=== PATIENT | male | born 1940 | race Caucasian/White ===

== ENCOUNTER 2021-12-24 20:34 | Inpatient (IN) | payer OTHER ==
[~2021-12-24] VITALS: Ht 177 cm; Wt 82.0 kg
[2021-12-24 23:25] VITALS: BP 112/63
--- OUTSIDE RECORDS SUMMARY | 2021-12-24 23:35 | XMS REPORT | Encounter Summary ---
Author Author Department [facility] RENEE emerson Organization [facility] Address Unknown Phone Unavailable Care Team Providers Care Senior Electrical Engineer Name Role Phone DARIN ELY PCP Unavailable Insurance Providers: All historical and current Section Date Range: From patient's date of to the date document was create d. This section includes the names of all active insurance providers for the hanane calvin Insurance Provider Type of Coverage Plan Name Start of Policy Co verage End of Policy Coverage Group Number Member ID Insurance Provider's Telephone N umber Policy Fisher's Name Patient's Relationship to Policy Fisher MEDICAID (WNR) MEDICAID MEDICAID Nov 03, 2014 MEDICAID [id number] [phone] ARRIAGARAERENEE PATIENT MEDICARE (WNR) MEDICARE (M) PART B Feb 02, 2020 PART B [id number] ARRIAGARENEE PATIENT MEDICARE (WNR) MEDICARE (M) PART A Jan 01, 2006 PART A [id number] BARTRAERENEE PATIENT MEDICARE (WNR) MEDICARE (M) PART A Jan 01, 2006 PART A [id number] [phone] RENEE ARRIAGA PATIENT Selected Encounter This section includes the information on record at [place] for the Encounter. Date/Time Encounter Type Encounter Description Reason Provider Source Jan 01, 2021 01:08 PM Outpatient Encounter ADMIN PAT ACTIVTIES (MASNO NCT) IHE Encounter Template Text not used by [place] Assessments - Encounter Diagnoses No Data Provided for This Section Plan of Treatment: Future Appointments (+ 6 months) and Future Tests (+/- 45 day s) The Plan of Treatment section includes future care activities for the patient fr om all [place] treatment facilities. This section includes future appointments and fu ture orders which are active, pending or scheduled. Future Appointments This section includes appointments that were scheduled t o occur 6 months from the date of the Encounter, up to a maximum of 20 appointme nts. The data comes from all [facility]. Appointment Date/Time Appointment Type Appointment Facili ty Name Jan 05, 2021 11:45 AM [facility] Feb 02, 2021 11:00 AM [facility] Feb 02, 2021 11:45 AM [facility] Jun 20, 2021 11:15 AM [facility] Jun 28, 2021 01:30 PM [facility] Jun 28, 2021 02:00 PM [facility] Jun 28, 2021 02:30 PM AMBULATORY - NONE [facility] Active, Pending, and Scheduled Orders This section includes a listing of several types of activ e, pending, and scheduled orders, including clinic medications orders, diagnosti c test orders, procedure orders and consult orders; where the start date of th e order is 45 days before the date of the Encounter or 45 days after the date o f the Encounter. The data comes from all [facility]. Test Date/Time Test Type Test Details Facility Name Feb 01, 2021 12:00 AM Laboratory - Chemistry Order COVID-19 DIAGNOSTIC (RESP PANEL) NASOPHARYNGEAL SWAB NASOPHARYNX SP [facility] Surgical Procedures: All associated to the encounter No Data Provided for This Section Lab Results: +/- 30 days of the encounter This section includes the Chemistry and Hematology Lab R esults on record with [place] for the patient. Radiology Reports and Pathology Report s are provided separately, in subsequent sections. Lab Results This section contains the Chemistry/Hematology Results christina t were resulted 30 days before or 30 days after the date of the Encounter. Date/Time Source Result Type Result - Unit Interpretation Reference Range Comment Dec 26, 2020 01:48 PM [facility] MICROALBUMIN (PETR,WI) RANDO M URINE Specimen Type: URINE Comment: Unable to perform calculation - Missing required test results Ordering Provider: DARIN ELY Report Released Date/Time: Dec 21, 2020 08:23 AM Reporting Lab: [facility] [address] [facility] [address] Performing Lab: [facility], [facility] [address] [facility] [address] *MICROALBUMIN,RAND <5 ug/mL *MICROALB/CREAT comment *UR CREATININE 43.6 mg/dL Dec 26, 2020 01:37 PM [facility] HEMOGLOBIN A1C Specimen T ype: BLOOD No comment entered. Ordering Provider: DARIN ELY Report Released Date/Time: Dec 21, 2020 08:23 AM Reporting Lab: [facility], [facility] [address] [facility] [address] Performing Lab[facility] [address] [facility] [address] HEMOGLOBIN A1C 7.1 % H 4.0-6.0 Dec 26, 2020 01:37 PM [facility] LDL DIRECT PETR,EK,WI Speci men Type: PLASMA No comment entered. Ordering Provider: DARIN ELY Report Released Date/Time: Dec 21, 2020 08:23 AM Reporting Lab: [facility], [facility] [address] [facility] [address] Performing Lab: [facility] [address] [facility] [address] LDL DIRECT PETR,EK,WI 97 mg/dL 0-99 Dec 26, 2020 01:37 PM [facility] CBC & DIFF Specimen T ype: BLOOD No comment entered. Ordering Provider: DARIN ELY Report Released Date/Time: Dec 21, 2020 08:23 AM Reporting Lab: [facility], [facility] [address] [facility] [address] Performing Lab: [facility] [address] [facility] [address] WBC 10.32 K/cmm 3.60-11.20 RBC 4.56 M/ul 4.10-5.70 HGB 13.2 g/dL 13.1-16.8 HCT 41.4 % 38.2-48.4 MCV 90.8 fl 80.1-98.5 MCH 28.9 pg 27.0-34.0 MCHC 31.9 g/dL L 33.0-36.0 PLATELET COUNT 323 K/cmm 150-400 MPV 10.3 fl 7.5-11.2 RDW 14.1 % 11.8-15.1 LYMPHOCYTES, AUTO% 23.6 % NEUTROPHILS, AUTO % 62.8 % MONOCYTES, AUTO% 10.6 % MONOCYTES, ABSOLUTE 1.09 K/cmm H 0.19-0.80 NEUTROPHILS, ABSOLUTE 6.48 K/cmm 2.10-8. 00 EOSINOPHILS, ABSOLUTE 0.20 K/cmm 0.00-0. 60 BASOPHILS, ABSOLUTE 0.04 K/cmm 0.00-0.20 EOSINOPHILS, AUTO% 1.9 % BASOPHILS, AUTO% 0.4 % LYMPHOCYTES, ABSOLUTE 2.44 K/cmm 0.77-4. 50 IMMATURE GRANS, ABSOLUTE 0.07 K/cmm H 0.00 -0.05 IMMATURE GRANS, AUTO % 0.7 % Dec 26, 2020 01:37 PM [facility] COMPREHENSIVE METABOLIC PA OFE Specimen Type: PLASMA No comment entered. Ordering Provider: DARIN ELY Report Released Date/Time: Dec 21, 2020 08:23 AM Reporting Lab: [facility] [address] [facility] [address] Performing Lab: [facility] [address] [facility] [id number] UREA NITROGEN mg/dL 22 mg/dL 9-25 GLUCOSE 112 mg/dL H 72-99 SODIUM 134 mEq/L L 136-145 POTASSIUM 5.0 mEq/L 3.5-5.0 CALCIUM (mg/dL) 10.0 mg/dL 8.4-10.4 PROTEIN,TOTAL 7.2 g/dL 6.0-8.6 ALBUMIN 3.7 g/dL 3.4-5.0 TOTAL BILIRUBIN 0.5 mg/dL 0.2-1.2 ASPARTATE TRANSAMINASE 11 U/L 5-34 ALANINE AMINOTRANSFERASE 8 U/L 8-40 ANION GAP 9.0 8-16 CHLORIDE 96 mEq/L L 98-107 CO2 29 mEq/L 22-31 ALKALINE PHOSPHATASE 64 U/L 40-150 EGFR 43.1 *CREATININE 1.56 mg/dL H 0.7-1.3 Dec 26, 2020 01:37 PM [facility] TSH Specimen T ype: SERUM No comment entered. Ordering Provider: DARIN ELY Report Released Date/Time: Dec 21, 2020 08:23 AM Reporting Lab: [facility] [address] [facility] [address] Performing Lab: [facility] [address] [facility] [address] TSH 4.605 uIU/mL 0.47-5.00 Dec 26, 2020 01:37 PM [facility] T4 FREE Specimen T ype: SERUM No comment entered. Ordering Provider: DARIN ELY Report Released Date/Time: Dec 21, 2020 08:23 AM Reporting Lab: [facility] [address] [facility] [address] Performing Lab: [facility] [address] [facility] [address] T4 FREE 1.25 ng/dL 0.70-1.48 Vital Signs: All taken on the encounter date No Data Provided for This Section Immunizations: All administered on the encounter date No Data Provided for This Section Social History: Smoking Status (Most current) and Tobacco Use (All prior to enco unter date) No Data Provided for This Section Advance Directives: All historical and current Section Date Range: From patient's date of to the date document was create d. This section includes ALL of a patient's completed or amen ded [place] Advance and Rescinded Directives. The entries below indicate that a direc tive exists for the patient, but an actual copy is not included with this docume nt. The data comes from all [place] facilities. Date Advance Directives Provider Source May 29, 2011 ADVANCE DIRECTIVE DISCUSSION VILLA CINTRON [facility] Dec 02, 2008 CLINICAL WARNING YASMIN PRADAHN [facility] [place] [facility] Radiology Reports: +/- 30 days of the encounter No Data Provided for This Section Pathology Reports: +/- 30 days of the encounter No Data Provided for This Section Encounter Notes: All associated encounter notes This section contains the clinical notes associated to the Encounter. Date/Time Encounter Note(s) Provider Source Jan 01, 2021 01:08 PM ADMINISTRATIVE NOTE: LOCAL TITLE: PETR-ADMINISTRATIVE NOTE STANDARD TITLE: ADMINISTRATIVE NOTE DATE OF NOTE: JAN 01, 2021@13:08 ENTRY DATE: JAN 01, 2021@13:08:05 AUTHOR: SELWYN LYNN EXP COSIGNER: URGENCY: STATUS: COMPLETED Attempted to contact patient with lab results, no answer and does not have voice mail set up. Will try again later. /sasha/ Selwyn LYNN LPN Signed: 01/01/2021 13:08 SELWYN LYNN [facility], [facility] [address]
--- OUTSIDE RECORDS SUMMARY | 2021-12-24 23:35 | XMS REPORT | Encounter Summary ---
Author Author [facility] RENEE emerson Organization [facility] Address Unknown Phone Unavailable Care Team Providers Care Rehabilitation Tech Name Role Phone DARIN ELY PCP Unavailable [...] (WNR) MEDICAID MEDICAID Nov 03, 2014 MEDICAID [id number] [phone] RENEE ARRIAGA PATIENT MEDICARE (WNR) MEDICARE (M) PART B Feb 02, 2020 PART B [id number] RENEE ARRIAGA PATIENT MEDICARE (WNR) MEDICARE (M) PART A Jan 01, 2006 PART A [id number] RENEE ARRIAGA PATIENT MEDICARE (WNR) MEDICARE (M) PART A Jan 01, 2006 PART A [id number] ARRIAGARENEE PATIENT Selected Encounter This section includes the information on record at [place] for the Encounter. Date/Time Encounter Type Encounter Description Reason Provider Source Dec 26, 2020 11:00 AM Outpatient Encounter PRIMARY CARE/MEDICINE IHE Encounter Template Text not used by [facility] Assessments - Encounter Diagnoses No Data Provided for This Section Plan of Treatment: Future Appointments (+ 6 months) and Future Tests (+/- 45 day s) The Plan of Treatment section includes future care activities for the patient fr om all [place] treatment facilities. This section includes future appointments and fu ture orders which are active, pending or scheduled. Future Appointments This section includes appointments that were scheduled t o occur 6 months from the date of the Encounter, up to a maximum of 20 appointme nts. The data comes from all [facility]. Appointment Date/Time Appointment Type Appointment Facili ty Name Dec 28, 2020 10:30 AM AMBULATORY - MEDICINE [facility] Jan 05, 2021 11:45 AM AMBULATORY - MEDICINE [facility] Feb 02, 2021 11:00 AM AMBULATORY - MEDICINE [facility] Feb 02, 2021 11:45 AM AMBULATORY - MEDICINE [facility] Jun 20, 2021 11:15 AM AMBULATORY - MEDICINE [facility] Active, Pending, and Scheduled Orders This section [...] the Encounter. The data comes from all [facility]. Test Date/Time Test Type Test Details Facility Name Feb 01, 2021 12:00 AM Laboratory - Chemistry Order COVID-19 DIAGNOSTIC (RESP PANEL) NASOPHARYNGEAL SWAB NASOPHARYNX SP [facility] Surgical Procedures: All associated to the encounter No Data Provided for This Section Lab Results: +/- 30 days of the encounter This section includes the Chemistry and Hematology Lab R esults on record with [place] for the patient. Radiology Reports and Pathology Report s are provided separately, in subsequent sections. Lab Results This section contains the Chemistry/Hematology Results christina t were resulted 30 days before or 30 days after the date of the Encounter. Date/Time Source Result Type Result - Unit Interpretation Reference Range Comment Dec 26, 2020 01:48 PM [facility] MICROALBUMIN (PETR,WI) RATNA M URINE Specimen Type: URINE Comment: Unable to perform calculation - Missing required test results Ordering Provider: DARIN ELY Report Released Date/Time: Dec 21, 2020 08:23 AM Reporting Lab: [facility] [address] [facility] [address] Performing Lab: [facility] [address] [facility] [address] *MICROALBUMIN,RAND <5 ug/mL *MICROALB/CREAT comment *UR CREATININE 43.6 mg/dL Dec 26, 2020 01:37 PM [facility] HEMOGLOBIN A1C Specimen T ype: BLOOD No comment entered. Ordering Provider: DARIN ELY Report Released Date/Time: Dec 21, 2020 08:23 AM Reporting Lab: [facility] [address] [facility] [address] Performing Lab: [facility] [address] [facility] [address] HEMOGLOBIN A1C 7.1 % H 4.0-6.0 Dec 26, 2020 01:37 PM [facility] LDL DIRECT PETR,EK,WI Speci men Type: PLASMA No comment entered. Ordering Provider: DARIN ELY Report Released Date/Time: Dec 21, 2020 08:23 AM Reporting Lab: [facility] [address] [facility] [address] Performing Lab: [facility] [address] [facility] [address] LDL DIRECT PETR,EK,WI 97 mg/dL 0-99 Dec 26, 2020 01:37 PM [facility] CBC & DIFF Specimen T ype: BLOOD No comment entered. Ordering Provider: DARIN ELY Report Released Date/Time: Dec 21, 2020 08:23 AM Reporting Lab: [facility] [address] [facility] [address] Performing Lab: [facility] [address] [facility] [address] WBC 10.32 K/cmm 3.60-11.20 RBC 4.56 M/ul [...] 0.7 % Dec 26, 2020 01:37 PM [facility] COMPREHENSIVE METABOLIC PA OFE Specimen Type: PLASMA No comment entered. Ordering Provider: DARIN ELY Report Released Date/Time: Dec 21, 2020 08:23 AM Reporting Lab: [facility] [address] [facility] [address] Performing Lab: [facility] [address] [place] [address] UREA NITROGEN mg/dL 22 mg/dL 9-25 GLUCOSE [...] H 0.7-1.3 Dec 26, 2020 01:37 PM [facility] TSH Specimen T ype: SERUM No comment entered. Ordering Provider: DARIN ELY Report Released Date/Time: Dec 21, 2020 08:23 AM Reporting Lab: [facility] [address] [facility] [address] Performing Lab: [facility] [address] [facility] [address] TSH 4.605 uIU/mL 0.47-5.00 Dec 26, 2020 01:37 PM [facility] T4 FREE Specimen T ype: SERUM No comment entered. Ordering Provider: DARIN ELY Report Released Date/Time: Dec 21, 2020 08:23 AM Reporting Lab: [facility] [address] [facility] [address] Performing Lab: [facility] [address] [facility] [address] T4 FREE 1.25 ng/dL 0.70-1.48 Vital Signs: All taken on the encounter date No Data Provided for This Section Immunizations: All administered on the encounter date No Data Provided for This Section Social History: Smoking Status (Most current) and Tobacco Use (All prior to enco unter date) This section includes the most current, and the historical, smoking and tobacco- related health factors from the [place] facility where the Encounter took place. Current Smoking Status This section includes the most current smoking, or tobacco -related health factor, from the [place] facility where the Encounter took place. Date/Time Current Smoking Status Comment Facility Jun 29, 2020 09:00 AM VA-TOBACCO USER EVERY DAY [facility] Tobacco Use History This section includes a history of the smoking, or tobacco -related health factors, that were collected on or before the date of the Encoun ter. The data comes from the [place] facility where the Encounter took place. Date/Time Smoking Status/Tobacco Use Comment Facil ity Jun 29, 2020 09:00 AM VA-TOBACCO USE ADVICE [facility] Jun 29, 2020 09:00 AM VA-TOBACCO USE EXPERIMENTAL WELDER NO [facility] Jun 29, 2020 09:00 AM VA-TOBACCO USE MED NO [facility] Jun 29, 2020 09:00 AM VA-TOBACCO USE WI 30 MIN OF WAKEUP N [facility] Jun 29, 2020 09:00 AM VA-TOBACCO USER EVERY DAY [facility] Jul 21, 2019 11:05 AM VA-TOBACCO USE 30 YEARS OR MORE [facility] Jul 21, 2019 11:05 AM VA-TOBACCO USE ADVICE [facility] Jul 21, 2019 11:05 AM VA-TOBACCO USE EXPERIMENTAL WELDER NO [facility] Jul 21, 2019 11:05 AM VA-TOBACCO USE MED NO [facility] Jul 21, 2019 11:05 AM VA-TOBACCO USE WI 30 MIN OF WAKEUP N [facility] Jul 21, 2019 11:05 AM VA-TOBACCO USER EVERY DAY [facility] Jun 29, 2018 01:31 PM CURRENT TOBACCO USER [facility] Jun 29, 2018 01:31 PM CURRENT TOBACCO USER (NOT READY TO RAJI T) [facility] Jun 29, 2018 01:31 PM TOBACCO CESSATION REFERRAL DECLINED [facility] Jun 29, 2018 01:31 PM TOBACCO MEDS OFFERED BUT DECLINED NE [facility] Jun 29, 2018 01:31 PM [facility] Dec 26, 2017 09:02 AM CURRENT TOBACCO USER [facility] Dec 26, 2017 09:02 AM CURRENT TOBACCO USER (NOT READY TO RAJI T) [facility] Dec 26, 2017 09:02 AM TOBACCO CESSATION REFERRAL DECLINED [facility] Dec 26, 2017 09:02 AM TOBACCO MEDS OFFERED BUT DECLINED [facility] Dec 26, 2017 09:02 AM TOBACCO USER OFFERED MEDS [facility] May 23, 2017 03:35 PM CURRENT TOBACCO USER [facility] May 23, 2017 03:35 PM CURRENT TOBACCO USER (NOT READY TO RAJI T) [facility] May 23, 2017 03:35 PM TOBACCO CESSATION REFERRAL DECLINED [facility] May 23, 2017 03:35 PM TOBACCO MEDS OFFERED BUT DECLINED [facility] May 23, 2017 03:35 PM TOBACCO USER OFFERED MEDS [facility] Apr 24, 2017 02:27 PM CURRENT TOBACCO USER [facility] Apr 24, 2017 02:27 PM TOBACCO MEDS OFFERED BUT DECLINED [facility] Apr 24, 2017 02:27 PM TOBACCO OFFERED STOP SMOKING CLINIC [facility] March 14, 2017 02:05 PM CURRENT TOBACCO USER [facility] March 14, 2017 02:05 PM TOBACCO MEDS OFFERED BUT DECLINED [facility] March 14, 2017 02:05 PM TOBACCO OFFERED STOP SMOKING CLINIC [facility] Apr 23, 2016 06:08 AM CURRENT TOBACCO USER [facility] Oct 18, 2015 06:02 AM CURRENT TOBACCO USER [facility] Apr 05, 2015 06:12 AM CURRENT TOBACCO USER [facility] Sep 14, 2014 06:21 AM CURRENT TOBACCO USER [facility] Dec 11, 2012 09:31 AM TOBACCO OFFERED STOP SMOKING CLINIC [facility] Dec 11, 2012 09:31 AM TOBACCO OFFERED STOP SMOKING MEDS NE [facility] Apr 16, 2012 12:53 PM CURRENT TOBACCO USER [facility] Jul 01, 2011 01:01 PM TOBACCO OFFERED STOP SMOKING CLINIC [facility] Jul 01, 2011 01:01 PM TOBACCO OFFERED STOP SMOKING MEDS NE [facility] Advance Directives: All historical and current Section Date Range: From patient's date of to the date document was create d. This section includes ALL of a patient's completed or amen ded [place] Advance and Rescinded Directives. The entries below indicate that a direc tive exists for the patient, but an actual copy is not included with this docume nt. The data comes from all [place] facilities. Date Advance Directives Provider Source May 29, 2011 ADVANCE DIRECTIVE DISCUSSION VILLA CINTRON [facility] Dec 02, 2008 CLINICAL WARNING YASMIN PRADHAN [facility] [place] [facility] Radiology Reports: +/- 30 days of the encounter No Data Provided for This Section Pathology Reports: +/- 30 days of the encounter No Data Provided for This Section Encounter Notes: All associated encounter notes This section contains the clinical notes associated to the Encounter. Date/Time Encounter Note(s) Provider Source Dec 25, 2020 03:35 PM ADMINISTRATIVE NOTE: LOCAL TITLE: PETR-APPT REMINDER STANDARD TITLE: ADMINISTRATIVE NOTE DATE OF NOTE: DEC 25, 2020@15:35 ENTRY DATE: DEC 25, 2020@15:35:30 AUTHOR: JARRED KATE EXP COSIGNER: URGENCY: STATUS: COMPLETED Reminder call placed to [place] at number of record this date. ___ with direct contact with and his/her agreement to present as scheduled; ___ Message left for regarding scheduled appointment _x__ Unable to establish contact. no answer and no vm /sasha/ JARRED KATE [employer] PLANT RELIABILITY ENGINEER Signed: 12/25/2020 15:36 JARRED KATE [facility]
--- OUTSIDE RECORDS SUMMARY | 2021-12-24 23:36 | XMS REPORT | Encounter Summary ---
Author Author Department [facility] RENEE emerson Organization Department [facility] Address Unknown Phone Unavailable Care Team Providers Care Turkey Farmer Name Role Phone DARIN ELY PCP Unavailable [...] (WNR) MEDICAID MEDICAID Nov 03, 2014 MEDICAID [id number] [phone] RENEE ARRIAGA PATIENT MEDICARE (WNR) MEDICARE (M) PART B Feb 02, 2020 PART B [id number] ARRIAGARAERENEE PATIENT MEDICARE (WNR) MEDICARE (M) PART A Jan 01, 2006 PART A [id number] ARRIAGARAERENEE PATIENT MEDICARE (WNR) MEDICARE (M) PART A Jan 01, 2006 PART A [id number] RENEE ARRIAGA PATIENT Selected Encounter This section includes the information on record at [place] for the Encounter. Date/Time Encounter Type Encounter Description Reason Provider Source Feb 15, 2021 02:05 PM Outpatient Encounter ADMIN PAT ACTIVTIES (MASNO NCT) IHE Encounter Template Text not used by [place] Assessments - Encounter Diagnoses No Data Provided for This Section Plan of Treatment: Future Appointments (+ 6 months) and Future Tests (+/- 45 day s) The Plan of Treatment section includes future care activities for the patient fr om all [place] treatment facilities. This section includes future appointments and fu ture orders which are active, pending or scheduled. Future Appointments This section includes appointments that were scheduled t o occur 6 months from the date of the Encounter, up to a maximum of 20 appointme nts. The data comes from all [facility]. Appointment Date/Time Appointment Type Appointment Facili ty Name Jun 20, 2021 11:15 AM AMBULATORY - MEDICINE [facility] Jun 28, 2021 01:30 PM AMBULATORY - MEDICINE [facility] Jun 28, 2021 02:00 PM AMBULATORY - MEDICINE [facility] Jun 28, 2021 02:30 PM AMBULATORY - NONE [facility] Jul 12, 2021 11:15 AM AMBULATORY - MEDICINE [facility] Jul 13, 2021 10:00 AM AMBULATORY - NONE [facility] T, V[facility] 15 Jul 23, 2021 03:20 PM AMBULATORY - NONE [facility], [facility] 15 Active, Pending, and Scheduled Orders This section [...] the Encounter. The data comes from all [facility]. Test Date/Time Test Type Test Details Facility Name Feb 01, 2021 12:00 AM Laboratory - Chemistry Order COVID-19 DIAGNOSTIC (RESP PANEL) NASOPHARYNGEAL SWAB NASOPHARYNX SP [facility] Surgical Procedures: All associated to the encounter No Data Provided for This Section Lab Results: +/- 30 days of the encounter This section includes the Chemistry and Hematology Lab R esults on record with [place] for the patient. Radiology Reports and Pathology Report s are provided separately, in subsequent sections. Lab Results This section contains the Chemistry/Hematology Results christina t were resulted 30 days before or 30 days after the date of the Encounter. Date/Time Source Result Type Result - Unit Interpretation Reference Range Comment Feb 02, 2021 10:31 AM [facility] BASIC METABOLIC PANEL Spe cimen Type: PLASMA No comment entered. Ordering Provider: DARIN ELY Report Released Date/Time: Dec 31, 2020 04:49 AM Reporting Lab: [facility] [address] [facility] [address] Performing Lab: [facility] [address] [facility] [address] *CREATININE 1.70 mg/dL H 0.7-1.3 UREA NITROGEN mg/dL 29 mg/dL H 9-25 GLUCOSE 110 mg/dL H 72-99 SODIUM 135 mEq/L L 136-145 POTASSIUM 5.0 mEq/L 3.5-5.0 CALCIUM (mg/dL) 9.6 mg/dL 8.4-10.4 ANION GAP 10.0 8-16 CHLORIDE 98 mEq/L 98-107 CO2 27 mEq/L 22-31 EGFR 39.0 Vital Signs: All taken on the encounter [...] of a patient's completed or amen ded [place] Advance and Rescinded Directives. The entries below indicate that a direc tive exists for the patient, but an actual copy is not included with this docume nt. The data comes from all [place] facilities. Date Advance Directives Provider Source May 29, 2011 ADVANCE DIRECTIVE DISCUSSION VILLA CINTRON [facility] Dec 02, 2008 CLINICAL WARNING YASMIN PRADHAN [facility] Radiology Reports: +/- 30 days of the encounter No Data Provided for This Section Pathology Reports: +/- 30 days of the encounter No Data Provided for This Section Encounter Notes: All associated encounter notes This section contains the clinical notes associated to the Encounter. Date/Time Encounter Note(s) Provider Source Feb 15, 2021 02:05 PM ADMINISTRATIVE NOTE: LOCAL TITLE: PETR-TEST RESULTS STANDARD TITLE: ADMINISTRATIVE NOTE DATE OF NOTE: FEB 15, 2021@14:05 ENTRY DATE: FEB 15, 2021@14:05:25 AUTHOR: SELWYN LYNN EXP COSIGNER: URGENCY: STATUS: COMPLETED Called and spoke to patient's Daughter Adrian relayed "Recheck creat elevated, 1.7, stable K+ okay, 5.0, high normal. Avoid high K+ foods, do not take any K+ supplements Remainder of lab okay Please notify patient." She verbalized understanding and will let patient know of results and recommendations. /sasha/ Selwyn LYNN LPN Signed: 02/15/2021 14:06 SELWYN LYNN [facility], [facility] 15
--- OUTSIDE RECORDS SUMMARY | 2021-12-24 23:36 | XMS REPORT | Encounter Summary ---
Author Author Department [facility] RENEE emerson Organization [facility] Address Unknown Phone Unavailable Care Team Providers Care Conversion Developer Name Role Phone DARIN ELY PCP Unavailable [...] (WNR) MEDICAID MEDICAID Nov 03, 2014 MEDICAID [id number] [phone] RAE ARRIAGAIL PATIENT MEDICARE (WNR) MEDICARE (M) PART B Feb 02, 2020 PART B [id number] ARRIAGARENEE PATIENT MEDICARE (WNR) MEDICARE (M) PART A Jan 01, 2006 PART A [id number] BARTRAERENEE PATIENT MEDICARE (WNR) MEDICARE (M) PART A Jan 01, 2006 PART A [id number] RENEE ARRIAGA PATIENT Selected Encounter This section includes the information on record at [place] for the Encounter. Date/Time Encounter Type Encounter Description Reason Provider Source Feb 01, 2021 08:18 AM Outpatient Encounter ADMIN PAT ACTIVTIES (MASNO NCT) [...] appointme nts. The data comes from all [facility]. Appointment Date/Time Appointment Type Appointment Facili ty Name Feb 02, 2021 11:00 AM AMBULATORY - MEDICINE [facility] Feb 02, 2021 11:45 AM AMBULATORY - MEDICINE [facility] Jun 20, 2021 11:15 AM AMBULATORY - MEDICINE [facility] Jun 28, 2021 01:30 PM AMBULATORY - MEDICINE [facility] Jun 28, 2021 02:00 PM AMBULATORY - MEDICINE [facility] Jun 28, 2021 02:30 PM AMBULATORY - NONE [facility] Jul 12, 2021 11:15 AM AMBULATORY MEDICINE [facility] Jul 13, 2021 10:00 AM AMBULATORY - NONE [facility] T, V[facility]N 15 Jul 23, 2021 03:20 PM AMBULATORY - NONE [facility] T, [facility] 15 Active, Pending, and Scheduled Orders [...] the Encounter. The data comes from all [facility]. Test Date/Time Test Type Test Details Facility Name Feb 01, 2021 12:00 AM Laboratory - Chemistry Order COVID-19 DIAGNOSTIC (RESP PANEL) NASOPHARYNGEAL SWAB NASOPHARYNX SP [facility] Surgical Procedures: All associated to the [...] Range Comment Feb 02, 2021 10:31 AM [facility] BASIC METABOLIC PANEL Spe cimen Type: PLASMA No comment entered. Ordering Provider: DARIN ELY Report Released Date/Time: Dec 31, 2020 04:49 AM Reporting Lab: [facility] [address] [facility] [address] Performing Lab: [facility] [address] [facility] [address] *CREATININE 1.70 mg/dL H 0.7-1.3 UREA NITROGEN [...] 29, 2011 ADVANCE DIRECTIVE DISCUSSION VILLA CINTRON [facility] Dec 02, 2008 CLINICAL WARNING YASMIN PRADHAN [facility] [place] [facility] Radiology Reports: +/- 30 days of the encounter No Data Provided for This Section Pathology Reports: +/- 30 days of the encounter No Data Provided for This Section Encounter Notes: All associated encounter notes This section contains the clinical notes associated to the Encounter. Date/Time Encounter Note(s) Provider Source Feb 01, 2021 08:18 AM ADMINISTRATIVE NOTE: LOCAL TITLE: PETR-ADMINISTRATIVE NOTE STANDARD TITLE: ADMINISTRATIVE NOTE DATE OF NOTE: FEB 01, 2021@08:18 ENTRY DATE: FEB 01, 2021@08:18:29 AUTHOR: UNIQUE PHILLIP EXP COSIGNER: URGENCY: STATUS: COMPLETED Attempt to contact patient was unsuccessful. Message left for to phone [facility] clinic and contact information left with message. /sasha/ UNIQUE PHILLIP RN, BSN Signed: 02/01/2021 08:18 UNIQUE PHILLIP [facility], [facility] 15
--- OUTSIDE RECORDS SUMMARY | 2021-12-24 23:36 | XMS REPORT | Encounter Summary ---
Author Author Department [facility] RENEE emerson Organization [facility] Address Unknown Phone Unavailable Care Team Providers Care Calculus Professor Name Role Phone DARIN ELY PCP Unavailable [...] (WNR) MEDICAID MEDICAID Nov 03, 2014 MEDICAID [id number] [phone] RAE ARRIAGAIL PATIENT MEDICARE (WNR) MEDICARE (M) PART B Feb 02, 2020 PART B [id number] ARRIAGARENEE PATIENT MEDICARE (WNR) MEDICARE (M) PART A Jan 01, 2006 PART A [id number] BARTRAERENEE PATIENT MEDICARE (WNR) MEDICARE (M) PART A Jan 01, 2006 PART A [id number] RENEE ARRIAGA PATIENT Selected Encounter This section includes the information on record at [place] for the Encounter. Date/Time Encounter Type Encounter Description Reason Provider Source Jul 24, 2021 03:38 PM Outpatient Encounter ADMIN PAT ACTIVTIES (MASNO NCT) IHE Encounter Template Text not used by [place] Assessments - Encounter Diagnoses No Data Provided for This Section Plan of Treatment: Future Appointments (+ 6 months) and Future Tests (+/- 45 day s) The Plan of Treatment section includes future care activities for the patient fr om all [place] treatment facilities. This section includes future appointments and fu ture orders which are active, pending or scheduled. Future Appointments This section includes appointments that were scheduled t o occur 6 months from the date of the Encounter, up to a maximum of 20 appointme nts. The data comes from all [facility]. Appointment Date/Time Appointment Type Appointment Facili ty Name Aug 29, 2021 11:15 AM AMBULATORY - MEDICINE [facility] Sep 25, 2021 12:30 PM AMBULATORY - MEDICINE [facility] Oct 09, 2021 12:30 PM AMBULATORY - MEDICINE [facility] Oct 30, 2021 11:00 AM AMBULATORY - MEDICINE [facility] Dec 10, 2021 10:00 AM [facility] Dec 25, 2021 10:45 AM AMBULATORY - MEDICINE [facility] Dec 27, 2021 01:30 PM [facility] MEDICINE [facility] Active, Pending, and Scheduled Orders This [...] The data comes from all [facility]. Test Date/Time Test Type Test Details Facility Name Jun 28, 2021 02:58 PM Consult Order COMMUNITY CARE- PULMONARY Cons [employer] [facility] Surgical Procedures: All associated to the encounter No Data Provided for This Section Lab Results: +/- 30 days of the encounter This section includes the Chemistry and Hematology Lab R esults on record with [place] for the patient. Radiology Reports and Pathology Report s are provided separately, in subsequent sections. Lab Results This section contains the Chemistry/Hematology Results christina t were resulted 30 days before or 30 days after the date of the Encounter. Date/Time Source Result Type Result - Unit Interpretation Reference Range Comment Jul 12, 2021 11:01 AM [facility] URINALYSIS (PETR) Specimen Type: URINE No comment entered. Ordering Provider: DARIN ELY Report Released Date/Time: Jun 20, 2021 07:48 AM Reporting Lab: [facility] [address] [facility] [address] Performing Lab: [facility] [address] [facility] [address] *URINE COLOR Yellow *URINE APPEARANCE Clear Clear *URINE PROTEIN Trace mg/dL Negative-Trac e *URINE LEUKOCYTE 1+ H Negative *URINE NITRITE Negative Negative *URINE BLOOD Negative Negative *URINE GLUCOSE Negative mg/dL Negative *URINE KETONES Negative mg/dL Negative *URINE PH 6.5 5.0-8.0 *URINE SPECIFIC GRAVITY 1.021 1.005- 1.030 *URINE BILIRUBIN Negative Negative *URINE UROBILINOGEN Normal mg/dL Normal *URINE WBC/HPF 11-15 /HPF H 0-5 *URINE RBC/HPF 3-5 /HPF H 0-2 *URINE BACTERIA TRACE /HPF H None *URINE SQUAMOUS EPITHELIAL 0-1 /HPF H Non e Jul 12, 2021 11:01 AM [facility] MICROALBUMIN (,[place]) RATNA M URINE Specimen Type: URINE No comment entered. Ordering Provider: DARIN ELY Report Released Date/Time: Jun 20, 2021 07:48 AM Reporting Lab: [facility] [address] [facility] [address] Performing Lab: [facility] [address] [facility] [address] *MICROALBUMIN,RAND 18 ug/mL *MICROALB/CREAT 12 *UR CREATININE 147.7 mg/dL Jul 12, 2021 11:01 AM [facility] BASIC METABOLIC PANEL Spe cimen Type: PLASMA No comment entered. Ordering Provider: DARIN ELY Report Released Date/Time: Jul 08, 2021 11:43 AM Reporting Lab: [facility] [address] [facility] [address] Performing Lab: [facility] [address] [facility] [address] *CREATININE 1.59 mg/dL H 0.7-1.3 UREA NITROGEN mg/dL 21 mg/dL 9-25 GLUCOSE 144 mg/dL H 72-99 SODIUM 135 mEq/L L 136-145 POTASSIUM 5.3 mEq/L H 3.5-5.0 CALCIUM (mg/dL) 9.7 mg/dL 8.4-10.4 ANION GAP 8.0 8-16 CHLORIDE 100 mEq/L 98-107 CO2 27 mEq/L 22-31 EGFR 42.1 Jun 28, 2021 02:11 PM [facility] BASIC METABOLIC PANEL Spe cimen Type: PLASMA No comment entered. Ordering Provider: DARIN ELY Report Released Date/Time: Jun 28, 2021 02:03 PM Reporting Lab: [facility] [address] [facility] [address] Performing Lab: [facility] [address] [facility] [address] *CREATININE 2.12 mg/dL H 0.7-1.3 UREA NITROGEN mg/dL 32 mg/dL H 9-25 GLUCOSE 156 mg/dL H 72-99 SODIUM 132 mEq/L L 136-145 POTASSIUM 5.6 mEq/L H 3.5-5.0 CALCIUM (mg/dL) 10.1 mg/dL 8.4-10.4 ANION GAP 7.0 L 8-16 CHLORIDE 98 mEq/L 98-107 CO2 27 mEq/L 22-31 EGFR 30.2 Jun 28, 2021 02:11 PM [facility] B-TYPE NATRIURETIC Specim en Type: PLASMA No comment entered. Ordering Provider: DARIN ELY Report Released Date/Time: Jun 28, 2021 02:03 PM Reporting Lab: [facility] [address] [facility] [address] Performing Lab: [facility] [address] [facility] [address] B-TYPE NATRIURETIC 40.8 pg/mL 0-100 Vital Signs: All taken on the encounter [...] of a patient's completed or amen ded [place] Advance and Rescinded Directives. The entries below indicate that a direc tive exists for the patient, but an actual copy is not included with this docume nt. The data comes from all [place] facilities. Date Advance Directives Provider Source May 29, 2011 ADVANCE DIRECTIVE DISCUSSION VILLA CINTRON [facility] Dec 02, 2008 CLINICAL WARNING YASMIN PRADHAN [facility] Radiology Reports: +/- 30 days of the encounter No Data Provided for This Section Pathology Reports: +/- 30 days of the encounter No Data Provided for This Section Encounter Notes: All associated encounter notes This section contains the clinical notes associated to the Encounter. Date/Time Encounter Note(s) Provider Source Jul 24, 2021 03:38 PM ADMINISTRATIVE NOTE: LOCAL TITLE: PETR-ADMINISTRATIVE NOTE STANDARD TITLE: ADMINISTRATIVE NOTE DATE OF NOTE: JUL 24, 2021@15:38 ENTRY DATE: JUL 24, 2021@15:38:39 AUTHOR: SELWYN LYNN EXP COSIGNER: URGENCY: STATUS: COMPLETED Called and left a message asking that patient return my call. Contact information left. /sasha/ Selwyn LYNN LPN Signed: 07/24/2021 15:38 SELWYN LYNN [facility] 15
--- OUTSIDE RECORDS SUMMARY | 2021-12-24 23:36 | XMS REPORT | Encounter Summary ---
Author Author Department [facility] RENEE emerson Organization [facility] Address Unknown Phone Unavailable Care Team Providers Care Container Filler Name Role Phone DARIN ELY PCP Unavailable [...] (WNR) MEDICAID MEDICAID Nov 03, 2014 MEDICAID [id number] [phone] RENEE ARRIAGA PATIENT MEDICARE (WNR) MEDICARE (M) PART B Feb 02, 2020 PART B [id number] ARRIAGARENEE PATIENT MEDICARE (WNR) MEDICARE (M) PART A Jan 01, 2006 PART A [id number] ARRIAGARAERENEE PATIENT MEDICARE (WNR) MEDICARE (M) PART A Jan 01, 2006 PART A [id number] RENEE ARRIAGA PATIENT Selected Encounter This section includes the information on record at [place] for the Encounter. Date/Time Encounter Type Encounter Description Reason Provider Source Jul 25, 2021 12:02 PM Outpatient Encounter ADMIN PAT ACTIVTIES (MASNO NCT) IHE Encounter Template Text not used by [place] Assessments - Encounter Diagnoses No Data Provided for This Section Plan of Treatment: Future Appointments (+ 6 months) and Future Tests (+/- 45 day s) The Plan of Treatment section includes future care activities for the patient fr om all [place] treatment facilities. This section includes future appointments and fu ture orders which are active, pending or scheduled. Future Appointments This section includes appointments that were scheduled t o occur 6 months from the date of the Encounter, up to a maximum of 20 appointme nts. The data comes from all [facility]. Appointment Date/Time Appointment Type Appointment Facili ty Name Aug 29, 2021 11:15 AM AMBULATORY - MEDICINE [facility] Sep 25, 2021 12:30 PM AMBULATORY - MEDICINE [facility] Oct 09, 2021 12:30 PM AMBULATORY - MEDICINE [facility] Oct 30, 2021 11:00 AM AMBULATORY - MEDICINE [facility] Dec 10, 2021 10:00 AM [facility] Dec 25, 2021 10:45 AM [facility]UL[facility] - MEDICINE [facility] Dec 27, 2021 01:30 PM [facility] MEDICINE [facility] Active, Pending, and Scheduled Orders This section [...] the Encounter. The data comes from all [facility]. Test Date/Time Test Type Test Details Facility Name Jun 28, 2021 02:58 PM Consult Order COMMUNITY CARE- PULMONARY Cons [employer] Inspector[employer] Choice [facility] Surgical Procedures: All associated to the encounter No Data Provided for This Section Lab Results: +/- 30 days of the encounter This section includes the Chemistry and Hematology Lab R esults on record with [place] for the patient. Radiology Reports and Pathology Report s are provided separately, in subsequent sections. Lab Results This section contains the Chemistry/Hematology Results christina t were resulted 30 days before or 30 days after the date of the Encounter. Date/Time Source Result Type Result - Unit Interpretation Reference Range Comment Jul 12, 2021 11:01 AM [facility] URINALYSIS (PETR) Specimen Type: URINE No comment entered. Ordering Provider: DARIN ELY Report Released Date/Time: Jun 20, 2021 07:48 AM Reporting Lab: [facility] [address] [facility] [address] Performing Lab: [facility] [address] [facility] [address] *URINE COLOR Yellow *URINE APPEARANCE Clear Clear [...] Non e Jul 12, 2021 11:01 AM [facility] MICROALBUMIN (,[place]) RATNA M URINE Specimen Type: URINE No comment entered. Ordering Provider: DARIN ELY Report Released Date/Time: Jun 20, 2021 07:48 AM Reporting Lab: [facility] [address] [facility] [address] Performing Lab: [facility] [address] [facility] [address] *MICROALBUMIN,RAND 18 ug/mL *MICROALB/CREAT 12 *UR CREATININE 147.7 mg/dL Jul 12, 2021 11:01 AM [facility] BASIC METABOLIC PANEL Spe cimen Type: PLASMA No comment entered. Ordering Provider: DARIN ELY Report Released Date/Time: Jul 08, 2021 11:43 AM Reporting Lab: [facility] [address] [facility] [address] Performing Lab: [facility] [address] [facility] [address] *CREATININE 1.59 mg/dL H 0.7-1.3 UREA NITROGEN [...] Jun 28, 2021 02:03 PM Reporting Lab: [facility] [address] [facility] [address] Performing Lab: [facility] [address] [facility] [address] *CREATININE 2.12 mg/dL H 0.7-1.3 UREA NITROGEN [...] Jun 28, 2021 02:03 PM Reporting Lab: [facility] [address] [facility] [address] Performing Lab: [facility] [address] [facility] [address] B-TYPE NATRIURETIC 40.8 pg/mL 0-100 Vital Signs: [...] of a patient's completed or amen ded [place] Advance and Rescinded Directives. The entries below indicate that a direc tive exists for the patient, but an actual copy is not included with this docume nt. The data comes from all [place] facilities. Date Advance Directives Provider Source May 29, 2011 ADVANCE DIRECTIVE DISCUSSION ABDULAZIZ,VILL[facility]GELA [facility] Dec 02, 2008 CLINICAL WARNING YASMIN PRADHAN [facility] Radiology Reports: +/- 30 days of the encounter No Data Provided for This Section Pathology Reports: +/- 30 days of the encounter No Data Provided for This Section Encounter Notes: All associated encounter notes This section contains the clinical notes associated to the Encounter. Date/Time Encounter Note(s) Provider Source Jul 25, 2021 12:02 PM ADMINISTRATIVE NOTE: LOCAL TITLE: PETR-TEST RESULTS STANDARD TITLE: ADMINISTRATIVE NOTE DATE OF NOTE: JUL 25, 2021@12:02 ENTRY DATE: JUL 25, 2021@12:02:21 AUTHOR: SELWYN LYNN EXP COSIGNER: URGENCY: STATUS: COMPLETED called and spoke to patient's Daughter Gloria relayed "Renal us as above already completed, shows renal cysts. Recommend to recheck bmp as above as recommended on renal consult. Lisinopril has been dc'd per renal consult. If no improvement in K+/renal function, can consider renal consult or resubmit an e consult. Please notify patient." She will let him know and reports they are agreeable to this plan. Will return for lab 08/14/2021@11:00 for repeat BMP. /sasha/ Selwyn LYNN LPN Signed: 07/25/2021 12:03 SELWYN LYNN [facility] 15
--- OUTSIDE RECORDS SUMMARY | 2021-12-24 23:37 | XMS REPORT | Encounter Summary ---
Author Author Department [facility] RENEE emerson Organization [facility] Address Unknown Phone Unavailable Care Team Providers Care Chief Order Dispatcher Name Role Phone DARIN ELY PCP Unavailable [...] (WNR) MEDICAID MEDICAID Nov 03, 2014 MEDICAID [id number] [phone] RAE ARRIAGAIL PATIENT MEDICARE (WNR) MEDICARE (M) PART B Feb 02, 2020 PART B [id number] [phone] ARRIAGARENEE PATIENT MEDICARE (WNR) MEDICARE (M) PART A Jan 01, 2006 PART A [id number] BARTRAERENEE PATIENT MEDICARE (WNR) MEDICARE (M) PART A Jan 01, 2006 PART A [id number] [phone] RENEE ARRIAGA PATIENT Selected Encounter This section includes the information on record at [place] for the Encounter. Date/Time Encounter Type Encounter Description Reason Provider Source Aug 24, 2021 01:38 PM Outpatient Encounter ADMIN PAT ACTIVTIES (MASNO NCT) IHE Encounter Template Text not used by [place] Assessments - Encounter Diagnoses No Data Provided for This Section Plan of Treatment: Future Appointments (+ 6 months) and Future Tests (+/- 45 day s) The Plan of Treatment section includes future care activities for the patient fr om all [place] treatment facilities. This section includes future appointments and fu ture orders which are active, pending or scheduled. Future Appointments This section includes appointments that were scheduled t o occur 6 months from the date of the Encounter, up to a maximum of 20 appointme nts. The data comes from all [place] treatment facilities. Appointment Date/Time Appointment Type Appointment Facili ty Name Aug 29, 2021 11:15 AM AMBULATORY - MEDICINE [facility] Sep 25, 2021 12:30 PM AMBULATORY - MEDICINE [facility] Oct 09, 2021 12:30 PM AMBULATORY - MEDICINE [facility] Oct 30, 2021 11:00 AM AMBULATORY - MEDICINE [facility] Dec 10, 2021 10:00 AM AMBULATORY - NONE [facility] T, [facility] 15 Dec 25, 2021 10:45 AM [facility] - MEDICINE [facility] Dec 27, 2021 01:30 PM [facility] MEDICINE [facility] Surgical Procedures: All associated to the encounter No Data Provided for This Section Lab Results: +/- 30 days of the encounter This section includes the Chemistry and Hematology Lab R esults on record with [place] for the patient. Radiology Reports and Pathology Report s are provided separately, in subsequent sections. Lab Results This section contains the Chemistry/Hematology Results christina t were resulted 30 days before or 30 days after the date of the Encounter. Date/Time Source Result Type Result - Unit Interpretation Reference Range Comment Aug 29, 2021 11:24 AM [facility] BASIC METABOLIC PANEL Spe cimen Type: PLASMA No comment entered. Ordering Provider: DARIN ELY Report Released Date/Time: Jul 14, 2021 11:57 AM Reporting Lab: [facility] [address] [facility] [address] Performing Lab: [facility] [address] [facility] [address] *CREATININE 1.37 mg/dL H 0.7-1.3 UREA NITROGEN mg/dL 17 mg/dL 9-25 GLUCOSE 116 mg/dL H 72-99 SODIUM 135 mEq/L L 136-145 POTASSIUM 4.7 mEq/L 3.5-5.0 CALCIUM (mg/dL) 9.8 mg/dL 8.4-10.4 ANION GAP 10.0 8-16 CHLORIDE 96 mEq/L L 98-107 CO2 29 mEq/L 22-31 EGFR 50.0 Vital Signs: All taken on the encounter [...] of a patient's completed or amen ded [place] Advance and Rescinded Directives. The entries below indicate that a direc tive exists for the patient, but an actual copy is not included with this docume nt. The data comes from all [place] facilities. Date Advance Directives Provider Source May 29, 2011 ADVANCE DIRECTIVE DISCUSSION [facility] Dec 02, 2008 CLINICAL WARNING YASMIN PRADHAN [facility] [place] [facility] Radiology Reports: +/- 30 days of the encounter No Data Provided for This Section Pathology Reports: +/- 30 days of the encounter No Data Provided for This Section Encounter Notes: All associated encounter notes This section contains the clinical notes associated to the Encounter. Date/Time Encounter Note(s) Provider Source Aug 24, 2021 01:39 PM LETTERS: LOCAL TITLE: PETR-UNABLE TO CONTACT PATIENT LETTER STANDARD TITLE: LETTERS DATE OF NOTE: AUG 24, 2021@13:39 ENTRY DATE: AUG 24, 2021@13:40:03 AUTHOR: RUTH GOLD COSIGNER: URGENCY: STATUS: COMPLETED Department of 's Affairs [facility] [address], [place] [address] AUG 24, 2021 RENEE ARRIAGA [address] [place], [place] [address] Dear RENEE ARRIAGA Please call us for an appointment. We have been trying to contact you to schedule an appointment at [place], but we were unsuccessful in reaching you by telephone. It is important to your health that you do not have delays in your care. Please contact us to schedule your appointment within 14 days from the date of this letter. Please call toll free or ext: [phone] Sincerely, PETR-RT [facility] [place] [facility] Aug 24, 2021 01:38 PM ADMINISTRATIVE NOTE: LOCAL TITLE: PETR-RETURN TO CLINIC STANDARD TITLE: ADMINISTRATIVE NOTE DATE OF NOTE: AUG 24, 2021@13:38 ENTRY DATE: AUG 24, 2021@13:38:07 AUTHOR: RUTH GOLD EXP COSIGNER: URGENCY: STATUS: COMPLETED CALLED TO SCHEDULE PETR-RT OUTPT JOSE ALBERTO FOR 3MONTH EVAL.UNABLE TO CONTACT THE . A HIPAA COMPLIANT MESSAGE WAS LEFT REQUESTING A CALL BACK AT EXT [phone] SENDING [facility] LETTER D/ C 09/07/2021 /sasha/ RUHT RUDOLPH Signed: 08/24/2021 13:39 RUTH GOLD [facility]
--- OUTSIDE RECORDS SUMMARY | 2021-12-24 23:37 | XMS REPORT | Encounter Summary ---
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 Date/Time Encounter Type Encounter Description Reason Provider Source Aug 24, 2021 08:32 AM Outpatient Encounter RESPIRATORY THERAPY IHE Encounter Template Text not used by [facility] Assessments - Encounter Diagnoses No Data Provided for This Section Plan of Treatment: Future Appointments (+ 6 months) and Future Tests (+/- 45 day s) The Plan of Treatment section includes future care activities for the patient fr om all [place] treatment facilities. This section includes future appointments and fu ture orders which are active, pending or scheduled. Future Appointments This section includes appointments that were scheduled t o occur 6 months from the date of the Encounter, up to a maximum of 20 appointme nts. The data comes from all [place] treatment [facility]. Appointment Date/Time Appointment Type Appointment Facili ty Name Aug 29, 2021 11:15 AM AMBULATORY - MEDICINE [facility] Sep 25, 2021 12:30 PM AMBULATORY - MEDICINE [facility] Oct 09, 2021 12:30 PM AMBULATORY - MEDICINE [facility] Oct 30, 2021 11:00 AM AMBULATORY - MEDICINE [facility] Dec 10, 2021 10:00 AM AMBULATORY - [facility] [place] [place] Dec 25, 2021 10:45 AM AMBULATORY - MEDICINE [facility] Dec 27, 2021 01:30 PM [facility] MEDICINE [facility] Surgical Procedures: All associated to the encounter No Data Provided for This Section Lab Results: +/- 30 days of the encounter This section includes the Chemistry and Hematology Lab R esults on record with [place] for the patient. Radiology Reports and Pathology Report s are provided separately, in subsequent sections. Lab Results This section contains the Chemistry/Hematology Results christina t were resulted 30 days before or 30 days after the date of the Encounter. Date/Time Source Result Type Result - Unit Interpretation Reference Range Comment Aug 29, 2021 11:24 AM [facility] BASIC METABOLIC PANEL Spe cimen Type: PLASMA No comment entered. Ordering Provider: DARIN ELY Report Released Date/Time: Jul 14, 2021 11:57 AM Reporting Lab: [facility] [address] [facility] [address] Performing Lab: [facility] [address] [facility] [address] *CREATININE 1.37 mg/dL H 0.7-1.3 UREA NITROGEN [...] and tobacco- related health factors from the [place] facility where the Encounter took place. Current Smoking Status This section includes the most current smoking, or tobacco -related health factor, from the [place] facility where the Encounter took place. Date/Time Current Smoking Status Comment Facility Jun 28, 2021 01:30 PM VA-TOBACCO FORMER USER [facility] Tobacco Use History This section includes a history of the smoking, or tobacco -related health factors, that were collected on or before the date of the Encoun ter. The data comes from the [place] facility where the Encounter took place. Date/Time Smoking Status/Tobacco Use Comment 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 JOSE ALBERTO [facility] Jun 29, 2020 09:00 AM VA-TOBACCO USE MED NO JOSE ALBERTO [facility] Jun 29, 2020 09:00 AM VA-TOBACCO USE WI 30 MIN OF WAKEUP N EVADA [facility] Jun 29, 2020 09:00 AM VA-TOBACCO USER EVERY DAY JOSE ALBERTO CBO C Jul 21, 2019 11:05 AM VA-TOBACCO USE 30 YEARS OR MORE TOBI DA CB Jul 21, 2019 11:05 AM VA-TOBACCO USE ADVICE JOSE ALBERTO CB Jul 21, 2019 11:05 AM 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 NO JOSE ALBERTO CBO C Jul 21, 2019 11:05 AM VA-TOBACCO USE MED NO JOSE ALBERTO CB Jul 21, 2019 11:05 AM VA-TOBACCO USE WI 30 MIN OF WAKEUP N EVADA CB Jul 21, 2019 11:05 AM VA-TOBACCO USER EVERY DAY JOSE ALBERTO CBO C Jun 29, 2018 01:31 PM CURRENT TOBACCO USER [facility] ALBERTO [facility] Jun 29, 2018 01:31 PM CURRENT TOBACCO USER (NOT READY TO RAJI T) JOSE ALBERTO CB Jun 29, 2018 01:31 PM TOBACCO CESSATION REFERRAL DECLINED [facility] Jun 29, 2018 01:31 PM TOBACCO MEDS OFFERED BUT DECLINED [facility] Jun 29, 2018 01:31 PM TOBACCO USER OFFERED MEDS [facility] Dec 26, 2017 09:02 AM CURRENT TOBACCO USER [facility] Dec 26, 2017 09:02 AM CURRENT TOBACCO USER (NOT READY TO RAJI T) [facility] Dec 26, 2017 09:02 AM TOBACCO CESSATION REFERRAL DECLINED [facility] Dec 26, 2017 09:02 AM TOBACCO MEDS OFFERED BUT DECLINED [facility] Dec 26, 2017 09:02 AM TOBACCO USER OFFERED MEDS [facility] May 23, 2017 03:35 PM CURRENT TOBACCO USER [facility] May 23, 2017 03:35 PM CURRENT TOBACCO USER (NOT READY TO RAJI T) [facility] May 23, 2017 03:35 PM TOBACCO CESSATION REFERRAL DECLINED [facility] May 23, 2017 03:35 PM TOBACCO MEDS OFFERED BUT DECLINED [facility] May 23, 2017 03:35 PM TOBACCO USER OFFERED MEDS [facility] Apr 24, 2017 02:27 PM CURRENT TOBACCO USER [facility] Apr 24, 2017 02:27 PM TOBACCO MEDS OFFERED BUT DECLINED [facility] Apr 24, 2017 02:27 PM TOBACCO OFFERED STOP SMOKING CLINIC [facility] March 14, 2017 02:05 PM CURRENT TOBACCO USER [facility] March 14, 2017 02:05 PM TOBACCO MEDS OFFERED BUT DECLINED [facility] March 14, 2017 02:05 PM TOBACCO OFFERED STOP SMOKING CLINIC [facility] Apr 23, 2016 06:08 AM CURRENT TOBACCO USER [facility] Oct 18, 2015 06:02 AM CURRENT TOBACCO USER [facility] Apr 05, 2015 06:12 AM CURRENT TOBACCO USER [facility] Sep 14, 2014 06:21 AM CURRENT TOBACCO USER [facility] Dec 11, 2012 09:31 AM TOBACCO OFFERED STOP SMOKING CLINIC [facility] Dec 11, 2012 09:31 AM TOBACCO OFFERED STOP SMOKING MEDS [facility] Apr 16, 2012 12:53 PM CURRENT TOBACCO USER [facility] Jul 01, 2011 01:01 PM TOBACCO OFFERED STOP SMOKING CLINIC [facility] Jul 01, 2011 01:01 PM TOBACCO OFFERED STOP SMOKING MEDS [facility] Advance Directives: All historical and current Section [...] docume nt. The data comes from all [place] facilities. Date Advance Directives Provider Source May 29, 2011 ADVANCE DIRECTIVE DISCUSSION VILLA CINTRON [facility] Dec 02, 2008 CLINICAL WARNING YASMIN PRADHAN [facility] [place] [facility] Radiology Reports: +/- 30 days of the encounter No Data Provided for This Section Pathology Reports: +/- 30 days of the encounter No Data Provided for This Section Encounter Notes: All associated encounter notes This section contains the clinical notes associated to the Encounter. Date/Time Encounter Note(s) Provider Source Aug 24, 2021 08:32 AM ADMINISTRATIVE NOTE: LOCAL TITLE: PETR-PULMONARY ADMINISTRATIVE STANDARD TITLE: ADMINISTRATIVE NOTE DATE OF NOTE: AUG 24, 2021@08:32 ENTRY DATE: AUG 24, 2021@08:32:36 AUTHOR: ANDREINA ACHARYA EXP COSIGNER: URGENCY: STATUS: COMPLETED Mr. Alfaro is a new [place] home oxygen patient. Will ask that he be seen by Respiratory Therapy at the [facility] for a 3 month evaluation. RTC placed 09/24/21 /sasha/ ANDREINA ACHARYA respiratory therapist Signed: 08/24/2021 08:33 ANDREINA ACHARYA [facility]
--- OUTSIDE RECORDS SUMMARY | 2021-12-24 23:38 | XMS REPORT | Encounter Summary ---
Author Author Department [facility] RENEE emerson Organization [facility] Address Unknown Phone Unavailable Care Team Providers Care Mosaic Technician Name Role Phone DARIN ELY PCP Unavailable Insurance Providers: All historical and current Section Date Range: From patient's date of to the date document was create d. This section includes the names of all active insurance providers for the hanane calvni Insurance Provider Type of Coverage Plan Name Start of Policy Co verage End of Policy Coverage Group Number Member ID Insurance Provider's Telephone N umber Policy Fisher's Name Patient's Relationship to Policy Fisher MEDICAID (WNR) MEDICAID MEDICAID Nov 03, 2014 MEDICAID [id number] [phone] RENEE ARRIAGA PATIENT MEDICARE (WNR) MEDICARE (M) PART B Feb 02, 2020 PART B [id number] [phone] ARRIAGARAERENEE PATIENT MEDICARE (WNR) MEDICARE (M) PART A Jan 01, 2006 PART A [id number] [phone] ARRIAGARAERENEE PATIENT MEDICARE (WNR) MEDICARE (M) PART A Jan 01, 2006 PART A [id number] [phone] RENEE ARRIAGA PATIENT Selected Encounter This section includes the information on record at [place] for the Encounter. Date/Time Encounter Type Encounter Description Reason Provider Source Sep 12, 2021 09:17 AM Outpatient Encounter ADMIN PAT ACTIVTIES (MASNO NCT) IHE Encounter Template Text not used by [place] Assessments - Encounter Diagnoses No Data Provided for This Section Plan of Treatment: Future Appointments (+ 6 months) and Future Tests (+/- 45 day s) The Plan of Treatment section includes future care activities for the patient fr om all [place] treatment facilities. This section includes future appointments and fu ture orders which are active, pending or scheduled. Future Appointments This section includes appointments that were scheduled t o occur 6 months from the date of the Encounter, up to a maximum of 20 appointme nts. The data comes from all [place] treatment [facility]. Appointment Date/Time Appointment Type Appointment Facili ty Name Sep 25, 2021 12:30 PM AMBULATORY - MEDICINE [facility] Oct 09, 2021 12:30 PM AMBULATORY - MEDICINE [facility] Oct 30, 2021 11:00 AM AMBULATORY - MEDICINE [facility] Dec 10, 2021 10:00 AM AM[facility]ULATORY - [facility] T, [facility] 15 Dec 25, 2021 10:45 AM AMBULATORY - MEDICINE [facility] Dec 27, 2021 01:30 PM AMBULATORY - MEDICINE [facility] Surgical Procedures: All associated to the encounter No Data Provided for This Section Lab Results: +/- 30 days of the encounter This section includes the Chemistry and Hematology Lab R esults on record with [place] for the patient. Radiology Reports and Pathology Report s are provided separately, in subsequent sections. Lab Results This section contains the Chemistry/Hematology Results christina t were resulted 30 days before or 30 days after the date of the Encounter. Date/Time Source Result Type Result - Unit Interpretation Reference Range Comment Aug 29, 2021 11:24 AM [facility] BASIC METABOLIC PANEL Spe cimen Type: PLASMA No comment entered. Ordering Provider: DARIN ELY Report Released Date/Time: Jul 14, 2021 11:57 AM Reporting Lab: [facility] [address] [place] [facility] [address] Performing Lab: [facility] [address] [place] [facility] [address] *CREATININE 1.37 mg/dL H 0.7-1.3 UREA NITROGEN [...] of a patient's completed or amen ded [place] Advance and Rescinded Directives. The entries below indicate that a direc tive exists for the patient, but an actual copy is not included with this docume nt. The data comes from all [place] facilities. Date Advance Directives Provider Source May 29, 2011 ADVANCE DIRECTIVE DISCUSSION VILLA CINTRON [facility] Dec 02, 2008 CLINICAL WARNING YASMIN PRADHAN [facility] [place] [facility] Radiology Reports: +/- 30 days of the encounter No Data Provided for This Section Pathology Reports: +/- 30 days of the encounter No Data Provided for This Section Encounter Notes: All associated encounter notes This section contains the clinical notes associated to the Encounter. Date/Time Encounter Note(s) Provider Source Sep 12, 2021 09:17 AM ADMINISTRATIVE NOTE: LOCAL TITLE: PETR-RETURN TO CLINIC STANDARD TITLE: ADMINISTRATIVE NOTE DATE OF NOTE: SEP 12, 2021@09:17 ENTRY DATE: SEP 12, 2021@09:17:19 AUTHOR: RUTH GOLD EXP COSIGNER: URGENCY: STATUS: COMPLETED RTC FOR PETR-RT OUTPT [place] HAS BEEN DISPOSITIONED REMOVED/NO LONGER NECESSARY PER [facility] SCHEDULING PROTOCOL. /sasha/ RUTH GOLD AMSAlirio Signed: 09/12/2021 09:18 Receipt Acknowledged By: * AWAITING SIGNATURE * ANDREINA ACHARYA SARAH [facility] 15
--- OUTSIDE RECORDS SUMMARY | 2021-12-24 23:38 | XMS REPORT | Encounter Summary ---
Author Author Department [facility] RENEE emerson Organization 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 Date/Time Encounter Type Encounter Description Reason Provider Source Oct 15, 2021 12:40 PM Outpatient Encounter ADMIN PAT ACTIVTIES (MASNO NCT) IHE Encounter Template Text not used by [place] Assessments - Encounter Diagnoses No Data Provided for This Section Plan of Treatment: Future Appointments (+ 6 months) and Future Tests (+/- 45 day s) The Plan of Treatment section includes future care activities for the patient fr om all [place] treatment facilities. This section includes future appointments and fu ture orders which are active, pending or scheduled. Future Appointments This section includes appointments that were scheduled t o occur 6 months from the date of the Encounter, up to a maximum of 20 appointme nts. The data comes from all [place] treatment [facility]. Appointment Date/Time Appointment Type Appointment Facili ty Name Oct 30, 2021 11:00 AM AMBULATORY - MEDICINE [facility] Dec 10, 2021 10:00 AM AMBULATORY - NONE [facility] T, VISN 15 Dec 25, 2021 10:45 AM AMBULATORY - MEDICINE [facility] Dec 27, 2021 01:30 PM AMBULATORY - MEDICINE [facility] Active, Pending, and Scheduled Orders This section [...] the Encounter. The data comes from all [place] treatment [facility]. Test Date/Time Test Type Test Details Facility Name Oct 29, 2021 12:00 AM Laboratory - Chemistry Order COVID-19 DIAGNOSTIC (RESP PANEL) NASOPHARYNGEAL SWAB NASOPHARYNX SP [facility] Surgical Procedures: All associated to the encounter No Data Provided for This Section Lab Results: +/- 30 days of the encounter No Data Provided for This Section Vital Signs: All taken on the encounter [...] docume nt. The data comes from all [place] facilities. Date Advance Directives Provider Source May 29, 2011 ADVANCE DIRECTIVE DISCUSSION VILLA CINTRON [facility] Dec 02, 2008 CLINICAL WARNING YASMIN PRADHAN [facility] [place] [facility] Radiology Reports: +/- 30 days of the encounter No Data Provided for This Section Pathology Reports: +/- 30 days of the encounter No Data Provided for This Section Encounter Notes: All associated encounter notes This section contains the clinical notes associated to the Encounter. Date/Time Encounter Note(s) Provider Source Oct 15, 2021 12:44 PM PULMONARY NOTE: LOCAL TITLE: -HOME 0-2 RECERTIFICATION STANDARD TITLE: PULMONARY NOTE DATE OF NOTE: OCT 15, 2021@12:44 ENTRY DATE: OCT 15, 2021@12:44:34 AUTHOR: ANDREINA ACHARYA EXP COSIGNER: URGENCY: STATUS: COMPLETED Patient re-evaluated in the oxygen clinic and recertified with Respiratory Therapy at the [facility]-isn't using the oxygen Additional Supplies Requested: None RTC entered for 09/15/22 /sandeep ACHARYA respiratory therapist Signed: 10/15/2021 12:45 Receipt Acknowledged By: 10/15/2021 13:46 /sasha/ MARLEE FERNANDEZ, PHLEBOTOMIST SUPERVISOR/INSTRUCTOR RESPIRATORY THERAPIST * AWAITING SIGNATURE * EMILIE OLIVEROS BECKY [facility], [facility] 15
--- OUTSIDE RECORDS SUMMARY | 2021-12-24 23:38 | XMS REPORT | Encounter Summary ---
Author Author Department [facility] RENEE emerson Organization [facility] [address] Address Unknown Phone Unavailable Care Team Providers Care Finnish Rubber Name Role Phone DARIN ELY PCP Unavailable [...] (WNR) MEDICAID MEDICAID Nov 03, 2014 MEDICAID [id number] [phone] RENEE ARRIAGA PATIENT MEDICARE (WNR) MEDICARE (M) PART B Feb 02, 2020 PART B [id number] ARRIAGARAERENEE PATIENT MEDICARE (WNR) MEDICARE (M) PART A Jan 01, 2006 PART A [id number] ARRIAGARAERENEE PATIENT MEDICARE (WNR) MEDICARE (M) PART A Jan 01, 2006 PART A [id number] RENEE ARRIAGA PATIENT Selected Encounter This section includes the information on record at [place] for the Encounter. Date/Time Encounter Type Encounter Description Reason Provider Source Sep 25, 2021 12:30 PM Outpatient Encounter ADMIN PAT ACTIVTIES (MASNO NCT) IHE Encounter Template Text not used by [place] Assessments - Encounter Diagnoses No Data Provided for This Section Plan of Treatment: Future Appointments (+ 6 months) and Future Tests (+/- 45 day s) The Plan of Treatment section includes future care activities for the patient fr om all [place] treatment facilities. This section includes future appointments and fu ture orders which are active, pending or scheduled. Future Appointments This section includes appointments that were scheduled t o occur 6 months from the date of the Encounter, up to a maximum of 20 appointme nts. The data comes from all [facility]. Appointment Date/Time Appointment Type Appointment Facili ty Name Oct 09, 2021 12:30 PM AMBULATORY - MEDICINE [facility] Oct 30, 2021 11:00 AM AMBULATORY - MEDICINE [facility] Dec 10, 2021 10:00 AM AMBULATORY - NONE MEDICINE [facility] 15 Dec 25, 2021 10:45 AM AMBULATORY - MEDICINE [facility] Dec 27, 2021 01:30 PM AMBULATORY - MEDICINE [facility] Active, Pending, and Scheduled Orders This [...] the Encounter. The data comes from all [facility]. Test Date/Time Test Type Test Details Facility Name Oct 29, 2021 12:00 AM Laboratory - Chemistry Order COVID-19 DIAGNOSTIC (RESP PANEL) NASOPHARYNGEAL SWAB NASOPHARYNX SP [facility] Surgical Procedures: All associated to the encounter No Data Provided for This Section Lab Results: +/- 30 days of the encounter This section includes the Chemistry and Hematology Lab R esults on record with [place] for the patient. Radiology Reports and Pathology [...] Jul 14, 2021 11:57 AM [facility] [address] [facility] [address] Performing Lab: [facility] [address] [facility] [address] *CREATININE 1.37 mg/dL H 0.7-1.3 UREA NITROGEN [...] of a patient's completed or amen ded [place] Advance and Rescinded Directives. The entries below indicate that a direc tive exists for the patient, but an actual copy is not included with this docume nt. The data comes from all [place] facilities. Date Advance Directives Provider Source May 29, 2011 ADVANCE DIRECTIVE DISCUSSION VILLA CINTRON [facility] Dec 02, 2008 CLINICAL WARNING YASMIN PRADHAN [facility] [place] [facility] Radiology Reports: +/- 30 days of the encounter No Data Provided for This Section Pathology Reports: +/- 30 days of the encounter No Data Provided for This Section Encounter Notes: All associated encounter notes This section contains the clinical notes associated to the Encounter. Date/Time Encounter Note(s) Provider Source Sep 25, 2021 12:47 PM ADMINISTRATIVE NOTE: LOCAL TITLE: PETR-PULMONARY ADMINISTRATIVE STANDARD TITLE: ADMINISTRATIVE NOTE DATE OF NOTE: SEP 25, 2021@12:47 ENTRY DATE: SEP 25, 2021@12:47:50 AUTHOR: EMILIE OLIVEROS COSIGNER: URGENCY: STATUS: COMPLETED SUBJECT: Home oxygen no-show [place] was a No-Show for his appointment scheduled for 1230 for a home oxygen follow up today. [place] will need to be rescheduled. He does have a community care pulmonary follow up on November [address] Antoine. /sasha/ EMILIE OLIVEROS Respiratory Therapist Signed: 09/25/2021 12:50 Receipt Acknowledged By: * AWAITING SIGNATURE * ANDREINA ACHARYA,EMILIE Amezquita [facility], [facility]
--- OUTSIDE RECORDS SUMMARY | 2021-12-24 23:38 | XMS REPORT | Encounter Summary ---
Author Author Department [employer] RENEE emerson Organization [facility] Address Unknown Phone Unavailable Care Team Providers Care Ticker Installer Name Role Phone DARIN ELY PCP Unavailable [...] (WNR) MEDICAID MEDICAID Nov 03, 2014 MEDICAID [id number] [phone] RAE ARRIAGAIL PATIENT MEDICARE (WNR) MEDICARE (M) PART B Feb 02, 2020 PART B [id number] ARRIAGARENEE PATIENT MEDICARE (WNR) MEDICARE (M) PART A Jan 01, 2006 PART A [id number] BARTRAERENEE PATIENT MEDICARE (WNR) MEDICARE (M) PART A Jan 01, 2006 PART A [id number] [phone] RENEE ARRIAGA PATIENT Selected Encounter This section includes the information on record at [place] for the Encounter. Date/Time Encounter Type Encounter Description Reason Provider Source Oct 16, 2021 01:47 PM Outpatient Encounter ADMIN PAT ACTIVTIES (MASNO NCT) IHE Encounter Template Text not used by [place] Assessments - Encounter Diagnoses No Data Provided for This Section Plan of Treatment: Future Appointments (+ 6 months) and Future Tests (+/- 45 day s) The Plan of Treatment section includes future care activities for the patient fr om all [place] treatment facilities. This section includes future appointments and fu ture orders which are active, pending or scheduled. Future Appointments This section includes appointments that were scheduled t o occur 6 months from the date of the Encounter, up to a maximum of 20 appointme nts. The data comes from all [place] treatment [facility]. Appointment Date/Time Appointment Type Appointment Facili ty Name Oct 30, 2021 11:00 AM AMBULATORY - MEDICINE [facility] Dec 10, 2021 10:00 AM AMBULATORY - NONE [facility], [facility] 15 Dec 25, 2021 10:45 AM AMBULATORY - MEDICINE [facility] Dec 27, 2021 01:30 PM AMBULATORY - MEDICINE [facility] Active, Pending, and Scheduled Orders This section [...] the Encounter. The data comes from all [place] treatment [facility]. Test Date/Time Test Type Test Details Facility Name Oct 29, 2021 12:00 AM Laboratory - Chemistry Order COVID-19 DIAGNOSTIC (RESP PANEL) NASOPHARYNGEAL SWAB NASOPHARYNX SP [facility] Surgical Procedures: All associated to the encounter [...] docume nt. The data comes from all [place] facilities. Date Advance Directives Provider Source May 29, 2011 ADVANCE DIRECTIVE DISCUSSION VILLA CINTRON [facility] Dec 02, 2008 CLINICAL WARNING YASMIN PRADHAN [facility] [place] [facility] Radiology Reports: +/- 30 days of the encounter No Data Provided for This Section Pathology Reports: +/- 30 days of the encounter No Data Provided for This Section Encounter Notes: All associated encounter notes This section contains the clinical notes associated to the Encounter. Date/Time Encounter Note(s) Provider Source Oct 16, 2021 01:50 PM LETTERS: LOCAL TITLE: PETR-UNABLE TO CONTACT PATIENT LETTER STANDARD TITLE: LETTERS DATE OF NOTE: OCT 16, 2021@13:50 ENTRY DATE: OCT 16, 2021@13:50:40 AUTHOR: RUTH GOLD EXP COSIGNER: URGENCY: STATUS: COMPLETED Department of 's Affairs [facility] [address] [place] [address] OCT 16, 2021 RENEE ARRIAGA [address] [place], [place] [address] Dear RENEE ARRIAGA Please call us for an appointment. We have been trying to contact you to schedule an appointment at [place], but we were unsuccessful in reaching you by telephone. It is important to your health that you do not have delays in your care. Please contact us to schedule your appointment within 14 days from the date of this letter. Please call toll free or ext: [phone] Sincerely, PETR-RT OUTPT [facility] ALBERTO [facility] Oct 16, 2021 01:47 PM ADMINISTRATIVE NOTE: LOCAL TITLE: PETR-RETURN TO CLINIC STANDARD TITLE: ADMINISTRATIVE NOTE DATE OF NOTE: OCT 16, 2021@13:47 ENTRY DATE: OCT 16, 2021@13:48:04 AUTHOR: RUTH GOLDIGNER: URGENCY: STATUS: COMPLETED CALLED TO SCHEDULE KR-RT OUTPT JOSE ALBERTO FOR 12 MONTH EVAL. UNABLE TO LEAVE A MESSAGE LINE STATED HE IS NOT EXCEPTING ANY INCOMING CALLS.[facility] D/C 10/30/2021 /sasha/ RUTH RUDOLPH Signed: 10/16/2021 13:50 [facility]
--- OUTSIDE RECORDS SUMMARY | 2021-12-24 23:38 | XMS REPORT | Encounter Summary ---
Author Author Department [facility] RENEE emerson Organization [facility] Address Unknown Phone Unavailable Care Team Providers Care Utility Lineman Name Role Phone DARIN ELY PCP Unavailable [...] (WNR) MEDICAID MEDICAID Nov 03, 2014 MEDICAID [id number] [phone] RENEE ARRIAGA PATIENT MEDICARE (WNR) MEDICARE (M) PART B Feb 02, 2020 PART B [id number] ARRIAGARAERENEE PATIENT MEDICARE (WNR) MEDICARE (M) PART A Jan 01, 2006 PART A [id number] ARRIAGARAERENEE PATIENT MEDICARE (WNR) MEDICARE (M) PART A Jan 01, 2006 PART A [id number] [phone] RENEE ARRIAGA PATIENT Selected Encounter This section includes the information on record at [place] for the Encounter. Date/Time Encounter Type Encounter Description Reason Provider Source Sep 26, 2021 12:25 PM Outpatient Encounter ADMIN PAT ACTIVTIES (MASNO NCT) IHE Encounter Template Text not used by [place] Assessments - Encounter Diagnoses No Data Provided [...] appointme nts. The data comes from all [facility]. Appointment Date/Time Appointment Type Appointment Facili ty Name Oct 09, 2021 12:30 PM AMBULATORY - MEDICINE [facility] Oct 30, 2021 11:00 AM AMBULATORY - MEDICINE [facility] Dec 10, 2021 10:00 AM AMBULATORY - NONE [facility] 15 Dec 25, 2021 10:45 AM AMBULATORY - MEDICINE [facility] Dec 27, 2021 01:30 PM AMBULATORY - MEDICINE [facility] Active, Pending, and Scheduled Orders [...] the Encounter. The data comes from all [facility]. Test Date/Time Test Type Test Details Facility Name Oct 29, 2021 12:00 AM Laboratory - Chemistry Order COVID-19 DIAGNOSTIC (RESP PANEL) NASOPHARYNGEAL SWAB NASOPHARYNX SP [facility] Surgical Procedures: All associated to [...] Range Comment Aug 29, 2021 11:24 AM [facility] BASIC METABOLIC PANEL Spe cimen Type: PLASMA No comment entered. Ordering Provider: DARIN ELY Report Released Date/Time: Jul 14, 2021 11:57 AM Reporting Lab: [facility] [address] [facility] [address] Performing Lab: [facility] [address] [place] [address]. [facility] [address] *CREATININE 1.37 mg/dL H 0.7-1.3 UREA NITROGEN [...] of a patient's completed or amen ded [place] Advance and Rescinded Directives. The entries below indicate that a direc tive exists for the patient, but an actual copy is not included with this docume nt. The data comes from all [place] facilities. Date Advance Directives Provider Source May 29, 2011 ADVANCE DIRECTIVE DISCUSSION VILLA CINTRON [facility] Dec 02, 2008 CLINICAL WARNING YASMIN PRADHAN [facility] [place] [facility] Radiology Reports: +/- 30 days of the encounter No Data Provided for This Section Pathology Reports: +/- 30 days of the encounter No Data Provided for This Section Encounter Notes: All associated encounter notes This section contains the clinical notes associated to the Encounter. Date/Time Encounter Note(s) Provider Source Sep 26, 2021 12:28 PM LETTERS: LOCAL TITLE: PETR-UNABLE TO CONTACT PATIENT LETTER STANDARD TITLE: LETTERS DATE OF NOTE: SEP 26, 2021@12:28 ENTRY DATE: SEP 26, 2021@12:28:07 AUTHOR: RUTH GOLD COSIGNER: URGENCY: STATUS: COMPLETED Department of 's Affairs [facility] [address] [place], [place] [address] SEP 26, 2021 RENEE ARRIAGA [address] [place], [place] [address] Dear RENEE ARRIAGA Please call us for an appointment. We have been trying to contact you to schedule an appointment at [facility], but we were unsuccessful in reaching you by telephone. It is important to your health that you do not have delays in your care. Please contact us to schedule your appointment within 14 days from the date of this letter. Please call toll free or ext: [phone] Sincerely, PETR-RT OUTPT [facility]UTH TRAMMELL [facility] Sep 26, 2021 12:26 PM ADMINISTRATIVE NOTE: LOCAL TITLE: PETR-RETURN TO CLINIC STANDARD TITLE: ADMINISTRATIVE NOTE DATE OF NOTE: SEP 26, 2021@12:26 ENTRY DATE: SEP 26, 2021@12:26:03 AUTHOR: RUTH GOLD COSIGNER: URGENCY: STATUS: COMPLETED ATTEMPED TO CALL TO SCHEDULE THEIR APPOINTMENT FOR PETR-RT OUTPT JOSE ALBERTO. UNABLE TO CONTACT THE . A HIPPA COMPLIANT MESSAGE WAS LEFT REQUESTING A CALL BACK AT [phone] EXT [phone]. SENDING [facility] LETTER 10/10/2021 /sasha/ RUTH GOLD AMSAlirio Signed: 09/26/2021 12:27 [facility] GOLD [facility]
--- OUTSIDE RECORDS SUMMARY | 2021-12-24 23:39 | XMS REPORT | Encounter Summary ---
Author Author Department [facility] RENEE emerson Organization Department [facility] Address Unknown Phone Unavailable Care Team Providers Care Industrial Safety And Health Manager Name Role Phone DARIN ELY PCP Unavailable [...] (WNR) MEDICAID MEDICAID Nov 03, 2014 MEDICAID [id number] [phone] RAE ARRIAGAIL PATIENT MEDICARE (WNR) MEDICARE (M) PART B Feb 02, 2020 PART B [id number] ARRIAGARENEE PATIENT MEDICARE (WNR) MEDICARE (M) PART A Jan 01, 2006 PART A [id number] BARTRAERENEE PATIENT MEDICARE (WNR) MEDICARE (M) PART A Jan 01, 2006 PART A [id number] [phone] RENEE ARRIAGA PATIENT Selected Encounter This section includes the information on record at [place] for the Encounter. Date/Time Encounter Type Encounter Description Reason Provider Source Nov 06, 2021 04:16 PM Outpatient Encounter ADMIN PAT ACTIVTIES (MASNO NCT) IHE Encounter Template Text not used by [place] Assessments - Encounter Diagnoses No Data Provided for This Section Plan of Treatment: Future Appointments (+ 6 months) and Future Tests (+/- 45 day s) The Plan of Treatment section includes future care activities for the patient fr om all [facility]. This section includes future appointments and fu ture orders which are active, pending or scheduled. Future Appointments This section includes appointments that were scheduled t o occur 6 months from the date of the Encounter, up to a maximum of 20 appointme nts. The data comes from all [facility]. Appointment Date/Time Appointment Type Appointment Facili ty Name Dec 10, 2021 10:00 AM AMBULATORY - NONE [facility] T, [facility] 15 Dec 25, 2021 10:45 AM AMBULATORY - MEDICINE [facility] Dec 27, 2021 01:30 PM AMBULATORY - MEDICINE [facility] Active, Pending, and Scheduled Orders [...] the Encounter. The data comes from all [facility]. Test Date/Time Test Type Test Details Facility Name Oct 29, 2021 12:00 AM Laboratory - Chemistry Order COVID-19 DIAGNOSTIC (RESP PANEL) NASOPHARYNGEAL SWAB NASOPHARYNX [facility] Dec 20, 2021 12:00 AM Laboratory - Chemistry Order CBC & DIF F 5 ML LAVENDER TOP BLOOD [facility] Dec 20, 2021 12:00 AM Laboratory - Chemistry Order COMPREHEN SIVE METABOLIC PANEL GREEN TOP TUBE PLASMA [facility] Dec 20, 2021 12:00 AM Laboratory - Chemistry Order LIPID PROFILE(HDL,TRIG,CHOL,LDL) GREEN TOP TUBE PLASMA [facility] Dec 20, 2021 12:00 AM Laboratory - Chemistry Order URINALYSI S (PETR) URIN,RAND URINE [facility] Dec 20, 2021 12:00 AM Laboratory - Chemistry Order MICROALBU MIN (PETR,[place]) RANDOM URINE URIN,RAND URINE [facility] Dec 20, 2021 12:00 AM Laboratory - Chemistry Order HEMOGLOBI N A1C [facility]END[facility]LOOD [facility] Dec 20, 2021 12:00 AM Laboratory - Chemistry Order TSH SST GEL S AFTAB [facility] Dec 20, 2021 12:00 AM Laboratory - Chemistry Order T4 FREE SST G EL SERUM [facility] 15 Surgical Procedures: All associated to the encounter [...] 29, 2011 ADVANCE DIRECTIVE DISCUSSION VILLA CINTRON [facility] Dec 02, 2008 CLINICAL WARNING YASMIN PRADHAN [facility] [place] [facility] Radiology Reports: +/- 30 days of the encounter No Data Provided for This Section Pathology Reports: +/- 30 days of the encounter No Data Provided for This Section Encounter Notes: All associated encounter notes This section contains the clinical notes associated to the Encounter. Date/Time Encounter Note(s) Provider Source Nov 06, 2021 04:16 PM ADMINISTRATIVE NOTE: LOCAL TITLE: PETR-RETURN TO CLINIC STANDARD TITLE: ADMINISTRATIVE NOTE DATE OF NOTE: NOV 06, 2021@16:16 ENTRY DATE: NOV 06, 2021@16:16:55 AUTHOR: RUTH GOLD EXP COSIGNER: URGENCY: STATUS: COMPLETED DISPOSITIONED RTC FOR PETR-RT OUTPT [place] DUE TO MANDATED SCHEDULING EFFORTS NO REPONSE FROM /sasha/ RUTH RUDOLPH Signed: 11/06/2021 16:18 RUTH GOLD [facility], [facility] 15
--- OUTSIDE RECORDS SUMMARY | 2021-12-24 23:39 | XMS REPORT | Encounter Summary ---
Author Author Department [facility] RENEE emerson Organization [facility] Address Unknown Phone Unavailable Care Team Providers Care Piece Meat Trimmer Name Role Phone DARIN ELY PCP Unavailable [...] (WNR) MEDICAID MEDICAID Nov 03, 2014 MEDICAID [id number] [phone] RAE ALFAROIL PATIENT MEDICARE (WNR) MEDICARE (M) PART B Feb 02, 2020 PART B [id number] ALFARORENEE PATIENT MEDICARE (WNR) MEDICARE (M) PART A Jan 01, 2006 PART A [id number] BARTRAERENEE PATIENT MEDICARE (WNR) MEDICARE (M) PART A Jan 01, 2006 PART A [id number] RENEE ALFARO PATIENT Selected Encounter This section includes the information on record at [place] for the Encounter. Date/Time Encounter Type Encounter Description Reason Provider Source Nov 08, 2021 09:03 AM Outpatient Encounter ADMIN PAT ACTIVTIES (MASNO NCT) IHE Encounter Template Text not used by [place] Assessments - Encounter Diagnoses No Data Provided for This Section Plan of Treatment: Future Appointments (+ 6 months) and Future Tests (+/- 45 day s) The Plan of Treatment section includes future care activities for the patient fr om all [facility]. This section includes future appointments and fu ture orders which are active, pending or scheduled. Future Appointments This section includes appointments that were scheduled t o occur 6 months from the date of the Encounter, up to a maximum of 20 appointme nts. The data comes from all [facility]. Appointment Date/Time Appointment Type Appointment Facili ty Name Dec 10, 2021 10:00 AM AMBULATORY - NONE [facility] T, [facility] 15 Dec 25, 2021 10:45 AM AMBULATORY - MEDICINE [facility] Dec 27, 2021 01:30 PM AMBULATORY - MEDICINE [facility] Active, Pending, and Scheduled Orders This [...] the Encounter. The data comes from all [facility]. Test Date/Time Test Type Test Details Facility Name Oct 29, 2021 12:00 AM Laboratory - Chemistry Order COVID-19 DIAGNOSTIC (RESP PANEL) NASOPHARYNGEAL SWAB NASOPHARYNX [facility] Dec 20, 2021 12:00 AM Laboratory - Chemistry Order CBC & DIF F 5 ML LAVENDER TOP BLOOD [facility] Dec 20, 2021 12:00 AM Laboratory - Chemistry Order COMPREHEN SIVE METABOLIC PANEL GREEN TOP TUBE PLASMA [facility] Dec 20, 2021 12:00 AM Laboratory - Chemistry Order LIPID PROFILE(HDL,TRIG,CHOL,LDL) GREEN TOP TUBE PLASMA [facility] Dec 20, 2021 12:00 AM Laboratory - Chemistry Order URINALYSI S (PETR) URIN,RAND URINE [facility] Dec 20, 2021 12:00 AM Laboratory - Chemistry Order MICROALBU MIN (PETR,[place]I) RANDOM URINE URIN,RAND URINE [facility] Dec 20, 2021 12:00 AM Laboratory - Chemistry Order HEMOGLOBI N A1C LAVENDER TOP BLOOD [facility] Dec 20, 2021 12:00 AM Laboratory - Chemistry Order TSH SST GEL S AFTAB [facility] Dec 20, 2021 12:00 AM Laboratory - Chemistry Order T4 FREE SST G EL SERUM [facility], [facility] 15 Surgical Procedures: All associated to [...] of a patient's completed or amen ded [place] Advance and Rescinded Directives. The entries below indicate that a direc tive exists for the patient, but an actual copy is not included with this docume nt. The data comes from all [place] facilities. Date Advance Directives Provider Source May 29, 2011 ADVANCE DIRECTIVE DISCUSSION VILLA CINTRON [facility] Dec 02, 2008 CLINICAL WARNING YASMIN PRADHAN [facility] [place] [facility] Radiology Reports: +/- 30 days of the encounter No Data Provided for This Section Pathology Reports: +/- 30 days of the encounter No Data Provided for This Section Encounter Notes: All associated encounter notes This section contains the clinical notes associated to the Encounter. Date/Time Encounter Note(s) Provider Source Nov 08, 2021 09:03 AM ADMINISTRATIVE NOTE: LOCAL TITLE: PETR-PULMONARY ADMINISTRATIVE STANDARD TITLE: ADMINISTRATIVE NOTE DATE OF NOTE: NOV 08, 2021@09:03 ENTRY DATE: NOV 08, 2021@09:03:51 AUTHOR: ANDREINA ACHARYA EXP COSIGNER: URGENCY: STATUS: COMPLETED Mr. Alfaro is a [place] home oxygen patient. His last evaluation was last October. When he was called to schedule his next 12 month evaluation he didn't answer so a was left a message and a letter was sent out by the slasher runner with no response. An unable to contact letter will be going out today from the oxygen clinic stating that he needs to call for an appointment or risk losing the oxygen /sasha/ ANDREINA ACHARYA respiratory therapist Signed: 11/08/2021 09:07 ANDREINA ACHARYA [facility], [facility] 15
--- OUTSIDE RECORDS SUMMARY | 2021-12-24 23:39 | XMS REPORT | Encounter Summary ---
[facility] Organization Department [facility] Address Unknown Phone Unavailable Care Team Providers Care Aircraft Steel Fabricator Name Role Phone DARIN ELY PCP Unavailable [...] (WNR) MEDICAID MEDICAID Nov 03, 2014 MEDICAID [id number] [phone] RENEE ARRIAGA PATIENT MEDICARE (WNR) MEDICARE (M) PART B Feb 02, 2020 PART B [id number] RENEE ARRIAGA PATIENT MEDICARE (WNR) MEDICARE (M) PART A Jan 01, 2006 PART A [id number] RENEE ARRIAGA PATIENT MEDICARE (WNR) MEDICARE (M) PART A Jan 01, 2006 PART A [id number] RENEE ARRIAGA PATIENT Selected Encounter This section includes the information on record at [place] for the Encounter. Date/Time Encounter Type Encounter Description Reason Provider Source Oct 29, 2021 01:16 PM HC PRO PHONE CALL 5-10 MIN TELEPHONE PRIMA RY CARE ICD-10-CM R68.89 Other general symptoms and signs with Provider Comments: General Symptoms & Signs SELWYN LYNN Encounter Template Text not used by [facility] Assessments - Encounter Diagnoses This section includes the primary and secondary diag noses documented for the Encounter. Date/Time Primary/Secondary Diagnosis Diagnosis Name Provider Source Oct 29, 2021 01:16 PM PRIMARY Other general symptoms and signs SELWYN LYNN Plan of Treatment: Future Appointments (+ 6 months) and Future Tests (+/- 45 day s) The Plan of Treatment section includes future care activities for the patient fr om all [place] treatment facilities. This section includes future appointments and fu ture orders which are active, pending or scheduled. Future Appointments This section includes appointments that were scheduled t o occur 6 months from the date of the Encounter, up to a maximum of 20 appointme nts. The data comes from all [facility]. Appointment Date/Time Appointment Type Appointment Facili ty Name Oct 30, 2021 11:00 AM AMBULATORY - MEDICINE [facility] Dec 10, 2021 10:00 AM AMBULATORY - [facility] T, VISN 15 Dec 25, 2021 10:45 AM AMBULATORY - MEDICINE [facility] Dec 27, 2021 01:30 PM AMBULATORY - MEDICINE [facility] Active, Pending, and Scheduled Orders This section [...] the Encounter. The data comes from all [facility]. Test Date/Time Test Type Test Details Facility Name Oct 29, 2021 12:00 AM Laboratory - Chemistry Order COVID-19 DIAGNOSTIC (RESP PANEL) NASOPHARYNGEAL SWAB [facility] Surgical Procedures: All associated to the encounter This section includes all Surgical Procedures and Surgical Procedure Notes assoc iated to the Encounter. Surgical Procedures This section includes all Surgical Procedures associated to the Encounter. Surgical Procedure Date/Time Procedure Procedure Type Procedure Qualifiers Provider Source Oct 29, 2021 01:16 PM HC PRO PHONE CALL 5-10 MIN HC PRO PHONE CALL 5-10 MIN SELWYN LYNN NASIR Surgical Notes There are no notes associated with this procedure. Lab Results: +/- 30 days of the [...] and tobacco- related health factors from the [place] facility where the Encounter took place. Current Smoking Status This section includes the most current smoking, or tobacco -related health factor, from the [place] facility where the Encounter took place. Date/Time Current Smoking Status Comment Facility Jun 28, 2021 01:30 PM VA-TOBACCO FORMER USER [facility] Tobacco Use History This section includes a history of the smoking, or tobacco -related health factors, that were collected on or before the date of the Encoun ter. The data comes from the [place] facility where the Encounter took place. Date/Time Smoking Status/Tobacco Use Comment Facil it Jun 28, 2021 01:30 PM VA-TOBACCO QUIT < 1 YEAR [facility] Jun 29, 2020 09:00 AM VA-TOBACCO USE 30 YEARS OR MORE [facility] Jun 29, 2020 09:00 AM VA-TOBACCO USE ADVICE [facility] Jun 29, 2020 09:00 AM VA-TOBACCO USE AIRPORT PLANNER NO [facility] Jun 29, 2020 09:00 AM VA-TOBACCO USE MED NO [facility] Jun 29, 2020 09:00 AM VA-TOBACCO USE WI 30 MIN OF WAKEUP N [facility] Jun 29, 2020 09:00 AM VA-TOBACCO USER EVERY DAY [facility] Jul 21, 2019 11:05 AM VA-TOBACCO USE 30 YEARS OR MORE [facility] Jul 21, 2019 11:05 AM VA-TOBACCO USE ADVICE [facility] Jul 21, 2019 11:05 AM VA-TOBACCO USE AIRPORT PLANNER NO [facility] Jul 21, 2019 11:05 AM VA-TOBACCO USE MED NO [facility] Jul 21, 2019 11:05 AM VA-TOBACCO USE WI 30 MIN OF WAKEUP N [facility] Jul 21, 2019 11:05 AM [facility] Jun 29, 2018 01:31 PM CURRENT TOBACCO USER [facility] Jun 29, 2018 01:31 PM CURRENT TOBACCO USER (NOT READY TO RAJI T) [facility] Jun 29, 2018 01:31 PM TOBACCO CESSATION REFERRAL DECLINED [facility] Jun 29, 2018 01:31 PM TOBACCO MEDS OFFERED BUT DECLINED [facility] Jun 29, 2018 01:31 PM TOBACCO USER OFFERED [facility] Dec 26, 2017 09:02 AM CURRENT TOBACCO USER [facility] Dec 26, 2017 09:02 AM CURRENT TOBACCO USER (NOT READY TO RAJI T) [facility] Dec 26, 2017 09:02 AM TOBACCO CESSATION REFERRAL DECLINED [facility] Dec 26, 2017 09:02 AM TOBACCO MEDS OFFERED BUT DECLINED [facility] Dec 26, 2017 09:02 AM TOBACCO USER OFFERED MEDS [place] [facility] May 23, 2017 03:35 PM CURRENT TOBACCO USER [place] [facility] May 23, 2017 03:35 PM CURRENT TOBACCO USER (NOT READY TO RAJI T) [facility] May 23, 2017 03:35 PM TOBACCO CESSATION REFERRAL DECLINED [facility] May 23, 2017 03:35 PM TOBACCO MEDS OFFERED BUT DECLINED [facility] May 23, 2017 03:35 PM TOBACCO USER OFFERED [facility]S [place] [facility] Apr 24, 2017 02:27 PM CURRENT TOBACCO USER [facility] Apr 24, 2017 02:27 PM TOBACCO MEDS OFFERED BUT DECLINED [facility] Apr 24, 2017 02:27 PM TOBACCO OFFERED STOP SMOKING CLINIC [facility] March 14, 2017 02:05 PM CURRENT TOBACCO USER [facility] March 14, 2017 02:05 PM TOBACCO MEDS OFFERED BUT DECLINED [facility] March 14, 2017 02:05 PM TOBACCO OFFERED STOP SMOKING CLINIC [facility] Apr 23, 2016 06:08 AM CURRENT TOBACCO USER [facility] Oct 18, 2015 06:02 AM CURRENT TOBACCO USER [facility] Apr 05, 2015 06:12 AM CURRENT TOBACCO USER [facility] Sep 14, 2014 06:21 AM CURRENT TOBACCO USER [facility] Dec 11, 2012 09:31 AM TOBACCO OFFERED STOP SMOKING CLINIC [facility] Dec 11, 2012 09:31 AM TOBACCO OFFERED STOP SMOKING MEDS [facility] Apr 16, 2012 12:53 PM CURRENT TOBACCO USER [facility] Jul 01, 2011 01:01 PM TOBACCO OFFERED STOP SMOKING CLINIC [facility] Jul 01, 2011 01:01 PM TOBACCO OFFERED STOP SMOKING MEDS [place] [facility] Advance Directives: All historical and current Section [...] docume nt. The data comes from all [place] facilities. Date Advance Directives Provider Source May 29, 2011 ADVANCE DIRECTIVE DISCUSSION VILLA CINTRON [facility] Dec 02, 2008 CLINICAL WARNING YASMIN PRADHAN [facility] [place] [facility] Radiology Reports: +/- 30 days of the encounter No Data Provided for This Section Pathology Reports: +/- 30 days of the encounter No Data Provided for This Section Encounter Notes: All associated encounter notes This section contains the clinical notes associated to the Encounter. Date/Time Encounter Note(s) Provider Source Oct 29, 2021 01:16 PM PRIMARY CARE TELEPHONE ENCOU NTER NOTE: LOCAL TITLE: PETR-PC TELEPHONE/PACT STANDARD TITLE: PRIMARY CARE TELEPHONE ENCOUNTER NOTE DATE OF NOTE: OCT 29, 2021@13:16 ENTRY DATE: OCT 29, 2021@13:16:59 AUTHOR: SELWYN LYNN COSIGNER: URGENCY: STATUS: COMPLETED Contact Number: . Reason for Call: Return Daughters call. Complaint/Problem: Daughter Nataliya reports that patient has been sick for 1 week. He has has fevers, productive cough, sore throat, and no taste. Asked what patient has been taking? She reports mucenex, OTC cold tab for people with high blood pressure, and ibuprofen. She also reports that there have been several ill in the house and that her niece was diagnosed with 2 different viruses, but not covid. She reports that his O2 sat is running from 70's to the 90's. He is wearing his oxygen at 2-3 liters and continues to be sob at times. Told her to have patient continue to wear the oxygen 24 hours a day until feeling better or O2 will stay in the 90's. She verbalized understanding. Told her that I would ask Dr. Castillo to order resp. panel, and schedule him. She states that will have to be when her is at lunch around 11:00. Also encouraged her to have him go to the Er for evaluation if he becomes more short of breath or if O2 in 80's. She verbalized understanding. Plan of Care:Encouraged to have patient evaluated in the ER. Will ask Dr. Castillo to order respritory panel for 10/30/2021@11:00. Education: As above. Follow-up: Per recall and PRN. Number of minutes spent with patient on the phone: 8 min. /sasha/ Selwyn LYNN LPN Signed: 10/29/2021 13:39 Receipt Acknowledged By: 10/29/2021 14:07 /sasha/ STEWART BARRETT HER STAFF PHYSICIAN, SELWYN HINOJOSA OC
--- OUTSIDE RECORDS SUMMARY | 2021-12-24 23:39 | XMS REPORT | Encounter Summary ---
[facility] Address Unknown Phone Unavailable Care Team Providers Care Associate Professor Of Surgery Name Role Phone DARIN ELY PCP Unavailable [...] (WNR) MEDICAID MEDICAID Nov 03, 2014 MEDICAID [id number] [phone] RENEE ARRIAGA PATIENT MEDICARE (WNR) MEDICARE (M) PART B Feb 02, 2020 PART B [id number] RENEE ARRIAGA PATIENT MEDICARE (WNR) MEDICARE (M) PART A Jan 01, 2006 PART A [id number] RENEE ARRIAGA PATIENT MEDICARE (WNR) MEDICARE (M) PART A Jan 01, 2006 PART A [id number] ARRIAGARENEE PATIENT Selected Encounter This section includes the information on record at [place] for the Encounter. Date/Time Encounter Type Encounter Description Reason Provider Source Oct 09, 2021 12:30 PM MEASURE BLOOD OXYGEN LEVEL RESPIRATORY THE [facility] ICD-10-CM J44.9 Chronic obstructive pulmonary disease, unspecified with Provider Comments: Chronic obstructive lung disease ([facility] [id number]) MARLEE WARE [facility] Encounter Template Text not used by [place] Assessments - Encounter Diagnoses This section includes the primary and secondary diag noses documented for the Encounter. Date/Time Primary/Secondary Diagnosis Diagnosis Name Provider Source Oct 09, 2021 01:08 PM PRIMARY Chronic obstructiv e pulmonary disease, unspecified BRIAN WAREHER CHOLO PAYAN Plan of Treatment: Future Appointments (+ 6 months) and Future Tests (+/- 45 day s) The Plan of Treatment section includes future care activities for the patient fr om all [place] treatment facilities. This section includes future appointments and fu ture orders which are active, pending or scheduled. Future Appointments This section includes appointments that were scheduled t o occur 6 months from the date of the Encounter, up to a maximum of 20 appointme nts. The data comes from all [facility]. Appointment Date/Time Appointment Type Appointment Facili ty Name Oct 30, 2021 11:00 AM AMBULATORY - MEDICINE [facility] Dec 10, 2021 10:00 AM AMBULATORY - [facility] 15 Dec 25, 2021 10:45 AM AMBULATORY - MEDICINE [facility] Dec 27, 2021 01:30 PM AMBULATORY - MEDICINE [facility] Active, [...] the Encounter. The data comes from all [facility]. Test Date/Time Test Type Test Details Facility Name Oct 29, 2021 12:00 AM Laboratory - Chemistry Order COVID-19 DIAGNOSTIC (RESP PANEL) NASOPHARYNGEAL SWAB NASOPHARYNX SP [facility] Surgical Procedures: All associated to the encounter This section includes all Surgical Procedures and Surgical Procedure Notes assoc iated to the Encounter. Surgical Procedures This section includes all Surgical Procedures associated to the Encounter. Surgical Procedure Date/Time Procedure Procedure Type Procedure Qualifiers Provider Source Oct 09, 2021 12:30 PM PULSE OX,MULTIPLE MEASURE BLOOD OXYGEN LEVEL JEANIEMARLEE ABRAMS [facility] Surgical Notes There are no notes associated [...] and tobacco- related health factors from the [place] facility where the Encounter took place. Current Smoking Status This section includes the most current smoking, or tobacco -related health factor, from the [place] facility where the Encounter took place. Date/Time Current Smoking Status Comment Facility Jun 28, 2021 01:30 PM VA-TOBACCO FORMER USER [facility] Tobacco Use History This section includes a history of the smoking, or tobacco -related health factors, that were collected on or before the date of the Encoun ter. The data comes from the [place] facility where the Encounter took place. 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 [facility] Jun 29, 2020 09:00 AM VA-TOBACCO USE MED NO [facility] Jun 29, 2020 09:00 AM VA-TOBACCO USE [place] 30 MIN OF WAKEUP N [facility] Jun 29, 2020 09:00 AM [facility] Jul 21, 2019 11:05 AM VA-TOBACCO USE 30 YEARS OR MORE TOBI DA [facility] Jul 21, 2019 11:05 AM VA-TOBACCO USE ADVICE [facility] Jul 21, 2019 11:05 AM VA-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 USE 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 [facility] Jul 21, 2019 11:05 AM VA-TOBACCO USE MED NO [facility] Jul 21, 2019 11:05 AM VA-TOBACCO USE WI 30 MIN OF WAKEUP N [facility] Jul 21, 2019 11:05 AM [facility]ACCO [facility] Jun 29, 2018 01:31 PM CURRENT TOBACCO USER [facility] Jun 29, 2018 01:31 PM CURRENT TOBACCO USER (NOT READY TO RAJI T) [facility] Jun 29, 2018 01:31 PM TOBACCO CESSATION REFERRAL DECLINED [facility] Jun 29, 2018 01:31 PM TOBACCO MEDS OFFERED BUT DECLINED [facility] Jun 29, 2018 01:31 PM TOBACCO USER OFFERED MEDS [place] [facility] Dec 26, 2017 09:02 AM CURRENT TOBACCO USER [facility] Dec 26, 2017 09:02 AM CURRENT TOBACCO USER (NOT READY TO RAJI T) [facility] Dec 26, 2017 09:02 AM TOBACCO CESSATION REFERRAL DECLINED [facility] Dec 26, 2017 09:02 AM TOBACCO MEDS OFFERED BUT DECLINED [facility] Dec 26, 2017 09:02 AM TOBACCO USER OFFERED MEDS [place] [facility] May 23, 2017 03:35 PM CURRENT TOBACCO USER [facility] May 23, 2017 03:35 PM CURRENT TOBACCO USER (NOT READY TO RAJI T) [facility] May 23, 2017 03:35 PM TOBACCO CESSATION REFERRAL DECLINED [facility] May 23, 2017 03:35 PM TOBACCO MEDS OFFERED BUT DECLINED [facility] May 23, 2017 03:35 PM TOBACCO USER OFFERED MEDS [place] [facility] Apr 24, 2017 02:27 PM CURRENT TOBACCO USER [facility] Apr 24, 2017 02:27 PM TOBACCO MEDS OFFERED BUT DECLINED [facility] Apr 24, 2017 02:27 PM TOBACCO OFFERED STOP SMOKING CLINIC [facility] March 14, 2017 02:05 PM CURRENT TOBACCO USER [facility] March 14, 2017 02:05 PM TOBACCO MEDS OFFERED BUT DECLINED [facility] March 14, 2017 02:05 PM TOBACCO OFFERED STOP SMOKING CLINIC [facility] Apr 23, 2016 06:08 AM CURRENT TOBACCO USER [facility] Oct 18, 2015 06:02 AM CURRENT TOBACCO USER [facility] Apr 05, 2015 06:12 AM CURRENT TOBACCO USER [facility] Sep 14, 2014 06:21 AM CURRENT TOBACCO USER [facility] Dec 11, 2012 09:31 AM TOBACCO OFFERED STOP SMOKING CLINIC [facility] Dec 11, 2012 09:31 AM TOBACCO OFFERED STOP SMOKING MEDS NE [facility] Apr 16, 2012 12:53 PM CURRENT TOBACCO USER [facility] Jul 01, 2011 01:01 PM TOBACCO OFFERED STOP SMOKING CLINIC [facility] Jul 01, 2011 01:01 PM TOBACCO OFFERED STOP SMOKING MEDS [facility] Advance Directives: All historical and current Section [...] docume nt. The data comes from all [place] facilities. Date Advance Directives Provider Source May 29, 2011 ADVANCE DIRECTIVE DISCUSSION VILLA CINTRON [facility]UL[facility] CÉ[facility] Dec 02, 2008 CLINICAL WARNING YASMIN PRADHAN [facility] [place] [facility] Radiology Reports: +/- 30 days of the encounter No Data Provided for This Section Pathology Reports: +/- 30 days of the encounter No Data Provided for This Section Encounter Notes: All associated encounter notes This section contains the clinical notes associated to the Encounter. Date/Time Encounter Note(s) Provider Source Oct 09, 2021 12:53 PM PULMONARY NOTE: LOCAL TITLE: PETR-HOME 0-2 RECERTIFICATION STANDARD TITLE: PULMONARY NOTE DATE OF NOTE: OCT 09, 2021@12:53 ENTRY DATE: OCT 09, 2021@12:53:38 AUTHOR: MARLEE WARE EXP COSIGNER: URGENCY: STATUS: COMPLETED SUBJECT: Home oxygen re-evaluation PETR-HOME 0-2 RECERTIFICATION Has ADDENDA Arrived at appointment on 10/09/2021 on room air as states his oxygen was at home. walked from waiting room to exam room, with assistance of walker, on room air, 30 feet, SpO2 88%, HR 51, RR 24 with reports of increased shortness of breath. Distance ambulated: 50 ft Rest stops required: 0 Lowest RA SpO2: 81% Min Oxygen required: Room air sat down and 2LPM was placed on via oxygen concentrator. After resting on 2LPM for 5 minutes, SpO2 94%, HR 69bpm. [place] was able to walk again for 15 feet before SpO2 dropped to 86%, HR 46 on 2LPM with reported increased shortness o f breath. [place]burn sat down and was placed on 3LPM, rested for 5 minutes. After 5 minutes, SpO2 93%, HR 62bpm. [place]burn was able to walk once more for 10 feet on 3LPM before having to sit down, SpO2 94%, HR 62BPM. Ashburn rested post walk, SpO2 96%, HR 68bpm. Discussed proper use of oxygen, smoking around oxygen, making sure to wear the 3 LPM of oxygen with exertion and 2LPM w ith sleep. Encouraged miguel to monitor his SpO2 at home. Discussed the dangers of wearing supplemental oxygen and having high SpO2 readings. Discussed good range for SpO2 to be at. Discussed the possibility of home-based pulmonary rehab with and daughter. Miguel declined this offer. Miguel was not very happy about being at this appointment or having to walk and test his oxygen. Ambulation assistance: Walker Portable oxygen available? Miguel was prescribed tanks at home but did not bring these. When asked where oxygen was, miguel stated "I don't need the oxygen." I advised that needs to wear his oxygen with him anytime he is out and about or exerting himself. Miguel was not happy when this was discussed with him. Ashburn then stated "I don't have any more oxygen, I told them (DME) I didn't need it." Miguel may need more tanks delivered to his home. Discussed this with and daughter and they are unaware of how much oxygen he has left in his tanks. Advised I would let Andreina, home oxygen coordinator, to look into having DME company come out and make sure he has enough oxygen in tanks. /sasha/ MARLEE WARE RRT RESPIRATORY THERAPIST Signed: 10/09/2021 13:08 Receipt Acknowledged By: * AWAITING SIGNATURE * ANDREINA ACHARYA 10/09/2021 ADDENDUM STATUS: COMPLETED did also state that when he is feeling short of breath, he turns his oxygen up to 4LPM and that helps with his breathing with his SpO2 reading being around 98% per . Discussed the risks of increased oxygen flow and a high SpO2. /sasha/ MARLEE WARE, [place]UNO RESPIRATORY THERAPIST Signed: 10/09/2021 15:08 MARLEE WARE [facility]
--- OUTSIDE RECORDS SUMMARY | 2021-12-24 23:40 | XMS REPORT | Encounter Summary ---
Author Author Department [facility] RENEE emerson Organization Department [facility] Address Unknown Phone Unavailable Care Team Providers Care Head Of Visual Merchandising Name Role Phone DARIN ELY PCP Unavailable [...] (WNR) MEDICAID MEDICAID Nov 03, 2014 MEDICAID [id number] [phone] RENEE ALFAOR PATIENT MEDICARE (WNR) MEDICARE (M) PART B Feb 02, 2020 PART B [id number] BARTRAERENEE PATIENT MEDICARE (WNR) MEDICARE (M) PART A Jan 01, 2006 PART A [id number] BARTRAEREN[place] PATIENT MEDICARE (WNR) MEDICARE (M) PART A Jan 01, 2006 PART A [id number] RENEE ALFARO PATIENT Selected Encounter This section includes the information on record at [place] for the Encounter. Date/Time Encounter Type Encounter Description Reason Provider Source Oct 01, 2021 02:27 PM HC PRO PHONE CALL 5-10 MIN TELEPHONE/MEDIC INE ICD-10-CM J44.9 Chronic obstructive pulmonary disease, unspecified with Provider Comments: Chronic obstructive lung disease (SCT [id number]) ANDREINA ACHARYA IHAron Encounter Template Text not used by [place] Assessments - Encounter Diagnoses This section includes the primary and secondary diag noses documented for the Encounter. Date/Time Primary/Secondary Diagnosis Diagnosis Name Provider Source Oct 01, 2021 02:27 PM PRIMARY Chronic obstructiv e pulmonary disease, unspecified ANDREINA ACHARYA [facility], VISN 15 Plan of Treatment: Future Appointments (+ 6 months) and Future Tests (+/- 45 day s) The Plan of Treatment section includes future care activities for the patient fr om all [facility]. This section includes future appointments and fu ture orders which are active, pending or scheduled. Future Appointments This section includes appointments that were scheduled t o occur 6 months from the date of the Encounter, up to a maximum of 20 appointme nts. The data comes from all [facility]. Appointment Date/Time Appointment Type Appointment Facili ty Name Oct 09, 2021 12:30 PM AMBULATORY - MEDICINE [facility] Oct 30, 2021 11:00 AM AMBULATORY - MEDICINE [facility] Dec 10, 2021 10:00 AM AM[facility]ULATORY - [facility] T V[facility]N 15 Dec 25, 2021 10:45 AM AMBULATORY - MEDICINE [facility] Dec 27, 2021 01:30 PM AMBULATORY - MEDICINE [facility] Active, Pending, and Scheduled Orders This [...] the Encounter. The data comes from all [facility]. Test Date/Time Test Type Test Details Facility Name Oct 29, 2021 12:00 AM Laboratory - Chemistry Order COVID-19 DIAGNOSTIC (RESP PANEL) NASOPHARYNGEAL SWAB NASOPHARYNX SP [facility] Surgical Procedures: All associated to the encounter This section includes all Surgical Procedures and Surgical Procedure Notes assoc iated to the Encounter. Surgical Procedures This section includes all Surgical Procedures associated to the Encounter. Surgical Procedure Date/Time Procedure Procedure Type Procedure Qualifiers Provider Source Oct 01, 2021 02:27 PM HC PRO PHONE CALL 5-10 MIN HC PRO PHONE CALL 5-10 MIN [facility] 15 Surgical Notes There are no notes associated [...] of a patient's completed or amen ded [place] Advance and Rescinded Directives. The entries below indicate that a direc tive exists for the patient, but an actual copy is not included with this docume nt. The data comes from all [place] facilities. Date Advance Directives Provider Source May 29, 2011 ADVANCE DIRECTIVE DISCUSSION VILLA [facility]ON [facility] Dec 02, 2008 CLINICAL WARNING YASMIN PRADHAN [facility] Radiology Reports: +/- 30 days of the encounter No Data Provided for This Section Pathology Reports: +/- 30 days of the encounter No Data Provided for This Section Encounter Notes: All associated encounter notes This section contains the clinical notes associated to the Encounter. Date/Time Encounter Note(s) Provider Source Oct 01, 2021 02:27 PM ADMINISTRATIVE NOTE: LOCAL TITLE: PETR-PULMONARY ADMINISTRATIVE STANDARD TITLE: ADMINISTRATIVE NOTE DATE OF NOTE: OCT 01, 2021@14:27 ENTRY DATE: OCT 01, 2021@14:27:49 AUTHOR: ANDREINA ACHARYA EXP COSIGNER: URGENCY: STATUS: COMPLETED Mr. Alfaro [place] a new [place] home oxygen patient. He has been a no-show for 2 appointments and hasn't responded to the latest message left by the [facility] on 09/26. I called his daughter today and s he has agreed to another appointment. The [facility] called and did get him scheduled. Call time 5 minutes /sasha/ ANDREINA ACHARYA respiratory therapist Signed: 10/01/2021 14:30 ANDREINA ACHARYA [facility], [facility]N 15
--- OUTSIDE RECORDS SUMMARY | 2021-12-24 23:40 | XMS REPORT | Encounter Summary ---
Author Author [facility] RENEE emerson Organization [facility] Address Unknown Phone Unavailable Care Team Providers Care Weave Room Supervisor Name Role Phone DARIN ELY PCP Unavailable [...] (WNR) MEDICAID MEDICAID Nov 03, 2014 MEDICAID [id number] [phone] RENEE ARRIAGA PATIENT MEDICARE (WNR) MEDICARE (M) PART B Feb 02, 2020 PART B [id number] RENEE ARRIAGA PATIENT MEDICARE (WNR) MEDICARE (M) PART A Jan 01, 2006 PART A [id number] RENEE ARRIAGA PATIENT MEDICARE (WNR) MEDICARE (M) PART A Jan 01, 2006 PART A [id number] [phone] ARRIAGARENEE PATIENT Selected Encounter This section includes the information on record at [place] for the Encounter. Date/Time Encounter Type Encounter Description Reason Provider Source Aug 29, 2021 11:15 AM Outpatient Encounter PRIMARY CARE/MEDICINE IHE Encounter Template Text not used by [facility] Assessments - Encounter Diagnoses No Data Provided for This Section Plan of Treatment: Future Appointments (+ 6 months) and Future Tests (+/- 45 day s) The Plan of Treatment section includes future care activities for the patient fr om all [place] treatment facilities. This section includes future appointments [...] 25, 2021 12:30 PM AMBULATORY - MEDICINE [facility] Oct 09, 2021 12:30 PM AMBULATORY - MEDICINE [facility] Oct 30, 2021 11:00 AM AMBULATORY - MEDICINE [facility] Dec 10, 2021 10:00 AM AMBULATORY - [facility] T, VISN 15 Dec 25, 2021 10:45 AM AMBULATORY - MEDICINE [facility] Dec 27, 2021 01:30 PM [facility] MEDICINE [facility] Surgical Procedures: All associated to the encounter No Data Provided for This Section Lab Results: +/- 30 days of the encounter This section includes the Chemistry and Hematology Lab R esults on record with [place] for the patient. Radiology Reports and Pathology Report s are provided separately, in subsequent sections. Lab Results This section contains the Chemistry/Hematology Results christina t were resulted 30 days before or 30 days after the date of the Encounter. Date/Time Source Result Type Result - Unit Interpretation Reference Range Comment Aug 29, 2021 11:24 AM [facility] BASIC METABOLIC PANEL Spe cimen Type: PLASMA No comment entered. Ordering Provider: DARIN ELY Report Released Date/Time: Jul 14, 2021 11:57 AM Reporting Lab: [facility] [address] [facility] [id number] Performing Lab: [facility] [address] [facility] [address] *CREATININE 1.37 mg/dL H 0.7-1.3 UREA NITROGEN [...] and tobacco- related health factors from the [place] facility where the Encounter took place. Current Smoking Status This section includes the most current smoking, or tobacco -related health factor, from the [place] facility where the Encounter took place. Date/Time Current Smoking Status Comment Facility Jun 28, 2021 01:30 PM VA-TOBACCO FORMER USER [facility] Tobacco Use History This section includes a history of the smoking, or tobacco -related health factors, that were collected on or before the date of the Encoun ter. The data comes from the [place] facility where the Encounter took place. 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 [facility] Jun 29, 2020 09:00 AM VA-TOBACCO USE MED NO [facility] Jun 29, 2020 09:00 AM VA-TOBACCO USE WI 30 MIN OF WAKEUP N [facility] Jun 29, 2020 09:00 AM [facility]CO [facility] Jul 21, 2019 11:05 AM VA-TOBACCO USE 30 YEARS OR MORE [facility] Jul 21, 2019 11:05 AM VA-TOBACCO USE ADVICE [facility] Jul 21, 2019 11:05 AM VA-TOBACCO USE 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 [facility] Jul 21, 2019 11:05 AM VA-TOBACCO USE MED NO [facility] Jul 21, 2019 11:05 AM VA-TOBACCO USE WI 30 MIN OF WAKEUP N [facility] Jul 21, 2019 11:05 AM [facility]-TOBACCO USER EVERY [facility] Jun 29, 2018 01:31 PM CURRENT TOBACCO USER [facility] Jun 29, 2018 01:31 PM CURRENT TOBACCO USER (NOT READY TO RAJI T) [facility] Jun 29, 2018 01:31 PM TOBACCO CESSATION REFERRAL DECLINED [facility] Jun 29, 2018 01:31 PM TOBACCO MEDS OFFERED BUT DECLINED [facility] Jun 29, 2018 01:31 PM TOBACCO USER OFFERED MEDS [facility] Dec 26, 2017 09:02 AM CURRENT TOBACCO USER [facility] Dec 26, 2017 09:02 AM CURRENT TOBACCO USER (NOT READY TO RAJI T) [facility] Dec 26, 2017 09:02 AM TOBACCO CESSATION REFERRAL DECLINED [facility] Dec 26, 2017 09:02 AM TOBACCO MEDS OFFERED BUT DECLINED [facility] Dec 26, 2017 09:02 AM TOBACCO USER OFFERED MEDS [place] [facility] May 23, 2017 03:35 PM CURRENT TOBACCO USER [place] [facility] May 23, 2017 03:35 PM CURRENT [...] 02:27 PM TOBACCO OFFERED STOP SMOKING CLINIC [facility] March 14, 2017 02:05 PM CURRENT TOBACCO USER [place] [facility] March 14, 2017 02:05 PM TOBACCO MEDS OFFERED BUT DECLINED [facility] March 14, 2017 02:05 PM TOBACCO OFFERED STOP SMOKING CLINIC [facility] Apr 23, 2016 06:08 AM CURRENT TOBACCO USER [facility] Oct 18, 2015 06:02 AM CURRENT TOBACCO USER [place] [facility] Apr 05, 2015 06:12 AM CURRENT TOBACCO USER [facility] Sep 14, 2014 06:21 AM CURRENT TOBACCO USER [facility] Dec 11, 2012 09:31 AM TOBACCO OFFERED STOP SMOKING CLINIC [facility] Dec 11, 2012 09:31 AM TOBACCO OFFERED STOP SMOKING [facility]S [facility] Apr 16, 2012 12:53 PM CURRENT TOBACCO USER [facility] Jul 01, 2011 01:01 PM TOBACCO OFFERED STOP SMOKING CLINIC [facility] Jul 01, 2011 01:01 PM TOBACCO OFFERED STOP SMOKING MEDS [facility] Advance Directives: All historical and current Section [...] 2011 ADVANCE DIRECTIVE DISCUSSION VILLA CINTRON [facility] Dec 02, 2008 CLINICAL WARNING YASMIN PRADHAN [facility] Radiology Reports: +/- 30 days of the encounter No Data Provided for This Section Pathology Reports: +/- 30 days of the encounter No Data Provided for This Section Encounter Notes: All associated encounter notes No Data Provided for This Section
--- OUTSIDE RECORDS SUMMARY | 2021-12-24 23:40 | XMS REPORT | Encounter Summary ---
[facility] Address Unknown Phone Unavailable Care Team Providers Care Nursing Specialist Name Role Phone DARIN ELY PCP Unavailable [...] (WNR) MEDICAID MEDICAID Nov 03, 2014 MEDICAID [id number] [phone] RENEE ALFARO PATIENT MEDICARE (WNR) MEDICARE (M) PART B Feb 02, 2020 PART B [id number] RENEE ALFARO PATIENT MEDICARE (WNR) MEDICARE (M) PART A Jan 01, 2006 PART A [id number] RENEE ALFARO PATIENT MEDICARE (WNR) MEDICARE (M) PART A Jan 01, 2006 PART A [id number] RENEE ALFARO PATIENT Selected Encounter This section includes the information on record at [place] for the Encounter. Date/Time Encounter Type Encounter Description Reason Provider Source Sep 21, 2021 09:57 AM SELF-MGMT EDUC & TRAIN 1 PT RESPIRATORY TH ERAPY ICD-10-CM J44.9 Chronic obstructive pulmonary disease, unspecified with Provider Comments: Chronic obstructive lung disease (SCT [id number]) ANDREINA ACHARYA IHAron Encounter Template Text not used by [place] Assessments - Encounter Diagnoses This section includes the primary and secondary diag noses documented for the Encounter. Date/Time Primary/Secondary Diagnosis Diagnosis Name Provider Source Sep 21, 2021 10:06 AM PRIMARY Chronic obstructiv e pulmonary disease, unspecified ANDREINA ACHARYA Plan of Treatment: Future Appointments (+ 6 months) and Future Tests (+/- 45 day s) The Plan of Treatment section includes future care activities for the patient fr om all [facility] facilities. This section includes future appointments and fu ture orders which are active, pending or scheduled. Future Appointments This section includes appointments that were scheduled t o occur 6 months from the date of the Encounter, up to a maximum of 20 appointme nts. The data comes from all [facility]. Appointment Date/Time Appointment Type Appointment Facili ty Name Sep 25, 2021 12:30 PM AMBULATORY - MEDICINE [facility] Oct 09, 2021 12:30 PM AMBULATORY - MEDICINE [facility] Oct 30, 2021 11:00 AM AMBULATORY MEDICINE [facility] Dec 10, 2021 10:00 AM [facility]ATORY - [facility] T, V[facility]N 15 Dec 25, 2021 10:45 AM AMBULATORY MEDICINE [facility] Dec 27, 2021 01:30 PM [facility] Active, Pending, and Scheduled Orders [...] the Encounter. The data comes from all [facility]. Test Date/Time Test Type Test Details Facility Name Oct 29, 2021 12:00 AM Laboratory - Chemistry Order COVID-19 DIAGNOSTIC (RESP PANEL) NASOPHARYNGEAL SWAB NASOPHARYNX SP [facility] Surgical Procedures: All associated to the encounter This section includes all Surgical Procedures and Surgical Procedure Notes assoc iated to the Encounter. Surgical Procedures This section includes all Surgical Procedures associated to the Encounter. Surgical Procedure Date/Time Procedure Procedure Type Procedure Qualifiers Provider Source Sep 21, 2021 09:57 AM SELF-MGMT EDUC & TRAIN 1 PT SELF-MGMT EDUC & TRAIN 1 PT ANDREINA ACHARYA [facility] Surgical Notes There are no notes associated with this procedure. Lab Results: +/- 30 days of the encounter This section includes the Chemistry and Hematology Lab R esults on record with [place] for the patient. Radiology Reports and Pathology Report s are provided separately, in subsequent sections. Lab Results This section contains the Chemistry/Hematology Results christina t were resulted 30 days before or 30 days after the date of the Encounter. Date/Time Source Result Type Result - Unit Interpretation Reference Range Comment Aug 29, 2021 11:24 AM [facility] METABOLIC PANEL Spe cimen Type: PLASMA No comment entered. Ordering Provider: DARIN ELY Report Released Date/Time: Jul 14, 2021 11:57 AM Reporting Lab: [facility] [address] [facility] [address] Performing Lab: [facility] [address] [facility] [address] *CREATININE 1.37 mg/dL H 0.7-1.3 UREA NITROGEN [...] and tobacco- related health factors from the [place] facility where the Encounter took place. Current Smoking Status This section includes the most current smoking, or tobacco -related health factor, from the [place] facility where the Encounter took place. Date/Time Current Smoking Status Comment Facility Jun 28, 2021 01:30 PM [place]-TOBAC[place] FORMER USER [facility] Tobacco Use History This section includes a history of the smoking, or tobacco -related health factors, that were collected on or before the date of the Encoun ter. The data comes from the [place] facility where the Encounter took place. Date/Time Smoking Status/Tobacco Use Comment [facility] Jun 28, 2021 01:30 PM VA-TOBACCO QUIT < 1 YEAR [place] [facility] Jun 29, 2020 09:00 AM VA-TOBACCO USE 30 YEARS OR MORE [facility] Jun 29, 2020 09:00 AM VA-TOBACCO USE ADVICE [facility] Jun 29, 2020 09:00 AM VA-TOBACCO USE ROOF SLATER NO [facility] C Jun 29, 2020 09:00 AM VA-TOBACCO USE MED NO [facility] Jun 29, 2020 09:00 AM VA-TOBACCO USE WI 30 MIN OF WAKEUP N [facility] Jun 29, 2020 09:00 AM VA-TOBACCO USER EVERY DAY [place] [facility] Jul 21, 2019 11:05 AM VA-TOBACCO USE 30 YEARS OR MORE [facility] Jul 21, 2019 11:05 AM VA-TOBACCO USE ADVICE [facility] Jul 21, 2019 11:05 AM VA-TOBACCO USE ROOF SLATER NO [facility] Jul 21, 2019 11:05 AM VA-TOBACCO USE MED NO [place] [facility] Jul 21, 2019 11:05 AM VA-TOBACCO USE WI 30 MIN OF WAKEUP N [facility] Jul 21, 2019 11:05 AM VA-TOBACCO USER EVERY DAY [place] [facility] Jun 29, 2018 01:31 PM CURRENT TOBACCO USER [place] [facility] Jun 29, 2018 01:31 PM CURRENT TOBACCO USER (NOT READY TO RAJI T) [place] [facility] Jun 29, 2018 01:31 PM TOBACCO CESSATION REFERRAL DECLINED [facility] [facility] Jun 29, 2018 01:31 PM TOBACCO MEDS OFFERED BUT DECLINED [facility] Jun 29, 2018 01:31 PM TOBACCO USER OFFERED MEDS [place] [facility] Dec 26, 2017 09:02 AM CURRENT TOBACCO USER [place] [facility] Dec 26, 2017 09:02 AM CURRENT TOBACCO USER (NOT READY TO RAJI T) [place] [facility] Dec 26, 2017 09:02 AM TOBACCO CESSATION REFERRAL DECLINED [place] [facility] Dec 26, 2017 09:02 AM TOBACCO MEDS OFFERED BUT DECLINED [facility] Dec 26, 2017 09:02 AM TOBACCO USER OFFERED MEDS [place] [facility] May 23, 2017 03:35 PM CURRENT TOBACCO USER [facility] May 23, 2017 03:35 PM CURRENT TOBACCO USER (NOT READY TO RAJI T) [place] [facility] May 23, 2017 03:35 PM TOBACCO CESSATION REFERRAL DECLINED [place] [facility] May 23, 2017 03:35 PM TOBACCO MEDS OFFERED BUT DECLINED [facility] May 23, 2017 03:35 PM TOBACCO USER OFFERED MEDS [place] [facility] Apr 24, 2017 02:27 PM CURRENT TOBACCO USER [facility] Apr 24, 2017 02:27 PM TOBACCO MEDS OFFERED BUT DECLINED [facility] Apr 24, 2017 02:27 PM [facility]ACCO [facility] March 14, 2017 02:05 PM CURRENT TOBACCO USER [facility] March 14, 2017 02:05 PM TOBACCO MEDS OFFERED BUT DECLINED [facility] March 14, 2017 02:05 PM [facility]BACCO [facility] Apr 23, 2016 06:08 AM CURRENT TOBACCO USER [facility] Oct 18, 2015 06:02 AM CURRENT TOBACCO USER [facility] Apr 05, 2015 06:12 AM CURRENT TOBACCO USER [facility] Sep 14, 2014 06:21 AM CURRENT TOBACCO USER [facility] Dec 11, 2012 09:31 AM TOBACCO OFFERED STOP SMOKING CLINIC [facility] Dec 11, 2012 09:31 AM TOBACCO OFFERED STOP SMOKING [facility]S [facility] Apr 16, 2012 12:53 PM CURRENT TOBACCO USER [facility] Jul 01, 2011 01:01 PM TOBACCO OFFERED STOP SMOKING CLINIC [facility] Jul 01, 2011 01:01 PM TOBACCO OFFERED STOP SMOKING MEDS [facility] Advance Directives: All historical and current [...] docume nt. The data comes from all [place] facilities. Date Advance Directives Provider Source May 29, 2011 ADVANCE DIRECTIVE DISCUSSION VILLA CINTRON [facility] Dec 02, 2008 CLINICAL WARNING YASMIN PRADHAN [facility] [facility] Radiology Reports: +/- 30 days of the encounter No Data Provided for This Section Pathology Reports: +/- 30 days of the encounter No Data Provided for This Section Encounter Notes: All associated encounter notes This section contains the clinical notes associated to the Encounter. Date/Time Encounter Note(s) Provider Source Sep 21, 2021 09:58 AM ADMINISTRATIVE NOTE: LOCAL TITLE: PETR-PULMONARY ADMINISTRATIVE STANDARD TITLE: ADMINISTRATIVE NOTE DATE OF NOTE: SEP 21, 2021@09:58 ENTRY DATE: SEP 21, 2021@09:58:34 AUTHOR: ANDREINA ACHARYA COSIGNER: URGENCY: STATUS: COMPLETED Mr. Alfaro is a new [place] home oxygen patient. He hasn't responded to calls or letters to set up an appointment at the [facility] with Respiratory Therapy for a 3 month eval so I called him and his daughter Nataliya answered. She schedules all his appointments and agreed to call the [facility] back for an appointment. Call time 5 minutes /sasha/ ANDREINA ACHARYA respiratory therapist Signed: 09/21/2021 10:05 Receipt Acknowledged By: * AWAITING SIGNATURE * MARLEE WARE * AWAITING SIGNATURE * EMILIE OLIVEROS BECKY [facility]
--- OUTSIDE RECORDS SUMMARY | 2021-12-24 23:40 | XMS REPORT | Encounter Summary ---
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 Date/Time Encounter Type Encounter Description Reason Provider Source Sep 25, 2021 03:44 PM HC PRO PHONE CALL 5-10 MIN TELEPHONE/MEDIC INE ICD-10-CM J44.9 Chronic obstructive pulmonary disease, unspecified with Provider Comments: Chronic obstructive lung disease (SCT [id number]) ANDREINA ACHARYA IHAron Encounter Template Text not used by CT Assessments - Encounter Diagnoses This section includes the primary and secondary diag noses documented for the Encounter. Date/Time Primary/Secondary Diagnosis Diagnosis Name Provider Source Sep 25, 2021 03:44 PM PRIMARY Chronic obstructiv e pulmonary disease, unspecified ANDREINA ACHARYA [facility], [facility] 15 Plan of Treatment: Future Appointments (+ 6 months) and Future Tests (+/- 45 day s) The Plan of Treatment section includes future care activities for the patient fr om all [facility]. This section includes future appointments and fu ture orders which are active, pending or scheduled. Future Appointments This section includes appointments that were scheduled t o occur 6 months from the date of the Encounter, up to a maximum of 20 appointme nts. The data comes from all [facility]. Appointment Date/Time Appointment Type Appointment Facili ty Name Oct 09, 2021 12:30 PM AMBULATORY - MEDICINE [facility] Oct 30, 2021 11:00 AM AMBULATORY - MEDICINE [facility] Dec 10, 2021 10:00 AM AMBULATORY - [facility] T [facility] 15 Dec 25, 2021 10:45 AM AMBULATORY - MEDICINE [facility] Dec 27, 2021 01:30 PM AMBULATORY - MEDICINE [facility] Active, Pending, and Scheduled Orders This [...] the Encounter. The data comes from all [facility]. Test Date/Time Test Type Test Details Facility Name Oct 29, 2021 12:00 AM Laboratory - Chemistry Order COVID-19 DIAGNOSTIC (RESP PANEL) NASOPHARYNGEAL SWAB NASOPHARYNX SP [facility] Surgical Procedures: All associated to the encounter This section includes all Surgical Procedures and Surgical Procedure Notes assoc iated to the Encounter. Surgical Procedures This section includes all Surgical Procedures associated to the Encounter. Surgical Procedure Date/Time Procedure Procedure Type Procedure Qualifiers Provider Source Sep 25, 2021 03:44 PM HC PRO PHONE CALL 5-10 MIN HC PRO PHONE CALL 5-10 MIN [facility] Surgical Notes There are no notes associated with this procedure. Lab Results: +/- 30 days of the encounter This section includes the Chemistry and Hematology Lab R esults on record with CT for the patient. Radiology Reports and Pathology Report s are provided separately, in subsequent sections. Lab Results This section contains the Chemistry/Hematology Results christina t were resulted 30 days before or 30 days after the date of the Encounter. Date/Time Source Result Type Result - Unit Interpretation Reference Range Comment Aug 29, 2021 11:24 AM [facility] BASIC METABOLIC PANEL Spe cimen Type: PLASMA No comment entered. Ordering Provider: DARIN ELY Report Released Date/Time: Jul 14, 2021 11:57 AM Reporting Lab: [facility] [address] [facility]. [facility] [phone] Performing Lab: [facility] [address] [facility] [phone] *CREATININE 1.37 mg/dL H 0.7-1.3 UREA NITROGEN [...] docume nt. The data comes from all CT facilities. Date Advance Directives Provider Source May 29, 2011 ADVANCE DIRECTIVE DISCUSSION VILLA CINTRON [facility] Dec 02, 2008 CLINICAL WARNING YASMIN PRADHAN [facility] [place] [facility] Radiology Reports: +/- 30 days of the encounter No Data Provided for This Section Pathology Reports: +/- 30 days of the encounter No Data Provided for This Section Encounter Notes: All associated encounter notes This section contains the clinical notes associated to the Encounter. Date/Time Encounter Note(s) Provider Source Sep 25, 2021 03:44 PM ADMINISTRATIVE NOTE: LOCAL TITLE: PETR-PULMONARY ADMINISTRATIVE STANDARD TITLE: ADMINISTRATIVE NOTE DATE OF NOTE: SEP 25, 2021@15:44 ENTRY DATE: SEP 25, 2021@15:44:51 AUTHOR: ANDREINA ACHARYA EXP COSIGNER: URGENCY: STATUS: COMPLETED Mr. Alfaro had an appointment at the [facility] today with Respiratory Therapy for his 3 month oxygen evaluation. He was a no-show, this is his second no-show. I called and left a message with his daughter to call me. Call time 5 minutes /sasha/ ANDREINA ACHARYA respiratory therapist Signed: 09/25/2021 15:47 ANDREINA ACHARYA [facility] 15
--- OUTSIDE RECORDS SUMMARY | 2021-12-24 23:41 | XMS REPORT | Encounter Summary ---
[facility] Organization Department [facility] Address Unknown Phone Unavailable Care Team Providers Care Meter Record Clerk Name Role Phone DARIN ELY PCP [...] (WNR) MEDICAID MEDICAID Nov 03, 2014 MEDICAID [id number] [phone] RENEE ARRIAGA PATIENT MEDICARE (WNR) MEDICARE (M) PART B Feb 02, 2020 PART B [id number] [phone] RENEE ARRIAGA PATIENT MEDICARE (WNR) MEDICARE (M) PART A Jan 01, 2006 PART A [id number] RENEE ARRIAGA PATIENT MEDICARE (WNR) MEDICARE (M) PART A Jan 01, 2006 PART A [id number] RENEE ARRIAGA PATIENT Selected Encounter This section includes the information on record at [place] for the Encounter. Date/Time Encounter Type Encounter Description Reason Provider Source Jul 31, 2021 01:20 PM HC PRO PHONE CALL 5-10 MIN TELEPHONE PRIMA RY CARE ICD-10-CM R68.89 Other general symptoms and signs with Provider Comments: General Symptoms & Signs SELWYN LYNN Encounter Template Text not used by [facility] Assessments - Encounter Diagnoses This section includes the primary and secondary diag noses documented for the Encounter. Date/Time Primary/Secondary Diagnosis Diagnosis Name Provider Source Jul 31, 2021 01:20 PM PRIMARY Other general symptoms and signs SELWYN LYNN Plan of Treatment: Future Appointments (+ 6 months) and Future Tests (+/- 45 day s) The Plan of Treatment section includes future care activities for the patient fr om all [place] treatment facilities. This section includes future appointments and fu ture orders which are active, pending or scheduled. Future Appointments This section includes appointments that were scheduled t o occur 6 months from the date of the Encounter, up to a maximum of 20 appointme nts. The data comes from all [facility]. Appointment Date/Time Appointment Type Appointment Facili ty Name Aug 29, 2021 11:15 AM AMBULATORY - MEDICINE [facility] Sep 25, 2021 12:30 PM AMBULATORY - MEDICINE [facility] Oct 09, 2021 12:30 PM AMBULATORY MEDICINE [facility] Oct 30, 2021 11:00 AM AMBULATORY - MEDICINE [facility] Dec 10, 2021 10:00 AM AMBULATORY - NONE [facility], [facility] Dec 25, 2021 10:45 AM AMBULATORY MEDICINE [facility] Dec 27, 2021 01:30 PM [facility] Active, Pending, and Scheduled Orders [...] data comes from all [facility]. Test Date/Time Test Type Test Details Facility Name Jun 28, 2021 02:58 PM Consult Order [facility]- PULMONARY Cons Regional Rec[facility]iter[employer] [facility] Surgical Procedures: All associated to the encounter This section includes all Surgical Procedures and Surgical Procedure Notes assoc iated to the Encounter. Surgical Procedures This section includes all Surgical Procedures associated to the Encounter. Surgical Procedure Date/Time Procedure Procedure Type Procedure Qualifiers Provider Source Jul 31, 2021 01:20 PM HC PRO PHONE CALL 5-10 MIN HC PRO PHONE CALL 5-10 MIN SELWYN LYNN Surgical Notes There are no notes associated with this procedure. Lab Results: +/- 30 days of the encounter This section includes the Chemistry and Hematology Lab R esults on record with [place] for the patient. Radiology Reports and Pathology Report s are provided separately, in subsequent sections. Lab Results This section contains the Chemistry/Hematology Results christina t were resulted 30 days before or 30 days after the date of the Encounter. Date/Time Source Result Type Result - Unit Interpretation Reference Range Comment Aug 29, 2021 11:24 AM [facility] BASIC METABOLIC PANEL Spe cimen Type: PLASMA No comment entered. Ordering Provider: DARIN ELY Report Released Date/Time: Jul 14, 2021 11:57 AM Reporting Lab: [facility] [address] [facility] [phone] Performing Lab: [facility] [address] [facility] [phone] *CREATININE 1.37 mg/dL H 0.7-1.3 UREA NITROGEN mg/dL 17 mg/dL 9-25 GLUCOSE 116 mg/dL H 72-99 SODIUM 135 mEq/L L 136-145 POTASSIUM 4.7 mEq/L 3.5-5.0 CALCIUM (mg/dL) 9.8 mg/dL 8.4-10.4 ANION GAP 10.0 8-16 CHLORIDE 96 mEq/L L 98-107 CO2 29 mEq/L 22-31 EGFR 50.0 Jul 12, 2021 11:01 AM [facility] URINALYSIS (PETR) Specimen Type: URINE No comment entered. Ordering Provider: DARIN ELY Report Released Date/Time: Jun 20, 2021 07:48 AM Reporting Lab: [facility] [address] [facility] [phone] Performing Lab: [facility] [address] [facility] [phone] *URINE COLOR Yellow *URINE APPEARANCE Clear Clear [...] Non e Jul 12, 2021 11:01 AM [facility] MICROALBUMIN (PETR,WI) RANDO M URINE Specimen Type: URINE No comment entered. Ordering Provider: DARIN ELY Report Released Date/Time: Jun 20, 2021 07:48 AM Reporting Lab: [facility] [address] [facility]. [facility] [phone] Performing Lab: [facility] [address] [facility] [phone] *MICROALBUMIN,RAND 18 ug/mL *MICROALB/CREAT 12 *UR CREATININE 147.7 mg/dL Jul 12, 2021 11:01 AM [facility] BASIC METABOLIC PANEL Spe cimen Type: PLASMA No comment entered. Ordering Provider: DARIN ELY Report Released Date/Time: Jul 08, 2021 11:43 AM Reporting Lab: [facility] [address] [facility] [phone] Performing Lab: [facility] [address] [facility] [phone] *CREATININE 1.59 mg/dL H 0.7-1.3 UREA NITROGEN mg/dL 21 mg/dL 9-25 GLUCOSE 144 mg/dL H 72-99 SODIUM 135 mEq/L L 136-145 POTASSIUM 5.3 mEq/L H 3.5-5.0 CALCIUM (mg/dL) 9.7 mg/dL 8.4-10.4 ANION GAP 8.0 8-16 CHLORIDE 100 mEq/L 98-107 CO2 27 mEq/L 22-31 EGFR 42.1 Vital Signs: All taken on the encounter date No Data Provided for This Section Immunizations: All administered on the encounter date No Data Provided for This Section Social History: Smoking Status (Most current) and Tobacco Use (All prior to enco unter date) This section includes the most current, and the historical, smoking and tobacco- related health factors from the [place] facility where the Encounter took place. Current Smoking Status This section includes the most current smoking, or tobacco -related health factor, from the [place] facility where the Encounter took place. Date/Time Current Smoking Status Comment Facility Jun 28, 2021 01:30 PM VA-TOBACCO FORMER USER [facility] Tobacco Use History This section includes a history of the smoking, or tobacco -related health factors, that were collected on or before the date of the Encoun ter. The data comes from the [place] facility where the Encounter took place. Date/Time Smoking Status/Tobacco Use Comment Facil it Jun 28, 2021 01:30 PM VA-TOBACCO QUIT < 1 YEAR [facility] Jun 29, 2020 09:00 AM VA-TOBACCO USE 30 YEARS OR MORE TOBI DA [facility] Jun 29, 2020 09:00 AM VA-TOBACCO USE ADVICE [facility] Jun 29, 2020 09:00 AM VA-TOBACCO USE DATA COMMUNICATIONS SOFTWARE CONSULTANT NO [facility] Jun 29, 2020 09:00 AM VA-TOBACCO USE MED NO [facility] Jun 29, 2020 09:00 AM VA-TOBACCO USE WI 30 MIN OF WAKEUP N EVADA [facility] Jun 29, 2020 09:00 AM VA-TOBACCO USER EVERY DAY [facility] Jul 21, 2019 11:05 AM VA-TOBACCO USE 30 YEARS OR MORE TOBI DA [facility] Jul 21, 2019 11:05 AM VA-TOBACCO USE ADVICE [facility] Jul 21, 2019 11:05 AM VA-TOBACCO USE DATA COMMUNICATIONS SOFTWARE CONSULTANT NO [facility] Jul 21, 2019 11:05 AM VA-TOBACCO USE MED NO [facility] Jul 21, 2019 11:05 AM VA-TOBACCO USE WI 30 MIN OF WAKEUP N EVADA [facility] Jul 21, 2019 11:05 AM [facility]-TOBACCO USER EVERY [facility] Jun 29, 2018 01:31 PM CURRENT TOBACCO USER [facility] Jun 29, 2018 01:31 PM CURRENT TOBACCO USER (NOT READY TO RAJI T) [facility] Jun 29, 2018 01:31 PM TOBACCO CESSATION REFERRAL DECLINED [facility] Jun 29, 2018 01:31 PM TOBACCO MEDS OFFERED BUT DECLINED COURTNEY CAMERON [facility] Jun 29, 2018 01:31 PM TOBACCO USER OFFERED MEDS [facility] C Dec 26, 2017 09:02 AM CURRENT TOBACCO USER [facility] Dec 26, 2017 09:02 AM CURRENT TOBACCO USER (NOT READY TO ARJI T) [facility] Dec 26, 2017 09:02 AM TOBACCO CESSATION REFERRAL DECLINED [facility] Dec 26, 2017 09:02 AM TOBACCO MEDS OFFERED BUT DECLINED [facility] Dec 26, 2017 09:02 AM TOBACCO USER OFFERED MEDS [facility] May 23, 2017 03:35 PM CURRENT TOBACCO USER [facility] May 23, 2017 03:35 PM CURRENT TOBACCO USER (NOT READY TO RAJI T) [facility] May 23, 2017 03:35 PM TOBACCO CESSATION REFERRAL DECLINED [facility] May 23, 2017 03:35 PM TOBACCO MEDS OFFERED BUT DECLINED [facility] May 23, 2017 03:35 PM TOBACCO USER OFFERED MEDS [facility] Apr 24, 2017 02:27 PM CURRENT TOBACCO USER [facility] Apr 24, 2017 02:27 PM TOBACCO MEDS OFFERED BUT DECLINED [facility] Apr 24, 2017 02:27 PM TOBACCO OFFERED STOP SMOKING CLINIC [facility] March 14, 2017 02:05 PM CURRENT TOBACCO USER [facility] March 14, 2017 02:05 PM TOBACCO MEDS OFFERED BUT DECLINED [facility] March 14, 2017 02:05 PM TOBACCO OFFERED STOP SMOKING CLINIC [facility] Apr 23, 2016 06:08 AM CURRENT TOBACCO USER [facility] Oct 18, 2015 06:02 AM CURRENT TOBACCO USER [facility] Apr 05, 2015 06:12 AM CURRENT TOBACCO USER [facility] Sep 14, 2014 06:21 AM CURRENT TOBACCO USER [facility] Dec 11, 2012 09:31 AM TOBACCO OFFERED STOP SMOKING CLINIC [facility] Dec 11, 2012 09:31 AM TOBACCO OFFERED STOP SMOKING MEDS NE NISHA [facility] Apr 16, 2012 12:53 PM CURRENT TOBACCO USER [facility] Jul 01, 2011 01:01 PM TOBACCO OFFERED STOP SMOKING CLINIC [facility] Jul 01, 2011 01:01 PM TOBACCO OFFERED STOP SMOKING MEDS NE NISHA [facility] Advance Directives: All historical and current [...] docume nt. The data comes from all [place] facilities. Date Advance Directives Provider Source May 29, 2011 ADVANCE DIRECTIVE DISCUSSION VILLA CINTRON [facility] Dec 02, 2008 CLINICAL WARNING YASMIN PRADHAN [facility] [place] [facility] Radiology Reports: +/- 30 days of the encounter No Data Provided for This Section Pathology Reports: +/- 30 days of the encounter No Data Provided for This Section Encounter Notes: All associated encounter notes This section contains the clinical notes associated to the Encounter. Date/Time Encounter Note(s) Provider Source Jul 31, 2021 03:52 PM PHARMACY NOTE: [facility] STAND[facility] TITLE: PHARMACY NOTE DATE OF NOTE: JUL 31, 2021@15:52 ENTRY DATE: JUL 31, 2021@15:53 AUTHOR: DARIN ELY EXP COSIGNER: URGENCY: STATUS: COMPLETED [facility] Affairs [facility] [place], [place] [id number] or Prescription(s) to be Filled at Non-VA Pharmacy ALLERGIES: BACTRIM DS, TRAZODONE Prescriptions for RENEE ARRIAGA Date of : Jan Address: [address] [place] [id number] Date: JUL 31, 2021 Active Non-VA Meds 1) PREDNISONE TAB 10MG MOUTH ONCE A DAY Comments: 1 tab bid x 3 days, 1 tab daily x 3 days, then 1/2 tab daily until gone, #11 0 refills take with food for congestion/inflammation Substitution permitted Dispense as written Berlin Ely APRN Provider printed name "Not to be filled at [facility] expense" [facility] Jul 31, 2021 01:20 PM PRIMARY CARE TELEPHONE ENCOU NTER NOTE: LOCAL TITLE: PETR-PC TELEPHONE/PACT STANDARD TITLE: PRIMARY CARE TELEPHONE ENCOUNTER NOTE DATE OF NOTE: JUL 31, 2021@13:20 ENTRY DATE: JUL 31, 2021@13:20:43 AUTHOR: SELWYN LYNN COSIGNER: URGENCY: STATUS: COMPLETED PETR-PC TELEPHONE/PACT Has ADDENDA Contact Number: . Reason for Call:Returned Daughters call. Complaint/Problem:Daughter Gloria reports that patient has had sinus congestion, chest congestion, non-productive cough, No fever, is using inhalers, breathing treatment with nebulizer, using cough drops but has had no improvement. He has not been out to be exposed to COVID. She is asking if provider will give patient something to help get rid of congestion and cough. Started 4 days ago. Told her that I would speak with PCP and call her back with her recommendations. Plan of Care:Will chck with PCP and call back with her recommendations. Education:as above. Follow-up:Per recall and PRN. Number of minutes spent with patient on the phone:3 min. /sasha/ Selwyn LYNN LPN Signed: 07/31/2021 13:26 Receipt Acknowledged By: 07/31/2021 15:37 /sandeep Ely APRN 07/31/2021 ADDENDUM STATUS: COMPLETED Patient can come for respiratory panel Please notify patient /sandeep Ely APRN Signed: 07/31/2021 15:39 Receipt Acknowledged By: 07/31/2021 15:44 /sasha/ Mercedes Grace RN, JAMESON PAYAN 07/31/2021 ADDENDUM STATUS: COMPLETED I called patient, spoke with daughter, and she states that the pt. "really does not want to get out." /sasha/ Mercedes Grace RN, JAMESON PAYAN Signed: 07/31/2021 15:45 Receipt Acknowledged By: 07/31/2021 15:53 /sandeep Ely APRN 07/31/2021 ADDENDUM STATUS: COMPLETED Please fax to local pharmacy /sandeep Ely APRN Signed: 07/31/2021 15:55 Receipt Acknowledged By: 07/31/2021 16:02 /sasha/ KALEIGH Casas MA RTIN 07/31/2021 ADDENDUM STATUS: COMPLETED SIGNED PRESCRIPTION FAXED TO [facility] AT [phone] THIS DATE BY THIS WORKER. /sasha/ KALEIGH ZARATE Signed: 07/31/2021 16:03 SELWYN LYNN OC
--- OUTSIDE RECORDS SUMMARY | 2021-12-24 23:41 | XMS REPORT | Encounter Summary ---
Author Author Department [facility] RENEE emerson Organization Department [facility] Address Unknown Phone Unavailable Care Team Providers Care Director Of Group Sales Name Role Phone CELESTEDARIN Sharp PCP Unavailable Insurance Providers: All historical and [...] (WNR) MEDICAID MEDICAID Nov 03, 2014 MEDICAID [id number] [phone] RENEE ARRIAGA PATIENT MEDICARE (WNR) MEDICARE (M) PART B Feb 02, 2020 PART B [id number] RENEE ARRIAGA PATIENT MEDICARE (WNR) MEDICARE (M) PART A Jan 01, 2006 PART A [id number] [phone] RENEE ARRIAGA PATIENT MEDICARE (WNR) MEDICARE (M) PART A Jan 01, 2006 PART A [id number] ARRIAGARENEE PATIENT Selected Encounter This section includes the information on record at [place] for the Encounter. Date/Time Encounter Type Encounter Description Reason Provider Source Aug 24, 2021 11:01 AM ORTHOTIC MGMT&TRAING 1ST ENC OCCUPATIONAL THERAPY ICD-10-CM R53.1 Weakness with Provider Comments: TR Robin Encounter Template Text not used by [facility] Assessments - Encounter Diagnoses This section includes the primary and secondary diag noses documented for the Encounter. Date/Time Primary/Secondary Diagnosis Diagnosis Name Provider Source Aug 24, 2021 11:01 AM PRIMARY Weakness TR MAGANA [facility], VISN 15 Plan of Treatment: Future [...] appointme nts. The data comes from all [place] treatment facilities. Appointment Date/Time Appointment Type Appointment Facili ty Name Aug 29, 2021 11:15 AM AMBULATORY - MEDICINE [facility] Sep 25, 2021 12:30 PM AMBULATORY - [facility]ICINE [facility] Oct 09, 2021 12:30 PM AMBULATORY - [facility]ICINE [facility] Oct 30, 2021 11:00 AM AMBULATORY - [facility]ICINE [facility] Dec 10, 2021 10:00 AM [facility] Dec 25, 2021 10:45 AM AMBULATORY - MEDICINE [facility] Dec 27, 2021 01:30 PM AMBULATORY - MEDICINE [facility] Surgical Procedures: All associated to the encounter This section includes all Surgical Procedures and Surgical Procedure Notes assoc iated to the Encounter. Surgical Procedures This section includes all Surgical Procedures associated to the Encounter. Surgical Procedure Date/Time Procedure Procedure Type Procedure Qualifiers Provider Source Aug 24, 2021 11:01 AM Orthotic(s) Management and T raining (including Assessment and Fitting when not otherwise Reported), upper Extremity(ies), lower Extremity(ies) and/or Trunk, Initial Orthotic(s) Encounter, each 15 minutes ORTHOTIC MGMT&TRAING 1ST ENC TR MAGANA Surgical Notes There are no notes associated [...] Jul 14, 2021 11:57 AM Reporting Lab: [facility] [address] [facility] [facility] [id number] Performing Lab: [facility] [address] [facility] [phone] *CREATININE 1.37 mg/dL H 0.7-1.3 UREA [...] 29, 2011 ADVANCE DIRECTIVE DISCUSSION VILLA CINTRON [facility] Dec 02, 2008 CLINICAL WARNING YASMIN PRADHAN [facility] Radiology Reports: +/- 30 days of the encounter No Data Provided for This Section Pathology Reports: +/- 30 days of the encounter No Data Provided for This Section Encounter Notes: All associated encounter notes This section contains the clinical notes associated to the Encounter. Date/Time Encounter Note(s) Provider Source Aug 24, 2021 11:01 AM OCCUPATIONAL THERAPY TREATME NT PLAN NOTE: LOCAL TITLE: PETR-OCCUPATIONAL THERAPY TREATMENT PLAN STANDARD TITLE: OCCUPATIONAL THERAPY TREATMENT PLAN NOTE DATE OF NOTE: AUG 24, 2021@11:01 ENTRY DATE: AUG 24, 2021@11:01:36 AUTHOR: TR MAGANA COSIGNER: DARIN ELY URGENCY: STATUS: COMPLETED OCCUPATIONAL THERAPY EQUIPMENT EVALUATION DATE: 08/24/21 REFERRAL BY: Brynn Morgan dated 08/24/21. REQUEST: OT/PT to evaluate and treat for adaptive equipment/DME. Dx:Weakness(ICD-10-CM R53.1 Bernadette lives in a house, ranch no basement, 0 CARL. 1 bathroom with a tub/shower. Vet's daughter lives with him and is his primary caregiver. Vet lives 1 1/2 hours from [place] so this assessment was done via phone appt. Daughter states he is stepping over the side ok, but is very short of air and needs a seat in the shower. Ambulates with a walker Mod I, no falls. He is Mod I with dressing and toileting. 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 GOALS TO BE MET IN 1 visit: 1) Pt/caregiver will indicate understan ding of A.E. to increase his independence and safety with ADLs and functional ADL transfers. MET Patient/Caregiver was involved in the discussion of the treatment plan and goals and agreed to both. PLAN: Pt will be seen 1x for equipment evaluation. Total time spent with patient [10 mins 11:00am-11:10am]. /sasha/ TR MAGANA Occupational Therapist Signed: 08/24/2021 11:07 /sasha/ [place] Ely APRN Cosigned: 08/26/2021 06:11 TR MAGANA [facility] 1 5
--- OUTSIDE RECORDS SUMMARY | 2021-12-24 23:41 | XMS REPORT | Encounter Summary ---
Author Author Department [facility] RENEE emerson Organization Department [facility] Address Unknown Phone Unavailable Care Team Providers Care Columnist/Commentator Name Role Phone CELESTEDARIN Sharp PCP Unavailable [...] (WNR) MEDICAID MEDICAID Nov 03, 2014 MEDICAID [id number] [phone] RENEE ARRIAGA PATIENT MEDICARE (WNR) MEDICARE (M) PART B Feb 02, 2020 PART B [id number] ARRIAGARAERENEE PATIENT MEDICARE (WNR) MEDICARE (M) PART A Jan 01, 2006 PART A [id number] [place] PATIENT MEDICARE (WNR) MEDICARE (M) PART A Jan 01, 2006 PART A [id number] RENEE ARRIAGA PATIENT Selected Encounter This section includes the information on record at [place] for the Encounter. Date/Time Encounter Type Encounter Description Reason Provider Source Aug 29, 2021 11:32 AM OFFICE O/P EST MINIMAL PROB PRIMARY CARE/M EDICINE ICD-10-CM Z23 Encounter for immunization with Provider Comments: Encounter for Immunization VASHTI,TR C IHE Encounter Template Text not used by [place] Assessments - Encounter Diagnoses This section includes the primary and secondary diag noses documented for the Encounter. Date/Time Primary/Secondary Diagnosis Diagnosis Name Provider Source Aug 29, 2021 11:33 AM PRIMARY Encounter for immunization TR SANCHEZ [facility] Plan of Treatment: Future Appointments (+ 6 months) and Future Tests (+/- 45 day s) The Plan of Treatment section includes future care activities for the patient fr om all [place] treatment facilities. This section includes future appointments and fu ture orders which are active, pending or scheduled. Future Appointments This section includes appointments that were scheduled t o occur 6 months from the date of the Encounter, up to a maximum of 20 appointme nts. The data comes from all [place] treatment facilities. Appointment Date/Time Appointment Type Appointment Facili ty Name Sep 25, 2021 12:30 PM AMBULATORY - MEDICINE [facility] Oct 09, 2021 12:30 PM AMBULATORY - [facility] Oct 30, 2021 11:00 AM AM[facility]ULATORY - [facility] Dec 10, 2021 10:00 AM AMBULATORY - [facility] 15 Dec 25, 2021 10:45 AM AMBULATORY - MEDICINE [facility] Dec 27, 2021 01:30 PM AMBULATORY [facility] Surgical Procedures: All associated to the encounter This section includes all Surgical Procedures and Surgical Procedure Notes assoc iated to the Encounter. Surgical Procedures This section includes all Surgical Procedures associated to the Encounter. Surgical Procedure Date/Time Procedure Procedure Type Procedure Qualifiers Provider Source Aug 29, 2021 11:32 AM Immunization Administration (Includes Percutaneous, Intradermal, Subcutaneous, or Intramuscular Injections); 1 Vaccine (single or Combination Vaccine/Toxoid) IMMUNIZATION ADMIN N [facility] Surgical Notes There are no notes associated [...] Range Comment Aug 29, 2021 11:24 AM [facility] BASIC METABOLIC PANEL Spe cimen Type: PLASMA No comment entered. Ordering Provider: DARIN ELY Report Released Date/Time: Jul 14, 2021 11:57 AM Reporting Lab: [facility] [address] [facility] [phone] Performing Lab: [facility] [address] [facility] [phone] *CREATININE 1.37 mg/dL H 0.7-1.3 UREA [...] Immunizations: All administered on the encounter date This section contains immunizations associated to the Encounter. Immunization Series Date Issued Reaction Comments INFLUENZA VACCINE, QUADRIVALENT, ADJUVANTED Aug 29 Social History: Smoking Status (Most current) and [...] took place. 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 [facility] Jun 29, 2020 09:00 AM VA-TOBACCO USE MED NO [facility] Jun 29, 2020 09:00 AM VA-TOBACCO USE WI 30 MIN OF WAKEUP N [facility] Jun 29, 2020 09:00 AM VA-TOBACCO USER EVERY DAY [place] [facility] Jul 21, 2019 11:05 AM VA-TOBACCO USE 30 YEARS OR MORE [facility] Jul 21, 2019 11:05 AM VA-TOBACCO USE ADVICE [place] [facility] Jul 21, 2019 11:05 AM VA-TOBACCO USE 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 [place] [facility] Jul 21, 2019 11:05 AM VA-TOBACCO USE MED NO [place] [facility] Jul 21, 2019 11:05 AM VA-TOBACCO USE WI 30 MIN OF WAKEUP N [facility] Jul 21, 2019 11:05 AM VA-TOBACCO USER EVERY DAY [place] [facility] Jun 29, 2018 01:31 PM CURRENT TOBACCO USER [place] [facility] Jun 29, 2018 01:31 PM CURRENT TOBACCO USER (NOT READY TO RAJI T) [facility] Jun 29, 2018 01:31 PM TOBACCO CESSATION REFERRAL DECLINED [facility] Jun 29, 2018 01:31 PM TOBACCO MEDS OFFERED BUT DECLINED NE [facility] Jun 29, 2018 01:31 PM TOBACCO USER OFFERED MEDS [facility] Dec 26, 2017 09:02 AM CURRENT TOBACCO USER [facility] Dec 26, 2017 09:02 AM CURRENT TOBACCO USER (NOT READY TO RAJI T) [facility] Dec 26, 2017 09:02 AM TOBACCO CESSATION REFERRAL DECLINED [facility] Dec 26, 2017 09:02 AM TOBACCO MEDS OFFERED BUT DECLINED NE [facility] Dec 26, 2017 09:02 AM TOBACCO USER OFFERED MEDS [place] [facility] May 23, 2017 03:35 PM CURRENT TOBACCO USER [facility] May 23, 2017 03:35 PM CURRENT TOBACCO USER (NOT READY TO RAJI T) [facility] May 23, 2017 03:35 PM TOBACCO CESSATION REFERRAL DECLINED [place] [facility] May 23, 2017 03:35 PM TOBACCO MEDS OFFERED BUT DECLINED NE [facility] May 23, 2017 03:35 PM TOBACCO USER OFFERED MEDS [place] [facility] Apr 24, 2017 02:27 PM [...] TOBACCO MEDS OFFERED BUT DECLINED NE [facility] March 14, 2017 02:05 PM TOBACCO OFFERED STOP SMOKING CLINIC [facility] Apr 23, 2016 06:08 AM CURRENT TOBACCO USER JO[facility] ALBERTO [facility] Oct 18, 2015 06:02 AM CURRENT TOBACCO USER [facility] Apr 05, 2015 06:12 AM CURRENT TOBACCO USER [facility] Sep 14, 2014 06:21 AM CURRENT TOBACCO USER [facility]ERTO [facility] Dec 11, 2012 09:31 AM TOBACCO OFFERED STOP SMOKING CLINIC [facility] Dec 11, 2012 09:31 AM TOBACCO OFFERED STOP SMOKING MEDS NE [place] Apr 16, 2012 12:53 PM CURRENT TOBACCO USER JO[facility] ALBERTO [facility] Jul 01, 2011 01:01 PM TOBACCO OFFERED STOP SMOKING CLINIC [facility] Jul 01, 2011 01:01 PM TOBACCO OFFERED STOP SMOKING MEDS NE [facility] Advance Directives: All historical and current Section [...] 29, 2011 ADVANCE DIRECTIVE DISCUSSION [facility] CINTRON [facility] Dec 02, 2008 CLINICAL WARNING YASMIN PRADHAN [facility] [place] [facility] Radiology Reports: +/- 30 days of the encounter No Data Provided for This Section Pathology Reports: +/- 30 days of the encounter No Data Provided for This Section Encounter Notes: All associated encounter notes This section contains the clinical notes associated to the Encounter. Date/Time Encounter Note(s) Provider Source Aug 29, 2021 11:32 AM IMMUNIZATION NOTE: LOCAL TITLE: PETR-FLU SHOT NOTE (NURSE ENTRY) STANDARD TITLE: IMMUNIZATION NOTE DATE OF NOTE: AUG 29, 2021@11:32 ENTRY DATE: AUG 29, 2021@11:32:47 AUTHOR: TR KINGSTON EXP COSIGNER: URGENCY: STATUS: COMPLETED INFLUENZA VACCINE The patient was given the influenza VIS which lists the benefits and side effects of the vaccine and which reviews the risks of not receiving the flu vaccine. The VIS was reviewed with the patient and they were given an opportunity to ask questions. The patient was provided education on how to decrease the risk of influenza infection including social distancing and use of good hand hygiene. The patient denied any prior severe reaction to the flu vaccine or its components. The patient gave verbal consent to receive the vaccine. The seasonal influenza vaccine VIS given to the patient: VIS version date Jun. The patient received seasonal influenza vaccine today - Influenza, Quadrivalent, Adjuvanted (Fluad) 0.5 ml IM today in Left Deltoid. Treatment Technician: [employer]. Lot # and Expiration Date: [id number]; 05/02/2022 Administered by protocol/policy Complications: None /es/ TR KNIGSTON LICENSED PRACTICAL NURSE Signed: 08/29/2021 11:33 TR KINGSTON [facility]
--- OUTSIDE RECORDS SUMMARY | 2021-12-24 23:41 | XMS REPORT | Encounter Summary ---
[facility] Address Unknown Phone Unavailable Care Team Providers Care Boat Outfitter Name Role Phone DARIN ELY PCP Unavailable [...] (WNR) MEDICAID MEDICAID Nov 03, 2014 MEDICAID [id number] [phone] RENEE ARRIAGA PATIENT MEDICARE (WNR) MEDICARE (M) PART B Feb 02, 2020 PART B [id number] RENEE ARRIAGA PATIENT MEDICARE (WNR) MEDICARE (M) PART A Jan 01, 2006 PART A [id number] RENEE ARRIAGA PATIENT MEDICARE (WNR) MEDICARE (M) PART A Jan 01, 2006 PART A [id number] ARRIAGARENEE PATIENT Selected Encounter This section includes the information on record at [place] for the Encounter. Date/Time Encounter Type Encounter Description Reason Provider Source Aug 24, 2021 10:05 AM PRO PHONE CALL 5-10 MIN TELEPHONE PRIMA RY CARE ICD-10-CM Z76.89 Persons encountering health services in oth circumstances with Provider Comments: Health Services in Other Specified Circumstances SELWYN LYNN Encounter Template Text not used by [place] Assessments - Encounter Diagnoses This section includes the primary and secondary diag noses documented for the Encounter. Date/Time Primary/Secondary Diagnosis Diagnosis Name Provider Source Aug 24, 2021 10:05 AM PRIMARY Persons encounteri health services in oth circumstances SELWYN LYNN Plan of Treatment: Future Appointments (+ 6 months) and Future Tests (+/- 45 day s) The Plan of Treatment section includes future care activities for the patient fr om all [place] treatment facilities. This section includes future appointments and fu ture orders which are active, pending or scheduled. Future Appointments This section includes appointments that were scheduled t o occur 6 months from the date of the Encounter, up to a maximum of 20 appointme nts. The data comes from all [place] treatment facilities. Appointment Date/Time Appointment Type Appointment Facili ty Name Aug 29, 2021 11:15 AM AMBULATORY - MEDICINE [facility] Sep 25, 2021 12:30 PM AMBULATORY MEDICINE [facility] Oct 09, 2021 12:30 PM AMBULATORY MEDICINE [facility] Oct 30, 2021 11:00 AM AMBULATORY MEDICINE [facility] Dec 10, 2021 10:00 AM AMBULATORY - [facility] T, [facility] 15 Dec 25, 2021 10:45 AM AMBULATORY [facility] Dec 27, 2021 01:30 PM [facility] Surgical Procedures: All associated to the encounter This section includes all Surgical Procedures and Surgical Procedure Notes assoc iated to the Encounter. Surgical Procedures This section includes all Surgical Procedures associated to the Encounter. Surgical Procedure Date/Time Procedure Procedure Type Procedure Qualifiers Provider Source Aug 24, 2021 10:05 AM HC PRO PHONE CALL 5-10 MIN HC PRO PHONE CALL 5-10 MIN SELWYN LYNN [facility] Surgical Notes There are no notes associated with this procedure. Lab Results: +/- 30 days of the encounter This section includes the Chemistry and Hematology Lab R esults on record with [place] for the patient. Radiology Reports and Pathology Report s are provided separately, in subsequent sections. Lab Results This section contains the Chemistry/Hematology Results christina t were resulted 30 days before or 30 days after the date of the Encounter. Date/Time Source Result Type Result - Unit Interpretation Reference Range Comment Aug 29, 2021 11:24 AM [facility] BASIC METABOLIC PANEL Spe cimen Type: PLASMA No comment entered. Ordering Provider: DARIN ELY Report Released Date/Time: Jul 14, 2021 11:57 AM Reporting Lab: [facility] [address] [facility] [phone] Performing Lab: [facility] [address] [facility] [address] *CREATININE 1.37 mg/dL H 0.7-1.3 UREA NITROGEN [...] and tobacco- related health factors from the [place] facility where the Encounter took place. Current Smoking Status This section includes the most current smoking, or tobacco -related health factor, from the [place] facility where the Encounter took place. Date/Time Current Smoking Status Comment Facility Jun 28, 2021 01:30 PM VA-TOBACCO FORMER USER [facility] Tobacco Use History This section includes a history of the smoking, or tobacco -related health factors, that were collected on or before the date of the Encoun ter. The data comes from the [place] facility where the Encounter took place. 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 [facility] Jun 29, 2020 09:00 AM VA-TOBACCO USE MED NO [facility] Jun 29, 2020 09:00 AM VA-TOBACCO USE WI 30 MIN OF WAKEUP N [facility] Jun 29, 2020 09:00 AM VA-TOBACCO USER EVERY DAY [place] [facility] Jul 21, 2019 11:05 AM VA-TOBACCO USE 30 YEARS OR MORE [facility] Jul 21, 2019 11:05 AM VA-TOBACCO USE ADVICE [facility] Jul 21, 2019 11:05 AM VA-TOBACCO USE MANUFACTURING CONTROLLER NO [place] [facility] Jul 21, 2019 11:05 AM VA-TOBACCO USE MED NO [place] [facility] Jul 21, 2019 11:05 AM VA-TOBACCO USE WI 30 MIN OF WAKEUP N [facility] Jul 21, 2019 11:05 AM VA-TOBACCO USER EVERY DAY [place] [facility] Jun 29, 2018 01:31 PM CURRENT TOBACCO USER [place] [facility] Jun 29, 2018 01:31 PM CURRENT TOBACCO USER (NOT READY TO RAJI T) [facility] Jun 29, 2018 01:31 PM TOBACCO CESSATION REFERRAL DECLINED [facility] Jun 29, 2018 01:31 PM TOBACCO MEDS OFFERED BUT DECLINED [facility] Jun 29, 2018 01:31 PM TOBACCO USER OFFERED MEDS [facility] Dec 26, 2017 09:02 AM CURRENT TOBACCO USER [facility] Dec 26, 2017 09:02 AM CURRENT TOBACCO USER (NOT READY TO RAJI T) [facility] Dec 26, 2017 09:02 AM TOBACCO CESSATION REFERRAL DECLINED [facility] Dec 26, 2017 09:02 AM TOBACCO MEDS OFFERED BUT DECLINED NE [place] Dec 26, 2017 09:02 AM TOBACCO USER OFFERED MEDS [place] [facility] May 23, 2017 03:35 PM CURRENT TOBACCO USER [facility] May 23, 2017 03:35 PM CURRENT TOBACCO USER (NOT READY TO RAJI T) [facility] May 23, 2017 03:35 PM TOBACCO CESSATION REFERRAL DECLINED [facility] May 23, 2017 03:35 PM TOBACCO MEDS OFFERED BUT DECLINED [facility] [place] [facility] May 23, 2017 03:35 PM TOBACCO USER OFFERED MEDS [place] [facility] Apr 24, 2017 02:27 PM CURRENT TOBACCO USER [facility] Apr 24, 2017 02:27 PM TOBACCO MEDS OFFERED BUT DECLINED [facility] [place] [facility] Apr 24, 2017 02:27 PM TOBACCO OFFERED STOP SMOKING CLINIC [place] [facility] March 14, 2017 02:05 PM CURRENT TOBACCO USER [place] [facility] March 14, 2017 02:05 PM TOBACCO MEDS OFFERED BUT DECLINED NE [place] March 14, 2017 02:05 PM TOBACCO OFFERED STOP SMOKING CLINIC [facility] Apr 23, 2016 06:08 AM CURRENT TOBACCO USER [facility] Oct 18, 2015 06:02 AM CURRENT TOBACCO USER [facility] Apr 05, 2015 06:12 AM CURRENT TOBACCO USER [facility] Sep 14, 2014 06:21 AM CURRENT TOBACCO USER [facility] Dec 11, 2012 09:31 AM TOBACCO OFFERED STOP SMOKING CLINIC [facility] Dec 11, 2012 09:31 AM TOBACCO OFFERED STOP SMOKING MEDS NE [place] [facility] Apr 16, 2012 12:53 PM CURRENT TOBACCO USER [facility] Jul 01, 2011 01:01 PM TOBACCO OFFERED STOP SMOKING CLINIC [facility] Jul 01, 2011 01:01 PM TOBACCO OFFERED STOP SMOKING MEDS NE [facility] Advance Directives: All historical and current Section [...] docume nt. The data comes from all [place] facilities. Date Advance Directives Provider Source May 29, 2011 ADVANCE DIRECTIVE DISCUSSION VILLA CINTRON [facility] Dec 02, 2008 CLINICAL WARNING YASMIN PRADHAN [facility] [place] [facility] Radiology Reports: +/- 30 days of the encounter No Data Provided for This Section Pathology Reports: +/- 30 days of the encounter No Data Provided for This Section Encounter Notes: All associated encounter notes This section contains the clinical notes associated to the Encounter. Date/Time Encounter Note(s) Provider Source Aug 24, 2021 10:05 AM PRIMARY CARE TELEPHONE ENCOU NTER NOTE: LOCAL TITLE: PETR-PC TELEPHONE/PACT STANDARD TITLE: PRIMARY CARE TELEPHONE ENCOUNTER NOTE DATE OF NOTE: AUG 24, 2021@10:05 ENTRY DATE: AUG 24, 2021@10:05:58 AUTHOR: SELWYN LYNN COSIGNER: URGENCY: STATUS: COMPLETED Contact Number: . Reason for Call:Return call. Complaint/Problem:Daughter Adrian is asking if patient can get a shower chair. She reports that speciality clinic at [facility] called about an appointment. Told her to call and find out what clinic it is and i can check to make sure the consult is still good. She is agreeable to this . Sh needs to reschedule lab apt patoent missed, she chose 08/29/2021@11:15 for repeat BMP. Plan of Care:Will order shower chair. She will call [facility] to check on appointment. Patient will come for repeat BMP 08/29/2021@11:15. Education:as above. Follow-up:Per recall and PRN. Number of minutes spent with patient on the phone:3 min. /sasha/ Selwyn LYNN LAND ACQUISITION ANALYST Signed: 08/24/2021 10:10 SELWYN LYNN [facility]
--- OUTSIDE RECORDS SUMMARY | 2021-12-24 23:42 | XMS REPORT ---
Author Author Department [facility] RENEE emerson Organization [facility] Address Unknown Phone Unavailable Care Team Providers Care Workforce Staffing Advisor Name Role Phone DARIN ELY PCP Unavailable [...] (WNR) MEDICAID MEDICAID Nov 03, 2014 MEDICAID [id number] RENEE ARRIAGA PATIENT MEDICARE (WNR) MEDICARE (M) PART B Feb 02, 2020 PART B [id number] ARRIAGARAERENEE PATIENT MEDICARE (WNR) MEDICARE (M) PART A Jan 01, 2006 PART A [id number] ARRIAGARAERENEE PATIENT MEDICARE (WNR) MEDICARE (M) PART A Jan 01, 2006 PART A [id number] RENEE ARRIAGA PATIENT Selected Encounter This section includes the information on record at [place] for the Encounter. Date/Time Encounter Type Encounter Description Reason Provider Source Jul 13, 2021 08:00 AM Outpatient Encounter ADMIN PAT ACTIVTIES (MASNO NCT) IHE Encounter Template Text not used by [place] Assessments - Encounter Diagnoses No Data Provided for This Section Plan of Treatment: Future Appointments (+ 6 months) and Future Tests (+/- 45 day s) The Plan of Treatment section includes future care activities for the patient fr om all [facility]3] facilities. This section includes future appointments and fu ture orders which are active, pending or scheduled. Future Appointments This section includes appointments that were scheduled t o occur 6 months from the date of the Encounter, up to a maximum of 20 appointme nts. The data comes from all [facility]. Appointment Date/Time Appointment Type Appointment Facili ty Name Jul 23, 2021 03:20 PM AMBULATORY - NONE [facility] T, [facility] 15 Aug 29, 2021 11:[address] [facility] Sep 25, 2021 12:[address] [facility] Oct 09, 2021 12:30 PM AMBULATORY [facility] Oct 30, 2021 11:[address] [facility] Dec 10, 2021 10:00 AM AMBULATORY - NONE [facility] T, VISN Dec 25, 2021 10:45 AM [facility]IC[facility] Dec 27, 2021 01:30 PM [facility] Active, Pending, and Scheduled Orders [...] the Encounter. The data comes from all [facility]. Test Date/Time Test Type Test Details Facility Name Jun 28, 2021 02:58 PM Consult Order COMMUNITY CARE- PULMONARY Cons Professor Of Spanish's Choice [facility] Surgical Procedures: All associated to the encounter No Data Provided for This Section Lab Results: +/- 30 days of the encounter This section includes the Chemistry and Hematology Lab R esults on record with [place] for the patient. Radiology Reports and Pathology Report s are provided separately, in subsequent sections. Lab Results This section contains the Chemistry/Hematology Results christina t were resulted 30 days before or 30 days after the date of the Encounter. Date/Time Source Result Type Result - Unit Interpretation Reference Range Comment Jul 12, 2021 11:[address] [facility] URINALYSIS (PETR) Specimen Type: URINE No comment entered. Ordering Provider: DARIN ELY Report Released Date/Time: Jun 20, 2021 07:48 AM Reporting Lab: [facility] [address] [facility] [address] Performing Lab: [facility] [address] [facility] [id number] *URINE COLOR Yellow *URINE APPEARANCE Clear Clear [...] Non e Jul 12, 2021 11:[address] [facility] MICROALBUMIN (,[place]) RATNA M URINE Specimen Type: URINE No comment entered. Ordering Provider: DARIN ELY Report Released Date/Time: Jun 20, 2021 07:48 AM Reporting Lab: [facility] [address] [facility] [address] Performing Lab: [facility] [address] [facility] [address] *MICROALBUMIN,RAND 18 ug/mL *MICROALB/CREAT 12 *UR CREATININE 147.7 mg/dL Jul 12, 2021 11:[address] [facility] BASIC METABOLIC PANEL Spe cimen Type: PLASMA No comment entered. Ordering Provider: DARIN ELY Report Released Date/Time: Jul 08, 2021 11:43 AM Reporting Lab: [facility] [address] [facility] [address] Performing Lab: [facility] [address] [facility] [phone] *CREATININE 1.59 mg/dL H 0.7-1.3 UREA NITROGEN [...] Jun 28, 2021 02:03 PM Reporting Lab: [facility], [facility] [address] [place] [employer] [facility] [address] Performing Lab: [facility] [address] [facility] [address] *CREATININE 2.12 mg/dL H 0.7-1.3 UREA NITROGEN mg/dL 32 mg/dL H 9-25 GLUCOSE 156 mg/dL H 72-99 SODIUM 132 mEq/L L 136-145 POTASSIUM 5.6 mEq/L H 3.5-5.0 CALCIUM (mg/dL) 10.1 mg/dL 8.4-10.4 ANION GAP 7.0 L 8-16 CHLORIDE 98 mEq/L 98-107 CO2 27 mEq/L 22-31 EGFR 30.2 Jun 28, 2021 02:11 PM [facility] B-TYPE NATRIURETIC Specim en Type: PLASMA No comment entered. Ordering Provider: DARIN ELY Report Released Date/Time: Jun 28, 2021 02:03 PM Reporting Lab: [facility] [address] [employer] [facility] [address] Performing Lab: [facility] [address] [place] [employer] [facility] [address] B-TYPE NATRIURETIC 40.8 pg/mL 0-100 Jun 20, 2021 11:15 AM [facility] HEMOGLOBIN A1C Specimen T ype: BLOOD No comment entered. Ordering Provider: DARIN ELY Report Released Date/Time: Jun 20, 2021 07:48 AM Reporting Lab: [facility], [facility] [address] [place] [employer] [facility] [address] Performing Lab: [facility] [address] [facility] [phone] HEMOGLOBIN A1C 7.5 % H 4.0-6.0 Jun 20, 2021 11:15 AM [facility] CBC & DIFF Specimen T ype: BLOOD No comment entered. Ordering Provider: DARIN ELY Report Released Date/Time: Jun 20, 2021 07:48 AM Reporting Lab: [facility] [address] [facility] [phone] Performing Lab: [facility] [address] [facility] [address] WBC 7.38 K/cmm 3.60-11.20 RBC 4.64 M/ul 4.10-5.70 HGB 13.2 g/dL 13.1-16.8 HCT 42.6 % 38.2-48.4 MCV 91.8 fl 80.1-98.5 MCH 28.4 pg 27.0-34.0 MCHC 31.0 g/dL L 33.0-36.0 PLATELET COUNT 265 K/cmm 150-400 MPV 10.1 fl 7.5-11.2 RDW 14.8 % 11.8-15.1 LYMPHOCYTES, AUTO% 31.6 % NEUTROPHILS, AUTO % 55.8 % MONOCYTES, AUTO% 9.1 % MONOCYTES, ABSOLUTE 0.67 K/cmm 0.19-0.80 NEUTROPHILS, ABSOLUTE 4.12 K/cmm 2.10-8. 00 EOSINOPHILS, ABSOLUTE 0.17 K/cmm 0.00-0. 60 BASOPHILS, ABSOLUTE 0.06 K/cmm 0.00-0.20 EOSINOPHILS, AUTO% 2.3 % BASOPHILS, AUTO% 0.8 % LYMPHOCYTES, ABSOLUTE 2.33 K/cmm 0.77-4. 50 IMMATURE GRANS, ABSOLUTE 0.03 K/cmm 0.00 -0.05 IMMATURE GRANS, AUTO % 0.4 % Jun 20, 2021 11:15 AM [facility] COMPREHENSIVE METABOLIC PA OFE Specimen Type: PLASMA No comment entered. Ordering Provider: DARIN ELY Report Released Date/Time: Jun 20, 2021 07:48 AM Reporting Lab: [facility] [address] [facility] [phone] Performing Lab: [facility] [address] [facility] [address] *CREATININE 1.78 mg/dL H 0.7-1.3 UREA NITROGEN mg/dL 27 mg/dL H 9-25 GLUCOSE 133 mg/dL H 72-99 SODIUM 133 mEq/L L 136-145 POTASSIUM 5.8 mEq/L H 3.5-5.0 CALCIUM (mg/dL) 9.9 mg/dL 8.4-10.4 PROTEIN,TOTAL 7.8 g/dL 6.0-8.6 ALBUMIN 4.1 g/dL 3.4-5.0 TOTAL BILIRUBIN 0.5 mg/dL 0.2-1.2 ASPARTATE TRANSAMINASE 12 U/L 5-34 ALANINE AMINOTRANSFERASE 8 U/L 8-40 ANION GAP 6.0 L 8-16 CHLORIDE 99 mEq/L 98-107 CO2 28 mEq/L 22-31 ALKALINE PHOSPHATASE 60 U/L 40-150 EGFR 37.0 Jun 20, 2021 11:15 AM [facility] LIPID PROFILE(HDL,TRIG,CHO L,LDL) Specimen Type: PLASMA No comment entered. Ordering Provider: DARIN ELY Report Released Date/Time: Jun 20, 2021 07:48 AM Reporting Lab: [facility] [address] [facility] [address] Performing Lab: [facility] [address] [facility] [address] CHOLESTEROL 144 mg/dL 0-200 TRIGS 106 mg/dL 0-150 RISK FACTOR 22 HDL-CHOLESTEROL 32 mg/dL L >=40 LDL (CALC) 91 mg/dL Jun 20, 2021 11:15 AM [facility] TSH Specimen T ype: SERUM No comment entered. Ordering Provider: DARIN ELY Report Released Date/Time: Jun 20, 2021 07:48 AM Reporting Lab: [facility] [address] [facility] [address] Performing Lab: [facility] [address] [facility] [address] TSH 3.828 uIU/mL 0.47-5.00 Jun 20, 2021 11:15 AM [facility] MAGNESIUM (mg/dL) Specime n Type: PLASMA No comment entered. Ordering Provider: DARIN ELY Report Released Date/Time: Jun 20, 2021 07:48 AM Reporting Lab: [facility] [address] [facility] [address] Performing Lab: [facility] [address] [facility] [address] MAGNESIUM (mg/dL) 1.6 mg/dL 1.6-2.6 Jun 20, 2021 11:15 AM [facility] T4 FREE Specimen T ype: SERUM No comment entered. Ordering Provider: DARIN ELY Report Released Date/Time: Jun 20, 2021 07:48 AM Reporting Lab: [facility] [address] [facility] [address] Performing Lab: [facility] [address] [facility] [address] T4 FREE 1.10 ng/dL 0.70-1.48 Jun 20, 2021 11:15 AM [facility] VITAMIN B12 Specimen T ype: SERUM No comment entered. Ordering Provider: DARIN ELY Report Released Date/Time: Jun 20, 2021 07:48 AM Reporting Lab: [facility] [address] [facility] [address] Performing Lab: [facility] [address] [facility] [address] VITAMIN B12 477.5 pg/mL 213-816 Vital Signs: All taken on the encounter [...] docume nt. The data comes from all [place] facilities. Date Advance Directives Provider Source May 29, 2011 ADVANCE DIRECTIVE DISCUSSION KAROLINA CINTRONCA Kylah [facility] Dec 02, 2008 CLINICAL WARNING YASMIN PRADHAN [facility] Radiology Reports: +/- 30 days of the encounter No Data Provided for This Section Pathology Reports: +/- 30 days of the encounter No Data Provided for This Section Encounter Notes: All associated encounter notes This section contains the clinical notes associated to the Encounter. Date/Time Encounter Note(s) Provider Source Jul 13, 2021 08:00 AM NONVA CONSULT: LOCAL TITLE: COMMUNITY CARE CONSULT RESULT NOTE PETR STANDARD TITLE: NONVA CONSULT DATE OF NOTE: JUL 13, 2021@08:00 ENTRY DATE: AUG 29, 2021@13:15:05 AUTHOR: SHANICE RAMÍREZ EXP COSIGNER: URGENCY: STATUS: COMPLETED RADIOLOGY ULTRASOUND [facility] 07-13-2021 /sasha/ SHANICE RAMÍREZ PHOTO OFFSET PRINTER Signed: 08/29/2021 13:15 SHANICE RAMÍREZ [facility] 15
--- OUTSIDE RECORDS SUMMARY | 2021-12-24 23:42 | XMS REPORT | Encounter Summary ---
Author Author Department [facility] RENEE emerson Organization [facility] Address Unknown Phone Unavailable Care Team Providers Care Reception Agent Name Role Phone DARIN ELY PCP Unavailable [...] (WNR) MEDICAID MEDICAID Nov 03, 2014 MEDICAID [id number] [phone] RENEE ARRIAGA PATIENT MEDICARE (WNR) MEDICARE (M) PART B Feb 02, 2020 PART B [id number] ARRIAGARAERENEE PATIENT MEDICARE (WNR) MEDICARE (M) PART A Jan 01, 2006 PART A [id number] ARRIAGARAERENEE PATIENT MEDICARE (WNR) MEDICARE (M) PART A Jan 01, 2006 PART A [id number] RENEE ARRIAGA PATIENT Selected Encounter This section includes the information on record at [place] for the Encounter. Date/Time Encounter Type Encounter Description Reason Provider Source Jul 23, 2021 08:00 AM Outpatient Encounter ADMIN PAT ACTIVTIES (MASNO NCT) IHE Encounter Template Text not used by [place] Assessments - Encounter Diagnoses No Data Provided for This Section Plan of Treatment: Future Appointments (+ 6 months) and Future Tests (+/- 45 day s) The Plan of Treatment section includes future care activities for the patient fr om all [place] treatment facilities. This section includes future appointments and fu ture orders which are active, pending or scheduled. Future Appointments This section includes appointments that were scheduled t o occur 6 months from the date of the Encounter, up to a maximum of 20 appointme nts. The data comes from all [facility]. Appointment Date/Time Appointment Type Appointment Facili ty Name Aug 29, 2021 11:15 AM AMBULATORY - MEDICINE [facility] Sep 25, 2021 12:30 PM AMBULATORY - MEDICINE [facility] Oct 09, 2021 12:30 PM AMBULATORY - MEDICINE [facility] Oct 30, 2021 11:00 AM AMBULATORY - MEDICINE [facility] Dec 10, 2021 10:00 AM [facility] Dec 25, 2021 10:45 AM AMBULAT[facility] - MEDICINE [facility] Dec 27, 2021 01:[address] [facility] Active, Pending, and Scheduled Orders This section [...] the Encounter. The data comes from all [facility]. Test Date/Time Test Type Test Details Facility Name Jun 28, 2021 02:58 PM Consult Order COMMUNITY CARE- PULMONARY Cons Quality System Manager's Choice [facility] Surgical Procedures: All associated to the encounter No Data Provided for This Section Lab Results: +/- 30 days of the encounter This section includes the Chemistry and Hematology Lab R esults on record with [place] for the patient. Radiology Reports and Pathology Report s are provided separately, in subsequent sections. Lab Results This section contains the Chemistry/Hematology Results christina t were resulted 30 days before or 30 days after the date of the Encounter. Date/Time Source Result Type Result - Unit Interpretation Reference Range Comment Jul 12, 2021 11:[address] [facility] URINALYSIS (PETR) Specimen Type: URINE No comment entered. Ordering Provider: DARIN ELY Report Released Date/Time: Jun 20, 2021 07:48 AM Reporting Lab: [facility] [address] [facility] [address] Performing Lab: [facility] [address] [facility] [address] *URINE COLOR Yellow *URINE APPEARANCE Clear Clear [...] Non e Jul 12, 2021 11:01 AM [facility] MICROALBUMIN (,[place]) RATNA M URINE Specimen Type: URINE No comment entered. Ordering Provider: DARIN ELY Report Released Date/Time: Jun 20, 2021 07:48 AM Reporting Lab: [facility] [address] [facility] [address] Performing Lab: [facility] [address] [facility] [address] *MICROALBUMIN,RAND 18 ug/mL *MICROALB/CREAT 12 *UR CREATININE 147.7 mg/dL Jul 12, 2021 11:01 AM [facility] BASIC METABOLIC PANEL Spe cimen Type: PLASMA No comment entered. Ordering Provider: DARIN ELY Report Released Date/Time: Jul 08, 2021 11:43 AM Reporting Lab: [facility] [address] [facility] [address] Performing Lab: [facility] [address] [facility] [address] *CREATININE 1.59 mg/dL H 0.7-1.3 UREA NITROGEN [...] Jun 28, 2021 02:03 PM Reporting Lab: [facility] [address] [facility] [address] Performing Lab: [facility] [address] [facility] [address] *CREATININE 2.12 mg/dL H 0.7-1.3 UREA NITROGEN [...] PLASMA No comment entered. Ordering Provider: DARIN EYL Report Released Date/Time: Jun 28, 2021 02:03 PM Reporting Lab: [facility] [address] [facility] [address] Performing Lab: [facility] [address] [facility] [address] B-TYPE NATRIURETIC 40.8 pg/mL 0-100 Vital Signs: [...] of a patient's completed or amen ded [place] Advance and Rescinded Directives. The entries below indicate that a direc tive exists for the patient, but an actual copy is not included with this docume nt. The data comes from all [place] facilities. Date Advance Directives Provider Source May 29, 2011 ADVANCE DIRECTIVE DISCUSSION VILL[facility] CINTRON [facility] Dec 02, 2008 CLINICAL WARNING YASMIN PRADHAN [facility] [facility] Radiology Reports: +/- 30 days of the encounter No Data Provided for This Section Pathology Reports: +/- 30 days of the encounter No Data Provided for This Section Encounter Notes: All associated encounter notes This section contains the clinical notes associated to the Encounter. Date/Time Encounter Note(s) Provider Source Jul 23, 2021 08:00 AM NONVA CONSULT: LOCAL TITLE: COMMUNITY CARE CONSULT RESULT NOTE PETR STANDARD TITLE: NONVA CONSULT DATE OF NOTE: JUL 23, 2021@08:00 ENTRY DATE: JUL 26, 2021@09:19:53 AUTHOR: SAMANTHA KEENAN EXP COSIGNER: URGENCY: STATUS: COMPLETED VISION SOLUTIONS/ OPTOMETRY/ 07/23/ /sasha/ SAMANTHA KEENAN Signed: 07/26/2021 09:20 SAMANTHA KEENAN [facility], [facility]N 15
--- OUTSIDE RECORDS SUMMARY | 2021-12-24 23:43 | XMS REPORT | Encounter Summary ---
[facility] Department [facility] Address Unknown Phone Unavailable Care Team Providers Care Credit Interviewer Name Role Phone DARIN ELY PCP Unavailable [...] (WNR) MEDICAID MEDICAID Nov 03, 2014 MEDICAID [id number] [phone] RENEE ARRIAGA PATIENT MEDICARE (WNR) MEDICARE (M) PART B Feb 02, 2020 PART B [id number] RENEE ARRIAGA PATIENT MEDICARE (WNR) MEDICARE (M) PART A Jan 01, 2006 PART A [id number] [phone] RENEE ARRIAGA PATIENT MEDICARE (WNR) MEDICARE (M) PART A Jan 01, 2006 PART A [id number] [phone] RENEE ARRIAGA PATIENT Selected Encounter This section includes the information on record at [place] for the Encounter. Date/Time Encounter Type Encounter Description Reason Provider Source Jul 04, 2021 08:59 AM HC PRO PHONE CALL 5-10 MIN TELEPHONE PRIMA RY CARE ICD-10-CM Z01.812 Encounter for preprocedural laboratory examination with Provider Comments: Lab Result Counseling SELWYN LYNN Encounter Template Text not used by [place] Assessments - Encounter Diagnoses This section includes the primary and secondary diag noses documented for the Encounter. Date/Time Primary/Secondary Diagnosis Diagnosis Name Provider Source Jul 04, 2021 08:59 AM PRIMARY Encounter for prep rocedural laboratory examination SELWYN LYNN Plan of Treatment: Future Appointments (+ 6 months) and Future Tests (+/- 45 day s) The Plan of Treatment section includes future care activities for the patient fr om all [facility] facilities. This section includes future appointments and fu ture orders which are active, pending or scheduled. Future Appointments This section includes appointments that were scheduled t o occur 6 months from the date of the Encounter, up to a maximum of 20 appointme nts. The data comes from all [facility]. Appointment Date/Time Appointment Type Appointment Facili ty Name Jul 12, 2021 11:15 AM AMBULATORY - MEDICINE [facility] Jul 13, 2021 10:00 AM AMBULATORY - NONE [facility] T, [facility] 15 Jul 23, 2021 03:20 PM AMBULATORY - NONE [facility] T, [facility] 15 Aug 29, 2021 11:15 AM AMBULATORY - MEDICINE [facility] Sep 25, 2021 12:30 PM AMBULATORY MEDICINE [facility] Oct 09, 2021 12:30 PM AMBULATORY MEDICINE [facility] Oct 30, 2021 11:00 AM AMBULATORY MEDICINE [facility] Dec 10, 2021 10:00 AM AMBULATORY - NONE [facility] T, [facility] 15 Dec 25, 2021 10:45 AM AMBULATORY MEDICINE [facility] Dec 27, 2021 01:30 PM [facility] Active, Pending, and Scheduled Orders This [...] the Encounter. The data comes from all [facility]. Test Date/Time Test Type Test Details Facility Name Jun 28, 2021 02:58 PM Consult Order [facility]- PULMONARY Cons [employer] [facility] Surgical Procedures: All associated to the encounter This section includes all Surgical Procedures and Surgical Procedure Notes assoc iated to the Encounter. Surgical Procedures This section includes all Surgical Procedures associated to the Encounter. Surgical Procedure Date/Time Procedure Procedure Type Procedure Qualifiers Provider Source Jul 04, 2021 08:59 AM HC PRO PHONE CALL 5-10 MIN HC PRO PHONE CALL 5-10 MIN SELWYN LYNN CB Surgical Notes There are no notes associated with this procedure. Lab Results: +/- 30 days of the encounter This section includes the Chemistry and Hematology Lab R esults on record with [place] for the patient. Radiology Reports and Pathology Report s are provided separately, in subsequent sections. Lab Results This section contains the Chemistry/Hematology Results christina t were resulted 30 days before or 30 days after the date of the Encounter. Date/Time Source Result Type Result - Unit Interpretation Reference Range Comment Jul 12, 2021 11:01 AM [facility] URINALYSIS () Specimen Type: URINE No comment entered. Ordering Provider: DARIN ELY Report Released Date/Time: Jun 20, 2021 07:48 AM Reporting Lab: [facility] [address] [facility] [phone] Performing Lab: [facility] [address] [facility] [phone] *URINE COLOR Yellow *URINE APPEARANCE Clear Clear [...] Non e Jul 12, 2021 11:01 AM [facility] MICROALBUMIN (PETR,WI) RANDO M URINE Specimen Type: URINE No comment entered. Ordering Provider: DARIN ELY Report Released Date/Time: Jun 20, 2021 07:48 AM Reporting Lab: [facility] [address] [facility] [phone] Performing Lab: [facility] [address] [facility] [phone] *MICROALBUMIN,RAND 18 ug/mL *MICROALB/CREAT 12 *UR CREATININE 147.7 mg/dL Jul 12, 2021 11:01 AM [facility] BASIC METABOLIC PANEL Spe cimen Type: PLASMA No comment entered. Ordering Provider: DARIN ELY Report Released Date/Time: Jul 08, 2021 11:43 AM Reporting Lab: [facility] [address] [facility] [phone] Performing Lab: [facility] [address] [facility] [address] *CREATININE 1.59 mg/dL H 0.7-1.3 UREA NITROGEN [...] Jun 28, 2021 02:03 PM Reporting Lab: [facility] [address] [facility] [phone] Performing Lab: [facility] [address] [facility] [phone] *CREATININE 2.12 mg/dL H 0.7-1.3 UREA NITROGEN mg/dL 32 mg/dL H 9-25 GLUCOSE 156 mg/dL H 72-99 SODIUM 132 mEq/L L 136-145 POTASSIUM 5.6 mEq/L H 3.5-5.0 CALCIUM (mg/dL) 10.1 mg/dL 8.4-10.4 ANION GAP 7.0 L 8-16 CHLORIDE 98 mEq/L 98-107 CO2 27 mEq/L 22-31 EGFR 30.2 Jun 28, 2021 02:11 PM [facility] B-TYPE NATRIURETIC Specim en Type: PLASMA No comment entered. Ordering Provider: DARIN ELY Report Released Date/Time: Jun 28, 2021 02:03 PM Reporting Lab: [facility] [address] [facility] [phone] Performing Lab: [facility] [address] [facility] [address] B-TYPE NATRIURETIC 40.8 pg/mL 0-100 Jun 20, 2021 11:15 AM [facility] HEMOGLOBIN A1C Specimen T ype: BLOOD No comment entered. Ordering Provider: DARIN ELY Report Released Date/Time: Jun 20, 2021 07:48 AM Reporting Lab: [facility] [address] [facility] [address] Performing Lab: [facility] [address] [facility] [address] HEMOGLOBIN A1C 7.5 % H 4.0-6.0 Jun 20, 2021 11:15 AM [facility] CBC & DIFF Specimen T ype: BLOOD No comment entered. Ordering Provider: DARIN ELY Report Released Date/Time: Jun 20, 2021 07:48 AM Reporting Lab: [facility] [address] [facility] [address] Performing Lab: [facility] [address] [facility] [address] WBC 7.38 K/cmm 3.60-11.20 RBC 4.64 M/ul [...] 0.4 % Jun 20, 2021 11:15 AM [facility] COMPREHENSIVE METABOLIC PA OFE Specimen Type: PLASMA No comment entered. Ordering Provider: DARIN ELY Report Released Date/Time: Jun 20, 2021 07:48 AM Reporting Lab: [facility] [address] [facility] [phone] Performing Lab: [facility] [address] [place] [phone] *CREATININE 1.78 mg/dL H 0.7-1.3 UREA NITROGEN [...] EGFR 37.0 Jun 20, 2021 11:15 AM [facility] LIPID PROFILE(HDL,TRIG,CHO L,LDL) Specimen Type: PLASMA No comment entered. Ordering Provider: DARIN ELY Report Released Date/Time: Jun 20, 2021 07:48 AM Reporting Lab: [facility] [address] [facility] [phone] Performing Lab: [facility] [address] [facility] [address] CHOLESTEROL 144 mg/dL 0-200 TRIGS 106 mg/dL 0-150 RISK FACTOR 22 HDL-CHOLESTEROL 32 mg/dL L >=40 LDL (CALC) 91 mg/dL Jun 20, 2021 11:15 AM [facility] TSH Specimen T ype: SERUM No comment entered. Ordering Provider: DARIN ELY Report Released Date/Time: Jun 20, 2021 07:48 AM Reporting Lab: [facility], [facility] [address] [facility] [phone] Performing Lab: [facility] [address] [facility] [address] TSH 3.828 uIU/mL 0.47-5.00 Jun 20, 2021 11:15 AM [facility] MAGNESIUM (mg/dL) Specime n Type: PLASMA No comment entered. Ordering Provider: DARIN ELY Report Released Date/Time: Jun 20, 2021 07:48 AM Reporting Lab: [facility], [facility] [address] [facility] [address] Performing Lab: [facility], [facility] [address] [facility] [address] MAGNESIUM (mg/dL) 1.6 mg/dL 1.6-2.6 Jun 20, 2021 11:15 AM [facility] T4 FREE Specimen T ype: SERUM No comment entered. Ordering Provider: DARIN ELY Report Released Date/Time: Jun 20, 2021 07:48 AM Reporting Lab: [facility], [facility] [address] [facility]. [facility] [phone] Performing Lab[facility] [address] [facility] [address] T4 FREE 1.10 ng/dL 0.70-1.48 Jun 20, 2021 11:15 AM [facility] VITAMIN B12 Specimen T ype: SERUM No comment entered. Ordering Provider: DARIN ELY Report Released Date/Time: Jun 20, 2021 07:48 AM Reporting Lab: [facility], [facility] [address] [facility] [phone] Performing Lab: [facility] [address] [facility]. [facility] [phone] VITAMIN B12 477.5 pg/mL 213-816 Vital Signs: [...] and tobacco- related health factors from the [place] facility where the Encounter took place. Current Smoking Status This section includes the most current smoking, or tobacco -related health factor, from the [place] facility where the Encounter took place. Date/Time Current Smoking Status Comment Facility Jun 28, 2021 01:30 PM VA-TOBACCO FORMER USER [facility] Tobacco Use History This section includes a history of the smoking, or tobacco -related health factors, that were collected on or before the date of the Encoun ter. The data comes from the [place] facility where the Encounter took place. 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 CHIEF ENGINEER NO [facility] Jul 21, 2019 11:05 AM VA-TOBACCO USE MED NO [facility] Jul 21, 2019 11:05 AM VA-TOBACCO USE WI 30 MIN OF WAKEUP [facility] Jul 21, 2019 11:05 AM VA-TOBACCO USER EVERY DAY [facility] Jun 29, 2018 01:31 PM CURRENT TOBACCO USER [facility] Jun 29, 2018 01:31 PM CURRENT TOBACCO USER (NOT READY TO RAJI T) [facility] Jun 29, 2018 01:31 PM TOBACCO CESSATION REFERRAL DECLINED [facility] Jun 29, 2018 01:31 PM TOBACCO MEDS OFFERED BUT DECLINED [facility] Jun 29, 2018 01:31 PM [facility] Dec 26, 2017 09:02 AM CURRENT TOBACCO USER [facility] Dec 26, 2017 09:02 AM CURRENT TOBACCO USER (NOT READY TO RAJI T) [facility] Dec 26, 2017 09:02 AM TOBACCO CESSATION REFERRAL [facility]ED [facility] Dec 26, 2017 09:02 AM TOBACCO MEDS OFFERED BUT DECLINED [facility] Dec 26, 2017 09:02 AM TOBACCO USER OFFERED MEDS [facility] May 23, 2017 03:35 PM CURRENT TOBACCO USER [facility] May 23, 2017 03:35 PM CURRENT TOBACCO USER (NOT READY TO RAJI T) [facility] May 23, 2017 03:35 PM TOBACCO CESSATION REFERRAL DECLINED [facility] May 23, 2017 03:35 PM TOBACCO MEDS OFFERED BUT DECLINED [facility] May 23, 2017 03:35 PM TOBACCO USER OFFERED MEDS [facility] Apr 24, 2017 02:27 PM CURRENT TOBACCO USER [facility] Apr 24, 2017 02:27 PM TOBACCO MEDS OFFERED BUT DECLINED [facility] Apr 24, 2017 02:27 PM TOBACCO OFFERED STOP SMOKING CLINIC [facility] March 14, 2017 02:05 PM CURRENT TOBACCO USER [facility] March 14, 2017 02:05 PM TOBACCO MEDS OFFERED BUT DECLINED [facility] March 14, 2017 02:05 PM TOBACCO OFFERED STOP SMOKING CLINIC [facility] Apr 23, 2016 06:08 AM CURRENT TOBACCO USER [facility] Oct 18, 2015 06:02 AM CURRENT TOBACCO USER [facility] Apr 05, 2015 06:12 AM CURRENT TOBACCO USER [facility] Sep 14, 2014 06:21 AM CURRENT TOBACCO USER [facility] Dec 11, 2012 09:31 AM TOBACCO OFFERED STOP SMOKING CLINIC [facility] Dec 11, 2012 09:31 AM TOBACCO OFFERED STOP SMOKING MEDS [facility] Apr 16, 2012 12:53 PM CURRENT TOBACCO USER [facility] Jul 01, 2011 01:01 PM TOBACCO OFFERED STOP SMOKING CLINIC [facility] Jul 01, 2011 01:01 PM TOBACCO OFFERED STOP SMOKING MEDS [facility] Advance Directives: All historical and current Section Date Range: From patient's date of to the date document was create d. This section includes ALL of a patient's completed or amen ded [place] Advance and Rescinded Directives. The entries below indicate that a direc tive exists for the patient, but an actual copy is not included with this docume nt. The data comes from all [place] facilities. Date Advance Directives Provider Source May 29, 2011 ADVANCE DIRECTIVE DISCUSSION [facility] Dec 02, 2008 CLINICAL WARNING [facility] Radiology Reports: +/- 30 days of the encounter No Data Provided for This Section Pathology Reports: +/- 30 days of the encounter No Data Provided for This Section Encounter Notes: All associated encounter notes This section contains the clinical notes associated to the Encounter. Date/Time Encounter Note(s) Provider Source Jul 04, 2021 08:59 AM PRIMARY CARE TELEPHONE ENCOU NTER NOTE: LOCAL TITLE: PETR- TELEPHONE/PACT STANDARD TITLE: PRIMARY CARE TELEPHONE ENCOUNTER NOTE DATE OF NOTE: JUL 04, 2021@08:59 ENTRY DATE: JUL 04, 2021@08:59:26 AUTHOR: SELWYN LYNN COSIGNER: URGENCY: STATUS: COMPLETED Contact Number: . Reason for Call:Relay lab results and recommendations. Complaint/Problem: Spoke to patient's Daughter Nataliya. "Bnp for fluid overload or chf is normal. Breathing problem is copd Recheck K+ remains elevated, 5.6, creat 2.12 E consult to renal Avoid K+ supplements or high K+ foods Please notify patient and watch for e consult." and "Hyperkalemia hyponatremia CKD stage 3 Patient noted to be on lisinopril. -Recommend discontinuation of lisinopril . -Recommend checking renal ultrasound. -Recommend repeat bmp in 1 week." She verbalized understanding and is agreeable to this, will have him DC Lisinopril and tthey will come for lab on 07/12/2021@11:15 for repeat BMP. Agreeabl to renal ultrasound, butwill need locally due to transportation. Plan of Care:Will DC Lisinopril. Will return to clinic 07/12/21@11:15 for repeat BMP. Will need OCC consult for renal ultrasound due to transportation issues. Education: As above. Follow-up: Per recall and PRN. Number of minutes spent with patient on the phone: 5 min. /sasha/ Selwyn LYNN LPN Signed: 07/04/2021 13:09 Receipt Acknowledged By: * AWAITING SIGNATURE * DARIN ELY [facility]
--- OUTSIDE RECORDS SUMMARY | 2021-12-24 23:43 | XMS REPORT | Encounter Summary ---
Author Author Department [facility] RENEE emerson Organization Department [facility] Address Unknown Phone Unavailable Care Team Providers Care Licensed Clinical Social Worker Name Role Phone CELESTEAron DARIN PCP Unavailable Insurance Providers: All historical and [...] (WNR) MEDICAID MEDICAID Nov 03, 2014 MEDICAID [id number] [phone] [place] PATIENT MEDICARE (WNR) MEDICARE (M) PART B Feb 02, 2020 PART B [id number] [place] PATIENT MEDICARE (WNR) MEDICARE (M) PART A Jan 01, 2006 PART A [id number] [place] PATIENT MEDICARE (WNR) MEDICARE (M) PART A Jan 01, 2006 PART A [id number] RENEE ARRIAGA PATIENT Selected Encounter This section includes the information on record at [place] for the Encounter. Date/Time Encounter Type Encounter Description Reason Provider Source Jun 28, 2021 01:30 PM OFFICE O/P EST HI 40-54 MIN PRIMARY CARE/M EDICINE ICD-10-CM E11.9 Type 2 diabetes mellitus without complications with Provider Comments: Diabetes mellitus (SCT [id number]) DARIN AUGUSTIN Aron Encounter Template Text not used by [place] Assessments - Encounter Diagnoses This section includes the primary and secondary diag noses documented for the Encounter. 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 DARIN AUGUSTIN [facility] Jun 28, 2021 03:01 PM SECONDARY Chronic obstructiv e pulmonary disease, unspecified DARIN AUGUSTIN [facility] Jun 28, 2021 03:01 PM SECONDARY Disorder of prostate, unspecifie d DARIN AUGUSTIN [facility] Jun 28, 2021 03:01 PM SECONDARY Essential (primary) hypertension DARIN AUGUSTIN [facility] Jun 28, 2021 03:01 PM SECONDARY Gastro-esophageal reflux disease without esophagitis DARIN AUGUSTIN [facility] Jun 28, 2021 03:01 PM SECONDARY Hyperkalemia DARIN AUGUSTIN [facility] Jun 28, 2021 03:01 PM SECONDARY Hypothyroidism, unspecified DARIN AUGUSTIN [facility] Jun 28, 2021 03:01 PM SECONDARY Insomnia, unspecified PRANAV AUGUSTIN [facility] Jun 28, 2021 03:01 PM SECONDARY Mixed hyperlipidemia DARIN AUGUSTIN [facility] Jun 28, 2021 03:01 PM SECONDARY Nicotine dependenc e, cigarettes, w oth disorders DARIN AUGUSTIN [facility] Jun 28, 2021 03:01 PM SECONDARY Other microscopic hematuria DARIN AUGUSTIN [facility] Plan of Treatment: Future Appointments (+ 6 [...] appointme nts. The data comes from all [place] treatment facilities. Appointment Date/Time Appointment Type Appointment Facili ty Name Jul 12, 2021 11:15 AM AMBULATORY - MEDICINE [facility] Jul 13, 2021 10:00 AM AMBULATORY - NONE [facility] 15 Jul 23, 2021 03:20 PM AMBULATORY - NONE [facility] 15 Aug 29, 2021 11:15 AM [facility] Sep 25, 2021 12:30 PM [facility] Oct 09, 2021 12:30 PM [facility] Oct 30, 2021 11:00 AM [facility] Dec 10, 2021 10:00 AM AMBULATORY - NONE [facility] 15 Dec 25, 2021 10:45 AM [facility] Dec 27, 2021 01:30 PM AMBULATORY - MEDICINE [facility] Active, Pending, and Scheduled Orders This [...] the Encounter. The data comes from all [place] treatment facilities. Test Date/Time Test Type Test Details Facility Name Jun 28, 2021 02:58 PM Consult Order [facility]- PULMONARY Cons Quality Supervisor's Choice [facility] Surgical Procedures: All associated to the encounter No Data Provided for This Section Lab Results: +/- 30 days of the encounter This section includes the Chemistry and Hematology Lab R esults on record with [place] for the patient. Radiology Reports and Pathology Report s are provided separately, in subsequent sections. Lab Results This section contains the Chemistry/Hematology Results christina t were resulted 30 days before or 30 days after the date of the Encounter. Date/Time Source Result Type Result - Unit Interpretation Reference Range Comment Jul 12, 2021 11:01 AM [facility] URINALYSIS (PETR) Specimen Type: URINE No comment entered. Ordering Provider: DARIN AUGUSTIN Report Released Date/Time: Jun 20, 2021 07:48 AM [facility] [address] [facility] [address] Performing Lab: [facility] [address] [facility] [address] *URINE COLOR Yellow *URINE APPEARANCE Clear Clear [...] 2021 11:01 AM [facility] MICROALBUMIN (,WI) RANDO M URINE Specimen Type: URINE No comment entered. Ordering Provider: DARIN AUGUSTIN Report Released Date/Time: Jun 20, 2021 07:48 AM Reporting [facility] [address] [facility] [address] Performing Lab: [facility] [address] [facility] [address] *MICROALBUMIN,RAND 18 ug/mL *MICROALB/CREAT 12 *UR CREATININE 147.7 mg/dL Jul 12, 2021 11:01 AM [facility] BASIC METABOLIC PANEL Spe cimen Type: PLASMA No comment entered. Ordering Provider: DARIN AUGUSTIN Report Released Date/Time: Jul 08, 2021 11:43 AM Reporting [facility] [address] [facility] [address] Performing Lab[facility] [address] [facility] [address] *CREATININE 1.59 mg/dL H 0.7-1.3 UREA NITROGEN mg/dL 21 mg/dL 9-25 GLUCOSE 144 mg/dL H 72-99 SODIUM 135 mEq/L L 136-145 POTASSIUM 5.3 mEq/L H 3.5-5.0 CALCIUM (mg/dL) 9.7 mg/dL 8.4-10.4 ANION GAP 8.0 8-16 CHLORIDE 100 mEq/L 98-107 CO2 27 mEq/L 22-31 EGFR 42.1 Jun 28, 2021 02:11 PM [facility] BASIC METABOLIC PANEL Spe cimen Type: PLASMA No comment entered. Ordering Provider: DARIN AUGUSTIN Report Released Date/Time: Jun 28, 2021 02:03 PM Reporting [facility] [address] [facility] [address] Performing Lab[facility] [address] [facility] [address] *CREATININE 2.12 mg/dL H 0.7-1.3 UREA NITROGEN mg/dL 32 mg/dL H 9-25 GLUCOSE 156 mg/dL H 72-99 SODIUM 132 mEq/L L 136-145 POTASSIUM 5.6 mEq/L H 3.5-5.0 CALCIUM (mg/dL) 10.1 mg/dL 8.4-10.4 ANION GAP 7.0 L 8-16 CHLORIDE 98 mEq/L 98-107 CO2 27 mEq/L 22-31 EGFR 30.2 Jun 28, 2021 02:11 PM [facility] B-TYPE NATRIURETIC Specim en Type: PLASMA No comment entered. Ordering Provider: DARIN AUGUSTIN Report Released Date/Time: Jun 28, 2021 02:03 PM Reporting [facility] [address] [facility] [address] Performing Lab: [facility] [address] [facility] [address] B-TYPE NATRIURETIC 40.8 pg/mL 0-100 Jun 20, 2021 11:15 AM [facility] HEMOGLOBIN A1C Specimen T ype: BLOOD No comment entered. Ordering Provider: DARIN AUGUSTIN Report Released Date/Time: Jun 20, 2021 07:48 AM Reporting [facility] [address] [facility] [address] Performing Lab[facility] [address] [facility] [address] HEMOGLOBIN A1C 7.5 % H 4.0-6.0 Jun 20, 2021 11:15 AM [facility] CBC & DIFF Specimen T ype: BLOOD No comment entered. Ordering Provider: DARIN AUGUSTIN Report Released Date/Time: Jun 20, 2021 07:48 AM Reporting Lab: [facility] [address] [facility] [address] Performing Lab[facility] [address] [facility] [address] WBC 7.38 K/cmm 3.60-11.20 RBC 4.64 M/ul [...] 0.4 % Jun 20, 2021 11:15 AM [facility] COMPREHENSIVE METABOLIC PA OFE Specimen Type: PLASMA No comment entered. Ordering Provider: DARIN AUGUSTIN Report Released Date/Time: Jun 20, 2021 07:48 AM Reporting Lab[facility] [address] [facility] [address] Performing Lab: [facility] [address] [facility] [address] *CREATININE 1.78 mg/dL H 0.7-1.3 UREA NITROGEN [...] EGFR 37.0 Jun 20, 2021 11:15 AM [facility] LIPID PROFILE(HDL,TRIG,CHO L,LDL) Specimen Type: PLASMA No comment entered. Ordering Provider: DARIN AUGUSTIN Report Released Date/Time: Jun 20, 2021 07:48 AM Reporting [facility] [address] [facility] [address] Performing Lab[facility] [address] [facility] [address] CHOLESTEROL 144 mg/dL 0-200 TRIGS 106 mg/dL 0-150 RISK FACTOR 22 HDL-CHOLESTEROL 32 mg/dL L >=40 LDL (CALC) 91 mg/dL Jun 20, 2021 11:15 AM [facility] TSH Specimen T ype: SERUM No comment entered. Ordering Provider: DARIN AUGUSTIN Report Released Date/Time: Jun 20, 2021 07:48 AM Reporting [facility] [address] [facility] [address] Performing Lab[facility] [address] [facility] [address] TSH 3.828 uIU/mL 0.47-5.00 Jun 20, 2021 11:15 AM [facility] MAGNESIUM (mg/dL) Specime n Type: PLASMA No comment entered. Ordering Provider: DARIN AUGUSTIN Report Released Date/Time: Jun 20, 2021 07:48 AM Reporting [facility] [address] [facility] [address] Performing Lab[facility] [address] [facility] [address] MAGNESIUM (mg/dL) 1.6 mg/dL 1.6-2.6 Jun 20, 2021 11:15 AM [facility] T4 FREE Specimen T ype: SERUM No comment entered. Ordering Provider: DARIN AUGUSTIN Report Released Date/Time: Jun 20, 2021 07:48 AM Reporting Lab[facility] [address] [facility] [address] Performing Lab[facility] [address] [facility] [address] T4 FREE 1.10 ng/dL 0.70-1.48 Jun 20, 2021 11:15 AM [facility] VITAMIN B12 Specimen T ype: SERUM No comment entered. Ordering Provider: DARIN AUGUSTIN Report Released Date/Time: Jun 20, 2021 07:48 AM Reporting Lab: [facility] [address] [facility] [address] Performing Lab: [facility] [address] [facility] [address] VITAMIN B12 477.5 pg/mL 213-816 Vital Signs: All taken on the encounter date This section contains inpatient and outpatient Vital Signs collected on the date of the Encounter. Date/Time Temperature Pulse Blood Pressure Respiratory Rate SP02 Pa in Height Weight Body Mass Index Source Jun 28, 2021 01:29 PM 97.8 F 64 /min 104/60 mm[Hg] 20 /min 0 70 in 189 lb 27 [facility] Immunizations: All administered on the encounter date [...] Comment Facility Jun 28, 2021 01:30 PM [place]-TO[place] FORMER USER [facility] Tobacco Use History This section includes a history of the smoking, or tobacco -related health factors, that were collected on or before the date of the Encoun ter. The data comes from the [place] facility where the Encounter took place. Date/Time Smoking Status/Tobacco Use Comment Facil ity Jun 28, 2021 01:30 PM VA-TOBACCO QUIT < 1 YEAR [facility] Jun 29, 2020 09:00 AM VA-TOBACCO USE 30 YEARS OR MORE TOBI DA [facility] Jun 29, 2020 09:00 AM VA-TOBACCO USE ADVICE [facility] Jun 29, 2020 09:00 AM VA-TOBACCO USE BRIM ROUNDER NO [facility] Jun 29, 2020 09:00 AM VA-TOBACCO USE MED NO [facility] Jun 29, 2020 09:00 AM VA-TOBACCO USE WI 30 MIN OF WAKEUP N [facility] Jun 29, 2020 09:00 AM VA-TOBACCO USER EVERY DAY [facility] Jul 21, 2019 11:05 AM VA-TOBACCO USE 30 YEARS OR MORE TOBI DA [facility] Jul 21, 2019 11:05 AM VA-TOBACCO USE ADVICE [facility] Jul 21, 2019 11:05 AM VA-TOBACCO USE BRIM ROUNDER NO [facility] Jul 21, 2019 11:05 AM VA-TOBACCO USE MED NO [facility] Jul 21, 2019 11:05 AM VA-TOBACCO USE WI 30 MIN OF WAKEUP N KAYA [facility] Jul 21, 2019 11:05 AM VA-TOBACCO USER EVERY DAY [facility] Jun 29, 2018 01:31 PM CURRENT TOBACCO USER [facility] Jun 29, 2018 01:31 PM CURRENT TOBACCO USER (NOT READY TO RAJI T) [facility] Jun 29, 2018 01:31 PM TOBACCO CESSATION REFERRAL DECLINED [facility] Jun 29, 2018 01:31 PM TOBACCO MEDS OFFERED BUT DECLINED [facility] Jun 29, 2018 01:31 PM TOBACCO USER OFFERED MEDS [facility] Dec 26, 2017 09:02 AM CURRENT TOBACCO USER [facility] Dec 26, 2017 09:02 AM CURRENT TOBACCO USER (NOT READY TO RAJI T) [facility] Dec 26, 2017 09:02 AM TOBACCO CESSATION REFERRAL DECLINED [facility] Dec 26, 2017 09:02 AM TOBACCO MEDS OFFERED BUT DECLINED [facility] Dec 26, 2017 09:02 AM TOBACCO USER OFFERED MEDS [facility] May 23, 2017 03:35 PM CURRENT TOBACCO USER [facility] May 23, 2017 03:35 PM CURRENT TOBACCO USER (NOT READY TO RAJI T) [facility] May 23, 2017 03:35 PM TOBACCO CESSATION REFERRAL DECLINED [facility] May 23, 2017 03:35 PM TOBACCO MEDS OFFERED BUT DECLINED [facility] May 23, 2017 03:35 PM [facility]AC[facility] Apr 24, 2017 02:27 PM [facility] Apr 24, 2017 02:27 PM TOBACCO MEDS OFFERED BUT DECLINED [facility] Apr 24, 2017 02:27 PM TOBACCO OFFERED STOP SMOKING CLINIC [facility] March 14, 2017 02:05 PM CURRENT TOBACCO USER [facility] March 14, 2017 02:05 PM TOBACCO MEDS OFFERED BUT DECLINED [facility] March 14, 2017 02:05 PM TOBACCO OFFERED STOP SMOKING CLINIC [facility] Apr 23, 2016 06:08 AM CURRENT TOBACCO USER [facility] Oct 18, 2015 06:02 AM CURRENT TOBACCO USER [facility] Apr 05, 2015 06:12 AM CURRENT TOBACCO USER [facility] Sep 14, 2014 06:21 AM CURRENT TOBACCO USER [facility] Dec 11, 2012 09:31 AM TOBACCO OFFERED STOP SMOKING CLINIC [facility] Dec 11, 2012 09:31 AM TOBACCO OFFERED STOP SMOKING MEDS [facility] Apr 16, 2012 12:53 PM CURRENT TOBACCO USER D[facility] Jul 01, 2011 01:01 PM TOBACCO OFFERED STOP SMOKING CLINIC [facility] Jul 01, 2011 01:01 PM TOBACCO OFFERED STOP SMOKING MEDS NE NISHA [facility] Advance Directives: All historical and current [...] 29, 2011 ADVANCE DIRECTIVE DISCUSSION VILLA CINTRON [facility] Dec 02, 2008 CLINICAL WARNING YASMIN PRADHAN [facility] Radiology Reports: +/- 30 days of the encounter No Data Provided for This Section Pathology Reports: +/- 30 days of the encounter No Data Provided for This Section Encounter Notes: All associated encounter notes This section contains the clinical notes associated to the Encounter. Date/Time Encounter Note(s) Provider Source Jun 28, 2021 02:51 PM NURSING NOTE: LOCAL TITLE: PETR-NURSING PROSTHETICS STANDARD TITLE: NURSING NOTE DATE OF NOTE: JUN 28, 2021@14:51 ENTRY DATE: JUN 28, 2021@14:51:23 AUTHOR: SELWYN LYNN COSIGNER: URGENCY: STATUS: COMPLETED Prosthetic Patient Education Learner: Patient, Significant other Method: Group Evaluation of Learning: Able to Perform/Verbalize Items: Compression Stockings (20/30) Fitting Instructions: Knee High Measuring Instructions: -Ankle Measurement: Places the measurin g tape at the narrowest part of the ankle, about half an inch above the ankle bone. *Note: This must always be your first measurement -Calf Measurement: Measures the widest part of the patients calf -Calf Length: Have patient sit on a dharmesh ir with legs at a 90 degree angle. Measures the distance from 1 finger below the bend in the patient's knee to the floor. Washing Instructions: It is best to wash stockings after each day of use. DO NOT USE WOOLITE, fabric softener or bleach. Most stocking can be machined washed in cold or warm water; however, your provider will inform you if hand washing is needed. Do not put in the dryer unless instructed by your provider. How to Put on Compression Stockings: 1. Turn the stocking so that the heel fa melissa you. 2. Roll your stockings down and inside o ut stopping when you see the heel. This can be done by reaching inside the stocking and pinching the heel with your first figure and thumb pulling the stocking inside out holding on to the heel between the two fingers. 3. Put toes inside the end of the stocki ng and pull onto midfoot. 4. Then slowly pull the top of the stock ing over the foot and to ankle area. 5. Grab and pull the stocking with both hands staying low around the ankle area. Continue pulling with both hands up toward the calf. 6. The top band of the stocking should c ome up to just below the bend of your knee leaving 1-2 fingers width at the top of stocking and the bend in the back of your knee. 7. Next, run your hands up and down the stocking making sure you don't feel any wrinkle or folds. If you do find wrinkle or folds, rub or pull to smooth it out. Never fold or tuck top band over nor under. Safety: -Compressions stockings are for everyday use and should NEVER be worn to bed. -If you experience any complication whil e wearing your stockings such as increased pain or discoloration in the leg or you notice swelling in the thigh, knee or toes, take them off and call your PC Provider. If you are unable to reach and you feel you have an emergency please go to the nearest emergency room and take the stockings with you so the Doctor can see them. Dalton has been properly trained on the use of the prosthetic items(s) Yes Same Day Prosthetic consult ordered. /sasha/ Selwyn LYNN IMPREGNATOR Signed: 06/28/2021 14:53 SELWYN LYNN [facility] Jun 28, 2021 02:46 PM IMPREGNATOR NOTE: LOCAL TITLE: -NURSING IMPREGNATOR STANDARD TITLE: IMPREGNATOR NOTE DATE OF NOTE: JUN 28, 2021@14:46 ENTRY DATE: JUN 28, 2021@14:46:01 AUTHOR: SELWYN LYNN EXP COSIGNER: URGENCY: STATUS: COMPLETED Oxygenchecked as patient ambulated less than 50 ft. dropped to 86% on room air, and at rest was 90%. Results reported to provider. /sasha/ Selwyn LYNN IMPREGNATOR Signed: 06/28/2021 14:49 SELWYN LYNN [facility] Jun 28, 2021 02:08 PM PHARMACY OUTPATIENT NOTE: LOCAL TITLE: [id number] PRESCRIPTION FILL STANDARD TITLE: PHARMACY OUTPATIENT NOTE DATE OF NOTE: JUN 28, 2021@14:08 ENTRY DATE: JUN 28, 2021@14:08:50 AUTHOR: DARIN AUGUSTIN EXP COSIGNER: URGENCY: STATUS: COMPLETED Prescription to be filled by [email or web address] ALLERGIES: BACTRIM DS, TRAZODONE Prescriptions for RENEE ARRIAGA Date of : Jan Address: [address] [place] [address] Date: JUN 28, 2021 Active Non-VA Meds == 1) PREDNISONE DOSEPAK DIRECTED ON PACKAGE MOUTH Comments: QUANTITY: 1 PACK (21 x Prednisone 5mg tablets)\\\\ DAYS SUPPLY: 6\\\\ Directions:\\\\ Day 1: Take 2 tablets before breakfast, 1 tablet after lunch and supper, and 2 tablets at bedtime. Day 2: Take 1 tablet before breakfast, 1 tablet before lunch and supper, and 2 tablets at bedtime. Day 3: Take 1 tablet before breakfast, and 1 tablet after lunch, after supper, and at bedtime. Day 4: Take 1 tablet before breakfast, after lunch, and at bedtime. Day 5: Take 1 tablet before breakfast, and at bedtime. Day 6: Take 1 tablet before breakfast. Substitution permitted Dispense as written [place] Augustin APRN Provider printed name Voucher Information [facility] [address] [place] [address] [email or web address] Prescription Voucher ONE TIME USE ONLY For questions or rejected claims, please contact the [email or web address] Customer Service at . Mon-Fri 7am to [address], Sat 10am to [address]pm [address] Submit claims to M: [employer] Bin #: [id number] Processor Control Number: [employer] RXGROUP: [id number] Use 9 digit SSN as ID number Prescriber must be an approved [place] provider Certificate only valid when accompanied with a prescription written on a [place] prescription form. NO REFILLS ARE ALLOWED. DARIN AUGUSTIN [facility] Jun 28, 2021 01:24 PM RISK ASSESSMENT SCREENING NO TE: LOCAL TITLE: PETR-CDI/PI SCREENING NOTE STANDARD TITLE: RISK ASSESSMENT SCREENING NOTE DATE OF NOTE: JUN 28, 2021@13:24 ENTRY DATE: JUN 28, 2021@13:24:18 AUTHOR: SELWYN LYNN COSIGNER: URGENCY: STATUS: COMPLETED Reason for Encounter: 6 month recall with lab review. TOBACCO USE SCREENING --STATUS-- --DUE DATE-- --LAST DONE-- Tobacco Use Screening DUE SOON 06/29/2021 06/29/2020 Frequency: Due every 1 year for all ages. The Tobacco Screening reminder is due on all patients annually Resolution: Last done - 06/29/2020@09:00 Reminder Term: VA-TOBACCO USER Health Factor: Tobacco User Every Day 06/29/2020@09:00 The patient is a tobacco user The patient is a former tobacco user. The patient quit less than one year ago. ADVANCE DIRECTIVE EDUCATION: Patient declined information on Advanced Directives. ALCOHOL ABUSE SCREEN: Alcohol Screen: SCREEN FOR ALCOHOL (AUDIT-C) An alcohol screening test (AUDIT-C) was negative (score=0). 1. How often did you have a drink containing alcohol in the past year? Never 2. How many drinks containing alcohol did you have on a typical day when you were drinking in the past year? Response not required due to responses to other questions. 3. How often did you have six or more drinks on one occasion in the past year? Response not required due to responses to other questions. PRESSURE ULCER RISK SCREEN: --STATUS-- --DUE DATE-- --LAST DONE-- PETR-Pressure Ulcer Risk Screening DUE SOON 06/29/2021 06/29/2020 All responses are negative. Screening for risk is negative. Fall Risk Assessment 1. Do you feel you are at risk for falling? Yes Describe concern: balance issues and dizziness 2. By observation patient appears to have instability with functional mobility. No 3. Have you fallen within the last 12 months? No Temperature: 97.8 F (36.6 C) Pulse: 64 Respiration: 20 B/P: 104/60 Pain: 0 Wt: 189 lb (85.9 kg) Ht: 70 in [177.8 cm) Sao2: 90% Is BP over 139/89? No /es/ Selwyn LYNN IMPREGNATOR Signed: 06/28/2021 13:30 SELWYN LYNN [facility] Jun 28, 2021 09:02 AM PRIMARY CARE NOTE: LOCAL TITLE: -PRIMARY CARE STANDARD TITLE: PRIMARY CARE NOTE DATE OF NOTE: JUN 28, 2021@09:02 ENTRY DATE: JUN 28, 2021@09:02:25 AUTHOR: DARIN AUGUSTIN EXP COSIGNER: URGENCY: STATUS: COMPLETED -PRIMARY CARE Has ADDENDA CC: Recheck, review lab Says hisright small finger locks up. Says that it locks up frequently and he has to manually pull it straight. Gets cramps in his hands. Says his breathing "ain't improved none". Denies any current illness. Daughter is concerned that patient needs oxygen. Patient says he gets "winded real bad" with activity. Audible wheezing present at this time. Patient and daughter says this is his baseline. Has never seen pulmonology. Daughter says he will not travel to [facility]. Patient says he will go to pulmonology if it can be done locally. Quit smoking in Dec when hospitalized, is not chewing. Gets swelling at the end of the day, daughter reports indentation of socks PMH/Current Medical Problems: Active Problem Coronary artery disease (SNOMED CT 03441868) 10/18/2015 DARIN AUGUSTIN Hypertension (SNOMED CT 04265283) I10. 10/18/2015 DARIN AUGUSTIN Hyperlipidemia (SNOMED CT 55760717) E78.2 10/18/2015 DARIN AUGUSTIN Diabetes mellitus (SNOMED CT 84216789) E11.9 10/18/2015 DARIN AUGUSTIN Hypothyroidism (SNOMED CT 92590744) E03.9 10/18/2015 DARIN AUGUSTIN Chronic obstructive lung disease (SNOMED CT 1 10/18/2015 DARIN AUGUSTIN Tobacco dependence (SNOMED CT 75232697) F17.2 10/18/2015 DARIN AUGUSTIN Gastroesophageal reflux disease (SNOMED CT 23 10/18/2015 DARIN AUGUSTIN Hearing loss (SNOMED CT 53280520) 389.9 11/17/2013 RAMON FUNEZ Depression F33.9 03/17/2017 DARIN AUGUSTIN Gout M10.9 10/03/2017 SHARLENE WILSON Benign prostatic hyperplasia N42.9 12/28/2020 DARIN AUGUSTIN Comanaged Providers: None Past surgical Hx: Cardiac stent 1996, in [place] Right hip replacement 2011 t&a 1961 Social Hx: , lives in [place], [place]. Quit smoking 12/2020, no chew, rare alcohol Family Hx: Mother of mi at age 62 yr old Father of copd at 80 yr old Medications: Active and Recently Outpatient Medications (including Supplies): Active Outpatient Medications Status 1) ALBUTEROL 90MCG (CFC-F) 200D ORAL I NHL INHALE 2 PUFFS ACTIVE BY ORAL INHALATION FOUR TIMES A DAY NEEDED FOR SHORTNESS OF BREATH/ COPD 2) ALBUTEROL SO4 0.083% INHL 3ML USE 3 MLS (1 AMPULE) IN ACTIVE NEBULIZER FOR INHALATION TWO TIMES A DAY NEEDED using the nebulizer prn when he is ill 3) ASPIRIN 81MG EC TAB TAKE ONE TABLET BY MOUTH ONCE A ACTIVE DAY *DO NOT CHEW TABLET* 4) ATORVASTATIN CALCIUM 20MG TAB TAKE ONE-HALF TABLET BY ACTIVE MOUTH AT BEDTIME FOR CHOLESTEROL - REPORT ANY UNEXPLAINED MUSCLE PAIN/WEAKNESS TO YOUR PROVIDER 5) CALCIUM 500MG (CA CARB-1.25GM) TAB TAKE TWO TABLETS ACTIVE BY MOUTH ONCE A DAY 6) CHOLECALCIF 25MCG (D3-1,000UNIT) TA B TAKE ONE TABLET ACTIVE BY MOUTH ONCE A DAY FOR VITAMIN D DEFICIENCY 7) FENOFIBRATE 48MG TAB TAKE ONE TABLE T BY MOUTH ONCE A ACTIVE DAY FOR TRIGLYCERIDES (N/F APPROVED) 8) LEVOTHYROXINE NA (SYNTHROID) 100MCG TAB TAKE ONE ACTIVE TABLET BY MOUTH EVERY MORNING BEFORE MEAL TAKE ON AN EMPTY STOMACH 9) LISINOPRIL 20MG TAB TAKE ONE-HALF T ABLET BY MOUTH ACTIVE EVERY MORNING 10) METOPROLOL TARTRATE 50MG TAB TAKE O NE-HALF TABLET BY ACTIVE MOUTH TWO TIMES A DAY FOR HEART OR BLOOD PRESSURE 11) OLODATEROL/TIOTROP 2.5MCG/ACTUAT 60 D INH INHALE 2 ACTIVE PUFFS BY ORAL INHALATION ONCE A DAY 12) OMEPRAZOLE 20MG EC CAP TAKE ONE CAP JOSEPH BY MOUTH ACTIVE EVERY MORNING NEEDED TO LOWER STOMACH ACID. TAKE 30 MINUTES PRIOR TO FOOD. 13) POLYETHYLENE GLYCOL 3350 ORAL PWDR TAKE 1 CAPFUL ACTIVE (17GM) BY MOUTH ONCE A DAY FOR CONSTIPATION . DISSOLVE IN 8 OUNCES OF WATER, JUICE, SODA, COFFEE /TEA 14) TAMSULOSIN HCL 0.4MG CAP TAKE ONE C APSULE BY MOUTH ACTIVE ONCE A DAY FOR PROSTATE. TAKE AT THE SAME TIME EACH DAY WITH FOOD. Current Allergies/Drug Reactions: BACTRIM DS, TRAZODONE ROS: Complete 12 point ROS is negative except as indicated Temperature: 97.8 F (36.6 C) Pulse: 64 Respiration: 20 B/P: 104/60 Pain: 0 Wt: 189 lb (85.9 kg) Ht: 70 in [177.8 cm) Sao2: 90% PE: Card: Regular S1S2. Resp: Lungs diminished, exp wheezes, audible wheezes, no resp distress GI: Soft and non tender : No cva tenderness Musculoskeletal: AROM. No edema. Skin: Warm and dry, normal color. Neuro: CN 2-12 intact. Psyche: A&O x 3. No acute distress. Broad affect. Good eye contact. Today's Lab Results: 06/20/21 11:15 T4 FREE 1 .10 06/20/21 11:15 TSH 3 .828 06/20/21 11:15 VITAMIN B12 4 77.5 06/20/21 11:15 HEMOGLOBIN A1C 7 .5H 06/20/21 11:15 GLUCOSE 1 33H 06/20/21 11:15 UREA NITROGEN mg/d 2 7H 06/20/21 11:15 *CREATININE 1 .78H 06/20/21 11:15 SODIUM 1 33L 06/20/21 11:15 POTASSIUM 5 .8H 06/20/21 11:15 CALCIUM (mg/dL) 9 .9 06/20/21 11:15 CHOLESTEROL 1 44 06/20/21 11:15 PROTEIN,TOTAL 7 .8 06/20/21 11:15 ALBUMIN 4 .1 06/20/21 11:15 TOTAL BILIRUBIN 0 .5 06/20/21 11:15 ASPARTATE TRANSAMI 1 2 06/20/21 11:15 ALANINE AMINOTRANS 8 06/20/21 11:15 TRIGS 1 06 06/20/21 11:15 ANION GAP 6 .0L 06/20/21 11:15 RISK FACTOR 2 2 06/20/21 11:15 HDL-CHOLESTEROL 3 2L 06/20/21 11:15 CHLORIDE 9 9 06/20/21 11:15 CO2 2 8 06/20/21 11:15 ALKALINE PHOSPHATA 6 0 06/20/21 11:15 MAGNESIUM (mg/dL) 1 .6 06/20/21 11:15 LDL (CALC) 9 1 06/20/21 11:15 EGFR 3 7.0 06/20/21 11:15 WBC 7 .38 06/20/21 11:15 RBC 4 .64 06/20/21 11:15 HGB 1 3.2 06/20/21 11:15 HCT 4 2.6 06/20/21 11:15 MCV 9 1.8 06/20/21 11:15 MCH 2 8.4 06/20/21 11:15 MCHC 3 1.0L 06/20/21 11:15 RDW 1 4.8 06/20/21 11:15 PLATELET COUNT 2 65 06/20/21 11:15 MPV 1 0.1 06/20/21 11:15 LYMPHOCYTES, AUTO% 3 1.6 06/20/21 11:15 MONOCYTES, ABSOLUT 0 .67 06/20/21 11:15 EOSINOPHILS, ABSOL 0 .17 06/20/21 11:15 BASOPHILS, ABSOLUT 0 .06 06/20/21 11:15 NEUTROPHILS, ABSOL 4 .12 06/20/21 11:15 NEUTROPHILS, AUTO 5 5.8 06/20/21 11:15 MONOCYTES, AUTO% 9 .1 06/20/21 11:15 EOSINOPHILS, AUTO% 2 .3 06/20/21 11:15 BASOPHILS, AUTO% 0 .8 06/20/21 11:15 LYMPHOCYTES, ABSOL 2 .33 06/20/21 11:15 IMMATURE GRANS, AB 0 .03 06/20/21 11:15 IMMATURE GRANS, AU 0 .4 Lab reviewed with vet today PREVENTIVE: Immunizations Reviewed Assessment/Plan: 1. Diabetes Mellitus, a1c 7.5, start glipizide 2.5mg bid, glucometer metformin was dc'd during hospitalization locally due to creat 2. Hypertension, on metoprolol and lisinopril compression stockings for minimal edema at the end of the day 3. Hyperlipidemia, at goal, on atorvastatin, dc fenofibrate due to alert of drug interaction with atorvastatin 4. Cad, on metoprolol and asa, asymptomatic, not following with cardiology mg low normal, start mag ox 400mg daily 5. Copd, on inhalers, pred pack today, ambulatory oximetry today 06/28/2021: 86% pred pack today, recommend to use the neb bid and prn occ pulmonology consult 6. Gerd, on omeprazole 7. Hypothyroidism, on levothyroxine 8. Bph, on tamsulosin, pvr 06/29/2020: 28ml 9. Insomnia, melatonin and sertraline ineffective, trazodone caused mood changes, not taking hydroxyzine as it caused nightmares 10. Microscopic Hematuria, declines urology consult for work up 11. Tobacco Dependence in remission, quit smoking 12/2020 12. Hyperkalemia, 5.8, recheck bmp today Additional Plan: lab to recheck K+ bnp today compression stockings occ pulmonology ambulatory oximetry, 86% in the clinic today glucometer start glipizide mag ox 400mg teleretinal pred pack, use nebulizer bid dc fenofibrate dt renal function, alert of drug interaction with atorvastatin 6md Lab with recall: Cbc w diff, cmp, lipid profile, Ua, random microalbumin, A1c, Tsh, Free T4 Patient informed to notify the clinic if they have not heard about any lab results or consults. Clinical Reminders: CLINICAL REMINDER ACTIVITY: Eye Care At-Risk Screen : Patient identified to be at risk for the following eye condition(s): DIABETIC RETINOPATHY: Diabetes Diagnosis Information: Encounter Diagnosis: 12/28/2020@10:30 E11.9 (ICD-10-CM) Type 2 Diabetes Mellitus without Complications rank: SECONDARY Prov. Narr. - Diabetes mellitus ([facility] [id number]) MACULAR DEGENERATION: Macular Degeneration Risk Factors Information: Reminder Term: [facility]-AMD RISK FACTORS Encounter Diagnosis: 12/28/2020@10:30 F17.218 (ICD-10-CM) Nicotine Dependence, Cigarettes, with other Nicotine-Induced Disorders rank: SECONDARY Prov. Narr. - Tobacco dependence ([facility] [id number]) Action: Referral Ordered: Tele-Eye Screening P:Diabetic Foot Exam (PETR): Complete diabetic foot exam, normal: Pedal pulses are normal bilateral, skin is warm and dry, no reddened or open areas noted, normal sensory exam using monofilament. Risk Level "0" (Normal Risk) Normal sensation and circulation No deformity or minor infection No ulceration or history of amputation FOOT EDUCATION PROVIDED: -Daily foot checks -Daily foot hygiene -Demo how to do a foot check -Ulcers lead to gangrene and amputation -Bathing of the feet, complete drying -Emphasized the use of clean, non-restrictive socks/stockings -Immediate follow-up any foot injuries or ulcers -Non-weight bearing whatever there are Lesions on the foot P:Evaluation for + Fall Risk (PETR): Did a fall occur?: No Medications reviewed for increased risk of fall (if relevant): Comments if indicated: Medical co-morbities reviewed for increased risk of fall (if relevant): Comments if indicated: Actions/Therapeutic recommendations: No further treatment indicated - preventive fall guide provided Herpes Zoster (Shingles) Vaccine: The patient declines to receive the herpes zoster vaccine. Relationship Health & Safety Screen: RELATIONSHIP HEALTH & SAFETY SCREEN ENVIRONMENTAL SAFETY CHECK: Screening is not completed at this time due to: Another adult is present. P:Medication Reconciliation (PETR): Medication Reconciliation Allergy Review: FACILITY ALLERGY/ADR -------- No Remote Allergy/ADR Data available for this patient [facility], VISN 15 BACTRIM DS [facility], VISN 15 TRAZODONE ACTIVE OUTPATIENT MEDICATION(S) TODAY: Medication (Local) Status ALBUTEROL 90MCG (CFC-F) 200D ORAL INHL Reviewed Directions: INHALE 2 PUFFS BY ORAL INHALATION FOUR TIMES A DAY NEEDED FOR SHORTNESS OF BREATH/ COPD Quantity: 1 for 25 days Provider: DARIN AUGUSTIN Issued: 05/14/21 Filled: 05/16/21 Expires: 05/15/22 Refills: 2 Status: ACTIVE ALBUTEROL SO4 0.083% INHL 3ML Reviewed Directions: USE 3 MLS (1 AMPULE) IN NEBULIZER FOR INHALATION TWO TIMES A DAY NEEDED Quantity: 60 for 30 days Provider: DARIN AUGUSTIN Issued: 12/21/20 Filled: 06/09/21 Expires: 12/22/21 Refills: 1 Status: ACTIVE ASPIRIN 81MG EC TAB Reviewed Directions: TAKE ONE TABLET BY MOUTH ONCE A DAY *DO NOT CHEW TABLET* Quantity: 120 for 90 days Provider: DARIN AUGUSTIN Issued: 10/22/20 Filled: 06/30/21 Expires: 10/23/21 Refills: 1 Status: ACTIVE ATORVASTATIN CALCIUM 20MG TAB Reviewed Directions: TAKE ONE-HALF TABLET BY MOUTH AT BEDTIME FOR CHOLESTEROL - REPORT ANY UNEXPLAINED MUSCLE PAIN/WEAKNESS TO YOUR PROVIDER Quantity: 45 for 90 days Provider: DARIN AUGUSTIN Issued: 06/29/20 Filled: 06/13/21 Expires: 06/30/21 Refills: 0 Status: ACTIVE CALCIUM 500MG (CA CARB-1.25GM) TAB Reviewed Directions: TAKE TWO TABLETS BY MOUTH ONCE A DAY Quantity: 180 for 90 days Provider: DARIN AUGUSTIN Issued: 06/29/20 Filled: 02/26/21 Expires: 06/30/21 Refills: 1 Status: ACTIVE CHOLECALCIF 25MCG (D3-1,000UNIT) TAB Reviewed Directions: TAKE ONE TABLET BY MOUTH ONCE A DAY FOR VITAMIN D DEFICIENCY Quantity: 100 for 90 days Provider: DARIN AUGUSTIN Issued: 03/30/21 Filled: 03/30/21 Expires: 03/31/22 Refills: 3 Status: ACTIVE LEVOTHYROXINE NA (SYNTHROID) 100MCG TAB Reviewed Directions: TAKE ONE TABLET BY MOUTH EVERY MORNING BEFORE MEAL TAKE ON AN EMPTY STOMACH Quantity: 90 for 90 days Provider: DARIN AUGUSTIN Issued: 03/21/21 Filled: 06/30/21 Expires: 03/22/22 Refills: 2 Status: ACTIVE LISINOPRIL 20MG TAB Reviewed Directions: TAKE ONE-HALF TABLET BY MOUTH EVERY MORNING Quantity: 45 for 90 days Provider: DARIN AUGUSTIN Issued: 06/29/20 Filled: 06/30/21 Expires: 06/30/21 Refills: 0 Status: ACTIVE METOPROLOL TARTRATE 50MG TAB Reviewed Directions: TAKE ONE-HALF TABLET BY MOUTH TWO TIMES A DAY FOR HEART OR BLOOD PRESSURE Quantity: 90 for 90 days Provider: DARIN AUGUSTIN Issued: 06/29/20 Filled: 06/15/21 Expires: 06/30/21 Refills: 0 Status: ACTIVE OLODATEROL/TIOTROP 2.5MCG/ACTUAT 60D INH Reviewed Directions: INHALE 2 PUFFS BY ORAL INHALATION ONCE A DAY Quantity: 3 for 90 days Provider: DARIN AUGUSTIN Issued: 06/29/20 Filled: 05/25/21 Expires: 06/30/21 Refills: 0 Status: ACTIVE OMEPRAZOLE 20MG EC CAP Reviewed Directions: TAKE ONE CAPSULE BY MOUTH EVERY MORNING NEEDED TO LOWER STOMACH ACID. TAKE 30 MINUTES PRIOR TO FOOD. Quantity: 90 for 90 days Provider: DARIN AUGUSTIN Issued: 06/29/20 Filled: 06/29/20 Expires: 06/30/21 Refills: 3 Status: ACTIVE POLYETHYLENE GLYCOL 3350 ORAL PWDR Reviewed Directions: TAKE 1 CAPFUL (17GM) BY MOUTH ONCE A DAY FOR CONSTIPATION . DISSOLVE IN 8 OUNCES OF WATER, JUICE, SODA, COFFEE /TEA Quantity: 1530 for 90 days Provider: DARIN AUGUSTIN Issued: 07/14/20 Filled: 04/04/21 Expires: 07/15/21 Refills: 2 Status: ACTIVE TAMSULOSIN HCL 0.4MG CAP Reviewed Directions: TAKE ONE CAPSULE BY MOUTH ONCE A DAY FOR PROSTATE. TAKE AT THE SAME TIME EACH DAY WITH FOOD. Quantity: 90 for 90 days Provider: DARIN AUGUSTIN Issued: 06/29/20 Filled: 05/19/21 Expires: 06/30/21 Refills: 0 Status: ACTIVE OUTSIDE LOCAL [facility] FACILITY MEDICATION(S) TODAY: Medication (Remote) Status No remote medications found. ACTIVE NON-[facility] MEDICATION(S) TODAY: Medication (Local) Status PREDNISONE 5MG TAB DOSEPAK,21 Reviewed Directions: DIRECTED ON PACKAGE MOUTH Status: ACTIVE MEDICATION(S) (Last 90 days): Medication (Local) Status No local medications found. Medication (Remote) Status No remote medications found. PENDING MEDICATION(S) TODAY: Medication (Local) Status ACCU-CHEK GUIDE (GLUCOSE) TEST STRIP Reviewed Directions: USE STRIP FOR TESTING DIRECTED BY PROVIDER Quantity: 50 Schedule: UD (NEED COMMENTS) Special: USE STRIP MISC UD (NEED COMMENTS) Status: PENDING ALBUTEROL SO4 0.083% INHL 3ML Reviewed Directions: USE 3 MLS (1 AMPULE) IN NEBULIZER FOR INHALATION THREE TIMES A DAY NEEDED Quantity: 90 Schedule: TID PRN Special: USE 3 MLS (1 AMPULE) INHL TID PRN Status: PENDING ATORVASTATIN CALCIUM 20MG TAB Reviewed Directions: TAKE ONE-HALF TABLET BY MOUTH AT BEDTIME FOR CHOLESTEROL - REPORT ANY UNEXPLAINED MUSCLE PAIN/WEAKNESS TO YOUR PROVIDER Quantity: 45 Schedule: QHS Special: TAKE ONE-HALF TABLET PO QHS Status: PENDING GLIPIZIDE 5MG TAB Reviewed Directions: TAKE ONE-HALF TABLET BY MOUTH TWO TIMES A DAY FOR DIABETES. TAKE 30 MINUTES BEFORE EATING. Quantity: 90 Schedule: BID Special: TAKE ONE-HALF TABLET PO BID Status: PENDING LISINOPRIL 20MG TAB Reviewed Directions: TAKE ONE-HALF TABLET BY MOUTH EVERY MORNING Quantity: 45 Schedule: QAM Special: TAKE ONE-HALF TABLET PO QAM Status: PENDING MAGNESIUM OXIDE 400MG TAB Reviewed Directions: TAKE ONE TABLET BY MOUTH ONCE A DAY Quantity: 120 Schedule: QDAY Special: TAKE ONE TABLET PO QDAY Status: PENDING METOPROLOL TARTRATE 50MG TAB Reviewed Directions: TAKE ONE-HALF TABLET BY MOUTH TWO TIMES A DAY FOR HEART OR BLOOD PRESSURE Quantity: 90 Schedule: BID Special: TAKE ONE-HALF TABLET PO BID Status: PENDING OLODATEROL/TIOTROP 2.5MCG/ACTUAT 60D INH Reviewed Directions: INHALE 2 PUFFS BY ORAL INHALATION ONCE A DAY Quantity: 3 Schedule: QDAY Special: INHALE 2 PUFFS INHL ORAL QDAY Status: PENDING OMEPRAZOLE 20MG EC CAP Reviewed Directions: TAKE ONE CAPSULE BY MOUTH EVERY MORNING NEEDED TO LOWER STOMACH ACID. TAKE 30 MINUTES PRIOR TO FOOD. Quantity: 90 Schedule: QAM PRN Special: TAKE ONE CAPSULE PO QAM PRN Status: PENDING TAMSULOSIN HCL 0.4MG CAP Reviewed Directions: TAKE ONE CAPSULE BY MOUTH ONCE A DAY FOR PROSTATE. TAKE AT THE SAME TIME EACH DAY WITH FOOD. Quantity: 90 Schedule: QDAY Special: TAKE ONE CAPSULE PO QDAY Status: PENDING Medication (Remote) Status No remote medications found. ACTIVE/PENDING IMO/CLINIC MEDICATION(S) LAST 120 DAYS: Medication (Local) Status No local medications found. DISCONTINUED IMO/CLINIC MEDICATION(S) LAST 120 DAYS: Medication (Local) Status No local medications found. IMO/CLINIC MEDICATION(S) LAST 120 DAYS: Medication (Local) Status No local medications found. DISCONTINUED MEDICATION(S) (Last 90 days): Medication (Local) Status ALBUTEROL 90MCG (CFC-F) 200D ORAL INHL Reviewed Directions: INHALE 2 PUFFS BY ORAL INHALATION FOUR TIMES A DAY NEEDED FOR SHORTNESS OF BREATH/ COPD Quantity: 1 for 25 days Provider: DARIN AUGUSTIN Issued: 06/04/20 Filled: 07/02/20 Expires: 06/05/21 Refills: 1 Status: DISCONTINUED DC Reason: Renewed by Pharmacy ALBUTEROL 90MCG (CFC-F) 200D ORAL INHL Reviewed Directions: INHALE 2 PUFFS BY ORAL INHALATION FOUR TIMES A DAY NEEDED FOR SHORTNESS OF BREATH/ COPD Quantity: 1 for 25 days Provider: DARIN AUGUSTIN Issued: 06/29/20 Filled: 10/08/20 Expires: 06/30/21 Refills: 0 Status: DISCONTINUED DC Reason: Renewed by Pharmacy ALBUTEROL 90MCG (CFC-F) 200D ORAL INHL Reviewed Directions: INHALE 2 PUFFS BY ORAL INHALATION FOUR TIMES A DAY NEEDED FOR SHORTNESS OF BREATH/ COPD Quantity: 1 for 25 days Provider: DARIN AUGUSTIN Issued: 11/06/20 Filled: 12/13/20 Expires: 11/07/21 Refills: 1 Status: DISCONTINUED DC Reason: Renewed by Pharmacy ALBUTEROL 90MCG (CFC-F) 200D ORAL INHL Reviewed Directions: INHALE 2 PUFFS BY ORAL INHALATION FOUR TIMES A DAY NEEDED FOR SHORTNESS OF BREATH/ COPD Quantity: 1 for 25 days Provider: DARIN AUGUSTIN Issued: 12/28/20 Filled: 04/04/21 Expires: 12/29/21 Refills: 0 Status: DISCONTINUED DC Reason: Renewed by Pharmacy FENOFIBRATE 48MG TAB Reviewed Directions: TAKE ONE TABLET BY MOUTH ONCE A DAY FOR TRIGLYCERIDES (N/F APPROVED) Quantity: 90 for 90 days Provider: DARIN AUGUSTIN Issued: 06/29/20 Filled: 06/30/21 Expires: 06/30/21 Refills: 0 Status: DISCONTINUED HYDROXYZINE HCL 25MG TAB Reviewed Directions: TAKE ONE TABLET BY MOUTH AT BEDTIME NEEDED MAY CAUSE DROWSINESS (ANTIHISTAMINE) FOR SLEEP/ANXIETY Quantity: 90 for 90 days Provider: DARIN AUGUSTIN Issued: 09/12/20 Filled: 09/14/20 Expires: 09/13/21 Refills: 3 Status: DISCONTINUED METFORMIN HCL 500MG TAB Reviewed Directions: TAKE ONE TABLET BY MOUTH TWO TIMES A DAY BEFORE MEALS -FOR DIABETES (STOP BEFORE GETTING X-RAY DYE) Quantity: 180 for 90 days Provider: DARIN AUGUSTIN Issued: 06/29/20 Filled: 10/26/20 Expires: 06/30/21 Refills: 2 Status: DISCONTINUED Medication (Remote) Status No remote medications found. Reviewed medication discrepancies and changes, considered learning preferences, updated medication list and provided an updated medication list to the Patient, Caregiver. Patient and/or caregiver stated understanding of all instruction and education given today. REVIEW OF THE ESSENTIAL MEDICATION LIST FOR REVIEW AT THE TIME OF THIS ENCOUNTER INCLUDED: REMOTE AND LOCAL FACILITY PATIENT ALLERGIES, AND ACTIVE AND PENDING PRESCRIPTIONS DISPENSED FROM THIS [facility] (LOCAL) AND DISPENSED FROM ANOTHER [place] OR [facility] FACILITY (REMOTE) WELL LOCAL INPATIENT AND CLINIC MEDICATIONS (IMOS), LOCALLY DOCUMENTED NON-VA MEDICATIONS AND LOCAL PRECRIPTIONS THAT HAVE OR BEEN DISCONTINUED IN THE PAST 90 DAYS. WITH THE EXCEPTION OF ALLERGIES, IF A CATEGORY IS NOT LISTED ABOVE, IT MEANS THERE WERE NO RELEVANT MEDICATIONS FOR THE PATIENT. POTENTIAL ADVERSE REACTIONS OF NEW OR CHANGED MEDICATIONS WERE DISCUSSED WITH THE PATIENT AND/OR CAREGIVER. 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 Can consider ortho consult in the future when breathing improved. /sandeep Augustin APRN Signed: 06/30/2021 17:36 06/30/2021 ADDENDUM STATUS: COMPLETED Bnp for fluid overload or chf is normal. Breathing problem is copd Recheck K+ remains elevated, 5.6, creat 2.12 E consult to renal Avoid K+ supplements or high K+ foods Please notify patient and watch for e consult /sandeep Augustin APRN Signed: 06/30/2021 17:47 Receipt Acknowledged By: 07/04/2021 08:58 /sandeep CABRERA LPN 07/14/2021 ADDENDUM STATUS: COMPLETED Recheck K+ 1 wk after dc the lisinopril still elevated but better, 5.3, down from 5.6. Creat 1.59, down from 2.12. Continue to dc the lisinopril, monitor bp. Recommend to recheck bmp in 3-4 wks Ua continues to have rbc's, would patient like to reconsider ct wo, renal us, and urology consult? Please notify patient /sandeep Augustin APRN Signed: 07/14/2021 11:58 Receipt Acknowledged By: 07/25/2021 12:03 /sandeep CABRERA LPN 07/18/2021 ADDENDUM STATUS: COMPLETED [facility] renal US dated 07/13/21 [place], please check for accuracy: no hydronephrosis but bilateral renal cysts seen. The real parenchyma is unremarkable. Right kidney 2cm cyst, left kidney with 3x4x5 cm upper pole cyst and several other smaller cysts /es/ Mercedes Grace, RN, MSN Darlyn CBNASIR Signed: 07/23/2021 07:05 Receipt Acknowledged By: 07/31/2021 15:36 /sasha/ [place] Charli PATEN 07/24/2021 ADDENDUM STATUS: COMPLETED Renal us as above already completed, shows renal cysts. Recommend to recheck bmp as above as recommended on renal consult. Lisinopril has been dc'd per renal consult. If no improvement in K+/renal function, can consider renal consult or resubmit an e consult. Please notify patient /sasha/ [place] Augustin APRN Signed: 07/24/2021 15:27 Receipt Acknowledged By: 07/25/2021 12:02 /es/ Selwyn CABRERA LPN 08/30/2021 ADDENDUM STATUS: COMPLETED Recheck bmp since dc lisinopril as recommended on renal e consult due to hyperkalemia is better. K+ normal, 4.7, creat still slightly elevated but improved 1.37 Remainder of lab okay, no additional medication changes Please notify patient /sasha/ [place] Augustin APRN Signed: 08/30/2021 09:05 Receipt Acknowledged By: 09/05/2021 12:59 /sasha/ Renae medel LPN Licensed Practical Nurse 09/06/2021 ADDENDUM STATUS: COMPLETED Had spoke with Yenny Grant daughter to inform of the following copied Recheck bmp since dc lisinopril as recommended on renal e consult due to hyperkalemia is better. K+ normal, 4.7, creat still slightly elevated but improved 1.37Remainder of lab okay, no additional medication changes Please notify patientcopied /sasha/ Renae De La Rosa LPN Licensed Practical Nurse Signed: 09/06/2021 13:26 DARIN AUGUSTIN
--- OUTSIDE RECORDS SUMMARY | 2021-12-24 23:43 | XMS REPORT | Encounter Summary ---
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 Date/Time Encounter Type Encounter Description Reason Provider Source Jul 12, 2021 11:15 AM Outpatient Encounter PRIMARY CARE/MEDICINE IHE Encounter Template Text not used by [facility] Assessments - Encounter Diagnoses No Data Provided for This Section Plan of Treatment: Future Appointments (+ 6 months) and Future Tests (+/- 45 day s) The Plan of Treatment section includes future care activities for the patient fr om all [facility] facilities. This section includes future appointments and fu ture orders which are active, pending or scheduled. Future Appointments This section includes appointments that were scheduled t o occur 6 months from the date of the Encounter, up to a maximum of 20 appointme nts. The data comes from all [facility]. Appointment Date/Time Appointment Type Appointment Facili ty Name Jul 13, 2021 10:00 AM AMBULATORY - NONE [facility], [facility] 15 Jul 23, 2021 03:20 PM AMBULATORY - NONE [facility], [facility] 15 Aug 29, 2021 11:15 AM AMBULATORY - MEDICINE [facility] Sep 25, 2021 12:30 PM AMBULATORY MEDICINE [facility] Oct 09, 2021 12:30 PM AMBULATORY MEDICINE [facility] Oct 30, 2021 11:00 AM AMBULATORY MEDICINE [facility] Dec 10, 2021 10:00 AM AMBULATORY - NONE [facility] T, [facility] 15 Dec 25, 2021 10:45 AM AMBULATORY MEDICINE [facility] Dec 27, 2021 01:30 PM AMBULATORY MEDICINE [facility] Active, [...] Encounter. The data comes from all [facility]. Test Date/Time Test Type Test Details Facility Name Jun 28, 2021 02:58 PM Consult Order COMMUNITY CARE- PULMONARY Cons Engineering Research Manager's Choice [facility] Surgical Procedures: All associated to the encounter No Data Provided for This Section Lab Results: +/- 30 days of the encounter This section includes the Chemistry and Hematology Lab R esults on record with NH for the patient. Radiology Reports and Pathology Report s are provided separately, in subsequent sections. Lab Results This section contains the Chemistry/Hematology Results christina t were resulted 30 days before or 30 days after the date of the Encounter. Date/Time Source Result Type Result - Unit Interpretation Reference Range Comment Jul 12, 2021 11:01 AM [facility] URINALYSIS () Specimen Type: URINE No comment entered. Ordering Provider: DARIN ELY Report Released Date/Time: Jun 20, 2021 07:48 AM Reporting Lab: [facility] [address] [facility] [address] Performing Lab: [facility] [address] [facility] [phone] *URINE COLOR Yellow *URINE APPEARANCE Clear Clear [...] Non e Jul 12, 2021 11:01 AM [facility] MICROALBUMIN ([place]) RANDO M URINE Specimen Type: URINE No comment entered. Ordering Provider: DARIN ELY Report Released Date/Time: Jun 20, 2021 07:48 AM Reporting Lab: [facility] [address] [facility] [address] Performing Lab: [facility] [address] [facility] [address] *MICROALBUMIN,RAND 18 ug/mL *MICROALB/CREAT 12 *UR CREATININE 147.7 mg/dL Jul 12, 2021 11:01 AM [facility] BASIC METABOLIC PANEL Spe cimen Type: PLASMA No comment entered. Ordering Provider: DARIN ELY Report Released Date/Time: Jul 08, 2021 11:43 AM Reporting Lab: [facility] [address] [facility] [address] Performing Lab: [facility] [address] [facility] [phone] *CREATININE 1.59 mg/dL H 0.7-1.3 UREA NITROGEN [...] Jun 28, 2021 02:03 PM Reporting Lab: [facility], [facility] [address] [facility] [phone] Performing Lab: [facility] [address] [facility] [address] *CREATININE 2.12 mg/dL H 0.7-1.3 UREA NITROGEN mg/dL 32 mg/dL H 9-25 GLUCOSE 156 mg/dL H 72-99 SODIUM 132 mEq/L L 136-145 POTASSIUM 5.6 mEq/L H 3.5-5.0 CALCIUM (mg/dL) 10.1 mg/dL 8.4-10.4 ANION GAP 7.0 L 8-16 CHLORIDE 98 mEq/L 98-107 CO2 27 mEq/L 22-31 EGFR 30.2 Jun 28, 2021 02:11 PM [facility] B-TYPE NATRIURETIC Specim en Type: PLASMA No comment entered. Ordering Provider: DARIN ELY Report Released Date/Time: Jun 28, 2021 02:03 PM Reporting Lab: [facility], [facility] [address] [facility] [address] Performing Lab: [facility] [address] [facility] [address] B-TYPE NATRIURETIC 40.8 pg/mL 0-100 Jun 20, 2021 11:15 AM [facility] HEMOGLOBIN A1C Specimen T ype: BLOOD No comment entered. Ordering Provider: DARIN ELY Report Released Date/Time: Jun 20, 2021 07:48 AM Reporting Lab: [facility], [facility] [address] [facility] [address] Performing Lab: [facility] [address] [facility] [address] HEMOGLOBIN A1C 7.5 % H 4.0-6.0 Jun 20, 2021 11:15 AM [facility] & DIFF Specimen T ype: BLOOD No comment entered. Ordering Provider: DARIN ELY Report Released Date/Time: Jun 20, 2021 07:48 AM Reporting Lab: [facility] [address] [facility] [address] Performing Lab: [facility] [address] [facility] [address] WBC 7.38 K/cmm 3.60-11.20 RBC 4.64 M/ul [...] 0.4 % Jun 20, 2021 11:15 AM [facility] COMPREHENSIVE METABOLIC PA OFE Specimen Type: PLASMA No comment entered. Ordering Provider: DARIN ELY Report Released Date/Time: Jun 20, 2021 07:48 AM Reporting Lab: [facility] [address] [facility] [address] Performing Lab: [facility] [address] [facility] [address] *CREATININE 1.78 mg/dL H 0.7-1.3 UREA NITROGEN [...] EGFR 37.0 Jun 20, 2021 11:15 AM [facility] LIPID PROFILE(HDL,TRIG,CHO L,LDL) Specimen Type: PLASMA No comment entered. Ordering Provider: DARIN ELY Report Released Date/Time: Jun 20, 2021 07:48 AM Reporting Lab: [facility] [address] [facility] [address] Performing Lab: [facility] [address] [facility] [address] CHOLESTEROL 144 mg/dL 0-200 TRIGS 106 mg/dL 0-150 RISK FACTOR 22 HDL-CHOLESTEROL 32 mg/dL L >=40 LDL (CALC) 91 mg/dL Jun 20, 2021 11:15 AM [facility] TSH Specimen T ype: SERUM No comment entered. Ordering Provider: DARIN ELY Report Released Date/Time: Jun 20, 2021 07:48 AM Reporting Lab: [facility] [address] [facility] [address] Performing Lab: [facility] [address] [facility] [address] TSH 3.828 uIU/mL 0.47-5.00 Jun 20, 2021 11:15 AM [facility] MAGNESIUM (mg/dL) Specime n Type: PLASMA No comment entered. Ordering Provider: DARIN ELY Report Released Date/Time: Jun 20, 2021 07:48 AM Reporting Lab: [facility] [address] [facility] [address] Performing Lab: [facility] [address] [facility] [address] MAGNESIUM (mg/dL) 1.6 mg/dL 1.6-2.6 Jun 20, 2021 11:15 AM [facility] T4 FREE Specimen T ype: SERUM No comment entered. Ordering Provider: DARIN ELY Report Released Date/Time: Jun 20, 2021 07:48 AM Reporting Lab: [facility] [address] [facility] [address] Performing Lab: [facility] [address] [facility] [address] T4 FREE 1.10 ng/dL 0.70-1.48 Jun 20, 2021 11:15 AM [facility] VITAMIN B12 Specimen T ype: SERUM No comment entered. Ordering Provider: DARIN ELY Report Released Date/Time: Jun 20, 2021 07:48 AM Reporting Lab: [facility] [address] [facility] [address] Performing Lab: [facility] [address] [facility] [address] VITAMIN B12 477.5 pg/mL 213-816 Vital [...] and tobacco- related health factors from the NH facility where the Encounter took place. Current Smoking Status This section includes the most current smoking, or tobacco -related health factor, from the NH facility where the Encounter took place. Date/Time Current Smoking Status Comment Facility Jun 28, 2021 01:30 PM VA-TOBACCO FORMER USER [facility] Tobacco Use History This section includes a history of the smoking, or tobacco -related health factors, that were collected on or before the date of the Encoun ter. The data comes from the NH facility where the Encounter took place. Date/Time Smoking Status/Tobacco Use Comment Facil ity Jun 28, 2021 01:30 PM VA-TOBACCO QUIT < 1 YEAR [facility] Jun 29, 2020 09:00 AM VA-TOBACCO USE 30 YEARS OR MORE [facility] Jun 29, 2020 09:00 AM VA-TOBACCO USE ADVICE [facility] Jun 29, 2020 09:00 AM VA-TOBACCO USE TRANSPLANT RN NO [facility] Jun 29, 2020 09:00 AM VA-TOBACCO USE MED NO [facility] Jun 29, 2020 09:00 AM VA-TOBACCO USE [place] [facility] Jun 29, 2020 09:00 AM VA-TOBACCO USER EVERY DAY [facility] Jul 21, 2019 11:05 AM VA-TOBACCO USE 30 YEARS OR MORE [facility] Jul 21, 2019 11:05 AM VA-TOBACCO USE ADVICE [facility] Jul 21, 2019 11:05 AM VA-TOBACCO USE TRANSPLANT RN NO [facility] Jul 21, 2019 11:05 AM VA-TOBACCO USE MED NO [facility] Jul 21, 2019 11:05 AM VA-TOBACCO USE WI 30 MIN OF WAKEUP N [facility] Jul 21, 2019 11:05 AM VA-TOBACCO USER EVERY DAY [facility] Jun 29, 2018 01:31 PM CURRENT TOBACCO USER [facility] Jun 29, 2018 01:31 PM CURRENT TOBACCO USER (NOT READY TO RAJI T) [facility] Jun 29, 2018 01:31 PM TOBACCO CESSATION REFERRAL DECLINED [facility] Jun 29, 2018 01:31 PM TOBACCO MEDS OFFERED BUT DECLINED NE [facility] Jun 29, 2018 01:31 PM TOBACCO USER OFFERED MEDS [facility] Dec 26, 2017 09:02 AM [...] 2017 09:02 AM TOBACCO USER OFFERED MEDS [facility] May 23, 2017 03:35 PM CURRENT TOBACCO [...] 2017 03:35 PM TOBACCO USER OFFERED MEDS [facility] Apr 24, 2017 02:27 PM CURRENT TOBACCO USER [facility] Apr 24, 2017 02:27 PM TOBACCO [...] TOBACCO OFFERED STOP SMOKING MEDS NE NISHA [facility] Apr 16, 2012 12:53 PM CURRENT TOBACCO USER [facility] Jul 01, 2011 01:01 PM TOBACCO OFFERED STOP SMOKING CLINIC [facility] Jul 01, 2011 01:01 PM TOBACCO OFFERED STOP SMOKING MEDS NE NISHA [facility] Advance Directives: All historical and current Section Date Range: From patient's date of to the date document was create d. This section includes ALL of a patient's completed or amen ded NH Advance and Rescinded Directives. The entries below indicate that a direc tive exists for the patient, but an actual copy is not included with this docume nt. The data comes from all NH facilities. Date Advance Directives Provider Source May 29, 2011 ADVANCE DIRECTIVE DISCUSSION VILLA CINTRON [facility] Dec 02, 2008 CLINICAL WARNING YASMIN PRADHAN [facility] Radiology Reports: +/- 30 days of the encounter No Data Provided for This Section Pathology Reports: +/- 30 days of the encounter No Data Provided for This Section Encounter Notes: All associated encounter notes No Data Provided for This Section
--- OUTSIDE RECORDS SUMMARY | 2021-12-24 23:43 | XMS REPORT ---
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 Date/Time Encounter Type Encounter Description Reason Provider Source Jul 02, 2021 12:34 PM Outpatient Encounter RENAL/NEPHROL(EXCEPT DIALYSIS) ICD-10-CM E87.5 Hyperkalemia with Provider Comments: Hyperkalemia MARY JO CESPEDES Encounter Template Text not used by [place] Assessments - Encounter Diagnoses This section includes the primary and secondary diag noses documented for the Encounter. Date/Time Primary/Secondary Diagnosis Diagnosis Name Provider Source Jul 02, 2021 12:42 PM PRIMARY Hyperkalemia MARY JO CESPEDES [facility], [facility] 15 Jul 02, 2021 12:42 PM SECONDARY Chronic kidney disease, st age 4 unspecified MARY JO CESPEDES [facility], [facility] 15 Plan of Treatment: Future Appointments (+ 6 months) and Future Tests (+/- 45 day s) The Plan of Treatment section includes future care activities for the patient fr om all [facility]. This section includes future appointments and fu ture orders which are active, pending or scheduled. Future Appointments This section includes appointments that were scheduled t o occur 6 months from the date of the Encounter, up to a maximum of 20 appointme nts. The data comes from all [facility]. Appointment Date/Time Appointment Type Appointment Facili ty Name Jul 12, 2021 11:15 AM AMBULATORY - MEDICINE [facility] Jul 13, 2021 10:00 AM AMBULATORY - NONE [facility] T, [facility] 15 Jul 23, 2021 03:20 PM AMBULATORY - NONE [facility] T, [facility] 15 Aug 29, 2021 11:15 AM AMBULATORY - MEDICINE [facility] Sep 25, 2021 12:30 PM AMBULATORY MEDICINE [facility] Oct 09, 2021 12:30 PM AMBULATORY MEDICINE [facility] Oct 30, 2021 11:00 AM AMBULATORY MEDICINE [facility] Dec 10, 2021 10:00 AM AMBULATORY - NONE [facility] T, [facility] 15 Dec 25, 2021 10:45 AM AMBULATORY MEDICINE [facility] Dec 27, 2021 01:30 PM [facility] Active, Pending, and Scheduled Orders This [...] the Encounter. The data comes from all [facility]. Test Date/Time Test Type Test Details Facility Name Jun 28, 2021 02:58 PM Consult Order [facility] PULMONARY Cons [employer] [facility] Surgical Procedures: All associated [...] Range Comment Jul 12, 2021 11:01 AM [facility] URINALYSIS () Specimen Type: URINE No comment entered. Ordering Provider: DARIN ELY Report Released Date/Time: Jun 20, 2021 07:48 AM Reporting Lab: [facility] [address] [facility] [address] Performing Lab: [facility] [address] [facility] [address] *URINE COLOR Yellow *URINE APPEARANCE Clear Clear [...] Non e Jul 12, 2021 11:01 AM [facility] MICROALBUMIN (PETR,WI) RATNA M URINE Specimen Type: URINE No comment entered. Ordering Provider: DARIN ELY Report Released Date/Time: Jun 20, 2021 07:48 AM Reporting [facility]: [facility] [address] [facility] [address] Performing Lab: [facility] [address] [facility] [address] *MICROALBUMIN,RAND 18 ug/mL *MICROALB/CREAT 12 *UR CREATININE 147.7 mg/dL Jul 12, 2021 11:01 AM [facility] BASIC METABOLIC PANEL Spe cimen Type: PLASMA No comment entered. Ordering Provider: DARIN ELY Report Released Date/Time: Jul 08, 2021 11:43 AM Reporting Lab: [facility] [address] [facility] [address] Performing Lab: [facility] [address] [facility] [address] *CREATININE 1.59 mg/dL H 0.7-1.3 UREA NITROGEN mg/dL 21 mg/dL 9-25 GLUCOSE 144 mg/dL H 72-99 SODIUM 135 mEq/L L 136-145 POTASSIUM 5.3 mEq/L H 3.5-5.0 CALCIUM (mg/dL) 9.7 mg/dL 8.4-10.4 ANION GAP 8.0 8-16 CHLORIDE 100 mEq/L 98-107 CO2 27 mEq/L 22-31 EGFR 42.1 Jun 28, 2021 02:11 PM [facility] BASIC METABOLIC PANEL Spe cimen Type: PLASMA No comment entered. Ordering Provider: DARIN ELY Report Released Date/Time: Jun 28, 2021 02:03 PM Reporting Lab: [facility] [address] [facility] [address] Performing Lab: [facility] [address] [facility] [id number] *CREATININE 2.12 mg/dL H 0.7-1.3 UREA NITROGEN mg/dL 32 mg/dL H 9-25 GLUCOSE 156 mg/dL H 72-99 SODIUM 132 mEq/L L 136-145 POTASSIUM 5.6 mEq/L H 3.5-5.0 CALCIUM (mg/dL) 10.1 mg/dL 8.4-10.4 ANION GAP 7.0 L 8-16 CHLORIDE 98 mEq/L 98-107 CO2 27 mEq/L 22-31 EGFR 30.2 Jun 28, 2021 02:11 PM [facility] B-TYPE NATRIURETIC Specim en Type: PLASMA No comment entered. Ordering Provider: DARIN ELY Report Released Date/Time: Jun 28, 2021 02:03 PM Reporting Lab: [facility] [address] [facility] [address] Performing Lab: [facility] [address] [facility] [address] B-TYPE NATRIURETIC 40.8 pg/mL 0-100 Jun 20, 2021 11:15 AM [facility] HEMOGLOBIN A1C Specimen T ype: BLOOD No comment entered. Ordering Provider: DARIN ELY Report Released Date/Time: Jun 20, 2021 07:48 AM Reporting Lab: [facility] [address] [facility] [address] Performing Lab: [facility] [address] [facility] [address] HEMOGLOBIN A1C 7.5 % H 4.0-6.0 Jun 20, 2021 11:15 AM [facility] CBC & DIFF Specimen T ype: BLOOD No comment entered. Ordering Provider: DARIN ELY Report Released Date/Time: Jun 20, 2021 07:48 AM Reporting Lab: [facility] [address] [facility] [address] Performing Lab: [facility] [address] [facility] [address] WBC 7.38 K/cmm 3.60-11.20 RBC 4.64 M/ul [...] 0.4 % Jun 20, 2021 11:15 AM [facility] COMPREHENSIVE METABOLIC PA OFE Specimen Type: PLASMA No comment entered. Ordering Provider: DARIN ELY Report Released Date/Time: Jun 20, 2021 07:48 AM Reporting Lab: [facility] [address] [facility] [address] Performing Lab: [facility] [address] [facility] [address] *CREATININE 1.78 mg/dL H 0.7-1.3 UREA NITROGEN [...] EGFR 37.0 Jun 20, 2021 11:15 AM [facility] LIPID PROFILE(HDL,TRIG,CHO L,LDL) Specimen Type: PLASMA No comment entered. Ordering Provider: DARIN ELY Report Released Date/Time: Jun 20, 2021 07:48 AM Reporting Lab: [facility] [address] [facility] [address] Performing Lab: [facility] [address] [facility] [address] CHOLESTEROL 144 mg/dL 0-200 TRIGS 106 mg/dL 0-150 RISK FACTOR 22 HDL-CHOLESTEROL 32 mg/dL L >=40 LDL (CALC) 91 mg/dL Jun 20, 2021 11:15 AM [facility] TSH Specimen T ype: SERUM No comment entered. Ordering Provider: DARIN ELY Report Released Date/Time: Jun 20, 2021 07:48 AM Reporting Lab: [facility], [facility] [address] [facility] [address] Performing Lab: [facility] [address] [facility] [address] TSH 3.828 uIU/mL 0.47-5.00 Jun 20, 2021 11:15 AM [facility] MAGNESIUM (mg/dL) Specime n Type: PLASMA No comment entered. Ordering Provider: DARIN ELY Report Released Date/Time: Jun 20, 2021 07:48 AM Reporting Lab: [facility] [address] [facility] [address] Performing Lab: [facility] [address] [facility] [address] MAGNESIUM (mg/dL) 1.6 mg/dL 1.6-2.6 Jun 20, 2021 11:15 AM [facility] T4 FREE Specimen T ype: SERUM No comment entered. Ordering Provider: DARIN ELY Report Released Date/Time: Jun 20, 2021 07:48 AM Reporting Lab: [facility] [address] [facility] [address] Performing Lab: [facility] [address] [facility] [address] T4 FREE 1.10 ng/dL 0.70-1.48 Jun 20, 2021 11:15 AM [facility] VITAMIN B12 Specimen T ype: SERUM No comment entered. Ordering Provider: DARIN ELY Report Released Date/Time: Jun 20, 2021 07:48 AM Reporting Lab: [facility] [address] [facility] [address] Performing Lab: [facility] [address] [facility] [address] VITAMIN B12 477.5 pg/mL 213-816 Vital [...] 29, 2011 ADVANCE DIRECTIVE DISCUSSION VILLA CINTRON [facility] Dec 02, 2008 CLINICAL WARNING YASMIN PRADHAN [facility] Radiology Reports: +/- 30 days of the encounter No Data Provided for This Section Pathology Reports: +/- 30 days of the encounter No Data Provided for This Section Encounter Notes: All associated encounter notes This section contains the clinical notes associated to the Encounter. Date/Time Encounter Note(s) Provider Source Jul 02, 2021 12:34 PM NEPHROLOGY CONSULT: LOCAL TITLE: [id number] STANDARD TITLE: NEPHROLOGY CONSULT DATE OF NOTE: JUL 02, 2021@12:34 ENTRY DATE: JUL 02, 2021@12:35:09 AUTHOR: MARY JO CESPEDES EXP COSIGNER: URGENCY: STATUS: COMPLETED This is a chart review, not a face to face consult. Patient has elevated creat. His K+ was 5.8. Recheck remains 5.6. Please advise with recommendations Thank you 81 y/o M with CKD stage 3 and hyperkalem ia. 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 K CL CO2 Ref range low 72 9 0.7 136 3.5 98 22 Ref range high 99 25 1.3 145 5 107 31 mg/dL mg/dL mg/dL mEq/L mEq/L mEq/L mEq/L [a] Jun 28, 2021 14:11 156 H 32 H 2.12 H 132 L 5.6 H 98 27 [d] Jun 20, 2021 11:15 133 H 27 H 1.78 H 133 L 5.8 H 99 28 [f] Feb 02, 2021 10:31 110 H 29 H 1.70 H 135 L 5.0 98 27 [k] Dec 26, 2020 13:37 112 H 22 1.56 H 134 L 5.0 96 L 29 [l] Aug 29, 2020 10:51 107 H 27 H 1.58 H 136 5.1 H 99 22 [p] Jun 29, 2020 09:57 88 29 H 1.47 H 134 L 5.2 H 98 28 [s] Jun 15, 2020 11:42 103 H 29 H 1.76 H 132 L 5.5 H 97 L 27 [z] Dec 15, 2019 11:18 99 21 1.50 H 134 L 4.8 98 28 [af] Jul 15, 2019 11:32 82 18 1.42 H 137 4.7 102 25 A/P: Hyperkalemia hyponatremia CKD stage 3 Patient noted to be on lisinopril. -Recommend discontinuation of lisinopril . -Recommend checking renal ultrasound. -Recommend repeat bmp in 1 week. /sasha/ Mary Jo Cespedes M.D. Staff Grocery Clerk Signed: 07/02/2021 12:42 MARY JO CESPEDES [facility] V[facility] 15
--- OUTSIDE RECORDS SUMMARY | 2021-12-24 23:43 | XMS REPORT | Encounter Summary ---
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 Date/Time Encounter Type Encounter Description Reason Provider Source Jun 28, 2021 02:30 PM IMG RTA DETCJ/MNTR DS STAFF EYE TELE JOEL MOON ICD-10-CM Z13.5 Encounter for screening for eye and ear disorders with Provider Comments: Encounter for Screening for Eye and Ear Disorders DARIN ELY IHAron Encounter Template Text not used by [place] Assessments - Encounter Diagnoses This section includes the primary and secondary diag noses documented for the Encounter. Date/Time Primary/Secondary Diagnosis Diagnosis Name Provider Source Jun 28, 2021 02:30 PM PRIMARY Encounter for screening fo r eye and ear disorders DARWIN MENDOZA Jun 28, 2021 02:30 PM SECONDARY Type 2 diabetes mellitus w ithout complications REJIDARWIN A JOSE ALBERTO PAYAN Plan of Treatment: Future Appointments (+ [...] comes from all [facility] [address] Appointment Date/Time Appointment Type Appointment Facili ty Name Jul 12, 2021 11:15 AM AMBULATORY - MEDICINE [facility] Jul 13, 2021 10:00 AM AMBULATORY - NONE [facility], [facility] Jul 23, 2021 03:20 PM AMBULATORY - NONE [facility], [facility] 15 Aug 29, 2021 11:15 AM AMBULATORY - MEDICINE [facility] Sep 25, 2021 12:30 PM AMBULATORY MEDICINE [facility] Oct 09, 2021 12:30 PM AMBULATORY MEDICINE [facility] Oct 30, 2021 11:00 AM AMBULATORY [facility] Dec 10, 2021 10:00 AM AMBULATORY - NONE [facility] T, [facility] Dec 25, 2021 10:45 AM AMBULATORY MEDICINE [facility] Dec 27, 2021 01:30 PM [facility] Active, Pending, and Scheduled Orders [...] comes from all [facility] [address]. Test Date/Time Test Type Test Details Facility Name Jun 28, 2021 02:58 PM Consult Order [facility] PULMONARY Cons Information Manager's Choice [facility] Surgical Procedures: All associated to the encounter This section includes all Surgical Procedures and Surgical Procedure Notes assoc iated to the Encounter. Surgical Procedures This section includes all Surgical Procedures associated to the Encounter. Surgical Procedure Date/Time Procedure Procedure Type Procedure Qualifiers Provider Source Jun 28, 2021 02:30 PM Imaging of Retina for Detect ion or Monitoring of Disease; with Remote Clinical Staff Review and Report, Unilateral or Bilateral IMG RTA DETCJ/MNTR DS STAFF [facility] Surgical Notes There are no notes [...] Range Comment Jul 12, 2021 11:01 AM [facility] URINALYSIS () Specimen Type: URINE No comment entered. Ordering Provider: DARIN ELY Report Released Date/Time: Jun 20, 2021 07:48 AM Reporting Lab: [facility] [address] [facility] [address] Performing Lab: [facility] [address] [facility] [address] *URINE COLOR Yellow *URINE APPEARANCE Clear Clear [...] Non e Jul 12, 2021 11:01 AM [facility] MICROALBUMIN (PETR,WI) RANDO M URINE Specimen Type: URINE No comment entered. Ordering Provider: DARIN ELY Report Released Date/Time: Jun 20, 2021 07:48 AM Reporting Lab: [facility] [address] [facility] [phone] Performing Lab: [facility] [address] [facility] [phone] *MICROALBUMIN,RAND 18 ug/mL *MICROALB/CREAT 12 *UR CREATININE 147.7 mg/dL Jul 12, 2021 11:01 AM [facility] BASIC METABOLIC PANEL Spe cimen Type: PLASMA No comment entered. Ordering Provider: DARIN ELY Report Released Date/Time: Jul 08, 2021 11:43 AM Reporting Lab: [facility] [address] [facility] [phone] Performing Lab: [facility] [address] [facility] [phone] *CREATININE 1.59 mg/dL H 0.7-1.3 UREA NITROGEN mg/dL 21 mg/dL 9-25 GLUCOSE 144 mg/dL H 72-99 SODIUM 135 mEq/L L 136-145 POTASSIUM 5.3 mEq/L H 3.5-5.0 CALCIUM (mg/dL) 9.7 mg/dL 8.4-10.4 ANION GAP 8.0 8-16 CHLORIDE 100 mEq/L 98-107 CO2 27 mEq/L 22-31 EGFR 42.1 Jun 28, 2021 02:11 PM [facility] BASIC METABOLIC PANEL Spe cimen Type: PLASMA No comment entered. Ordering Provider: DARIN ELY Report Released Date/Time: Jun 28, 2021 02:03 PM Reporting Lab: [facility] [address] [facility] [address] Performing Lab: [facility] [address] [facility] [phone] *CREATININE 2.12 mg/dL H 0.7-1.3 UREA NITROGEN [...] Jun 28, 2021 02:03 PM Reporting Lab: [facility] [address] [facility] [address] Performing Lab: [facility] [address] [facility] [address] B-TYPE NATRIURETIC 40.8 pg/mL 0-100 Jun 20, 2021 11:15 AM [facility] HEMOGLOBIN A1C Specimen T ype: BLOOD No comment entered. Ordering Provider: DARIN ELY Report Released Date/Time: Jun 20, 2021 07:48 AM Reporting Lab: [facility] [address] [facility] [address] Performing Lab: [facility] [address] [facility] [address] HEMOGLOBIN A1C 7.5 % H 4.0-6.0 Jun 20, 2021 11:15 AM [facility] CBC & DIFF Specimen T ype: BLOOD No comment entered. Ordering Provider: DARIN ELY Report Released Date/Time: Jun 20, 2021 07:48 AM Reporting Lab: [facility] [address] [facility] [address] Performing Lab: [facility] [address] [facility] [address] WBC 7.38 K/cmm 3.60-11.20 RBC 4.64 M/ul [...] 0.4 % Jun 20, 2021 11:15 AM [facility] COMPREHENSIVE METABOLIC PA OFE Specimen Type: PLASMA No comment entered. Ordering Provider: DARIN ELY Report Released Date/Time: Jun 20, 2021 07:48 AM Reporting Lab: [address] [address] Performing Lab: [address] [address] *CREATININE 1.78 mg/dL H 0.7-1.3 UREA NITROGEN [...] EGFR 37.0 Jun 20, 2021 11:15 AM [facility] LIPID PROFILE(HDL,TRIG,CHO L,LDL) Specimen Type: PLASMA No comment entered. Ordering Provider: DARIN ELY Report Released Date/Time: Jun 20, 2021 07:48 AM Reporting Lab: [facility] [address] [facility] [address] Performing Lab: [facility], [facility] [address] [facility] [address] CHOLESTEROL 144 mg/dL 0-200 TRIGS 106 mg/dL 0-150 RISK FACTOR 22 HDL-CHOLESTEROL 32 mg/dL L >=40 LDL (CALC) 91 mg/dL Jun 20, 2021 11:15 AM [facility] TSH Specimen T ype: SERUM No comment entered. Ordering Provider: DARIN ELY Report Released Date/Time: Jun 20, 2021 07:48 AM Reporting Lab: [facility] [address] [facility] [address] Performing Lab: [facility] [address] [facility] [address] TSH 3.828 uIU/mL 0.47-5.00 Jun 20, 2021 11:15 AM [facility] MAGNESIUM (mg/dL) Specime n Type: PLASMA No comment entered. Ordering Provider: DARIN ELY Report Released Date/Time: Jun 20, 2021 07:48 AM Reporting Lab: [facility] [address] [facility] [phone] Performing Lab: [facility] [address] [facility] [address] MAGNESIUM (mg/dL) 1.6 mg/dL 1.6-2.6 Jun 20, 2021 11:15 AM [facility] T4 FREE Specimen T ype: SERUM No comment entered. Ordering Provider: DARIN ELY Report Released Date/Time: Jun 20, 2021 07:48 AM Reporting Lab: [facility] [address] [facility] [address] Performing Lab: [facility] [address] [facility] [address] T4 FREE 1.10 ng/dL 0.70-1.48 Jun 20, 2021 11:15 AM [facility] VITAMIN B12 Specimen T ype: SERUM No comment entered. Ordering Provider: DARIN ELY Report Released Date/Time: Jun 20, 2021 07:48 AM Reporting Lab: [facility] [address] [facility] [phone] Performing Lab: [facility] [address] [facility] [address] VITAMIN B12 477.5 pg/mL 213-816 Vital Signs: All taken on the encounter date This section contains inpatient and outpatient Vital Signs collected on the date of the Encounter. Date/Time Temperature Pulse Blood Pressure Respiratory Rate SP02 Pa in Height Weight Body Mass Index Source Jun 28, 2021 01:29 PM 97.8 F 64 /min 104/60 mm[Hg] 20 /min 0 70 in 189 lb 27 [facility] Immunizations: All administered on the encounter date No Data Provided for This Section Social History: Smoking Status (Most current) and Tobacco Use (All prior to enco unter date) This section includes the most current, and the historical, smoking and tobacco- related health factors from the [place] facility where the Encounter took place. Current Smoking Status This section includes the most current smoking, or tobacco -related health factor, from the [place] facility where the Encounter took place. Date/Time Current Smoking Status Comment Facility Jun 28, 2021 01:30 PM VA-TOBACCO FORMER USER [facility] Tobacco Use History This section includes a history of the smoking, or tobacco -related health factors, that were collected on or before the date of the Encoun ter. The data comes from the [place] facility where the Encounter took place. 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 [facility] Jun 29, 2020 09:00 AM VA-TOBACCO USE MED NO JOSE ALBERTO [facility] Jun 29, 2020 09:00 AM VA-TOBACCO USE WI 30 MIN OF WAKEUP [facility] Jun 29, 2020 09:00 AM VA-TOBACCO USER EVERY DAY [facility] Jul 21, 2019 11:05 AM VA-TOBACCO USE 30 YEARS OR MORE [facility] Jul 21, 2019 11:05 AM VA-TOBACCO USE ADVICE [facility] Jul 21, 2019 11:05 AM VA-TOBACCO USE SENIOR PLANNING ANALYST NO [place] [facility] Jul 21, 2019 11:05 AM VA-TOBACCO USE MED NO [place] [facility] Jul 21, 2019 11:05 AM VA-TOBACCO USE WI 30 MIN OF WAKEUP N [facility] Jul 21, 2019 11:05 AM VA-TOBACCO USER EVERY DAY [place] [facility] Jun 29, 2018 01:31 PM CURRENT TOBACCO USER [facility] Jun 29, 2018 01:31 PM CURRENT TOBACCO USER (NOT READY TO RAJI T) [facility] Jun 29, 2018 01:31 PM TOBACCO CESSATION REFERRAL DECLINED [facility] Jun 29, 2018 01:31 PM TOBACCO MEDS OFFERED BUT DECLINED [facility] Jun 29, 2018 01:31 PM TOBACCO USER OFFERED MEDS [facility] Dec 26, 2017 09:02 AM CURRENT TOBACCO USER [facility] Dec 26, 2017 09:02 AM CURRENT TOBACCO USER (NOT READY TO RAJI T) [facility] Dec 26, 2017 09:02 AM TOBACCO CESSATION REFERRAL DECLINED [facility] Dec 26, 2017 09:02 AM TOBACCO MEDS OFFERED BUT DECLINED [facility] Dec 26, 2017 09:02 AM TOBACCO USER OFFERED MEDS [place] [facility] May 23, 2017 03:35 PM CURRENT TOBACCO USER [facility] May 23, 2017 03:35 PM CURRENT TOBACCO USER (NOT READY TO RAJI T) [facility] May 23, 2017 03:35 PM TOBACCO CESSATION REFERRAL DECLINED [facility] May 23, 2017 03:35 PM TOBACCO MEDS OFFERED BUT DECLINED [facility] May 23, 2017 03:35 PM TOBACCO USER OFFERED MEDS [place] [facility] Apr 24, 2017 02:27 PM CURRENT TOBACCO USER [facility] Apr 24, 2017 02:27 PM TOBACCO MEDS OFFERED BUT DECLINED [facility] Apr 24, 2017 02:27 PM TOBACCO OFFERED STOP SMOKING CLINIC [facility] March 14, 2017 02:05 PM CURRENT TOBACCO USER [facility] March 14, 2017 02:05 PM TOBACCO MEDS OFFERED BUT DECLINED [facility] March 14, 2017 02:05 PM TOBACCO OFFERED STOP SMOKING CLINIC [facility] Apr 23, 2016 06:08 AM CURRENT TOBACCO USER [place] [facility] Oct 18, 2015 06:02 AM CURRENT TOBACCO USER JOSE ALBERTO [facility] Apr 05, 2015 06:12 AM CURRENT TOBACCO USER [facility] Sep 14, 2014 06:21 AM CURRENT TOBACCO USER JOSE ALBERTO [facility] Dec 11, 2012 09:31 AM TOBACCO OFFERED STOP SMOKING CLINIC [facility] Dec 11, 2012 09:31 AM TOBACCO OFFERED STOP SMOKING MEDS [facility] Apr 16, 2012 12:53 PM CURRENT TOBACCO USER JOSE ALBERTO [facility] Jul 01, 2011 01:01 PM TOBACCO OFFERED STOP SMOKING CLINIC [facility] Jul 01, 2011 01:01 PM TOBACCO OFFERED STOP SMOKING MEDS [place] [facility] Advance Directives: All historical and current [...] May 29, 2011 ADVANCE DIRECTIVE DISCUSSION [facility] Dec 02, 2008 CLINICAL WARNING YASMIN PRADHAN [facility] Radiology Reports: +/- 30 days of the encounter No Data Provided for This Section Pathology Reports: +/- 30 days of the encounter No Data Provided for This Section Encounter Notes: All associated encounter notes This section contains the clinical notes associated to the Encounter. Date/Time Encounter Note(s) Provider Source Jun 28, 2021 02:25 PM NURSING CONSULT: LOCAL TITLE: TELE-EYE SCREENING CONSULT STANDARD TITLE: NURSING CONSULT DATE OF NOTE: JUN 28, 2021@14:25 ENTRY DATE: JUN 28, 2021@14:26:06 AUTHOR: DARWIN MENDOZA COSIGNER: URGENCY: STATUS: COMPLETED INITIAL note PATIENT DEMOGRAPHICS: Sex: MALE Date of : Jan Patient race: WHITE Patient ethnicity: NOT OR REASON FOR REQUEST: Tele-Eye Screening for patient at-risk for the following eye condition(s): Patient is diabetic and at risk for DIABETIC RETINOPATHY: Diabetes Diagnosis Information: Encounter Diagnosis: 12/28/2020@10:30 E11.9 (ICD-10-CM) Type 2 Diabetes Mellitus without Complications rank: SECONDARY Prov. Narr. - Diabetes mellitus ([facility] [id number]) Type 2 Diabetic Patient Duration of diabetes (years): 6 or more years: 1998 Information obtained by: Self-Report CURRENT DIABETES THERAPY: None History of diabetic eye treatment: None Patient is at risk for MACULAR DEGENERATION: Macular Degeneration Risk Factors Information: Reminder Term: VA-AMD RISK FACTORS Encounter Diagnosis: 12/28/2020@10:30 F17.218 (ICD-10-CM) Nicotine Dependence, Cigarettes, with other Nicotine-Induced Disorders rank: SECONDARY Prov. Narr. - Tobacco dependence ([facility] [id number]) Smoking Status: Former Last Retinal Evaluation: Date unknown Comment: unknown > year per patient Self-Report Date of next eye appointment if known: Comment: none LABS/VITALS: [facility] - Lab Tests Selected Collection DT Specimen Test Name Result Units Ref Range 06/20/2021 11:15 BLOOD HEMOGLOBIN A1C 7.5 H % 4.0 - 6.0 12/26/2020 13:37 BLOOD HEMOGLOBIN A1C 7.1 H % 4.0 - 6.0 HgbA1c range: 7.1-8 Blood Pressure: 104/60 (06/28/2021 13:29) INTRAOCULAR PRESSURE (IOP) SCREENING: IOP NOT measured by alarm mechanic during eye screening Comment: equipment issue PUPIL DILATION: Pupils NOT dilated by alarm mechanic for eye screening DISPOSITION: Patient to proceed with Tele-Eye Screening image capture Patient received patient education on routine eye care and the following: Diabetic Eye Disease Patient was informed that images will be uploaded to the [place] computer system and sent to be remotely viewed by an eye provider, and recommendations will be conveyed to their primary care provider. Patient understood and agreed to have images taken. Comment: Patient gives verbal consent for imaging today Patient Education : Discussed with pt the ABC's of diabetic eye disease Aic, Blood pressure, Cholesterol and the importance of keeping these numbers low. Discussed etiology of Diabetic Retinopathy, discussed terms in diabetes glossary, and nursing home complications of diabetes such as retinopathy. Spoke with pt about the importance of every 1-2 year eye screening to prevent loss of eyesight. Gave pt (and discussed) the following Sravani pt ed materials to take with him today: 1) What is Diabetic Retinopathy? 2) Diabetes Glossary 3) Fpc Complications of Diabetes Also gave pt the following National [employer] [place] material: 1) Don't Lose Sight of Diabetic Eye Dise ase Reviewed eye anatomy; macula, optic nerve, blood vessels and viewed and discussed normal retinal images and images with diabetic retinopathy with patient, utilizing the Conditions of The Retina category development analyst provided by [employer]. Pt verbalizes understanding of all above and has material to review at home. Eye History: cataract surgery/glass cut eye as a child Ocular Surgery (excluding eyelid, cataract, laser refractive like lasik or Photorefractive Keratectomy): none Ocular Trauma? glass cut eye as a child Ocular medications? none Family History of ocular disease? none Does pt give verbal consent for imaging today? patient gives verbal consent for imaging today /sasha/ DARWIN MENDOZA Signed: 06/28/2021 14:31 DARWIN MENDOZA [facility]
--- OUTSIDE RECORDS SUMMARY | 2021-12-24 23:44 | XMS REPORT | Encounter Summary ---
Author Author Department [facility] RENEE emerson Organization [facility] Address Unknown Phone Unavailable Care Team Providers Care Living Nurse Name Role Phone SOLIS DARIN PCP Unavailable Insurance Providers: All historical [...] (WNR) MEDICAID MEDICAID Nov 03, 2014 MEDICAID [id number] [phone] RAE ARRIAGAIL PATIENT MEDICARE (WNR) MEDICARE (M) PART B Feb 02, 2020 PART B [id number] [phone] [place] PATIENT MEDICARE (WNR) MEDICARE (M) PART A Jan 01, 2006 PART A [id number] [phone] [place] PATIENT MEDICARE (WNR) MEDICARE (M) PART A Jan 01, 2006 PART A [id number] RENEE ARRIAGA PATIENT Selected Encounter This section includes the information on record at [place] for the Encounter. Date/Time Encounter Type Encounter Description Reason Provider Source Jun 28, 2021 03:07 PM EYE SERVICE OR PROCEDURE EYE TELE SCREENIN G ICD-10-CM Z13.5 Encounter for screening for eye and ear disorders with Provider Comments: Encounter for Screening for Eye and Ear Disorders BRANDEN GRAY Aron Encounter Template Text not used by [place] Assessments - Encounter Diagnoses This section includes the primary and secondary diag noses documented for the Encounter. Date/Time Primary/Secondary Diagnosis Diagnosis Name Provider Source Jun 28, 2021 03:07 PM PRIMARY Encounter for screening fo r eye and ear disorders BRANDEN GRAY [facility] 15 Plan of Treatment: Future Appointments (+ 6 months) and Future Tests (+/- 45 day s) The Plan of Treatment section includes future care activities for the patient fr om all [facility] facilities. This section includes future appointments and fu ture orders which are active, pending or scheduled. Future Appointments This section includes appointments that were scheduled t o occur 6 months from the date of the Encounter, up to a maximum of 20 appointme nts. The data comes from all [facility]. Appointment Date/Time Appointment Type Appointment Facili ty Name Jul 12, 2021 11:15 AM AMBULATORY - MEDICINE [facility] Jul 13, 2021 10:00 AM AMBULATORY - NONE [facility], [facility] 15 Jul 23, 2021 03:20 PM AMBULATORY - NONE [facility], [facility] 15 Aug 29, 2021 11:15 AM AMBULATORY - MEDICINE [facility] Sep 25, 2021 12:30 PM AMBULATORY - MEDICINE [facility] Oct 09, 2021 12:30 PM AMBULATORY - MEDICINE [facility] Oct 30, 2021 11:00 AM AMBULATORY - MEDICINE [facility] Dec 10, 2021 10:00 AM AMBULATORY - NONE [facility], [facility] 15 Dec 25, 2021 10:45 AM AMBULATORY MEDICINE [facility] Dec 27, 2021 01:30 PM [facility] Active, Pending, and Scheduled Orders This section [...] the Encounter. The data comes from all [facility]. Test Date/Time Test Type Test Details Facility Name Jun 28, 2021 02:58 PM Consult Order [facility] Cons Lead Security Officer's Choice [facility] Surgical Procedures: All associated to the encounter This section includes all Surgical Procedures and Surgical Procedure Notes assoc iated to the Encounter. Surgical Procedures This section includes all Surgical Procedures associated to the Encounter. Surgical Procedure Date/Time Procedure Procedure Type Procedure Qualifiers Provider Source Jun 28, 2021 03:07 PM Unlisted Ophthalmological Service or P rocedure EYE SERVICE OR PROCEDURE [facility] 15 Surgical Notes There are no notes [...] Range Comment Jul 12, 2021 11:01 AM [facility] URINALYSIS () Specimen Type: URINE No comment entered. Ordering Provider: DARIN ELY Report Released Date/Time: Jun 20, 2021 07:48 AM Reporting Lab: [facility] [address] [facility] [address] Performing Lab: [facility] [address] [facility] [phone] *URINE COLOR Yellow *URINE APPEARANCE Clear Clear [...] Non e Jul 12, 2021 11:01 AM [facility] MICROALBUMIN (PETR,WI) RANDO M URINE Specimen Type: URINE No comment entered. Ordering Provider: DARIN ELY Report Released Date/Time: Jun 20, 2021 07:48 AM Reporting Lab: [facility] [address] [facility] [phone] Performing Lab: [facility] [address] [facility] [address] *MICROALBUMIN,RAND 18 ug/mL *MICROALB/CREAT 12 *UR CREATININE 147.7 mg/dL Jul 12, 2021 11:01 AM [facility] BASIC METABOLIC PANEL Spe cimen Type: PLASMA No comment entered. Ordering Provider: DRAIN ELY Report Released Date/Time: Jul 08, 2021 11:43 AM Reporting Lab: [facility] [address] [facility] [address] Performing Lab: [facility] [address] [facility] [address] *CREATININE 1.59 mg/dL H 0.7-1.3 UREA NITROGEN mg/dL 21 mg/dL 9-25 GLUCOSE 144 mg/dL H 72-99 SODIUM 135 mEq/L L 136-145 POTASSIUM 5.3 mEq/L H 3.5-5.0 CALCIUM (mg/dL) 9.7 mg/dL 8.4-10.4 ANION GAP 8.0 8-16 CHLORIDE 100 mEq/L 98-107 CO2 27 mEq/L 22-31 EGFR 42.1 Jun 28, 2021 02:11 PM [facility] BASIC METABOLIC PANEL Spe cimen Type: PLASMA No comment entered. Ordering Provider: DARIN ELY Report Released Date/Time: Jun 28, 2021 02:03 PM Reporting Lab: [facility] [address] [facility] [address] Performing Lab: [facility] [address] [facility] [address] *CREATININE 2.12 mg/dL H 0.7-1.3 UREA NITROGEN mg/dL 32 mg/dL H 9-25 GLUCOSE 156 mg/dL H 72-99 SODIUM 132 mEq/L L 136-145 POTASSIUM 5.6 mEq/L H 3.5-5.0 CALCIUM (mg/dL) 10.1 mg/dL 8.4-10.4 ANION GAP 7.0 L 8-16 CHLORIDE 98 mEq/L 98-107 CO2 27 mEq/L 22-31 EGFR 30.2 Jun 28, 2021 02:11 PM [facility] B-TYPE NATRIURETIC Specim en Type: PLASMA No comment entered. Ordering Provider: DARIN ELY Report Released Date/Time: Jun 28, 2021 02:03 PM Reporting Lab: [facility] [address] [facility] [address] Performing Lab: [facility] [address] [facility] [address] B-TYPE NATRIURETIC 40.8 pg/mL 0-100 Jun 20, 2021 11:15 AM [facility] H[facility] A1C Specimen T ype: BLOOD No comment entered. Ordering Provider: DARIN ELY Report Released Date/Time: Jun 20, 2021 07:48 AM Reporting Lab: [facility] [address] [facility] [address] Performing Lab: [facility] [address] [facility] [address] HEMOGLOBIN A1C 7.5 % H 4.0-6.0 Jun 20, 2021 11:15 AM [facility] CBC & DIFF Specimen T ype: BLOOD No comment entered. Ordering Provider: DARIN ELY Report Released Date/Time: Jun 20, 2021 07:48 AM Reporting Lab: [facility] [address] [facility] [address] Performing Lab: [facility] [address] [facility] [address] WBC 7.38 K/cmm 3.60-11.20 RBC 4.64 M/ul [...] 0.4 % Jun 20, 2021 11:15 AM [facility] COMPREHENSIVE METABOLIC PA OFE Specimen Type: PLASMA No comment entered. Ordering Provider: DARIN ELY Report Released Date/Time: Jun 20, 2021 07:48 AM Reporting Lab: [facility] [address] [place] [phone] Performing Lab: [facility] [address] [place] [phone] *CREATININE 1.78 mg/dL H 0.7-1.3 UREA NITROGEN [...] EGFR 37.0 Jun 20, 2021 11:15 AM [facility] LIPID PROFILE(HDL,TRIG,CHO L,LDL) Specimen Type: PLASMA No comment entered. Ordering Provider: DARIN ELY Report Released Date/Time: Jun 20, 2021 07:48 AM Reporting Lab: [facility] [address] [facility] [address] Performing Lab: [facility] [address] [facility] [address] CHOLESTEROL 144 mg/dL 0-200 TRIGS 106 mg/dL 0-150 RISK FACTOR 22 HDL-CHOLESTEROL 32 mg/dL L >=40 LDL (CALC) 91 mg/dL Jun 20, 2021 11:15 AM [facility] TSH Specimen T ype: SERUM No comment entered. Ordering Provider: DARIN ELY Report Released Date/Time: Jun 20, 2021 07:48 AM Reporting Lab: [facility] [address] [facility] [address] Performing Lab: [facility] [address] [facility] [address] TSH 3.828 uIU/mL 0.47-5.00 Jun 20, 2021 11:15 AM [facility] MAGNESIUM (mg/dL) Specime n Type: PLASMA No comment entered. Ordering Provider: DARIN ELY Report Released Date/Time: Jun 20, 2021 07:48 AM Reporting Lab: [facility] [address] [facility] [address] Performing Lab: [facility] [address] [facility] [address] MAGNESIUM (mg/dL) 1.6 mg/dL 1.6-2.6 Jun 20, 2021 11:15 AM [facility] T4 FREE Specimen T ype: SERUM No comment entered. Ordering Provider: DARIN ELY Report Released Date/Time: Jun 20, 2021 07:48 AM Reporting Lab: [facility] [address] [facility] [address] Performing Lab: [facility] [address] [facility] [address] T4 FREE 1.10 ng/dL 0.70-1.48 Jun 20, 2021 11:15 AM [facility] VITAMIN B12 Specimen T ype: SERUM No comment entered. Ordering Provider: DARIN ELY Report Released Date/Time: Jun 20, 2021 07:48 AM Reporting Lab: [facility] [address] [facility] [address] Performing Lab: [facility] [address] [facility] [address] VITAMIN B12 477.5 pg/mL 213-816 Vital Signs: [...] 2011 ADVANCE DIRECTIVE DISCUSSION VILLA CINTRON [facility] Dec 02, 2008 CLINICAL WARNING YASMIN PRADHAN [facility] Radiology Reports: +/- 30 days of the encounter No Data Provided for This Section Pathology Reports: +/- 30 days of the encounter No Data Provided for This Section Encounter Notes: All associated encounter notes This section contains the clinical notes associated to the Encounter. Date/Time Encounter Note(s) Provider Source Jun 28, 2021 03:07 PM TELEHEALTH CONSULT: LOCAL TITLE: TELE-EYE IMAGING CONSULT STANDARD TITLE: TELEHEALTH CONSULT DATE OF NOTE: JUN 28, 2021@15:07 ENTRY DATE: JUN 28, 2021@15:07:27 AUTHOR: BRANDEN GRAY EXP COSIGNER: URGENCY: STATUS: COMPLETED TELE-EYE SCREENING READER NOTE: IMAGE QUALITY ASSESSMENT: Image quality inadequate due to: Pupil size Patient fixation/positioning TELE-EYE SCREENING ASSESSMENT: Diabetic Patient Type 2 RIGHT RETINAL IMAGES: Diabetic Retinopathy Assessment: Image not adequate to determine Macula Assessment: Image not adequate to determine Optic Nerve Head Assessment: Image not adequate to determine Other Assessment: Image not adequate to determine LEFT RETINAL IMAGES: Diabetic Retinopathy Assessment: Image not adequate to determine Macula Assessment: Image not adequate to determine Optic Nerve Head Assessment: Image not adequate to determine Other Assessment: Image not adequate to determine EYE SCREENING RESULTS: Diabetic Retinopathy: Unable to Assess Macula: Unable to Assess Optic Head Nerve: Unable to Assess Other Assessment: Unable to Assess RECOMMENDATIONS: Refer for comprehensive [id number]-[id number] eye exam Refer to: Optometry Within 2 months: Aug Referral/appointment reason: Unable to assess eye screening *Digital retinal imaging has been shown to be an effective method of * *screening for conditions such as diabetic retinopathy, but it cannot * *substitute for a comprehensive oarb-xu-[id number] eye exam. * Cumulative time of review and management: 5 minutes or more /sasha/ BRANDEN GRAY O.D. PHONOGRAPH CARTRIDGE ASSEMBLER Signed: 06/28/2021 15:08 [facility]
--- OUTSIDE RECORDS SUMMARY | 2021-12-24 23:44 | XMS REPORT | Encounter Summary ---
Author Author [facility] RENEE emerson Organization [facility] Address Unknown Phone Unavailable Care Team Providers Care Batch Or Continuous Still Operator Name Role Phone DARIN ELY PCP [...] (WNR) MEDICAID MEDICAID Nov 03, 2014 MEDICAID [id number] [phone] RENEE ARRIAGA PATIENT MEDICARE (WNR) MEDICARE (M) PART B Feb 02, 2020 PART B [id number] [phone] RENEE ARRIAGA PATIENT MEDICARE (WNR) MEDICARE (M) PART A Jan 01, 2006 PART A [id number] RENEE ARRIAGA PATIENT MEDICARE (WNR) MEDICARE (M) PART A Jan 01, 2006 PART A [id number] [phone] ARRIAGARAERENEE PATIENT Selected Encounter This section includes the information on record at [place] for the Encounter. Date/Time Encounter Type Encounter Description Reason Provider Source Jun 28, 2021 02:00 PM Outpatient Encounter PRIMARY CARE/MEDICINE IHE Encounter Template Text not used by [facility] Assessments - Encounter Diagnoses No Data Provided for This Section Plan of Treatment: Future Appointments (+ 6 months) and Future Tests (+/- 45 day s) The Plan of Treatment section includes future care activities for the patient fr om all [facility] facilities. This section includes future appointments and fu ture orders which are active, pending or scheduled. Future Appointments This section includes appointments that were scheduled t o occur 6 months from the date of the Encounter, up to a maximum of 20 appointme nts. The data comes from all [facility]. Appointment Date/Time Appointment Type Appointment Facili ty Name Jul 12, 2021 11:15 AM AMBULATORY - MEDICINE [facility] Jul 13, 2021 10:00 AM AMBULATORY - NONE [facility] 15 Jul 23, 2021 03:20 PM AMBULATORY - NONE [facility] 15 Aug 29, 2021 11:15 AM AMBULATORY - MEDICINE [facility] Sep 25, 2021 12:30 PM AMBULATORY - MEDICINE [facility] Oct 09, 2021 12:30 PM AMBULATORY - MEDICINE [facility] Oct 30, 2021 11:00 AM AMBULATORY - MEDICINE [facility] Dec 10, 2021 10:00 AM AMBULATORY - NONE [facility] 15 Dec [...] the Encounter. The data comes from all [facility]. Test Date/Time Test Type Test Details Facility Name Jun 28, 2021 02:58 PM Consult Order [facility] Cons General Education Instructor's Choice [facility] Surgical [...] Jul 12, 2021 11:01 AM [facility] URINALYSIS () Specimen Type: URINE No comment entered. Ordering Provider: DARIN ELY Report Released Date/Time: Jun 20, 2021 07:48 AM Reporting Lab: [facility] [address] [facility] [address] Performing Lab: [facility] [address] [facility] [address] *URINE COLOR Yellow *URINE APPEARANCE Clear Clear [...] Non e Jul 12, 2021 11:01 AM [facility] MICROALBUMIN (,HI) RANDO M URINE Specimen Type: URINE No comment entered. Ordering Provider: DARIN ELY Report Released Date/Time: Jun 20, 2021 07:48 AM Reporting Lab: [facility] [address] [facility] [address] Performing Lab: [facility] [address] [facility] [phone] *MICROALBUMIN,RAND 18 ug/mL *MICROALB/CREAT 12 *UR CREATININE 147.7 mg/dL Jul 12, 2021 11:01 AM [facility] BASIC METABOLIC PANEL Spe cimen Type: PLASMA No comment entered. Ordering Provider: DARIN ELY Report Released Date/Time: Jul 08, 2021 11:43 AM Reporting Lab: [facility] [address] [facility] [address] Performing Lab: [facility] [address] [facility] [phone] *CREATININE 1.59 mg/dL H 0.7-1.3 UREA NITROGEN mg/dL 21 mg/dL 9-25 GLUCOSE 144 mg/dL H 72-99 SODIUM 135 mEq/L L 136-145 POTASSIUM 5.3 mEq/L H 3.5-5.0 CALCIUM (mg/dL) 9.7 mg/dL 8.4-10.4 ANION GAP 8.0 8-16 CHLORIDE 100 mEq/L 98-107 CO2 27 mEq/L 22-31 EGFR 42.1 Jun 28, 2021 02:11 PM [facility] BASIC METABOLIC PANEL Spe cimen Type: PLASMA No comment entered. Ordering Provider: DARIN ELY Report Released Date/Time: Jun 28, 2021 02:03 PM Reporting Lab: [email or web address] [address] [facility] [address] Performing Lab: [facility] [address] [facility] [address] *CREATININE 2.12 mg/dL H 0.7-1.3 UREA NITROGEN mg/dL 32 mg/dL H 9-25 GLUCOSE 156 mg/dL H 72-99 SODIUM 132 mEq/L L 136-145 POTASSIUM 5.6 mEq/L H 3.5-5.0 CALCIUM (mg/dL) 10.1 mg/dL 8.4-10.4 ANION GAP 7.0 L 8-16 CHLORIDE 98 mEq/L 98-107 CO2 27 mEq/L 22-31 EGFR 30.2 Jun 28, 2021 02:11 PM [facility] B-TYPE NATRIURETIC Specim en Type: PLASMA No comment entered. Ordering Provider: DARIN ELY Report Released Date/Time: Jun 28, 2021 02:03 PM Reporting Lab: [email or web address] [address] [facility] [address] Performing Lab: [facility] [address] [facility] [phone] B-TYPE NATRIURETIC 40.8 pg/mL 0-100 Jun 20, 2021 11:15 AM [facility] HEMOGLOBIN A1C Specimen T ype: BLOOD No comment entered. Ordering Provider: DARIN ELY Report Released Date/Time: Jun 20, 2021 07:48 AM Reporting Lab: [email or web address] [address] [facility] [phone] Performing Lab: [facility] [phone] [facility] [phone] HEMOGLOBIN A1C 7.5 % H 4.0-6.0 Jun 20, 2021 11:15 AM [facility] CBC & DIFF Specimen T ype: BLOOD No comment entered. Ordering Provider: DARIN ELY Report Released Date/Time: Jun 20, 2021 07:48 AM Reporting Lab: [facility] [address] [facility] [address] Performing Lab: [facility] [address] [facility] [address] WBC 7.38 K/cmm 3.60-11.20 RBC 4.64 M/ul [...] 0.4 % Jun 20, 2021 11:15 AM [facility] COMPREHENSIVE METABOLIC PA OFE Specimen Type: PLASMA No comment entered. Ordering Provider: DARIN ELY Report Released Date/Time: Jun 20, 2021 07:48 AM Reporting Lab: [facility] [address] [facility] [address] Performing Lab: [facility] [address] [facility] [address] *CREATININE 1.78 mg/dL H 0.7-1.3 UREA NITROGEN [...] EGFR 37.0 Jun 20, 2021 11:15 AM [facility] LIPID PROFILE(HDL,TRIG,CHO L,LDL) Specimen Type: PLASMA No comment entered. Ordering Provider: DARIN ELY Report Released Date/Time: Jun 20, 2021 07:48 AM Reporting Lab: [facility] [address] [facility] [address] Performing Lab: [facility] [address] [facility] [address] CHOLESTEROL 144 mg/dL 0-200 TRIGS 106 mg/dL 0-150 RISK FACTOR 22 HDL-CHOLESTEROL 32 mg/dL L >=40 LDL (CALC) 91 mg/dL Jun 20, 2021 11:15 AM [facility] TSH Specimen T ype: SERUM No comment entered. Ordering Provider: DARIN ELY Report Released Date/Time: Jun 20, 2021 07:48 AM Reporting Lab: [facility] [address] [facility] [address] Performing Lab: [facility] [address] [facility] [address] TSH 3.828 uIU/mL 0.47-5.00 Jun 20, 2021 11:15 AM [facility] MAGNESIUM (mg/dL) Specime n Type: PLASMA No comment entered. Ordering Provider: DARIN ELY Report Released Date/Time: Jun 20, 2021 07:48 AM Reporting Lab: [facility] [address] [facility] [address] Performing Lab: [facility] [address] [facility] [address] MAGNESIUM (mg/dL) 1.6 mg/dL 1.6-2.6 Jun 20, 2021 11:15 AM [facility] T4 FREE Specimen T ype: SERUM No comment entered. Ordering Provider: DARIN ELY Report Released Date/Time: Jun 20, 2021 07:48 AM Reporting Lab: [facility] [address] [facility] [address] Performing Lab: [facility] [address] [facility] [address] T4 FREE 1.10 ng/dL 0.70-1.48 Jun 20, 2021 11:15 AM [facility] VITAMIN B12 Specimen T ype: SERUM No comment entered. Ordering Provider: DARIN ELY Report Released Date/Time: Jun 20, 2021 07:48 AM Reporting Lab: [facility] [address] [facility] [address] Performing Lab: [facility] [address] [facility] [address] VITAMIN B12 477.5 pg/mL 213-816 Vital [...] /min 0 70 in 189 lb 27 [facility] Immunizations: All administered on the encounter [...] 28, 2021 01:30 PM VA-TOBACCO FORMER USER [facility] Tobacco Use History This section includes a history of the smoking, or tobacco -related health factors, that were collected on or before the date of the Encoun ter. The data comes from the [place] facility where the Encounter took place. 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 [facility] Jun 29, 2020 09:00 AM VA-TOBACCO USE MED NO [facility] Jun 29, 2020 09:00 AM VA-TOBACCO USE WI 30 MIN OF WAKEUP N [facility] Jun 29, 2020 09:00 AM [facility]-TOBACCO USER EVERY DAY [facility] Jul 21, 2019 11:05 AM VA-TOBACCO USE 30 YEARS OR MORE [facility] Jul 21, 2019 11:05 AM VA-TOBACCO USE ADVICE [facility] Jul 21, 2019 11:05 AM 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 [facility] Jul 21, 2019 11:05 AM VA-TOBACCO USE MED NO [facility] Jul 21, 2019 11:05 AM VA-TOBACCO USE WI 30 MIN OF WAKEUP N [facility] Jul 21, 2019 11:05 AM VA-TOBACCO USER EVERY DAY [facility] Jun 29, 2018 01:31 PM CURRENT TOBACCO USER [facility] Jun 29, 2018 01:31 PM CURRENT TOBACCO USER (NOT READY TO RAJI T) [facility] Jun 29, 2018 01:31 PM TOBACCO CESSATION REFERRAL DECLINED [facility] Jun 29, 2018 01:31 PM TOBACCO MEDS OFFERED BUT DECLINED [facility] Jun 29, 2018 01:31 PM TOBACCO USER OFFERED MEDS [facility] Dec 26, 2017 09:02 AM CURRENT TOBACCO USER [facility] Dec 26, 2017 09:02 AM CURRENT TOBACCO USER (NOT READY TO RAJI T) [facility] Dec 26, 2017 09:02 AM TOBACCO CESSATION REFERRAL DECLINED [facility] Dec 26, 2017 09:02 AM TOBACCO MEDS OFFERED BUT DECLINED [facility] Dec 26, 2017 09:02 AM TOBACCO USER OFFERED MEDS [facility] May 23, 2017 03:35 PM CURRENT TOBACCO USER [facility] May 23, 2017 03:35 PM CURRENT TOBACCO USER (NOT READY TO RAJI T) [facility] May 23, 2017 03:35 PM TOBACCO CESSATION REFERRAL DECLINED [facility] May 23, 2017 03:35 PM TOBACCO MEDS OFFERED BUT DECLINED [facility] May 23, 2017 03:35 PM TOBACCO USER OFFERED MEDS [facility] Apr 24, 2017 02:27 PM CURRENT TOBACCO USER [facility] Apr 24, 2017 02:27 PM TOBACCO MEDS OFFERED BUT DECLINED [facility] Apr 24, 2017 02:27 PM TOBACCO OFFERED STOP SMOKING CLINIC [facility] March 14, 2017 02:05 PM CURRENT TOBACCO USER [facility] March 14, 2017 02:05 PM TOBACCO MEDS OFFERED BUT DECLINED [facility] March 14, 2017 02:05 PM TOBACCO OFFERED STOP SMOKING CLINIC [facility] Apr 23, 2016 06:08 AM CURRENT TOBACCO USER [facility] Oct 18, 2015 06:02 AM CURRENT TOBACCO USER [facility] Apr 05, 2015 06:12 AM CURRENT TOBACCO USER [facility] Sep 14, 2014 06:21 AM CURRENT TOBACCO USER [facility] Dec 11, 2012 09:31 AM TOBACCO OFFERED STOP SMOKING CLINIC [facility] Dec 11, 2012 09:31 AM TOBACCO OFFERED STOP SMOKING MEDS [facility] Apr 16, 2012 12:53 PM CURRENT TOBACCO USER [facility] Jul 01, 2011 01:01 PM TOBACCO OFFERED STOP SMOKING CLINIC [facility] Jul 01, 2011 01:01 PM TOBACCO OFFERED STOP SMOKING MEDS [facility] Advance Directives: All historical and current [...] 29, 2011 ADVANCE DIRECTIVE DISCUSSION [facility] JULIO CÉSAR [facility] Dec 02, 2008 CLINICAL WARNING YASMIN PRADHAN [facility] Radiology Reports: +/- 30 days of the encounter No Data Provided for This Section Pathology Reports: +/- 30 days of the encounter No Data Provided for This Section Encounter Notes: All associated encounter notes No Data Provided for This Section
--- OUTSIDE RECORDS SUMMARY | 2021-12-24 23:45 | XMS REPORT | Encounter Summary ---
Author Author [facility] RENEE emerson Organization [facility] Address Unknown Phone Unavailable Care Team Providers Care Pyrometer Temperature Regulator Name Role Phone DARIN ELY PCP Unavailable [...] (WNR) MEDICAID MEDICAID Nov 03, 2014 MEDICAID [id number] [phone] RENEE ARRIAGA PATIENT MEDICARE (WNR) MEDICARE (M) PART B Feb 02, 2020 PART B [id number] RENEE ARRIAGA PATIENT MEDICARE (WNR) MEDICARE (M) PART A Jan 01, 2006 PART A [id number] RENEE ARRIAGA PATIENT MEDICARE (WNR) MEDICARE (M) PART A Jan 01, 2006 PART A [id number] ARRIAGARENEE PATIENT Selected Encounter This section includes the information on record at [place] for the Encounter. Date/Time Encounter Type Encounter Description Reason Provider Source Jun 20, 2021 11:15 AM Outpatient Encounter PRIMARY CARE/MEDICINE IHE Encounter Template Text not used by [facility] Assessments - Encounter Diagnoses No Data Provided for This Section Plan of Treatment: Future Appointments (+ 6 months) and Future Tests (+/- 45 day s) The Plan of Treatment section includes future care activities for the patient fr om all [facility] facilities. This section includes future appointments and fu ture orders which are active, pending or scheduled. Future Appointments This section includes appointments that were scheduled t o occur 6 months from the date of the Encounter, up to a maximum of 20 appointme nts. The data comes from all [facility]. Appointment Date/Time Appointment Type Appointment Facili ty Name Jun 28, 2021 01:30 PM AMBULATORY - MEDICINE [facility] Jun 28, 2021 02:00 PM AMBULATORY - MEDICINE [facility] Jun 28, 2021 02:30 PM AMBULATORY - NONE [facility] Jul 12, 2021 11:15 AM AMBULATORY MEDICINE [facility] Jul 13, 2021 10:00 AM AMBULATORY - NONE [facility] T, V[facility] 15 Jul 23, 2021 03:20 PM AMBULATORY - NONE [facility] T, [facility] 15 Aug 29, 2021 11:15 AM AMBULATORY - MEDICINE [facility] Sep 25, 2021 12:30 PM AMBULATORY - MEDICINE [facility] Oct 09, 2021 12:30 PM AMBULATORY - MEDICINE [facility] Oct 30, 2021 11:00 AM AMBULATORY - MEDICINE [facility] Dec 10, 2021 10:00 AM AMBULATORY - NONE [facility] T, VISN 15 Active, Pending, and [...] the Encounter. The data comes from all [facility]. Test Date/Time Test Type Test Details Facility Name Jun 28, 2021 02:58 PM Consult Order [facility] Cons Economic History Teacher's Choice [facility] Surgical Procedures: All associated to the encounter [...] Range Comment Jul 12, 2021 11:01 AM [facility] URINALYSIS () Specimen Type: URINE No comment entered. Ordering Provider: DARIN ELY Report Released Date/Time: Jun 20, 2021 07:48 AM Reporting Lab: [facility] [address] [facility] [address] Performing Lab: [facility] [address] [facility] [address] *URINE COLOR Yellow *URINE APPEARANCE Clear Clear [...] Non e Jul 12, 2021 11:01 AM [facility] MICROALBUMIN (,WI) RANDO M URINE Specimen Type: URINE No comment entered. Ordering Provider: DARIN ELY Report Released Date/Time: Jun 20, 2021 07:48 AM Reporting Lab: [facility] [address] [facility] [address] Performing Lab: [facility] [address] [facility] [address] *MICROALBUMIN,RAND 18 ug/mL *MICROALB/CREAT 12 *UR CREATININE 147.7 mg/dL Jul 12, 2021 11:01 AM [facility] BASIC METABOLIC PANEL Spe cimen Type: PLASMA No comment entered. Ordering Provider: DARIN ELY Report Released Date/Time: Jul 08, 2021 11:43 AM Reporting Lab: [facility] [address] [facility] [address] Performing Lab: [facility] [address] [facility] [address] *CREATININE 1.59 mg/dL H 0.7-1.3 UREA [...] Jun 28, 2021 02:03 PM Reporting Lab: [facility] [address] [facility] [address] Performing Lab: [facility] [address] [facility] [address] *CREATININE 2.12 mg/dL H 0.7-1.3 UREA NITROGEN [...] 02:03 PM Reporting Lab: [facility] [address] [facility] [address] Performing Lab: [facility] [address] [facility] [address] B-TYPE NATRIURETIC 40.8 pg/mL 0-100 Jun 20, 2021 11:15 AM [facility] HEMOGLOBIN A1C Specimen T ype: BLOOD No comment entered. Ordering Provider: DARIN ELY Report Released Date/Time: Jun 20, 2021 07:48 AM Reporting Lab: [facility] [address] [facility] [address] Performing Lab: [facility] [address] [facility] [address] HEMOGLOBIN A1C 7.5 % H 4.0-6.0 Jun 20, 2021 11:15 AM [facility] CBC & DIFF Specimen T ype: BLOOD No comment entered. Ordering Provider: DARIN ELY Report Released Date/Time: Jun 20, 2021 07:48 AM Reporting Lab: [facility] [address] [facility] [address] Performing Lab: [facility] [address] [facility] [phone] WBC 7.38 K/cmm 3.60-11.20 RBC 4.64 M/ul [...] 0.4 % Jun 20, 2021 11:15 AM [facility] COMPREHENSIVE METABOLIC PA OFE Specimen Type: PLASMA No comment entered. Ordering Provider: DARIN ELY Report Released Date/Time: Jun 20, 2021 07:48 AM Reporting Lab: [facility] [address] [facility] [address] Performing Lab: [facility] [address] [facility] [address] *CREATININE 1.78 mg/dL H 0.7-1.3 UREA [...] EGFR 37.0 Jun 20, 2021 11:15 AM [facility] LIPID PROFILE(HDL,TRIG,CHO L,LDL) Specimen Type: PLASMA No comment entered. Ordering Provider: DARIN ELY Report Released Date/Time: Jun 20, 2021 07:48 AM Reporting Lab: [facility] [address] [facility] [address] Performing Lab: [facility] [address] [facility] [address] CHOLESTEROL 144 mg/dL 0-200 TRIGS 106 mg/dL 0-150 RISK FACTOR 22 HDL-CHOLESTEROL 32 mg/dL L >=40 LDL (CALC) 91 mg/dL Jun 20, 2021 11:15 AM [facility] TSH Specimen T ype: SERUM No comment entered. Ordering Provider: DARIN ELY Report Released Date/Time: Jun 20, 2021 07:48 AM Reporting Lab: [facility] [address] [facility] [address] Performing Lab: [facility] [address] [facility] [address] TSH 3.828 uIU/mL 0.47-5.00 Jun 20, 2021 11:15 AM [facility] MAGNESIUM (mg/dL) Specime n Type: PLASMA No comment entered. Ordering Provider: DARIN ELY Report Released Date/Time: Jun 20, 2021 07:48 AM Reporting Lab: [facility] [address] [facility] [address] Performing Lab: [facility] [address] [facility] [address] MAGNESIUM (mg/dL) 1.6 mg/dL 1.6-2.6 Jun 20, 2021 11:15 AM [facility] T4 FREE Specimen T ype: SERUM No comment entered. Ordering Provider: DARIN ELY Report Released Date/Time: Jun 20, 2021 07:48 AM Reporting Lab: [facility] [address] [facility] [address] Performing Lab: [facility] [address] [facility] [address] T4 FREE 1.10 ng/dL 0.70-1.48 Jun 20, 2021 11:15 AM [facility] VITAMIN B12 Specimen T ype: SERUM No comment entered. Ordering Provider: DARIN ELY Report Released Date/Time: Jun 20, 2021 07:48 AM Reporting Lab: [facility] [address] [facility] [address] Performing Lab: [facility] [address] [facility] [address] VITAMIN B12 477.5 pg/mL 213-816 Vital [...] and tobacco- related health factors from the [facility] where the Encounter took place. Current Smoking Status This section includes the most current smoking, or tobacco -related health factor, from the [place] facility where the Encounter took place. Date/Time Current Smoking Status Comment Facility Jun 29, 2020 09:00 AM VA-TOBACCO USER EVERY DAY [facility] Tobacco Use History This section includes a history of the smoking, or tobacco -related health factors, that were collected on or before the date of the Encoun ter. The data comes from the [place] facility where the Encounter took place. 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 [facility] Jun 29, 2020 09:00 AM VA-TOBACCO USE MED NO [facility] Jun 29, 2020 09:00 AM VA-TOBACCO USE [place] 30 MIN OF WAKEUP N [facility] Jun 29, 2020 09:00 AM VA-TOBACCO USER EVERY DAY [facility] Jul 21, 2019 11:05 AM VA-TOBACCO USE 30 YEARS OR MORE TOBI [facility] Jul 21, 2019 11:05 AM VA-TOBACCO USE ADVICE [facility] Jul 21, 2019 11:05 AM VA-TOBACCO USE WIND FARM SUPPORT SPECIALIST NO [facility] Jul 21, 2019 11:05 AM VA-TOBACCO USE MED NO [facility] Jul 21, 2019 11:05 AM VA-TOBACCO USE WI 30 MIN OF WAKEUP N [facility] Jul 21, 2019 11:05 AM VA-TOBACCO USER EVERY DAY [facility] Jun 29, 2018 01:31 PM CURRENT TOBACCO USER [facility] Jun 29, 2018 01:31 PM CURRENT TOBACCO USER (NOT READY TO RAJI T) [facility] Jun 29, 2018 01:31 PM TOBACCO CESSATION REFERRAL DECLINED [facility] Jun 29, 2018 01:31 PM TOBACCO MEDS OFFERED BUT DECLINED NE [facility] Jun 29, 2018 01:31 PM TOBACCO USER OFFERED MEDS [facility] Dec 26, 2017 09:02 AM CURRENT TOBACCO USER [facility] Dec 26, 2017 09:02 AM CURRENT TOBACCO USER (NOT READY TO RAJI T) [facility] Dec 26, 2017 09:02 AM TOBACCO CESSATION REFERRAL DECLINED [facility] Dec 26, 2017 09:02 AM TOBACCO MEDS OFFERED BUT DECLINED [facility] Dec 26, 2017 09:02 AM TOBACCO USER OFFERED MEDS [facility] May 23, 2017 03:35 PM CURRENT TOBACCO USER [facility] May 23, 2017 03:35 PM CURRENT TOBACCO USER (NOT READY TO RAJI T) [facility] May 23, 2017 03:35 PM TOBACCO CESSATION REFERRAL DECLINED [facility] May 23, 2017 03:35 PM TOBACCO MEDS OFFERED BUT DECLINED [facility] May 23, 2017 03:35 PM TOBACCO USER [facility] MED[facility] Apr 24, 2017 02:27 PM CURRENT TOBACCO USER [facility] Apr 24, 2017 02:27 PM TOBACCO MEDS OFFERED BUT DECLINED [facility] Apr 24, 2017 02:27 PM TOBACCO OFFERED STOP SMOKING CLINIC [facility] March 14, 2017 02:05 PM CURRENT TOBACCO USER [facility] March 14, 2017 02:05 PM TOBACCO MEDS OFFERED BUT DECLINED [facility] March 14, 2017 02:05 PM TOBACCO OFFERED STOP SMOKING CLINIC [facility] Apr 23, 2016 06:08 AM CURRENT TOBACCO USER [facility] Oct 18, 2015 06:02 AM CURRENT TOBACCO USER [facility] Apr 05, 2015 06:12 AM CURRENT TOBACCO USER [facility] Sep 14, 2014 06:21 AM CURRENT TOBACCO USER [facility] Dec 11, 2012 09:31 AM TOBACCO OFFERED STOP SMOKING CLINIC [facility] Dec 11, 2012 09:31 AM TOBACCO OFFERED STOP SMOKING MEDS NE [place] Apr 16, 2012 12:53 PM CURRENT TOBACCO USER [facility] Jul 01, 2011 01:01 PM TOBACCO OFFERED STOP SMOKING CLINIC [facility] Jul 01, 2011 01:01 PM TOBACCO OFFERED STOP SMOKING MEDS NE [place] Advance Directives: All historical and current Section [...] 29, 2011 ADVANCE DIRECTIVE DISCUSSION VILLA CINTRON [facility] Dec 02, 2008 CLINICAL WARNING YASMIN PRADHAN [facility] [place] [facility] Radiology Reports: +/- 30 days of the encounter No Data Provided for This Section Pathology Reports: +/- 30 days of the encounter No Data Provided for This Section Encounter Notes: All associated encounter notes No Data Provided for This Section
--- OUTSIDE RECORDS SUMMARY | 2021-12-24 23:45 | XMS REPORT | Encounter Summary ---
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 Date/Time Encounter Type Encounter Description Reason Provider Source Feb 02, 2021 11:45 AM ADM SARSCOV2 100MCG/0.5ML2ND PRIMARY CARE/ MEDICINE ICD-10-CM Z23 Encounter for immunization with Provider Comments: Encounter for Immunization WHIITNG,RITA L IHE Encounter Template Text not used by [place] Assessments - Encounter Diagnoses This section includes the primary and secondary diag noses documented for the Encounter. Date/Time Primary/Secondary Diagnosis Diagnosis Name Provider Source Feb 02, 2021 10:42 AM PRIMARY Encounter for immunization RITA WHITING [facility] Plan of Treatment: Future Appointments (+ 6 months) and Future Tests (+/- 45 day s) The Plan of Treatment section includes future care activities for the patient fr om all [facility] facilities. This section includes future appointments and fu ture orders which are active, pending or scheduled. Future Appointments This section includes appointments that were scheduled t o occur 6 months from the date of the Encounter, up to a maximum of 20 appointme nts. The data comes from all [facility]. Appointment Date/Time Appointment Type Appointment Facili ty Name Jun 20, 2021 11:15 AM AMBULATORY - MEDICINE [facility] Jun 28, 2021 01:30 PM AMBULATORY - MEDICINE [facility] Jun 28, 2021 02:00 PM AMBULATORY - MEDICINE [facility] Jun 28, 2021 02:30 PM AMBULATORY - NONE [facility] Jul 12, 2021 11:15 AM AMBULATORY - MEDICINE [facility] Jul 13, 2021 10:00 AM AMBULATORY - NONE [facility] T, VISN 15 Jul 23, 2021 03:20 PM AMBULATORY - NONE [facility] T, VISN 15 Active, Pending, and Scheduled [...] the Encounter. The data comes from all [facility]. Test Date/Time Test Type Test Details Facility Name Feb 01, 2021 12:00 AM Laboratory - Chemistry Order COVID-19 DIAGNOSTIC (RESP PANEL) NASOPHARYNGEAL SWAB NASOPHARYNX SP [facility] Surgical Procedures: All associated to the encounter This section includes all Surgical Procedures and Surgical Procedure Notes assoc iated to the Encounter. Surgical Procedures This section includes all Surgical Procedures associated to the Encounter. Surgical Procedure Date/Time Procedure Procedure Type Procedure Qualifiers Provider Source Feb 02, 2021 11:45 AM ADM SARSCOV2 100MCG/0.5ML2ND ADM SARSCOV2 100MCG/0.5ML2ND [facility] Surgical Notes There are no notes associated [...] Range Comment Feb 02, 2021 10:[address] [facility] BASIC METABOLIC PANEL Spe cimen Type: PLASMA No comment entered. Ordering Provider: DARIN ELY Report Released Date/Time: Dec 31, 2020 04:49 AM Reporting Lab: [facility] [address] [facility] [phone] Performing Lab: [facility] [address] [facility] [phone] *CREATININE 1.70 mg/dL H 0.7-1.3 UREA NITROGEN [...] Encounter. Immunization Series Date Issued Reaction Comments COVID-19 (MODERNA), MRNA, LNP-S, PF, 100 MCG/0.5 ML DOSE 2 Feb 02, 2021 MOD; 118S40C; 06/28/2021 Social History: Smoking Status (Most current) and Tobacco Use (All prior to enco unter date) This section includes the most current, and the historical, smoking and tobacco- related health factors from the [place] facility where the Encounter took place. Current Smoking Status This section includes the most current smoking, or tobacco -related health factor, from the [place] facility where the Encounter took place. Date/Time Current Smoking Status Comment Facility Jun 29, 2020 09:00 AM VA-TOBACCO USER EVERY DAY [facility] Tobacco Use History This section includes a history of the smoking, or tobacco -related health factors, that were collected on or before the date of the Encoun ter. The data comes from the [place] facility where the Encounter took place. Date/Time Smoking Status/Tobacco Use Comment Facil ity Jun 29, 2020 09:00 AM VA-TOBACCO USE ADVICE [facility] Jun 29, 2020 09:00 AM VA-TOBACCO USE CALIBRATION SPECIALIST NO [facility] [facility] Jun 29, 2020 09:00 AM VA-TOBACCO USE MED NO [facility] Jun 29, 2020 09:00 AM VA-TOBACCO USE [place] 30 MIN OF WAKEUP N [place] [facility] Jun 29, 2020 09:00 AM VA-TOBACCO USER EVERY DAY [facility] Jul 21, 2019 11:05 AM VA-TOBACCO USE 30 YEARS OR MORE TOBI DA [facility] Jul 21, 2019 11:05 AM VA-TOBACCO USE ADVICE [facility] Jul 21, 2019 11:05 AM VA-TOBACCO USE CALIBRATION SPECIALIST NO [facility] [facility] Jul 21, 2019 11:05 AM VA-TOBACCO USE MED NO [facility] Jul 21, 2019 11:05 AM VA-TOBACCO USE WI 30 MIN OF WAKEUP N ABEL[place] [facility] Jul 21, 2019 11:05 AM VA-TOBACCO USER EVERY DAY [facility] Jun 29, 2018 01:31 PM CURRENT TOBACCO USER [facility] Jun 29, 2018 01:31 PM CURRENT TOBACCO USER (NOT READY TO RAJI T) [facility] Jun 29, 2018 01:31 PM TOBACCO CESSATION REFERRAL DECLINED [facility] Jun 29, 2018 01:31 PM TOBACCO MEDS OFFERED BUT DECLINED COURTNEY CAMERON [facility] Jun 29, 2018 01:31 PM TOBACCO USER OFFERED MEDS [facility] [facility] Dec 26, 2017 09:02 AM CURRENT TOBACCO USER [facility] Dec 26, 2017 09:02 AM CURRENT TOBACCO USER (NOT READY TO RAJI T) [facility] Dec 26, 2017 09:02 AM TOBACCO CESSATION REFERRAL DECLINED [facility] Dec 26, 2017 09:02 AM TOBACCO MEDS OFFERED BUT DECLINED [facility] CAMERON [facility] Dec 26, 2017 09:02 AM TOBACCO USER OFFERED MEDS [facility] [facility] May 23, 2017 03:35 PM CURRENT TOBACCO USER [facility] May 23, 2017 03:35 PM CURRENT TOBACCO USER (NOT READY TO RAJI T) [facility] May 23, 2017 03:35 PM TOBACCO CESSATION REFERRAL DECLINED [facility] May 23, 2017 03:35 PM TOBACCO MEDS OFFERED BUT DECLINED [facility] May 23, 2017 03:35 PM TOBACCO USER OFFERED MEDS [facility] [facility] Apr 24, 2017 02:27 PM [facility] Apr 24, 2017 02:27 PM TOBACCO MEDS OFFERED BUT DECLINED [facility] Apr 24, 2017 02:27 PM TOBACCO OFFERED STOP SMOKING CLINIC [facility] March 14, 2017 02:05 PM CURRENT TOBACCO USER [facility] March 14, 2017 02:05 PM TOBACCO MEDS OFFERED BUT DECLINED [facility] March 14, 2017 02:05 PM TOBACCO OFFERED STOP SMOKING CLINIC [facility] Apr 23, 2016 06:08 AM CURRENT TOBACCO USER [facility] Oct 18, 2015 06:02 AM CURRENT TOBACCO USER [facility] Apr 05, 2015 06:12 AM CURRENT TOBACCO USER [facility] Sep 14, 2014 06:21 AM CURRENT TOBACCO USER [facility] Dec 11, 2012 09:31 AM TOBACCO OFFERED STOP SMOKING CLINIC [facility] Dec 11, 2012 09:31 AM TOBACCO OFFERED STOP SMOKING MEDS NE [facility] Apr 16, 2012 12:53 PM CURRENT TOBACCO USER [facility] Jul 01, 2011 01:01 PM TOBACCO OFFERED STOP SMOKING CLINIC [facility] Jul 01, 2011 01:01 PM TOBACCO OFFERED [...] 29, 2011 ADVANCE DIRECTIVE DISCUSSION VILLA CINTRON [facility] Dec 02, 2008 CLINICAL WARNING YASMIN PRADHAN [facility] [place] [facility] Radiology Reports: +/- 30 days of the encounter No Data Provided for This Section Pathology Reports: +/- 30 days of the encounter No Data Provided for This Section Encounter Notes: All associated encounter notes This section contains the clinical notes associated to the Encounter. Date/Time Encounter Note(s) Provider Source Feb 02, 2021 10:42 AM NURSING IMMUNIZATION NOTE: LOCAL TITLE: [facility] COVID-19 VACCINE ADMINISTRATION STANDARD TITLE: NURSING IMMUNIZATION NOTE DATE OF NOTE: FEB 02, 2021@10:42 ENTRY DATE: FEB 02, 2021@10:42:22 AUTHOR: RITA WHITING EXP COSIGNER: URGENCY: STATUS: COMPLETED The patient was given the EUA fact sheet for this vaccine which lists the benefits and side effects of the vaccine and which reviews the risks of the vaccine. The fact sheet was reviewed with the patient and they were given an opportunity to ask questions. The patient denied any prior severe reaction to this vaccine or its components or a severe allergic reaction such as anaphylaxis to any vaccine or to any injectable therapy. The patient gave verbal consent to receive the vaccine. Dose #2 The patient received Moderna COVID-19 Vaccine 0.5 ml IM. MVX (Manuf); Lot#; Exp Date: MOD; [id number]; 06/28/2021 Administration Anatomic site: Right Deltoid Vaccine administered without complications. The patient was advised to remain in the facility for 15 minutes post vaccination. The patient was given a completed COVID-19 vaccination record card, a copy of the [place] Side Effects and Adverse Events Reporting Fact Sheet and instructed on how to report any adverse reactions. Vaccine administered by policy/protocol. /sasha/ Rita Whiting LPN License Practical Nurse Signed: 02/02/2021 10:42 [facility]
--- OUTSIDE RECORDS SUMMARY | 2021-12-24 23:46 | XMS REPORT | Encounter Summary ---
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 Date/Time Encounter Type Encounter Description Reason Provider Source Jan 02, 2021 11:29 AM PRO PHONE CALL 5-10 MIN TELEPHONE [facility] C[facility] ICD-10-CM Z01.812 Encounter for preprocedural laboratory examination with Provider Comments: Lab Result Counseling SELWYN LYNN Encounter Template Text not used by ID Assessments - Encounter Diagnoses This section includes the primary and secondary diag noses documented for the Encounter. Date/Time Primary/Secondary Diagnosis Diagnosis Name Provider Source Jan 02, 2021 11:29 AM PRIMARY Encounter for prep rocedural laboratory examination SELWYN LYNN Plan of Treatment: Future Appointments (+ 6 months) and Future Tests (+/- 45 day s) The Plan of Treatment section includes future care activities for the patient fr om all ID treatment facilities. This section includes future appointments and fu ture orders which are active, pending or scheduled. Future Appointments This section includes appointments that were scheduled t o occur 6 months from the date of the Encounter, up to a maximum of 20 appointme nts. The data comes from all [facility]. Appointment Date/Time Appointment Type Appointment Facili ty Name Jan 05, 2021 11:45 AM AMBULATORY - MEDICINE [facility] Feb 02, 2021 11:00 AM AMBULATORY - MEDICINE [facility] Feb 02, 2021 11:45 AM AMBULATORY - MEDICINE [facility] Jun 20, 2021 11:15 AM AMBULATORY - MEDICINE [facility] Jun 28, 2021 01:30 PM AMBULATORY - MEDICINE [facility] Jun 28, 2021 02:00 PM AMBULATORY - MEDICINE [facility] Jun 28, 2021 02:30 PM AMBULATORY - NONE [facility] Active, Pending, and Scheduled Orders This [...] the Encounter. The data comes from all [facility]. Test Date/Time Test Type Test Details Facility Name Feb 01, 2021 12:00 AM Laboratory - Chemistry Order COVID-19 DIAGNOSTIC (RESP PANEL) NASOPHARYNGEAL SWAB [facility]X [facility] Surgical Procedures: All associated to the encounter This section includes all Surgical Procedures and Surgical Procedure Notes assoc iated to the Encounter. Surgical Procedures This section includes all Surgical Procedures associated to the Encounter. Surgical Procedure Date/Time Procedure Procedure Type Procedure Qualifiers Provider Source Jan 02, 2021 11:29 AM HC PRO PHONE CALL 5-10 MIN HC PRO PHONE CALL 5-10 MIN SELWYN LYNN Surgical Notes There are no notes associated with this procedure. Lab Results: +/- 30 days of the encounter This section includes the Chemistry and Hematology Lab R esults on record with ID for the patient. Radiology Reports and Pathology Report s are provided separately, in subsequent sections. Lab Results This section contains the Chemistry/Hematology Results christina t were resulted 30 days before or 30 days after the date of the Encounter. Date/Time Source Result Type Result - Unit Interpretation Reference Range Comment Dec 26, 2020 01:48 PM [facility] MICROALBUMIN (PETR,WI) RANDO M URINE Specimen Type: URINE Comment: Unable to perform calculation - Missing required test results Ordering Provider: DARIN ELY Report Released Date/Time: Dec 21, 2020 08:23 AM Reporting Lab: [facility] [address] [facility] [address] Performing Lab: [facility] [address] [facility] [address] *MICROALBUMIN,RAND <5 ug/mL *MICROALB/CREAT comment *UR CREATININE 43.6 mg/dL Dec 26, 2020 01:37 PM [facility] HEMOGLOBIN A1C Specimen T ype: BLOOD No comment entered. Ordering Provider: DARIN ELY Report Released Date/Time: Dec 21, 2020 08:23 AM Reporting Lab: [facility] [address] [facility] [address] Performing Lab: [facility] [address] [facility] [address] HEMOGLOBIN A1C 7.1 % H 4.0-6.0 Dec 26, 2020 01:37 PM [facility] LDL DIRECT PETR,EK,WI Speci men Type: PLASMA No comment entered. Ordering Provider: DARIN ELY Report Released Date/Time: Dec 21, 2020 08:23 AM Reporting Lab: [facility] [address] [facility] [address] Performing Lab: [facility] [address] [facility] [address] LDL DIRECT PETR,EK,WI 97 mg/dL 0-99 Dec 26, 2020 01:37 PM [facility] CBC & DIFF Specimen T ype: BLOOD No comment entered. Ordering Provider: DARIN ELY Report Released Date/Time: Dec 21, 2020 08:23 AM Reporting Lab: [facility] [address] [facility] [address] Performing Lab: [facility] [address] [facility] [address] WBC 10.32 K/cmm 3.60-11.20 RBC 4.56 [...] Dec 21, 2020 08:23 AM Reporting Lab: [facility] [address] [facility] [address] Performing Lab: [facility] [address] [facility] [address] UREA NITROGEN mg/dL 22 mg/dL 9-25 GLUCOSE [...] H 0.7-1.3 Dec 26, 2020 01:37 PM [facility] TSH Specimen T ype: SERUM No comment entered. Ordering Provider: ADRIN ELY Report Released Date/Time: Dec 21, 2020 08:23 AM Reporting Lab: [facility] [address] [facility] [address] Performing Lab: [facility] [address] [facility] [address] TSH 4.605 uIU/mL 0.47-5.00 Dec 26, 2020 01:37 PM [facility] T4 FREE Specimen T ype: SERUM No comment entered. Ordering Provider: DARIN ELY Report Released Date/Time: Dec 21, 2020 08:23 AM Reporting Lab: [facility] [address] [facility] [address] Performing Lab: [facility] [address] [facility] [address] T4 FREE 1.25 ng/dL 0.70-1.48 Vital [...] and tobacco- related health factors from the ID facility where the Encounter took place. Current Smoking Status This section includes the most current smoking, or tobacco -related health factor, from the ID facility where the Encounter took place. Date/Time Current Smoking Status Comment Facility Jun 29, 2020 09:00 AM VA-TOBACCO USER EVERY DAY [facility] Tobacco Use History This section includes a history of the smoking, or tobacco -related health factors, that were collected on or before the date of the Encoun ter. The data comes from the ID facility where the Encounter took place. Date/Time Smoking Status/Tobacco Use Comment Facil it Jun 29, 2020 09:00 AM VA-TOBACCO USE ADVICE [facility] Jun 29, 2020 09:00 AM VA-TOBACCO USE REHABILITATION ASSISTANT NO [facility] Jun 29, 2020 09:00 AM VA-TOBACCO USE MED NO [facility] Jun 29, 2020 09:00 AM VA-TOBACCO USE WI 30 MIN OF WAKEUP N [facility] Jun 29, 2020 09:00 AM [facility] Jul 21, 2019 11:05 AM VA-TOBACCO USE 30 YEARS OR MORE [facility] Jul 21, 2019 11:05 AM VA-TOBACCO USE ADVICE [facility] Jul 21, 2019 11:05 AM VA-TOBACCO USE REHABILITATION ASSISTANT NO [facility] Jul 21, 2019 11:05 AM VA-TOBACCO USE MED NO [facility] Jul 21, 2019 11:05 AM VA-TOBACCO USE WI 30 MIN OF WAKEUP N [facility] Jul 21, 2019 11:05 AM VA-TOBACCO USER EVERY DAY [facility] Jun 29, 2018 01:31 PM CURRENT TOBACCO USER [facility] Jun 29, 2018 01:31 PM CURRENT TOBACCO USER (NOT READY TO RAJI T) [facility] Jun 29, 2018 01:31 PM TOBACCO CESSATION REFERRAL DECLINED [facility] Jun 29, 2018 01:31 PM TOBACCO MEDS OFFERED BUT DECLINED NE [facility] Jun 29, 2018 01:31 PM TOBACCO USER OFFERED MEDS [facility] Dec 26, 2017 09:02 AM CURRENT TOBACCO USER [facility] Dec 26, 2017 09:02 AM CURRENT TOBACCO USER (NOT READY TO RAJI T) [facility] Dec 26, 2017 09:02 AM TOBACCO CESSATION REFERRAL DECLINED [facility] Dec 26, 2017 09:02 AM TOBACCO MEDS OFFERED BUT DECLINED NE NISAH [facility] Dec 26, 2017 09:02 AM TOBACCO USER OFFERED MEDS [facility] May 23, 2017 03:35 PM CURRENT TOBACCO USER [facility] May 23, 2017 03:35 PM CURRENT TOBACCO USER (NOT READY TO RAJI T) [facility] May 23, 2017 03:35 PM TOBACCO CESSATION REFERRAL DECLINED [facility] May 23, 2017 03:35 PM TOBACCO MEDS OFFERED BUT DECLINED NE [facility] May 23, 2017 03:35 PM TOBACCO USER OFFERED [facility]S [facility] Apr 24, 2017 02:27 PM CURRENT TOBACCO USER [facility] Apr 24, 2017 02:27 PM TOBACCO MEDS OFFERED BUT DECLINED NE [facility] Apr 24, 2017 02:27 PM TOBACCO OFFERED STOP SMOKING CLINIC [facility] March 14, 2017 02:05 PM CURRENT TOBACCO USER [facility] March 14, 2017 02:05 PM TOBACCO MEDS OFFERED BUT DECLINED NE [facility] March 14, 2017 02:05 PM TOBACCO OFFERED STOP SMOKING CLINIC [facility] Apr 23, 2016 06:08 AM CURRENT TOBACCO USER [facility] Oct 18, 2015 06:02 AM CURRENT TOBACCO USER [facility] Apr 05, 2015 06:12 AM CURRENT TOBACCO USER [facility] Sep 14, 2014 06:21 AM CURRENT TOBACCO USER [facility] Dec 11, 2012 09:31 AM TOBACCO OFFERED STOP SMOKING CLINIC [facility] Dec 11, 2012 09:31 AM TOBACCO OFFERED STOP SMOKING MEDS NE [facility] Apr 16, 2012 12:53 PM CURRENT TOBACCO USER [facility] Jul 01, 2011 01:01 PM TOBACCO OFFERED STOP SMOKING CLINIC [facility] Jul 01, 2011 01:01 PM TOBACCO OFFERED STOP SMOKING MEDS NE [place] [facility] Advance Directives: All historical and current Section [...] docume nt. The data comes from all ID facilities. Date Advance Directives Provider Source May 29, 2011 ADVANCE DIRECTIVE DISCUSSION VILLA CINTRON [facility] Dec 02, 2008 CLINICAL WARNING YASMIN PRADHAN [facility] [place] [facility] Radiology Reports: +/- 30 days of the encounter No Data Provided for This Section Pathology Reports: +/- 30 days of the encounter No Data Provided for This Section Encounter Notes: All associated encounter notes This section contains the clinical notes associated to the Encounter. Date/Time Encounter Note(s) Provider Source Jan 02, 2021 11:29 AM PRIMARY CARE TELEPHONE ENCOU NTER NOTE: LOCAL TITLE: PETR-PC TELEPHONE/PACT STANDARD TITLE: PRIMARY CARE TELEPHONE ENCOUNTER NOTE DATE OF NOTE: JAN 02, 2021@11:29 ENTRY DATE: JAN 02, 2021@11:29:43 AUTHOR: SELWYN LYNN EXP COSIGNER: URGENCY: STATUS: COMPLETED Contact Number: . Reason for Call: Relay lab results and recommendations. Complaint/Problem:Spoke with patient's Daughter Nataliya relayed the following. "lab okay, a1c 7.1, no medication changes creat 1.56, avoid nsaids, metformin was dc'd during recent hospitalization due to creat of 1.9, will continue to monitor K+ normal, 5.0, was 5.5 during recent local hospitalization and given kaylexalate Recommend to recheck bmp in 1mo (non fasting) Please notify patient." She verbalized understanding and will let patient know. Offered dates and times for lab appointment she chose 02/02/21@11:15. Plan of Care:Patient will come in for lab on 02/02/2021@11:15. Education:as above. Follow-up:Per recall and PRN. Number of minutes spent with patient on the phone:4 min. Khushbu please schedule patient in lab on 02/02/2021@11:15. Thanks. /sasha/ Selwyn LYNN DOMESTIC LAUNDRY WORKER Signed: 01/02/2021 11:33 Receipt Acknowledged By: * AWAITING SIGNATURE * KHUSHBU MENDOZA SHERRI M [facility]
--- OUTSIDE RECORDS SUMMARY | 2021-12-24 23:46 | XMS REPORT | Encounter Summary ---
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 Date/Time Encounter Type Encounter Description Reason Provider Source Jan 30, 2021 03:59 PM HC PRO PHONE CALL 5-10 MIN TELEPHONE PRIMA RY CARE ICD-10-CM R05 Cough with Provider Comments: Cough UNIQUE PHILLIP Aron Encounter Template Text not used by [facility] Assessments - Encounter Diagnoses This section includes the primary and secondary diag noses documented for the Encounter. Date/Time Primary/Secondary Diagnosis Diagnosis Name Provider Source Jan 30, 2021 03:59 PM PRIMARY Cough UNIQUE PHILLIP Aron [facility] Plan of Treatment: Future Appointments (+ 6 months) and Future Tests (+/- 45 day s) The Plan of Treatment section includes future care activities for the patient fr om all [facility] facilities. This section includes future appointments and fu ture orders which are active, pending or scheduled. Future Appointments This section includes appointments that were scheduled t o occur 6 months from the date of the Encounter, up to a maximum of 20 appointme nts. The data comes from all [facility]. Appointment Date/Time Appointment Type Appointment Facili ty Name Feb 02, 2021 11:00 AM AMBULATORY - MEDICINE [facility] Feb 02, 2021 11:45 AM AMBULATORY MEDICINE [facility] Jun 20, 2021 11:15 AM AMBULATORY MEDICINE [facility] Jun 28, 2021 01:30 PM AMBULATORY - MEDICINE [facility] Jun 28, 2021 02:00 PM AMBULATORY - MEDICINE [facility] Jun 28, 2021 02:30 PM AMBULATORY - NONE [facility] Jul 12, 2021 11:15 AM AMBULATORY MEDICINE [facility] Jul 13, 2021 10:00 AM AMBULATORY - NONE [facility] T, [facility] 15 Jul 23, 2021 03:20 PM AMBULATORY - NONE [facility] T, [facility] 15 Active, Pending, and Scheduled [...] the Encounter. The data comes from all [facility]. Test Date/Time Test Type Test Details Facility Name Feb 01, 2021 12:00 AM Laboratory - Chemistry Order COVID-19 DIAGNOSTIC (RESP PANEL) NASOPHARYNGEAL SWAB NASOPHARYNX SP [facility] Surgical Procedures: All associated to the encounter This section includes all Surgical Procedures and Surgical Procedure Notes assoc iated to the Encounter. Surgical Procedures This section includes all Surgical Procedures associated to the Encounter. Surgical Procedure Date/Time Procedure Procedure Type Procedure Qualifiers Provider Source Jan 30, 2021 03:59 PM HC PRO PHONE CALL 5-10 MIN HC PRO PHONE CALL 5-10 MIN UNIQUE PHILLIP [facility] Surgical Notes There are no notes [...] Range Comment Feb 02, 2021 10:31 AM [facility] BASIC METABOLIC PANEL Spe cimen Type: PLASMA No comment entered. Ordering Provider: DARIN ELY Report Released Date/Time: Dec 31, 2020 04:49 AM Reporting Lab: [facility] [address] [facility] [address] Performing Lab: [facility] [address] [facility] [address] *CREATININE 1.70 mg/dL H 0.7-1.3 UREA NITROGEN [...] 2020 09:00 AM [facility] Tobacco Use History This section includes a history of the smoking, or tobacco -related health factors, that were collected on or before the date of the Encoun ter. The data comes from the ID facility where the Encounter took place. Date/Time Smoking Status/Tobacco Use Comment Facil ity Jun 29, 2020 09:00 AM VA-TOBACCO USE ADVICE [facility] Jun 29, 2020 09:00 AM VA-TOBACCO USE CELL RELINER NO [facility] Jun 29, 2020 09:00 AM VA-TOBACCO USE MED NO [facility] Jun 29, 2020 09:00 AM VA-TOBACCO USE WI 30 MIN OF WAKEUP N [place] [facility] Jun 29, 2020 09:00 AM VA-TOBACCO USER EVERY DAY [facility] Jul 21, 2019 11:05 AM VA-TOBACCO USE 30 YEARS OR MORE [facility] DA [facility] Jul 21, 2019 11:05 AM VA-TOBACCO USE ADVICE [facility] Jul 21, 2019 11:05 AM VA-TOBACCO USE CELL RELINER NO [facility] Jul 21, 2019 11:05 AM VA-TOBACCO USE MED NO [facility] Jul 21, 2019 11:05 AM VA-TOBACCO USE WI 30 MIN OF WAKEUP N [facility] [facility] Jul 21, 2019 11:05 AM VA-TOBACCO USER EVERY DAY [facility] Jun 29, 2018 01:31 PM CURRENT TOBACCO USER [facility] Jun 29, 2018 01:31 PM CURRENT TOBACCO USER (NOT READY TO RAJI T) [facility] Jun 29, 2018 01:31 PM TOBACCO CESSATION REFERRAL DECLINED [facility] Jun 29, 2018 01:31 PM TOBACCO MEDS OFFERED BUT DECLINED NE [facility] Jun 29, 2018 01:31 PM TOBACCO USER OFFERED MEDS [facility] Dec 26, 2017 09:02 AM CURRENT TOBACCO USER [facility] Dec 26, 2017 09:02 AM CURRENT TOBACCO USER (NOT READY TO RAJI T) [facility] Dec 26, 2017 09:02 AM TOBACCO CESSATION REFERRAL DECLINED [facility] Dec 26, 2017 09:02 AM TOBACCO MEDS OFFERED BUT DECLINED [facility] Dec 26, 2017 09:02 AM TOBACCO USER OFFERED MEDS [facility] May 23, 2017 03:35 PM CURRENT TOBACCO USER [facility] May 23, 2017 03:35 PM CURRENT TOBACCO USER (NOT READY TO RAJI T) [facility] May 23, 2017 03:35 PM TOBACCO CESSATION REFERRAL DECLINED [facility] May 23, 2017 03:35 PM TOBACCO MEDS OFFERED BUT DECLINED [facility] May 23, 2017 03:35 PM TOBACCO USER OFFERED MEDS [facility] Apr 24, 2017 02:27 PM CURRENT TOBACCO USER [facility] Apr 24, 2017 02:27 PM TOBACCO MEDS OFFERED BUT DECLINED [facility] Apr 24, 2017 02:27 PM TOBACCO OFFERED STOP SMOKING CLINIC [facility] March 14, 2017 02:05 PM CURRENT TOBACCO USER [facility] March 14, 2017 02:05 PM TOBACCO MEDS OFFERED BUT DECLINED [facility] March 14, 2017 02:05 PM TOBACCO OFFERED STOP SMOKING CLINIC [facility] Apr 23, 2016 06:08 AM CURRENT TOBACCO USER [facility] Oct 18, 2015 06:02 AM CURRENT TOBACCO USER [facility] Apr 05, 2015 06:12 AM CURRENT TOBACCO USER [facility] Sep 14, 2014 06:21 AM CURRENT TOBACCO USER [facility] Dec 11, 2012 09:31 AM TOBACCO OFFERED STOP SMOKING CLINIC [facility] Dec 11, 2012 09:31 AM TOBACCO OFFERED STOP SMOKING MEDS [facility] Apr 16, 2012 12:53 PM CURRENT TOBACCO USER [facility] Jul 01, 2011 01:01 PM TOBACCO OFFERED STOP SMOKING CLINIC [facility] Jul 01, 2011 01:01 PM TOBACCO OFFERED STOP SMOKING MEDS NE N[facility] [facility] Advance Directives: All historical and current Section Date Range: From patient's date of to the date document was create d. This section includes ALL of a patient's completed or amen ded ID Advance and Rescinded Directives. The entries below indicate that a direc tive exists for the patient, but an actual copy is not included with this docume nt. The data comes from all ID facilities. Date Advance Directives Provider Source May 29, 2011 ADVANCE DIRECTIVE DISCUSSION VILLA CINTRON [facility] Dec 02, 2008 CLINICAL WARNING YASMIN PRADHAN [facility] [place] [facility] Radiology Reports: +/- 30 days of the encounter No Data Provided for This Section Pathology Reports: +/- 30 days of the encounter No Data Provided for This Section Encounter Notes: All associated encounter notes This section contains the clinical notes associated to the Encounter. Date/Time Encounter Note(s) Provider Source Jan 30, 2021 03:59 PM PRIMARY CARE TELEPHONE ENCOU NTER NOTE: LOCAL TITLE: PETR-PC TELEPHONE/PACT STANDARD TITLE: PRIMARY CARE TELEPHONE ENCOUNTER NOTE DATE OF NOTE: JAN 30, 2021@15:59 ENTRY DATE: JAN 30, 2021@16:00:05 AUTHOR: UNIQUE PHILLIP EXP COSIGNER: URGENCY: STATUS: COMPLETED PETR-PC TELEPHONE/PACT Has ADDENDA Contact Number: Reason for Call: Head cold Complaint/Problem: Daughter reports patient has had a sore throat, sinus drainage and cough for the past two days. Denies fever and chills. Inquiring on what to do in regards to COVID shot that he is scheduled to get on 4/2 if he isn't feeling better. Plan of Care: -Alerting PCP for direction. -Told daughter that we could do a respiratory panel if no improvement and patient desires. Follow-up: Per recommendations Number of minutes spent with patient on the phone: 8 /sandeep PHILLIP RN, BSN Signed: 01/30/2021 16:08 Receipt Acknowledged By: 01/31/2021 16:11 /sandeep Ely APRN 01/31/2021 ADDENDUM STATUS: COMPLETED Recommend respiratory panel Continue inhalers. Recommend sinus rinse bid Please notify patient and schedule for lab /sandeep Ely APRN Signed: 01/31/2021 16:13 Receipt Acknowledged By: 02/02/2021 13:35 /sandeep PHILLIP RN, BSN 02/02/2021 ADDENDUM STATUS: COMPLETED "Recommend respiratory panel Continue inhalers. Recommend sinus rinse bid Please notify patient and schedule for lab" Patient recovered and decided to come get second shot this morning. Will call PACT team as needs and issues arise. /sandeep PHILLIP RN, BSN Signed: 02/02/2021 13:37 UNIQUE PHILLIP [facility]
--- OUTSIDE RECORDS SUMMARY | 2021-12-24 23:46 | XMS REPORT | Encounter Summary ---
Author Author [facility] RENEE emerson Organization Department 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 Date/Time Encounter Type Encounter Description Reason Provider Source Jan 05, 2021 11:45 AM ADM SARSCOV2 100MCG/0.5ML1ST PRIMARY CARE/ MEDICINE ICD-10-CM Z23 Encounter for immunization with Provider Comments: Encounter for Immunization MIGUEL MOHAMUD Encounter Template Text not used by MD Assessments - Encounter Diagnoses This section includes the primary and secondary diag noses documented for the Encounter. Date/Time Primary/Secondary Diagnosis Diagnosis Name Provider Source Jan 05, 2021 12:06 PM PRIMARY Encounter for immunization MIGUEL MOHAMUD [facility] Plan of Treatment: Future Appointments (+ 6 months) and Future Tests (+/- 45 day s) The Plan of Treatment section includes future care activities for the patient fr om all MD treatment facilities. This section includes future appointments and fu ture orders which are active, pending or scheduled. Future Appointments This section includes appointments that were scheduled t o occur 6 months from the date of the Encounter, up to a maximum of 20 appointme nts. The data comes from all [facility]. Appointment Date/Time Appointment Type Appointment Facili ty Name Feb 02, 2021 11:00 AM AMBULATORY - MEDICINE [facility] Feb 02, 2021 11:45 AM AMBULATORY - MEDICINE [facility] Jun 20, 2021 11:15 AM AMBULATORY - MEDICINE [facility] Jun 28, 2021 01:30 PM AMBULATORY - MEDICINE [facility] Jun 28, 2021 02:00 PM AMBULATORY - MEDICINE [facility] Jun 28, 2021 02:30 PM AMBULATORY - NONE [facility] Active, Pending, and Scheduled Orders This [...] the Encounter. The data comes from all [facility]. Test Date/Time Test Type Test Details Facility Name Feb 01, 2021 12:00 AM Laboratory - Chemistry Order COVID-19 DIAGNOSTIC (RESP PANEL) NASOPHARYNGEAL SWAB NASOPHARYNX SP [facility] Surgical Procedures: All associated to the encounter This section includes all Surgical Procedures and Surgical Procedure Notes assoc iated to the Encounter. Surgical Procedures This section includes all Surgical Procedures associated to the Encounter. Surgical Procedure Date/Time Procedure Procedure Type Procedure Qualifiers Provider Source Jan 05, 2021 11:45 AM ADM SARSCOV2 100MCG/0.5ML1ST ADM SARSCOV2 100MCG/0.5ML1ST [facility] Surgical Notes There are no notes associated with this procedure. Lab Results: +/- 30 days of the encounter This section includes the Chemistry and Hematology Lab R esults on record with MD for the patient. Radiology Reports and Pathology Report s are provided separately, in subsequent sections. Lab Results This section contains the Chemistry/Hematology Results christina t were resulted 30 days before or 30 days after the date of the Encounter. Date/Time Source Result Type Result - Unit Interpretation Reference Range Comment Feb 02, 2021 10:31 AM [facility] BASIC METABOLIC PANEL Spe cimen Type: PLASMA No comment entered. Ordering Provider: DARIN ELY Report Released Date/Time: Dec 31, 2020 04:49 AM Reporting Lab: [facility] [address] [facility] [address] Performing Lab: [facility] [address] [facility] [address] *CREATININE 1.70 mg/dL H 0.7-1.3 UREA NITROGEN mg/dL 29 mg/dL H 9-25 GLUCOSE 110 mg/dL H 72-99 SODIUM 135 mEq/L L 136-145 POTASSIUM 5.0 mEq/L 3.5-5.0 CALCIUM (mg/dL) 9.6 mg/dL 8.4-10.4 ANION GAP 10.0 8-16 CHLORIDE 98 mEq/L 98-107 CO2 27 mEq/L 22-31 EGFR 39.0 Dec 26, 2020 01:48 PM [facility] MICROALBUMIN (PETR,WI) RANDO M URINE Specimen Type: URINE Comment: Unable to perform calculation - Missing required test results Ordering Provider: DARIN ELY Report Released Date/Time: Dec 21, 2020 08:23 AM Reporting Lab: [facility] [address] [facility] [address] Performing Lab: [facility] [address] [facility] [address] *MICROALBUMIN,RAND <5 ug/mL *MICROALB/CREAT comment *UR CREATININE 43.6 mg/dL Dec 26, 2020 01:37 PM [facility] HEMOGLOBIN A1C Specimen T ype: BLOOD No comment entered. Ordering Provider: DARIN ELY Report Released Date/Time: Dec 21, 2020 08:23 AM Reporting Lab: [facility] [address] [facility] [address] Performing Lab: [facility] [address] [facility] [address] HEMOGLOBIN A1C 7.1 % H 4.0-6.0 Dec 26, 2020 01:37 PM [facility] LDL DIRECT PETR,EK,WI Speci men Type: PLASMA No comment entered. Ordering Provider: DARIN ELY Report Released Date/Time: Dec 21, 2020 08:23 AM Reporting Lab: [facility] [address] [facility] [address] Performing Lab: [facility] [address] [facility] [address] LDL DIRECT PETR,EK,WI 97 mg/dL 0-99 Dec 26, 2020 01:37 PM [facility] CBC & DIFF Specimen T ype: BLOOD No comment entered. Ordering Provider: DARIN ELY Report Released Date/Time: Dec 21, 2020 08:23 AM Reporting Lab: [facility] [address] [facility] [address] Performing Lab: [facility] [address] [facility] [id number] WBC 10.32 K/cmm 3.60-11.20 RBC 4.56 M/ul [...] 0.7 % Dec 26, 2020 01:37 PM [facility] COMPREHENSIVE METABOLIC PA OFE Specimen Type: PLASMA No comment entered. Ordering Provider: DARIN ELY Report Released Date/Time: Dec 21, 2020 08:23 AM Reporting Lab: [facility] [address] [facility] [address] Performing Lab: [facility] [address] [facility] [address] UREA NITROGEN mg/dL 22 mg/dL 9-25 GLUCOSE [...] H 0.7-1.3 Dec 26, 2020 01:37 PM [facility] TSH Specimen T ype: SERUM No comment entered. Ordering Provider: DARIN ELY Report Released Date/Time: Dec 21, 2020 08:23 AM Reporting Lab: [facility] [address] [facility] [address] Performing Lab: [facility] [address] [facility] [address] TSH 4.605 uIU/mL 0.47-5.00 Dec 26, 2020 01:37 PM [facility] T4 FREE Specimen T ype: SERUM No comment entered. Ordering Provider: DARIN ELY Report Released Date/Time: Dec 21, 2020 08:23 AM Reporting Lab: [facility] [address] [facility] [address] Performing Lab: [facility] [address] [facility] [address] T4 FREE 1.25 ng/dL 0.70-1.48 Vital Signs: All taken on the encounter date No Data Provided for This Section Immunizations: All administered on the encounter date This section contains immunizations associated to the Encounter. Immunization Series Date Issued Reaction Comments COVID-19 (MODERNA), MRNA, LNP-S, PF, 100 MCG/0.5 ML DOSE 1 Jan 05, 2021 MOD; [id number]; 06/07/2021 Social History: Smoking Status (Most current) and Tobacco Use (All prior to enco unter date) This section includes the most current, and the historical, smoking and tobacco- related health factors from the MD facility where the Encounter took place. Current Smoking Status This section includes the most current smoking, or tobacco -related health factor, from the MD facility where the Encounter took place. Date/Time Current Smoking Status Comment Facility Jun 29, 2020 09:00 AM VA-TOBACCO USER EVERY DAY [facility] Tobacco Use History This section includes a history of the smoking, or tobacco -related health factors, that were collected on or before the date of the Encoun ter. The data comes from the MD facility where the Encounter took place. 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 Jul 21, 2019 11:05 AM VA-TOBACCO USER EVERY DAY [facility] Jun 29, 2018 01:31 PM CURRENT TOBACCO USER [facility] Jun 29, 2018 01:31 PM CURRENT TOBACCO USER (NOT READY TO RAJI T) [facility] Jun 29, 2018 01:31 PM TOBACCO CESSATION REFERRAL DECLINED [facility] Jun 29, 2018 01:31 PM TOBACCO MEDS OFFERED BUT DECLINED [facility] Jun 29, 2018 01:31 PM TOBACCO USER OFFERED MEDS [facility] Dec 26, 2017 09:02 AM CUR[address] TOBACCO USER [facility] Dec 26, 2017 09:02 AM CURRENT TOBACCO USER (NOT READY TO RAJI T) [facility] Dec 26, 2017 09:02 AM TOBACCO CESSATION REFERRAL DECLINED [facility] Dec 26, 2017 09:02 AM TOBACCO MEDS OFFERED BUT DECLINED [facility] Dec 26, 2017 09:02 AM TOBACCO USER OFFERED MEDS [facility] May 23, 2017 03:35 [address]BACCO USER [facility] May 23, 2017 03:35 PM CURRENT TOBACCO USER (NOT READY TO RAJI T) [facility] May 23, 2017 03:35 PM TOBACCO CESSATION REFERRAL DECLINED [facility] May 23, 2017 03:35 PM TOBACCO MEDS OFFERED BUT DECLINED [facility] May 23, 2017 03:35 PM TOBACCO USER OFFERED MEDS [facility] C Apr 24, 2017 02:27 PM [address] TOBACCO USER [facility] Apr 24, 2017 02:27 PM TOBACCO MEDS OFFERED BUT DECLINED [facility] Apr 24, 2017 02:27 PM TOBACCO OFFERED STOP SMOKING CLINIC [facility] March 14, 2017 02:05 PM [address] TOBACCO USER [facility] March 14, 2017 02:05 PM TOBACCO MEDS OFFERED BUT DECLINED [facility] March 14, 2017 02:05 PM TOBACCO OFFERED STOP SMOKING CLINIC [facility] Apr 23, 2016 06:08 AM CURRENT TOBACCO USER [facility] Oct 18, 2015 06:02 AM CURRENT TOBACCO USER [facility] Apr 05, 2015 06:12 AM CURRENT TOBACCO USER [facility] Sep 14, 2014 06:21 AM CURRENT TOBACCO USER [facility] Dec 11, 2012 09:31 AM TOBACCO OFFERED STOP SMOKING CLINIC [facility] Dec 11, 2012 09:31 AM TOBACCO OFFERED STOP SMOKING MEDS NE [facility] Apr 16, 2012 12:53 PM [address]RENT TOBACCO USER [facility] Jul 01, 2011 01:01 PM TOBACCO OFFERED STOP SMOKING CLINIC [facility] Jul 01, 2011 01:01 PM TOBACCO OFFERED STOP SMOKING MEDS NE [facility] Advance Directives: All historical and [...] docume nt. The data comes from all MD facilities. Date Advance Directives Provider Source May 29, 2011 ADVANCE DIRECTIVE DISCUSSION VILLA CINTRON [facility] Dec 02, 2008 CLINICAL WARNING YASMIN PRADHAN [facility] [place] [facility] Radiology Reports: +/- 30 days of the encounter No Data Provided for This Section Pathology Reports: +/- 30 days of the encounter No Data Provided for This Section Encounter Notes: All associated encounter notes This section contains the clinical notes associated to the Encounter. Date/Time Encounter Note(s) Provider Source Jan 05, 2021 12:05 PM NURSING IMMUNIZATION NOTE: LOCAL TITLE: [facility] COVID-19 VACCINE ADMINISTRATION STANDARD TITLE: NURSING IMMUNIZATION NOTE DATE OF NOTE: JAN 05, 2021@12:05 ENTRY DATE: JAN 05, 2021@12:05:55 AUTHOR: MIGUEL MOHAMUD EXP COSIGNER: URGENCY: STATUS: COMPLETED The patient [...] verbal consent to receive the vaccine. Dose #1 The patient received Moderna COVID-19 Vaccine 0.5 ml IM. MVX (Manuf); Lot#; Exp Date: MOD; [id number]; 06/07/2021 Administration Anatomic site: Right Deltoid Vaccine administered without complications. The patient was advised to remain in the facility for 15 minutes post vaccination. The patient was given a completed COVID-19 vaccination record card, a copy of the [facility] Side Effects and Adverse Events Reporting Fact Sheet and instructed on how to report any adverse reactions.The patient was given information on the need to return for another dose of vaccine in 28 days. Vaccine administered by policy/protocol. /es/ Miguel Mohamud RN, BSN Darlyn PAYAN Signed: 01/05/2021 12:06 MIGUEL MOHAMUD
--- OUTSIDE RECORDS SUMMARY | 2021-12-24 23:46 | XMS REPORT | Encounter Summary ---
Author Author Department [facility] RENEE emerson Organization Department [facility] Address Unknown Phone Unavailable Care Team Providers Care Wastewater Analyst Name Role Phone SOLIS DARIN PCP Unavailable [...] (WNR) MEDICAID MEDICAID Nov 03, 2014 MEDICAID [id number] [phone] [place] PATIENT MEDICARE (WNR) MEDICARE (M) PART B Feb 02, 2020 PART B [id number] [place] PATIENT MEDICARE (WNR) MEDICARE (M) PART A Jan 01, 2006 PART A [id number] [place] PATIENT MEDICARE (WNR) MEDICARE (M) PART A Jan 01, 2006 PART A [id number] RENEE ARRIAGA PATIENT Selected Encounter This section includes the information on record at [place] for the Encounter. Date/Time Encounter Type Encounter Description Reason Provider Source Dec 28, 2020 10:30 AM OFFICE O/P EST HI 40-54 MIN PRIMARY CARE/M EDICINE ICD-10-CM J44.9 Chronic obstructive pulmonary disease, unspecified with Provider Comments: Chronic obstructive lung disease (SCT [id number]) DARIN AUGUSTIN Aron Encounter Template Text not used by [facility] Assessments - Encounter Diagnoses This section includes the primary and secondary diag noses documented for the Encounter. 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 DARWIN MENDOZA [facility] Dec 28, 2020 12:35 PM SECONDARY Disorder of prostate, unspecifie d DARWIN MENDOZA [facility] Dec 28, 2020 12:35 PM SECONDARY Essential (primary) hypertension DARWIN MENDO[facility] Dec 28, 2020 12:35 PM SECONDARY Gastro-esophageal reflux disease without esophagitis DARWIN MENDOZA [facility] Dec 28, 2020 12:35 PM SECONDARY Hyperkalemia DARWIN MENDOZAAD A [facility] Dec 28, 2020 12:35 PM SECONDARY Hypothyroidism, unspecified DARIWN [facility] Dec 28, 2020 12:35 PM SECONDARY Insomnia, unspecified TEA MENDOZA [facility] Dec 28, 2020 12:35 PM SECONDARY Mixed hyperlipidemia DARWIN MENDO[facility] Dec 28, 2020 12:35 PM SECONDARY Nicotine dependenc e, cigarettes, w oth disorders DARWIN MENDOZA [facility] Dec 28, 2020 12:35 PM SECONDARY Other microscopic hematuria DARWIN [facility] Dec 28, 2020 12:35 PM SECONDARY Type 2 diabetes mellitus w ithout complications D[facility]WIN [facility]END[facility] Plan of Treatment: Future Appointments (+ 6 months) and Future Tests (+/- 45 day s) The Plan of Treatment section includes future care activities for the patient fr om all [place] treatment facilities. This section includes future appointments and fu ture orders which are active, pending or scheduled. Future Appointments This section includes appointments that were scheduled t o occur 6 months from the date of the Encounter, up to a maximum of 20 appointme nts. The data comes from all [place] treatment facilities. Appointment Date/Time Appointment Type Appointment Facili ty Name Jan 05, 2021 11:45 AM AMBULATORY - MEDICINE [facility] Feb 02, 2021 11:00 AM [facility] - [facility] Feb 02, 2021 11:45 AM [facility] - [facility]IC[facility] Jun 20, 2021 11:15 AM AMBULATORY - MEDICINE [facility] Active, Pending, and Scheduled Orders This section [...] the Encounter. The data comes from all [place] treatment facilities. Test Date/Time Test Type Test Details Facility Name Feb 01, 2021 12:00 AM Laboratory - Chemistry Order COVID-19 DIAGNOSTIC (RESP PANEL) NASOPHARYNGEAL SWAB NASOPHARYNX SP [facility] Surgical Procedures: All associated to the encounter No Data Provided for This Section Lab Results: +/- 30 days of the encounter This section includes the Chemistry and Hematology Lab R esults on record with [place] for the patient. Radiology Reports and Pathology Report s are provided separately, in subsequent sections. Lab Results This section contains the Chemistry/Hematology Results christina t were resulted 30 days before or 30 days after the date of the Encounter. Date/Time Source Result Type Result - Unit Interpretation Reference Range Comment Dec 26, 2020 01:48 PM [facility] MICROALBUMIN (,WI) RATNA Rios URINE Specimen Type: URINE Comment: Unable to perform calculation - Missing required test results Ordering Provider: DARIN AUGUSTIN Report Released Date/Time: Dec 21, 2020 08:23 AM Reporting Lab: [facility], [facility] [address] [facility]. [facility] [address] Performing Lab: [facility] [address] [facility] [address] *MICROALBUMIN,RAND <5 ug/mL *MICROALB/CREAT comment *UR CREATININE 43.6 mg/dL Dec 26, 2020 01:37 PM [facility] HEMOGLOBIN A1C Specimen T ype: BLOOD No comment entered. Ordering Provider: DARIN AUGUSTIN Report Released Date/Time: Dec 21, 2020 08:23 AM Reporting Lab: [facility], [facility] [address] [facility] [address] Performing Lab: [facility] [address] [facility] [phone] HEMOGLOBIN A1C 7.1 % H 4.0-6.0 Dec 26, 2020 01:37 PM [facility] LDL DIRECT PETR,EK,WI Speci men Type: PLASMA No comment entered. Ordering Provider: DARIN AUGUSTIN Report Released Date/Time: Dec 21, 2020 08:23 AM Reporting Lab: [facility] [address] [facility] [address] Performing Lab: [facility] [address] [facility] [address] LDL DIRECT PETR,EK,WI 97 mg/dL 0-99 Dec 26, 2020 01:37 PM [facility] CBC & DIFF Specimen T ype: BLOOD No comment entered. Ordering Provider: DARIN AUGUSTIN Report Released Date/Time: Dec 21, 2020 08:23 AM Reporting Lab: [facility] [address] [facility] [address] Performing Lab: [facility] [address] [facility] [phone] WBC 10.32 K/cmm 3.60-11.20 RBC 4.56 M/ul [...] 0.7 % Dec 26, 2020 01:37 PM [facility] COMPREHENSIVE METABOLIC PA OFE Specimen Type: PLASMA No comment entered. Ordering Provider: DARIN AUGUSTIN Report Released Date/Time: Dec 21, 2020 08:23 AM Reporting Lab: [facility] [address] [facility] [address] Performing Lab: [facility] [address] [facility] [address] UREA NITROGEN mg/dL 22 mg/dL 9-25 GLUCOSE [...] H 0.7-1.3 Dec 26, 2020 01:37 PM [facility] TSH Specimen T ype: SERUM No comment entered. Ordering Provider: DARIN AUGUSTIN Report Released Date/Time: Dec 21, 2020 08:23 AM Reporting Lab: [facility] [address] [facility] [address] Performing Lab: [facility] [address] [facility] [address] TSH 4.605 uIU/mL 0.47-5.00 Dec 26, 2020 01:37 PM [facility] T4 FREE Specimen T ype: SERUM No comment entered. Ordering Provider: DARIN AUGUSTIN Report Released Date/Time: Dec 21, 2020 08:23 AM Reporting Lab: [facility] [address] [facility]. [facility] [address] Performing Lab: [facility] [address] [facility]. [facility] [address] T4 FREE 1.25 ng/dL 0.70-1.48 Vital Signs: All taken on the encounter date This section contains inpatient and outpatient Vital Signs collected on the date of the Encounter. Date/Time Temperature Pulse Blood Pressure Respiratory Rate SP02 Pa in Height Weight Body Mass Index Source Dec 28, 2020 10:43 AM 96.2 F 70 /min 128/78 mm[Hg] 20 /min 0 70 in 164.6 lb 24 [facility] Immunizations: All administered on the encounter date No Data Provided for This Section Social History: Smoking Status (Most current) and Tobacco Use (All prior to enco unter date) This section includes the most current, and the historical, smoking and tobacco- related health factors from the [place] facility where the Encounter took place. Current Smoking Status This section includes the most current smoking, or tobacco -related health factor, from the [place] facility where the Encounter took place. Date/Time Current Smoking Status Comment Facility Jun 29, 2020 09:00 AM VA-TOBACCO USER EVERY DAY [facility] Tobacco Use History This section includes a history of the smoking, or tobacco -related health factors, that were collected on or before the date of the Encoun ter. The data comes from the [place] facility where the Encounter took place. Date/Time Smoking Status/Tobacco Use Comment Facil ity Jun 29, 2020 09:00 AM VA-TOBACCO USE ADVICE [facility] Jun 29, 2020 09:00 AM VA-TOBACCO USE CHIPS SCREEN TENDER NO [facility] Jun 29, [...] 21, 2019 11:05 AM VA-TOBACCO USE ADVICE [facility] Jul 21, 2019 11:05 AM VA-TOBACCO USE CHIPS SCREEN TENDER NO [facility] Jul 21, 2019 11:05 AM VA-TOBACCO USE MED NO [facility] Jul 21, 2019 11:05 AM VA-TOBACCO USE WI 30 MIN OF WAKEUP N [facility] Jul 21, 2019 11:05 AM VA-TOBACCO USER EVERY DAY [facility] Jun 29, 2018 01:31 PM CURRENT TOBACCO USER [facility] Jun 29, 2018 01:31 PM CURRENT TOBACCO USER (NOT READY TO RAJI T) [facility] Jun 29, 2018 01:31 PM TOBACCO CESSATION REFERRAL DECLINED [facility] Jun 29, 2018 01:31 PM TOBACCO MEDS OFFERED BUT DECLINED [facility] Jun 29, 2018 01:31 PM TOBACCO USER OFFERED MEDS [facility] Dec 26, 2017 09:02 AM CURRENT TOBACCO USER [facility] Dec 26, 2017 09:02 AM CURRENT TOBACCO USER (NOT READY TO RAJI T) [facility] Dec 26, 2017 09:02 AM TOBACCO CESSATION REFERRAL DECLINED [facility] Dec 26, 2017 09:02 AM TOBACCO MEDS OFFERED BUT DECLINED [facility] Dec 26, 2017 09:02 AM TOBACCO USER OFFERED MEDS [facility] May 23, 2017 03:35 PM CURRENT TOBACCO USER [facility] May 23, 2017 03:35 PM CURRENT TOBACCO USER (NOT READY TO RAJI T) [facility] May 23, 2017 03:35 PM TOBACCO CESSATION REFERRAL DECLINED [facility] May 23, 2017 03:35 PM TOBACCO MEDS OFFERED BUT DECLINED [facility] May 23, 2017 03:35 PM TOBACCO USER OFFERED MEDS [facility] Apr 24, 2017 02:27 PM CURRENT TOBACCO USER [facility] Apr 24, 2017 02:27 PM TOBACCO MEDS OFFERED BUT DECLINED [facility] Apr 24, 2017 02:27 PM TOBACCO OFFERED STOP SMOKING CLINIC [facility] March 14, 2017 02:05 PM CURRENT TOBACCO USER [facility] March 14, 2017 02:05 PM TOBACCO MEDS OFFERED BUT DECLINED [facility] March 14, 2017 02:05 PM TOBACCO OFFERED STOP SMOKING CLINIC [facility] Apr 23, 2016 06:08 AM CURRENT TOBACCO USER [facility] Oct 18, 2015 06:02 AM CURRENT TOBACCO USER [facility] Apr 05, 2015 06:12 AM CURRENT TOBACCO USER [facility] Sep 14, 2014 06:21 AM CURRENT TOBACCO USER [facility] Dec 11, 2012 09:31 AM TOBACCO OFFERED STOP SMOKING CLINIC [facility] Dec 11, 2012 09:31 AM TOBACCO OFFERED STOP SMOKING MEDS [facility] Apr 16, 2012 12:53 PM CURRENT TOBACCO USER [facility] Jul 01, 2011 01:01 PM TOBACCO OFFERED STOP SMOKING CLINIC [facility] Jul 01, 2011 01:01 PM TOBACCO OFFERED STOP SMOKING MEDS [facility] Advance Directives: All historical and current Section Date Range: From patient's date of to the date document was create d. This section includes ALL of a patient's completed or amen ded [place] Advance and Rescinded Directives. The entries below indicate that a direc tive exists for the patient, but an actual copy is not included with this docume nt. The data comes from all [place] facilities. Date Advance Directives Provider Source May 29, 2011 ADVANCE DIRECTIVE DISCUSSION VILLA CINTRON [facility] Dec 02, 2008 CLINICAL WARNING YASMIN PRADHAN [facility] Radiology Reports: +/- 30 days of the encounter No Data Provided for This Section Pathology Reports: +/- 30 days of the encounter No Data Provided for This Section Encounter Notes: All associated encounter notes This section contains the clinical notes associated to the Encounter. Date/Time Encounter Note(s) Provider Source Dec 28, 2020 10:36 AM RISK ASSESSMENT SCREENING NO TE: LOCAL TITLE: PETR-CDI/PI SCREENING NOTE STANDARD TITLE: RISK ASSESSMENT SCREENING NOTE DATE OF NOTE: DEC 28, 2020@10:36 ENTRY DATE: DEC 28, 2020@10:36:29 AUTHOR: SELWYN LYNN COSIGNER: URGENCY: STATUS: COMPLETED Reason for Encounter: Recall with lab review and hospital follow up. ADVANCE DIRECTIVE EDUCATION: Information on Advanced Directives was provided at this visit DEPRESSION SCREEN: Perform PHQ-2 A PHQ-2 screen was performed. The score was 0 which is a negative screen for depression. Over the past two weeks, how often have you been bothered by the following problems? 1. Little interest or pleasure in doing things Not at all 2. Feeling down, depressed, or hopeless Not at all PETERS INDEX of INDEPENDENCE in ACTIVITIES OF DAILY LIVING ADD ONE POINT for each "INDEPENDENCE" ansewr DO NOT add points for any "DEPENDENCE" answer INDEPENDENCE: Bathes self completely or needs help in bathing only a single part of the body such as the back, genital area or disabled extremity (1 POINT). INDEPENDENCE: Gets clothes from closets and drawers and puts on clothes and outer garments complete with fasteners. May have help tying shoes (1 POINT). INDEPENDENCE: Goes to toilet, gets on and off, arranges clothes, cleans genital area without help (1 POINT). INDEPENDENCE: Moves in and out of bed or chair unassisted. Mechanical transferring aides are acceptable (1 POINT). INDEPENDENCE: Exercises complete self control over urination and defecation (1 POINT). INDEPENDENCE: Gets food from plate into mouth without help. Preparation of food may be done by another person (1 POINT). The Peters Index of [place] in ADL Screen had a score of 6 and is interpreted as "Fully Functional." HERMANN INSTRUMENTAL ADL SCALE Ability to use telephone: 1 point - Operates telephone on own initiative; looks up and dials numbers Shoppin point - Takes care of all shopping needs independently Food preparation: 0 points - Prepares adequate meals if supplied with ingredients Housekeepin point - Performs light daily tasks such as dishwashing, bed making Laundry: 1 point - Launders small items; rinses stockings, etc. Mode of Transportation: 0 points - Travel limited to taxi or automobile with assistance of another Responsibility for own medications: 1 point - Is responsible for taking medication in correct dosages at correct time Ability to handle finances: 1 point - Manages financial matters independently (budgets, writes checks, pays rent and bills, goes to bank), collects and keeps track of income SCORING: The total score may range from 0 - 8 (0=low function/dependent; 8=high function/independent). Total Score: 6 Temperature: 96.2 F (35.7 C) Pulse: 70 Respiration: 20 B/P: 128/78 Pain: 0 Wt: 164.6 lb (74.8 kg) Ht: 70 in [177.8 cm) Sao2: 96% Is BP over 139/89? No CLINICAL REMINDER ACTIVITY: N:Learning Assessment (PETR): PATIENT EDUCATION ASSESSMENT: LEARNING ASSESSMENT: Patient has synagogue, cultural, or ethnic preferences that impact his/her care? No Patient Preferred Health Care language is: Kiswahili LEARNING BARRIER(S) Has no barriers to learning. READINESS TO LEARN Patient is ready to learn READING ABILITY Patient reads well. LEARNING ABILITY Able PREFERRED METHOD OF LEARNING Video Suicide Screen: C-SSRS Screening [place] Suicide Severity Rating Scale (C-SSRS) screener 1. Over the past month, have you wished you were or wished you could go to sleep and not wake up? No 2. Over the past month, have you had any actual thoughts of killing yourself? No 3. Over the past month, have you been thinking about how you might do this? Response not required due to responses to other questions. 4. Over the past month, have you had these thoughts and had some intention of acting on them? Response not required due to responses to other questions. 5. Over the past month, have you started to work out or worked out the details of how to kill yourself? Response not required due to responses to other questions. 6. If yes, at any time in the past month did you intend to carry out this plan? Response not required due to responses to other questions. 7. In your lifetime, have you ever done anything, started to do anything, or prepared to do anything to end your life (for example, collected pills, obtained a gun, gave away valuables, went to the roof but didn't jump)? No 8. If YES, was this within the past 3 months? Response not required due to responses to other questions. /sasha/ Selwyn LYNN LPN Signed: 12/28/2020 10:46 SELWYN LYNN CB Dec 28, 2020 09:11 AM PRIMARY CARE NOTE: LOCAL TITLE: -PRIMARY CARE STANDARD TITLE: PRIMARY CARE NOTE DATE OF NOTE: DEC 28, 2020@09:11 ENTRY DATE: DEC 28, 2020@09:11:04 AUTHOR: DARIN AUGUSTIN EXP COSIGNER: URGENCY: STATUS: COMPLETED -PRIMARY CARE Has ADDENDA CC: Hospital follow up, due for recall He was admitted to [facility] with COPD exacerbation and had supplemental oxygen on admission. No antibiotics were started chest x-ray was negative for infiltrate. He had resp therapy and breathing treatments. He was able to titrate off oxygen. Creatinine was elevated but appeared to be near baseline according to the discharge summary. "Appears patient's creatinine is 1.9-2" He does not have any albuterol for nebulizer use at home, daughter requesting to get some from [facility]. He has no fever. He has production of yellowish phlegm. Daughter states he seems a little short of air at times. He was prescribed a steroid upon discharge and family did not pick it up, he did not start it as recommended and the prescription is at the local pharmacy. His Metformin was discontinued upon discharge due to kidney function results. They have not checked his blood sugar. Per daughter he is eating and drinking without problems. K+ noted to be 5.5 during hospitalization, given kayexalate. Today: Says he continues to be sob since his hospitalization. Has a nebulizer, got new solution yesterday. Has not used the neb recently, uses prn. Using the albuterol inhaler. Says when he was dc'd from the hospital was to take prednisone. Daughter says they never got it filled. Denies fever. Has cut back significantly on smoking and finally stopped, has not smoked for 3- 4 days. PMH/Current Medical Problems: Active Problem Coronary artery disease (SNOMED CT 43513838) 10/18/2015 DARIN AUGUSTIN Hypertension (SNOMED CT 65669127) I10. 10/18/2015 DARIN AUGUSTIN Hyperlipidemia (SNOMED CT 15973008) E78.2 10/18/2015 DARIN AUGUSTIN Diabetes mellitus (SNOMED CT 09523072) E11.9 10/18/2015 DARIN AUGUSTIN Hypothyroidism (SNOMED CT 39252663) E03.9 10/18/2015 DARIN AUGUSTIN Chronic obstructive lung disease (SNOMED CT 1 10/18/2015 DARIN AUGUSTIN Tobacco dependence (SNOMED CT 70434068) F17.2 10/18/2015 DARIN AUGUSTIN Gastroesophageal reflux disease (SNOMED CT 23 10/18/2015 DARIN AUGUSTIN Hearing loss (SNOMED CT 55496517) 389.9 11/17/2013 RAMON FUNEZ Depression F33.9 03/17/2017 DARIN AUGUSTIN Gout M10.9 10/03/2017 SHARLENE WILSON Comanaged Providers: None Past surgical Hx: Cardiac stent 1996, in [place] Right hip replacement 2011 t&a 196 Social Hx: , lives in [place], [place]. Smokes 3/4ppd, no chew, rare alcohol Family Hx: Mother of mi at age 62 yr old Father of copd at 80 yr old Medications: Active and Recently Outpatient Medications (including Supplies): Active Outpatient Medications Status 1) ALBUTEROL 90MCG (CFC-F) 200D ORAL I NHL INHALE 2 PUFFS ACTIVE BY ORAL INHALATION FOUR TIMES A DAY NEEDED FOR SHORTNESS OF BREATH/ COPD 2) ASPIRIN 81MG EC TAB TAKE ONE TABLET BY MOUTH ONCE A ACTIVE DAY *DO NOT CHEW TABLET* 3) ATORVASTATIN CALCIUM 20MG TAB TAKE ONE-HALF TABLET BY ACTIVE MOUTH AT BEDTIME FOR CHOLESTEROL - REPORT ANY UNEXPLAINED MUSCLE PAIN/WEAKNESS TO YOUR PROVIDER 4) CALCIUM 500MG (CA CARB-1.25GM) TAB TAKE TWO TABLETS ACTIVE BY MOUTH ONCE A DAY 5) CHOLECALCIF 25MCG (D3-1,000UNIT) TA B TAKE ONE TABLET ACTIVE BY MOUTH ONCE A DAY FOR VITAMIN D DEFICIENCY 6) FENOFIBRATE 48MG TAB TAKE ONE TABLE T BY MOUTH ONCE A ACTIVE DAY FOR TRIGLYCERIDES (N/F APPROVED) not taking HYDROXYZINE, caused nightmares 8) LEVOTHYROXINE NA (SYNTHROID) 100MCG TAB TAKE [...] THE SAME TIME EACH DAY WITH FOOD. Pending Outpatient Medications Status 1) ALBUTEROL SO4 0.083% INHL 3ML USE 3 MLS (1 AMPULE) IN PENDING NEBULIZER FOR INHALATION TWO TIMES A DAY NEEDED 15 Total Medications Current Allergies/Drug Reactions: BACTRIM DS, TRAZODONE ROS: Complete 12 point ROS is negative except as indicated Temperature: 96.2 F (35.7 C) Pulse: 70 Respiration: 20 B/P: 128/78 Pain: 0 Wt: 164.6 lb (74.8 kg) Ht: 70 in [177.8 cm) Sao2: 96% PE: Card: Regular S1S2. Resp: Lungs diminished but ct GI: Soft and non tender : No cva tenderness Musculoskeletal: AROM. No edema. Skin: Warm and dry, normal color. Neuro: CN 2-12 intact. Psyche: A&O x 3. No acute distress. Broad affect. Good eye contact. Today's Lab Results: 12/26/20 13:48 *MICROALBUMIN,RAND < 5 12/26/20 13:48 *MICROALB/CREAT c omment 12/26/20 13:48 *UR CREATININE 4 3.6 12/26/20 13:37 T4 FREE 1 .25 12/26/20 13:37 TSH 4 .605 12/26/20 13:37 HEMOGLOBIN A1C 7 .1H 12/26/20 13:37 WBC 1 0.32 02/23/21 13:37 RBC 4 .56 12/26/20 13:37 HGB 1 3.2 12/26/20 13:37 HCT 4 1.4 12/26/20 13:37 MCV 9 0.8 12/26/20 13:37 MCH 2 8.9 12/26/20 13:37 MCHC 3 1.9L 12/26/20 13:37 RDW 1 4.1 12/26/20 13:37 PLATELET COUNT 3 23 12/26/20 13:37 MPV 1 0.3 12/26/20 13:37 LYMPHOCYTES, AUTO% 2 3.6 12/26/20 13:37 MONOCYTES, ABSOLUT 1 .09H 12/26/20 13:37 EOSINOPHILS, ABSOL 0 .20 12/26/20 13:37 BASOPHILS, ABSOLUT 0 .04 12/26/20 13:37 NEUTROPHILS, ABSOL 6 .48 12/26/20 13:37 NEUTROPHILS, AUTO 6 2.8 12/26/20 13:37 MONOCYTES, AUTO% 1 0.6 12/26/20 13:37 EOSINOPHILS, AUTO% 1 .9 12/26/20 13:37 BASOPHILS, AUTO% 0 .4 12/26/20 13:37 LYMPHOCYTES, ABSOL 2 .44 12/26/20 13:37 IMMATURE GRANS, AB 0 .07H 12/26/20 13:37 IMMATURE GRANS, AU 0 .7 12/26/20 13:37 GLUCOSE 1 12H 12/26/20 13:37 UREA NITROGEN mg/d 2 2 12/26/20 13:37 *CREATININE 1 .56H 12/26/20 13:37 SODIUM 1 34L 12/26/20 13:37 POTASSIUM 5 .0 12/26/20 13:37 CALCIUM (mg/dL) 1 0.0 12/26/20 13:37 PROTEIN,TOTAL 7 .2 12/26/20 13:37 ALBUMIN 3 .7 12/26/20 13:37 TOTAL BILIRUBIN 0 .5 12/26/20 13:37 ASPARTATE TRANSAMI 1 1 12/26/20 13:37 ALANINE AMINOTRANS 8 12/26/20 13:37 ANION GAP 9 .0 12/26/20 13:37 CHLORIDE 9 6L 12/26/20 13:37 CO2 2 9 12/26/20 13:37 ALKALINE PHOSPHATA 6 4 12/26/20 13:37 LDL DIRECT PETR,EK,W 9 7 12/26/20 13:37 EGFR 4 3.1 Lab reviewed with vet and daughter today PREVENTIVE: Immunizations Reviewed Assessment/Plan: 1. Copd Exacerbation, post hospitalization at [facility], declines pred pack on inhalers, has a nebulizer 1. Diabetes Mellitus, at goal, no longer on metformin which was dc'd during hospitalization locally due to creat 2. Hypertension, at goal, on metoprolol and lisinopril 3. Hyperlipidemia, at goal, on atorvastatin and fenofibrate 4. Cad, on metoprolol and asa, asymptomatic, not following with cardiology 5. Copd, 6. Gerd, on omeprazole 7. Hypothyroidism, on levothyroxine 8. Bph, on tamsulosin, pvr today 06/29/2020: 28ml 9. Insomnia, melatonin and sertraline ineffective, trazodone caused mood changes, not taking hydroxyzine as it caused nightmares 10. Microscopic Hematuria, declines urology consult for work up 11. Tobacco Dependence, had cut back and stopped smoking 3-4 days ago, 12/24/2020 12. Hyperkalemia, recheck is normal Additional Plan: declines pred dose pack use the nebulizer when at home covid vaccine at [facility] info 6md (per request) Lab with recall: Cbc w diff, cmp, lipid profile, Ua w micro, random microalbumin, A1c, Tsh, Free T4 Clinical Reminders: CLINICAL REMINDER ACTIVITY: P:Elopement Risk Assessment (PETR): ELOPEMENT RISK ASSESSMENT Conditions that might lead to this decision may include but not limited to: Low risk of elopement P:HIV Screening (PETR): Patient has been offered HIV testing and has declined. I have explained that HIV testing is recommended for all adults, even if all risk factors are absent. Relationship Health & Safety Screen: RELATIONSHIP HEALTH & SAFETY SCREEN ENVIRONMENTAL SAFETY CHECK: Screening is not completed at this time due to: Another adult is present. Herpes Zoster (Shingles) Vaccine: The patient declines to receive the herpes zoster vaccine. Comment: wants to get covid vaccine P:Medication Reconciliation (PETR): Medication Reconciliation Allergy Review: FACILITY ALLERGY/ADR -------- No Remote Allergy/ADR Data available for this patient [facility], VISN 15 BACTRIM DS [facility], V[facility] 15 TRAZODONE ACTIVE OUTPATIENT MEDICATION(S) TODAY: Medication (Local) Status ALBUTEROL 90MCG (CFC-F) 200D ORAL INHL Reviewed Directions: INHALE 2 PUFFS BY ORAL INHALATION FOUR TIMES A DAY NEEDED FOR SHORTNESS OF BREATH/ COPD Quantity: 1 for 25 days Provider: DARIN AUGUSTIN Issued: 11/06/20 Filled: 12/13/20 Expires: 11/07/21 Refills: 1 Status: ACTIVE ALBUTEROL SO4 0.083% INHL 3ML Reviewed Directions: USE 3 MLS (1 AMPULE) IN NEBULIZER FOR INHALATION TWO TIMES A DAY NEEDED Quantity: 60 for 30 days Provider: DARIN AUGUSTIN Issued: 12/21/20 Filled: 12/22/20 Expires: 12/22/21 Refills: 3 Status: ACTIVE ASPIRIN 81MG EC TAB Reviewed Directions: TAKE ONE TABLET BY MOUTH ONCE A DAY *DO NOT CHEW TABLET* Quantity: 120 for 90 days Provider: DAIRN AUGUSTIN Issued: 10/22/20 Filled: 10/23/20 Expires: 10/23/21 Refills: 3 Status: ACTIVE ATORVASTATIN CALCIUM 20MG TAB Reviewed Directions: TAKE ONE-HALF TABLET BY MOUTH AT BEDTIME FOR CHOLESTEROL - REPORT ANY UNEXPLAINED MUSCLE PAIN/WEAKNESS TO YOUR PROVIDER Quantity: 45 for 90 days Provider: DARIN AUGUSTIN Issued: 06/29/20 Filled: 12/30/20 Expires: 06/30/21 Refills: 2 Status: ACTIVE CHOLECALCIF 25MCG (D3-1,000UNIT) TAB Reviewed Directions: TAKE ONE TABLET BY MOUTH ONCE A DAY FOR VITAMIN D DEFICIENCY Quantity: 100 for 90 days Provider: DARIN AUGUSTIN Issued: 02/15/20 Filled: 12/30/20 Expires: 02/15/21 Refills: 0 Status: ACTIVE FENOFIBRATE 48MG TAB Reviewed Directions: TAKE ONE TABLET BY MOUTH ONCE A DAY FOR TRIGLYCERIDES (N/F APPROVED) Quantity: 90 for 90 days Provider: DARIN AUGUSTIN Issued: 06/29/20 Filled: 12/30/20 Expires: 06/30/21 Refills: 2 Status: ACTIVE LEVOTHYROXINE NA (SYNTHROID) 100MCG TAB Reviewed Directions: TAKE ONE TABLET BY MOUTH EVERY MORNING BEFORE MEAL TAKE ON AN EMPTY STOMACH Quantity: 90 for 90 days Provider: DARIN AUGUSTIN Issued: 03/14/20 Filled: 12/30/20 Expires: 03/15/21 Refills: 0 Status: ACTIVE METOPROLOL TARTRATE 50MG TAB Reviewed Directions: TAKE ONE-HALF TABLET BY MOUTH TWO TIMES A DAY FOR HEART OR BLOOD PRESSURE Quantity: 90 for 90 days Provider: DARIN AUGUSTIN Issued: 06/29/20 Filled: 12/30/20 Expires: 06/30/21 Refills: 2 Status: ACTIVE OLODATEROL/TIOTROP 2.5MCG/ACTUAT 60D INH Reviewed Directions: INHALE 2 PUFFS BY ORAL INHALATION ONCE A DAY Quantity: 3 for 90 days Provider: DARIN AUGUSTIN Issued: 06/29/20 Filled: 11/06/20 Expires: 06/30/21 Refills: 2 Status: ACTIVE OMEPRAZOLE 20MG EC CAP Reviewed [...] days Provider: DARIN AUGUSTIN Issued: 07/14/20 Filled: 07/14/20 Expires: 07/15/21 Refills: 3 Status: ACTIVE TAMSULOSIN HCL 0.4MG CAP Reviewed Directions: TAKE ONE CAPSULE BY MOUTH ONCE A DAY FOR PROSTATE. TAKE AT THE SAME TIME EACH DAY WITH FOOD. Quantity: 90 for 90 days Provider: DARIN AUGUSTIN Issued: 06/29/20 Filled: 11/08/20 Expires: 06/30/21 Refills: 2 Status: ACTIVE CALCIUM 500MG (CA CARB-1.25GM) TAB Reviewed Directions: TAKE TWO TABLETS BY MOUTH ONCE A DAY Quantity: 180 for 90 days Provider: DARIN AUGUSTIN Issued: 06/29/20 Filled: 02/26/21 Expires: 06/30/21 Refills: 1 Status: ACTIVE/SUSP LISINOPRIL 20MG TAB Reviewed Directions: TAKE ONE-HALF TABLET BY MOUTH EVERY MORNING Quantity: 45 for 90 days Provider: DARIN AUGUSTIN Issued: 06/29/20 Filled: 12/28/20 Expires: 06/30/21 Refills: 2 Status: ACTIVE/SUSP OUTSIDE LOCAL ND FACILITY MEDICATION(S) TODAY: Medication (Remote) Status No remote medications found. ACTIVE NON-VA MEDICATION(S) TODAY: Medication (Local) Status No local medications found. MEDICATION(S) (Last 90 days): Medication (Local) Status No local medications found. Medication (Remote) Status No remote medications found. PENDING MEDICATION(S) TODAY: Medication (Local) Status ALBUTEROL 90MCG (CFC-F) 200D ORAL INHL Reviewed Directions: INHALE 2 PUFFS BY ORAL INHALATION FOUR TIMES A DAY NEEDED FOR SHORTNESS OF BREATH/ COPD Quantity: 1 Schedule: QID PRN Special: INHALE 2 PUFFS INHL ORAL QID PRN Status: PENDING Medication (Remote) Status No remote [...] Status: DISCONTINUED DC Reason: Renewed by Pharmacy HYDROXYZINE HCL 25MG TAB Reviewed Directions: TAKE [...] provided an updated medication list to the Caregiver. Patient and/or caregiver stated understanding of all instruction and education given today. REVIEW OF THE ESSENTIAL MEDICATION LIST FOR REVIEW AT THE TIME OF THIS ENCOUNTER INCLUDED: REMOTE AND LOCAL FACILITY PATIENT ALLERGIES, AND ACTIVE AND PENDING PRESCRIPTIONS DISPENSED FROM THIS ND (LOCAL) AND DISPENSED FROM ANOTHER ND OR [facility] FACILITY (REMOTE) WELL LOCAL INPATIENT AND CLINIC MEDICATIONS (IMOS), LOCALLY DOCUMENTED NON-VA MEDICATIONS AND LOCAL PRECRIPTIONS THAT HAVE OR BEEN DISCONTINUED IN THE PAST 90 DAYS. WITH THE EXCEPTION OF ALLERGIES, IF A CATEGORY IS NOT LISTED ABOVE, IT MEANS THERE WERE NO RELEVANT MEDICATIONS FOR THE PATIENT. POTENTIAL ADVERSE REACTIONS OF NEW OR CHANGED MEDICATIONS WERE DISCUSSED WITH THE PATIENT AND/OR CAREGIVER. /sasha/ [place] Augustin APRN Signed: 12/28/2020 12:36 12/31/2020 ADDENDUM STATUS: COMPLETED lab okay, a1c 7.1, no medication changes creat 1.56, avoid nsaids, metformin was dc'd during recent hospitalization due to creat of 1.9, will continue to monitor K+ normal, 5.0, was 5.5 during recent local hospitalization and given kaylexalate Recommend to recheck bmp in 1mo (non fasting) Please notify patient /es/ Berlin Augustin ISOLATION WASHER Signed: 12/31/2020 04:49 Receipt Acknowledged By: 01/02/2021 11:28 /sasah/ Selwyn CABRERA COTTRELL OPERATOR 02/10/2021 ADDENDUM STATUS: COMPLETED Recheck creat elevated, 1.7, stable K+ okay, 5.0, high normal. Avoid high K+ foods, do not take any K+ supplements Remainder of lab okay Please notify patient /es/ [place] Augustin APRN Signed: 02/10/2021 15:39 Receipt Acknowledged By: * AWAITING SIGNATURE * SELWYN LYNN JANICE NEVADA CB Dec 27, 2020 01:33 PM ADMINISTRATIVE NOTE: LOCAL TITLE: PETR-APPT REMINDER STANDARD TITLE: ADMINISTRATIVE NOTE DATE OF NOTE: DEC 27, 2020@13:33 ENTRY DATE: DEC 27, 2020@13:34 AUTHOR: DARWIN MENDOZA COSIGNER: URGENCY: STATUS: COMPLETED Reminder call placed to at number of record this date. ___ with direct contact with [place] and his/her agreement to present as scheduled; ___ Message left for regarding scheduled appointment _x__ Unable to establish contact. no vm setup /es/ DARWIN MENDOZA Signed: 12/27/2020 13:34 DARWIN MENDOZA OC
--- OUTSIDE RECORDS SUMMARY | 2021-12-24 23:46 | XMS REPORT | Encounter Summary ---
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 Date/Time Encounter Type Encounter Description Reason Provider Source Feb 02, 2021 11:00 AM Outpatient Encounter PRIMARY CARE/MEDICINE IHE [...] comes from all [facility]. Appointment Date/Time Appointment Type Appointment Facili ty Name Jun 20, 2021 11:15 AM AMBULATORY - MEDICINE [facility] Jun 28, 2021 01:30 PM AMBULATORY - MEDICINE [facility] Jun 28, 2021 02:00 PM AMBULATORY - MEDICINE [facility] Jun 28, 2021 02:30 PM AMBULATORY - NONE [facility] Jul 12, 2021 11:15 AM AMBULATORY - MEDICINE [facility] Jul 13, 2021 10:00 AM AMBULATORY - NONE [facility], VISN 15 Jul 23, 2021 03:20 PM AMBULATORY - NONE [facility], VISN 15 Active, Pending, and Scheduled Orders [...] comes from all [facility]. Test Date/Time Test Type Test Details Facility Name Feb 01, 2021 12:00 AM Laboratory - Chemistry Order COVID-19 DIAGNOSTIC (RESP PANEL) NASOPHARYNGEAL SWAB NASOPHARYNX SP [facility] Surgical Procedures: All associated to the encounter [...] Range Comment Feb 02, 2021 10:31 AM [facility] BASIC METABOLIC PANEL Spe cimen Type: PLASMA No comment entered. Ordering Provider: DARIN ELY Report Released Date/Time: Dec 31, 2020 04:49 AM Reporting Lab: [facility] [address] [facility] [phone] Performing Lab: [facility] [address] [facility] [phone] *CREATININE 1.70 mg/dL H 0.7-1.3 UREA NITROGEN [...] and tobacco- related health factors from the [place] facility where the Encounter took place. Current Smoking Status This section includes the most current smoking, or tobacco -related health factor, from the [place] facility where the Encounter took place. Date/Time Current Smoking Status Comment Facility Jun 29, 2020 09:00 AM VA-TOBACCO USER EVERY DAY [facility] Tobacco Use History This section includes a history of the smoking, or tobacco -related health factors, that were collected on or before the date of the Encoun ter. The data comes from the [place] facility where the Encounter took place. Date/Time Smoking Status/Tobacco Use Comment Veronica harper Jun 29, 2020 09:00 AM VA-TOBACCO USE ADVICE [facility] Jun 29, 2020 09:00 AM VA-TOBACCO USE ROUTE JUMPER NO [facility] Jun 29, [...] Jul 21, 2019 11:05 AM VA-TOBACCO USE ROUTE JUMPER NO [facility] Jul 21, 2019 11:05 AM VA-TOBACCO USE MED NO [place] [facility] Jul 21, 2019 11:05 AM VA-TOBACCO USE WI 30 MIN OF WAKEUP N [facility] Jul 21, 2019 11:05 AM VA-TOBACCO USER EVERY DAY [place] Jun 29, 2018 01:31 PM CURRENT TOBACCO USER [facility] Jun 29, 2018 01:31 PM CURRENT TOBACCO USER (NOT READY TO RAJI T) [facility] Jun 29, 2018 01:31 PM TOBACCO CESSATION REFERRAL DECLINED [facility] Jun 29, 2018 01:31 PM TOBACCO MEDS OFFERED BUT DECLINED NE [facility] Jun 29, 2018 01:31 PM TOBACCO USER OFFERED MEDS [place] Dec 26, 2017 09:02 AM CURRENT TOBACCO USER [facility] Dec 26, 2017 09:02 AM CURRENT TOBACCO USER (NOT READY TO RAJI T) [facility] Dec 26, 2017 09:02 AM TOBACCO CESSATION REFERRAL DECLINED [facility] Dec 26, 2017 09:02 AM TOBACCO MEDS OFFERED BUT DECLINED [facility] Dec 26, 2017 09:02 AM TOBACCO USER OFFERED MEDS [place] [facility] May 23, 2017 03:35 PM CURRENT TOBACCO USER [facility] May 23, 2017 03:35 PM CURRENT TOBACCO USER (NOT READY TO RAJI T) [facility] May 23, 2017 03:35 PM TOBACCO CESSATION REFERRAL DECLINED [facility] May 23, 2017 03:35 PM TOBACCO MEDS OFFERED BUT DECLINED [facility] May 23, 2017 03:35 PM TOBACCO USER OFFERED MEDS [place] [facility] Apr 24, 2017 02:27 PM CURRENT TOBACCO USER [facility] Apr 24, 2017 02:27 PM TOBACCO MEDS OFFERED BUT DECLINED [facility] Apr 24, 2017 02:27 PM TOBACCO OFFERED STOP SMOKING CLINIC [facility] March 14, 2017 02:05 PM CURRENT TOBACCO USER [facility] March 14, 2017 02:05 PM TOBACCO MEDS OFFERED BUT DECLINED [facility] March 14, 2017 02:05 PM TOBACCO OFFERED STOP SMOKING CLINIC [facility] Apr 23, 2016 06:08 AM CURRENT TOBACCO USER [facility] Oct 18, 2015 06:02 AM CURRENT TOBACCO USER [facility] Apr 05, 2015 06:12 AM CURRENT TOBACCO USER [facility] Sep 14, 2014 06:21 AM CURRENT TOBACCO USER [place] [facility] Dec 11, 2012 09:31 AM TOBACCO OFFERED STOP SMOKING CLINIC [facility] Dec 11, 2012 09:31 AM TOBACCO OFFERED STOP SMOKING MEDS [facility] [place] Apr 16, 2012 12:53 PM CURRENT TOBACCO USER [facility] Jul 01, 2011 01:01 PM TOBACCO OFFERED STOP SMOKING CLINIC [facility] Jul 01, 2011 01:01 PM TOBACCO OFFERED STOP SMOKING MEDS [place] Advance Directives: All historical and current [...] 29, 2011 ADVANCE DIRECTIVE DISCUSSION VILLA CINTRON [facility] Dec 02, 2008 CLINICAL WARNING YASMIN PRADHAN [facility] Radiology Reports: +/- 30 days of the encounter No Data Provided for This Section Pathology Reports: +/- 30 days of the encounter No Data Provided for This Section Encounter Notes: All associated encounter notes No Data Provided for This Section
--- OUTSIDE RECORDS SUMMARY | 2021-12-24 23:47 | XMS REPORT | Encounter Summary ---
Author Author [facility] RENEE emerson Organization [facility] Address Unknown Phone Unavailable Care Team Providers Care Skein Yard Drier Name Role Phone DARIN ELY PCP Unavailable [...] (WNR) MEDICAID MEDICAID Nov 03, 2014 MEDICAID [id number] [phone] RAE ARRIAGAIL PATIENT MEDICARE (WNR) MEDICARE (M) PART B Feb 02, 2020 PART B [id number] [place] PATIENT MEDICARE (WNR) MEDICARE (M) PART A Jan 01, 2006 PART A [id number] BAR[place]EN[place] PATIENT MEDICARE (WNR) MEDICARE (M) PART A Jan 01, 2006 PART A [id number] RENEE ARRIAGA PATIENT Selected Encounter This section includes the information on record at [place] for the Encounter. Date/Time Encounter Type Encounter Description Reason Provider Source Dec 28, 2020 12:00 AM Outpatient Encounter EVENT (HISTORICAL) IHE Encounter Template Text not used by [facility] Assessments - Encounter Diagnoses No Data Provided for This Section Plan of Treatment: Future Appointments (+ 6 months) and Future Tests (+/- 45 day s) The Plan of Treatment section includes future care activities for the patient fr om all [place] treatment facilities. This section includes future appointments and fu ture orders which are active, pending or scheduled. Future Appointments This section includes appointments that were scheduled t o occur 6 months from the date of the Encounter, up to a maximum of 20 appointme nts. The data comes from all [facility]. Appointment Date/Time Appointment Type Appointment Facili ty Name Jan 05, 2021 11:45 AM [facility] - [facility]INE [facility] Feb 02, 2021 11:00 AM [facility] Feb 02, 2021 11:45 AM [facility] [place] [facility] Jun 20, 2021 11:15 AM [facility] [...] the Encounter. The data comes from all [facility]. Test Date/Time Test Type Test Details Facility Name Feb 01, 2021 12:00 AM Laboratory - Chemistry Order COVID-19 DIAGNOSTIC (RESP PANEL) NASOPHARYNGEAL SWAB NASOPHARYNX SP [facility] Surgical Procedures: All associated to the encounter No Data Provided for This Section Lab Results: +/- 30 days of the encounter This section includes the Chemistry and Hematology Lab R esults on record with [place] for the patient. Radiology Reports and Pathology Report s are provided separately, in subsequent sections. Lab Results This section contains the Chemistry/Hematology Results christina t were resulted 30 days before or 30 days after the date of the Encounter. Date/Time Source Result Type Result - Unit Interpretation Reference Range Comment Dec 26, 2020 01:48 PM [facility] MICROALBUMIN (PETR,WI) RANDO M URINE Specimen Type: URINE Comment: Unable to perform calculation - Missing required test results Ordering Provider: DARIN ELY Report Released Date/Time: Dec 21, 2020 08:23 AM Reporting Lab: [facility] [address] [facility] [phone] Performing Lab: [facility] [address] [facility] [address] *MICROALBUMIN,RAND <5 ug/mL *MICROALB/CREAT comment *UR CREATININE 43.6 mg/dL Dec 26, 2020 01:37 PM [facility] HEMOGLOBIN A1C Specimen T ype: BLOOD No comment entered. Ordering Provider: DARIN ELY Report Released Date/Time: Dec 21, 2020 08:23 AM Reporting Lab: [facility] [address] [facility] [phone] Performing Lab: [facility] [address] [facility] [address] HEMOGLOBIN A1C 7.1 % H 4.0-6.0 Dec 26, 2020 01:37 PM [facility] LDL DIRECT PETR,EK,WI Speci men Type: PLASMA No comment entered. Ordering Provider: DARIN ELY Report Released Date/Time: Dec 21, 2020 08:23 AM Reporting Lab: [facility] [address] [facility] [address] Performing Lab: [facility] [address] [facility] [address] LDL DIRECT PETR,EK,WI 97 mg/dL 0-99 Dec 26, 2020 01:37 PM [facility] CBC & DIFF Specimen T ype: BLOOD No comment entered. Ordering Provider: DARIN ELY Report Released Date/Time: Dec 21, 2020 08:23 AM Reporting Lab: [facility] [address] [facility] [address] Performing Lab: [facility] [address] [facility] [address] WBC 10.32 K/cmm 3.60-11.20 RBC 4.56 M/ul [...] % Dec 26, 2020 01:37 PM [facility] COMPREHENSIVE METABOLIC PA OFE Specimen Type: PLASMA No comment entered. Ordering Provider: DARIN ELY Report Released Date/Time: Dec 21, 2020 08:23 AM Reporting Lab: [facility] [address] [facility] [phone] Performing Lab: [facility] [address] [facility] [phone] UREA NITROGEN mg/dL 22 mg/dL 9-25 GLUCOSE [...] 0.7-1.3 Dec 26, 2020 01:37 PM [facility] TSH Specimen T ype: SERUM No comment entered. Ordering Provider: DARIN ELY Report Released Date/Time: Dec 21, 2020 08:23 AM Reporting Lab: [facility] [address] [facility] [facility] [phone] Performing Lab: [facility] [address] [facility] [address] TSH 4.605 uIU/mL 0.47-5.00 Dec 26, 2020 01:37 PM [facility] T4 FREE Specimen T ype: SERUM No comment entered. Ordering Provider: DARIN EYL Report Released Date/Time: Dec 21, 2020 08:23 AM Reporting Lab: [facility] [address] [facility] [facility] [phone] Performing Lab: [facility] [address] [facility] [facility] [phone] T4 FREE 1.25 ng/dL 0.70-1.48 Vital [...] of a patient's completed or amen ded [place] Advance and Rescinded Directives. The entries below indicate that a direc tive exists for the patient, but an actual copy is not included with this docume nt. The data comes from all [place] facilities. Date Advance Directives Provider Source May 29, 2011 ADVANCE DIRECTIVE DISCUSSION VILLA CINTRON [facility] Dec 02, 2008 CLINICAL [...]
--- OUTSIDE RECORDS SUMMARY | 2021-12-24 23:47 | XMS REPORT | Encounter Summary ---
Author Author [facility] RENEE emerson Organization [facility] Address Unknown Phone Unavailable Care Team Providers Care Infrastructure Tech Name Role Phone DARIN ELY PCP [...] (WNR) MEDICAID MEDICAID Nov 03, 2014 MEDICAID [id number] [phone] RENEE ARRIAGA PATIENT MEDICARE (WNR) MEDICARE (M) PART B Feb 02, 2020 PART B [id number] [phone] RENEE ARRIAGA PATIENT MEDICARE (WNR) MEDICARE (M) PART A Jan 01, 2006 PART A [id number] [phone] RENEE ARRIAGA PATIENT MEDICARE (WNR) MEDICARE (M) PART A Jan 01, 2006 PART A [id number] [phone] ARRIAGARENEE PATIENT Selected Encounter This section includes the information on record at [place] for the Encounter. Date/Time Encounter Type Encounter Description Reason Provider Source Dec 26, 2020 11:30 AM Outpatient Encounter PRIMARY CARE/MEDICINE IHE Encounter Template Text not used by [facility] Assessments - Encounter Diagnoses No Data Provided for This Section Plan of Treatment: Future Appointments (+ 6 months) and Future Tests (+/- 45 day s) The Plan of Treatment section includes future care activities for the patient fr om all [place] treatment facilities. This section includes future appointments and fu ture orders which are active, pending or scheduled. Future Appointments This section includes appointments that were scheduled t o occur 6 months from the date of the Encounter, up to a maximum of 20 appointme nts. The data comes from all [facility]. Appointment Date/Time Appointment Type Appointment Facili ty Name Dec 28, 2020 10:30 AM AMBULATORY - MEDICINE [facility] Jan 05, 2021 11:45 AM AMBULATORY - MEDICINE [facility] Feb 02, 2021 11:00 AM AMBULATORY - MEDICINE [facility] Feb 02, 2021 11:45 AM AMBULATORY - MEDICINE [facility] Jun 20, 2021 11:15 AM AMBULATORY - MEDICINE [facility] Active, Pending, and Scheduled Orders [...] the Encounter. The data comes from all [facility]. Test Date/Time Test Type Test Details Facility Name Feb 01, 2021 12:00 AM Laboratory - Chemistry Order COVID-19 DIAGNOSTIC (RESP PANEL) NASOPHARYNGEAL SWAB NASOPHARYNX SP [facility] Surgical Procedures: All associated [...] Range Comment Dec 26, 2020 01:48 PM [facility] MICROALBUMIN (PETR,WI) RATNA M URINE Specimen Type: URINE Comment: Unable to perform calculation - Missing required test results Ordering Provider: DARIN ELY Report Released Date/Time: Dec 21, 2020 08:23 AM Reporting Lab: [facility] [address] [facility]. [facility] [address] Performing Lab: [facility] [address] [facility] [address] *MICROALBUMIN,RAND <5 ug/mL *MICROALB/CREAT comment *UR CREATININE 43.6 mg/dL Dec 26, 2020 01:37 PM [facility] HEMOGLOBIN A1C Specimen T ype: BLOOD No comment entered. Ordering Provider: DARIN ELY Report Released Date/Time: Dec 21, 2020 08:23 AM Reporting Lab: [facility] [address] [facility] [address] Performing Lab: [facility] [address] [facility] [address] HEMOGLOBIN A1C 7.1 % H 4.0-6.0 Dec 26, 2020 01:37 PM [facility] LDL DIRECT PETR,EK,WI Speci men Type: PLASMA No comment entered. Ordering Provider: DARIN ELY Report Released Date/Time: Dec 21, 2020 08:23 AM Reporting Lab: [facility] [address] [facility]. [facility] [address] Performing Lab: [facility] [address] [facility] [address] LDL DIRECT PETR,EK,WI 97 mg/dL 0-99 Dec 26, 2020 01:37 PM [facility] CBC & DIFF Specimen T ype: BLOOD No comment entered. Ordering Provider: DARIN ELY Report Released Date/Time: Dec 21, 2020 08:23 AM Reporting Lab: [facility] [address] [facility] [address] Performing Lab: [facility] [address] [facility] [address] WBC 10.32 K/cmm 3.60-11.20 RBC 4.56 M/ul [...] 0.7 % Dec 26, 2020 01:37 PM [facility] COMPREHENSIVE METABOLIC PA OFE Specimen Type: PLASMA No comment entered. Ordering Provider: DARIN ELY Report Released Date/Time: Dec 21, 2020 08:23 AM Reporting Lab: [facility] [address] [facility] [address] Performing Lab: [facility] [address] [place] [address] UREA NITROGEN mg/dL 22 mg/dL 9-25 GLUCOSE [...] H 0.7-1.3 Dec 26, 2020 01:37 PM [facility] TSH Specimen T ype: SERUM No comment entered. Ordering Provider: DARIN ELY Report Released Date/Time: Dec 21, 2020 08:23 AM Reporting Lab: [facility] [address] [facility] [address] Performing Lab: [facility] [address] [facility] [address] TSH 4.605 uIU/mL 0.47-5.00 Dec 26, 2020 01:37 PM [facility] T4 FREE Specimen T ype: SERUM No comment entered. Ordering Provider: DARIN ELY Report Released Date/Time: Dec 21, 2020 08:23 AM Reporting Lab: [facility] [address] [facility] [address] Performing Lab: [facility] [address] [facility] [address] T4 FREE 1.25 ng/dL 0.70-1.48 Vital [...] and tobacco- related health factors from the [place] facility where the Encounter took place. Current Smoking Status This section includes the most current smoking, or tobacco -related health factor, from the [place] facility where the Encounter took place. Date/Time Current Smoking Status Comment Facility Jun 29, 2020 09:00 AM VA-TOBACCO USER EVERY DAY [facility] Tobacco Use History This section includes a history of the smoking, or tobacco -related health factors, that were collected on or before the date of the Encoun ter. The data comes from the [place] facility where the Encounter took place. 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 Dec 26, 2017 09:02 AM CURRENT TOBACCO USER [facility] Dec 26, 2017 09:02 AM CURRENT TOBACCO USER (NOT READY TO RAJI T) [facility] Dec 26, 2017 09:02 AM TOBACCO CESSATION REFERRAL DECLINED [facility] Dec 26, 2017 09:02 AM TOBACCO MEDS OFFERED BUT DECLINED [facility] Dec 26, 2017 09:02 AM TOBACCO USER OFFERED MEDS [facility] May 23, 2017 03:35 PM CURRENT TOBACCO USER [facility] May 23, 2017 03:35 PM CURRENT TOBACCO USER (NOT READY TO RAJI T) [facility] May 23, 2017 03:35 PM TOBACCO CESSATION REFERRAL DECLINED [place] [facility] May 23, 2017 03:35 PM TOBACCO MEDS OFFERED BUT DECLINED [facility] May 23, 2017 03:35 PM TOBACCO USER OFFERED MEDS [facility] Apr 24, 2017 02:27 PM CURRENT TOBACCO USER [place] [facility] Apr 24, 2017 02:27 PM TOBACCO MEDS OFFERED BUT DECLINED [facility] Apr 24, 2017 02:27 PM TOBACCO OFFERED STOP SMOKING CLINIC [facility] March 14, 2017 02:05 PM CURRENT TOBACCO USER [place] [facility] March 14, 2017 02:05 PM TOBACCO MEDS OFFERED BUT DECLINED [facility] March 14, 2017 02:05 PM TOBACCO OFFERED STOP SMOKING CLINIC [facility] Apr 23, 2016 06:08 AM CURRENT TOBACCO USER [facility] Oct 18, 2015 06:02 AM CURRENT TOBACCO USER [facility] Apr 05, 2015 06:12 AM CURRENT TOBACCO USER [facility] Sep 14, 2014 06:21 AM CURRENT TOBACCO USER [facility] Dec 11, 2012 09:31 [...] 2011 ADVANCE DIRECTIVE DISCUSSION [facility] Dec 02, 2008 CLINICAL WARNING [address]MIN [address] [facility] Radiology Reports: +/- 30 days of the encounter No Data Provided for This Section Pathology Reports: +/- 30 days of the encounter No Data Provided for This Section Encounter Notes: All associated encounter notes No Data Provided for This Section
[2021-12-25] MEDS ORDERED: HOLD METFORMIN - RECEIVED CONTRAST 20 ML VIAL IV ONE
[2021-12-25] MEDS ORDERED: ACETAMINOPHEN 325 MG TABLET PO PRN
[2021-12-25] MEDS ORDERED: AZITHROMYCIN INJECTION 500 MG in NS (IVPB) 250 ML IV SCH ×2 (00:15→21:00)
[2021-12-25 01:03] VITALS: BP 112/63
[2021-12-25] MEDS ORDERED: RT-ALBUTEROL/IPRATROPIUM 3 ML (DUONEB) VIAL INH PRN (01:15)
[2021-12-25] MEDS: NS IV 1000 ML 1,000 ML IV SCH ×2 (01:27→04:57)
[2021-12-25 04:00] VITALS: BP 124/66
[2021-12-25 05:49] LABS: EOSINOPHILS % (AUTO) 0 % (0-10); HEMATOCRIT 37 % (40-54); HEMOGLOBIN 12.1 g/dL (13.3-17.7); MEAN CORPUSCULAR HGB CONC 33 g/dL (32-36); MONOCYTES # (AUTO) 0.2 10^3/uL (0.0-1.0); MONOCYTES % (AUTO) 3 % (0-12)
[2021-12-25 05:50] LABS: BASOPHILS # (AUTO) 0.1 10^3/uL (0.0-0.1); BASOPHILS % (AUTO) 1 % (0-10); LYMPHOCYTES # (AUTO) 0.2 10^3/uL (1.0-4.0); LYMPHOCYTES % (AUTO) 3 % (12-44); MEAN CORPUSCULAR HEMOGLOBIN 28 pg (25-34); MEAN CORPUSCULAR VOLUME 84 fL (80-99); MEAN PLATELET VOLUME 9.8 fL (9.0-12.2); NEUTROPHILS # (AUTO) 5.9 10^3/uL (1.8-7.8); NEUTROPHILS % (AUTO) 92 % (42-75); PLATELET COUNT 134 10^3/uL (130-400); WHITE BLOOD COUNT 6.4 10^3/uL (4.3-11.0)
[2021-12-25 05:59] LABS: POTASSIUM 4.2 MMOL/L (3.6-5.0)
[2021-12-25 06:00] LABS: CALCIUM 8.3 MG/DL (8.5-10.1)
[2021-12-25 06:05] LABS: CREATININE SERUM 2.04 MG/DL (0.60-1.30)
[2021-12-25 06:15] LABS: BAND NEUTROPHILS 7 %; LYMPHOCYTES % (MANUAL) 3 %; MONOCYTES % (MANUAL) 1 %; NEUTROPHILS % (MANUAL) 89 %; RBC MORPH NORMAL; TOXIC GRANULATION/VACUOLAZATIO 1+
[2021-12-25] MEDS: inSUlin ASPART (NovoLOG) 1 UNIT/0.01 ML (CHARGE PER UNIT) SC SCH ×4 (06:18→21:02)
[2021-12-25] MEDS ORDERED: RT-ALBUTEROL/IPRATROPIUM 3 ML (DUONEB) VIAL INH SCH (07:00)
[2021-12-25] MEDS: RT-ALBUTEROL/IPRATROPIUM 3 ML (DUONEB) VIAL INH SCH ×5 (07:32→22:07)
[2021-12-25 07:48] VITALS: BP 113/66
--- NOTE | 2021-12-25 08:48 | Diagnostic Imaging Report ---
INDICATION: Pneumonia. Frontal chest obtained at 08:31 a.m. There is no prior study for comparison. FINDINGS: Heart and mediastinal silhouette are normal in appearance. There is hyperinflation compatible with COPD. There is extensive alveolar infiltrate in the right midlung compatible with pneumonia. There are chronic appearing increased interstitial markings. There is calcified granuloma in the left base. There is no pneumothorax or pleural fluid. IMPRESSION: COPD changes and chronic interstitial disease. Extensive alveolar infiltrate in right midlung compatible with pneumonia. Dictated by: Dictated on workstation # [id number]
[2021-12-25] MEDS ORDERED: NS IV 1000 ML 1,000 ML IV SCH (09:00)
[2021-12-25] MEDS: cefTRIAXone 2,000 MG in NS (IVPB) 50 ML IV SCH (09:09)
[2021-12-25] MEDS: D5 LR IV SOLUTION 1,000 ML IV SCH ×3 (09:45→23:58)
[2021-12-25 11:17] VITALS: BP 122/65
[2021-12-25] MEDS ORDERED: ASPI-1238 PO (15:19)
[2021-12-25] MEDS ORDERED: RT-ALBUINH IH (15:19)
[2021-12-25] MEDS ORDERED: TMSL.4C PO (15:19)
[2021-12-25] MEDS ORDERED: ALB0.5V INH (15:19)
[2021-12-25] MEDS ORDERED: GLIP5TAB13 PO (15:19)
[2021-12-25] MEDS ORDERED: CHOL100048 PO (15:19)
[2021-12-25] MEDS ORDERED: METO50TA15 PO (15:19)
[2021-12-25] MEDS ORDERED: ATOR20TA66 PO (15:19)
[2021-12-25] MEDS ORDERED: MAGN400T39 PO (15:19)
[2021-12-25] MEDS ORDERED: LEVO100T7 PO (15:19)
[2021-12-25] MEDS ORDERED: TIOT4MIS3 IH (15:19)
[2021-12-25 16:00] VITALS: BP 136/72
--- NOTE | 2021-12-25 16:46 | History & Physical-Hospitalist ---
History of Present Illness HPI/Chief Complaint Rene Alfaro is an 81 year old male with PMH HTN, T2DM, HLD, COPD, chronic respiratory failure with hypoxia on 2.5-3 L continuously, who presented with shortness of breath. He had been more lethargic and unresponsive recently. His blood sugar was found to be low. He had a cough with sputum production which is improved. He denies fevers and chills. He denies chest pain. He denies nausea and vomiting. He denies abdominal pain. He denies diarrhea. He had pneumonia once about 15 years ago. He is a former smoker. Source: patient Exam Limitations: no limitations Date Seen 12/25/21 Time Seen by a Provider: 08:55 Attending Physician Ray Dao MD PCP No,Local Physician Referring Physician Date of Admission Dec 24, 2021 at 23:25 Home Medications & Allergies Home Medications Reviewed patient Home Medication Reconciliation performed by pharmacy medication reconciliations generator technician and/or nursing. Patients Allergies have been reviewed. Allergies Allergies Coded Allergies sulfamethoxazole (Verified Allergy, Unknown, 12/24/21) trazodone (Verified Allergy, Unknown, 12/24/21) trimethoprim (Verified Allergy, Unknown, 12/24/21) Past Wiylhbn-Bepnit-Hcyxsb Hx Patient Social History Tobacco Use?: Yes Smoking Status: Former Smoker Smokeless Tobacco Frequency: Never a User Use of E-Cig and/or Vaping Albino: Never a User Substance use?: No Alcohol Use?: No Pt feels they are or have been: No Immunizations Up To Date Date of Influenza Vaccine: Dec 25, 2021 Tetanus Booster (TDap): Unknown Hepatitis A: No Hepatitis B: No Current Status Advance Directives: No Communicates: Verbally Primary Language: Yi Preferred Spoken Language: Yi Is interpretation needed?: No Implanted or Applied Medical D: None Past Medical History COPD High Cholesterol, Hypertension Diabetes, Non-Insulin dep Family Medical History No Pertinent Family Hx Review of Systems Constitutional: no symptoms reported EENTM: no symptoms reported Respiratory: cough, short of breath Cardiovascular: no symptoms reported Gastrointestinal: no symptoms reported Genitourinary: no symptoms reported Musculoskeletal: no symptoms reported Skin: no symptoms reported Psychiatric/Neurological: No Symptoms Reported Physical Exam Physical Exam Vital Signs Vital Signs - First Documented 12/24/21 12/25/21 23:25 01:03 Temp 36.6 Pulse 59 Resp 16 B/P (MAP) 112/63 (79) Pulse Ox 92 O2 Delivery Nasal Cannula O2 Flow Rate 4.00 FiO2 36 Capillary Refill : Height, Weight, BMI Height: '" Weight: lbs. oz. kg; 26.17 BMI Method: General Appearance: No Apparent Distress, WD/WN HEENT: PERRL/EOMI, Pharynx Normal Neck: Normal Inspection, Supple Respiratory: No Respiratory Distress, Wheezing Cardiovascular: Regular Rate, Rhythm, No Edema, No Murmur Gastrointestinal: Normal Bowel Sounds, Non Tender, Soft Extremity: Normal Inspection, Non Tender, No Pedal Edema Neurologic/Psychiatric: Alert, Oriented x3, No Motor/Sensory Deficits, Normal Mood/Affect Skin: Normal Color, Warm/Dry Results Results/Procedures Labs Laboratory Tests 12/25/21 05:41 Patient resulted labs reviewed. Imaging: Reviewed Imaging Report Assessment/Plan Admission Diagnosis Sepsis due to pneumonia Admission Status: Inpatient Order (span 2 midnights) Reason for Inpatient Admission: Respiratory failure Assessment and Plan Sepsis due to pneumonia COPD Acute on chronic respiratory failure with hypoxia CXR with RML pneumonia Procalcitonin significantly elevated Obtain blood culture results from [place] Rocephin and Azithromycin IV fluids Supplemental oxygen as needed, slighly above baseline 2.5-3 L ADAN Unknown baseline creatinine Cr 2 IV fluids T2DM with hypoglycemia Hold glipizide Dextrose containing fluids Sliding scale insulin HTN HLD Continue home meds DVT prophylaxis: Lovenox Diagnosis/Problems Diagnosis/Problems (1) Sepsis due to pneumonia Status: Acute (2) Acute on chronic respiratory failure with hypoxia Status: Acute (3) COPD (chronic obstructive pulmonary disease) Status: Chronic (4) ADAN (acute kidney injury) Status: Acute (5) Elevated procalcitonin Status: Acute (6) T2DM (type 2 diabetes mellitus) Status: Acute Qualifiers: Diabetes mellitus exterminator insulin use: without exterminator use Diabetes mellitus complication status: with hypoglycemia Diabetes mellitus complication detail: without coma Qualified Codes: E11.649 - Type 2 diabetes mellitus with hypoglycemia without coma (7) HTN (hypertension) Status: Chronic (8) HLD (hyperlipidemia) Status: Chronic (9) Hypothyroidism Status: Chronic (10) Former smoker Status: Chronic TRICE SYED MD Dec 25, 2021 16:46
[2021-12-25] MEDS ORDERED: ENOXAPARIN 40 MG/0.4 ML (LOVENOX) SYR SC SCH (17:00)
[2021-12-25] MEDS ORDERED: ENOXAPARIN 30 MG/0.3 ML (LOVENOX) SYR SC SCH (17:30)
[2021-12-25] MEDS ORDERED: cefTRIAXone 1 GM PRE-MIX 50 ML IV SCH (20:00)
[2021-12-25 20:29] VITALS: BP 117/63
[2021-12-25] MEDS: AtorvaSTATin TABLET 10 MG TABLET PO SCH (21:01)
[2021-12-25] MEDS: meTOprolol TARTRATE 50 MG (LOPRESSOR) TAB PO SCH (21:01)
[2021-12-26] VITALS (7 sets, daily range): BP systolic 94–120; BP diastolic 47–74
[2021-12-26] MEDS: RT-ALBUTEROL/IPRATROPIUM 3 ML (DUONEB) VIAL INH SCH ×6 (02:18→22:24)
[2021-12-26] MEDS: LEVOTHYROXINE 100 MCG (LEVOTHROID) TAB PO SCH (06:26)
[2021-12-26 06:33] LABS: POTASSIUM 4.3 MMOL/L (3.6-5.0)
[2021-12-26 06:34] LABS: CALCIUM 8.4 MG/DL (8.5-10.1)
[2021-12-26 06:37] LABS: BASOPHILS # (AUTO) 0.1 10^3/uL (0.0-0.1); BASOPHILS % (AUTO) 1 % (0-10)
[2021-12-26 06:38] LABS: CREATININE SERUM 1.49 MG/DL (0.60-1.30)
[2021-12-26 06:39] LABS: EOSINOPHILS % (AUTO) 0 % (0-10); HEMATOCRIT 31 % (40-54); HEMOGLOBIN 10.3 g/dL (13.3-17.7); LYMPHOCYTES # (AUTO) 0.3 10^3/uL (1.0-4.0); LYMPHOCYTES % (AUTO) 3 % (12-44); MEAN CORPUSCULAR HEMOGLOBIN 28 pg (25-34); MEAN CORPUSCULAR HGB CONC 33 g/dL (32-36); MEAN CORPUSCULAR VOLUME 84 fL (80-99); MEAN PLATELET VOLUME 10.6 fL (9.0-12.2); MONOCYTES # (AUTO) 0.2 10^3/uL (0.0-1.0); MONOCYTES % (AUTO) 2 % (0-12); NEUTROPHILS % (AUTO) 93 % (42-75); PLATELET COUNT 129 10^3/uL (130-400); WHITE BLOOD COUNT 9.7 10^3/uL (4.3-11.0)
[2021-12-26] MEDS: inSUlin ASPART (NovoLOG) 1 UNIT/0.01 ML (CHARGE PER UNIT) SC SCH ×4 (07:32→20:51)
[2021-12-26] MEDS: D5 LR IV SOLUTION 1,000 ML IV SCH ×2 (08:37→17:23)
[2021-12-26] MEDS: cefTRIAXone 2,000 MG in NS (IVPB) 50 ML IV SCH (08:37)
[2021-12-26] MEDS: ASPIRIN E.C. 81 MG (ECOTRIN) TAB PO SCH (08:39)
[2021-12-26] MEDS: TAMSULOSIN 0.4 MG (FLOMAX) CAP PO SCH (08:40)
[2021-12-26] MEDS: meTOprolol TARTRATE 50 MG (LOPRESSOR) TAB PO SCH ×2 (08:40→21:01)
[2021-12-26] MEDS: ENOXAPARIN 40 MG/0.4 ML (LOVENOX) SYR SC SCH (17:23)
--- NOTE | 2021-12-26 18:12 | Progress Note - Hospitalist ---
Subjective HPI/CC On Admission Date Seen by Provider: Dec 26, 2021 Time Seen by Provider: 09:35 Rene Alfaro is an 81 year old male with PMH HTN, T2DM, HLD, COPD, chronic respiratory failure with hypoxia on 2.5-3 L continuously, who presented with shortness of breath. He had been more lethargic and unresponsive recently. His blood sugar was found to be low. He had a cough with sputum production which is improved. He denies fevers and chills. He denies chest pain. He denies nausea and vomiting. He denies abdominal pain. He denies diarrhea. He had pneumonia once about 15 years ago. He is a former smoker. Subjective/Events-last exam He is feeling about the same. He is still having shortness of breath. He is feeling weak. Objective Exam Vital Signs Vital Signs Date Time Temp Pulse Resp B/P (MAP) Pulse Ox O2 Delivery O2 Flow Rate FiO2 12/26/21 15:30 36.9 90 18 94/47 (63) 98 Nasal Cannula 4.00 12/25/21 01:03 36 Capillary Refill : General Appearance: No Apparent Distress, WD/WN Respiratory: No Respiratory Distress, Wheezing Cardiovascular: Regular Rate, Rhythm, No Murmur Gastrointestinal: Normal Bowel Sounds, Soft Extremity: Normal Inspection, No Pedal Edema Neurologic/Psychiatric: Alert, Normal Mood/Affect Skin: Normal Color, Warm/Dry Results/Procedures Lab Laboratory Tests 12/26/21 06:00 Patient resulted labs reviewed. Imaging: Reviewed Imaging Report Assessment/Plan Assessment and Plan Assess & Plan/Chief Complaint Sepsis due to pneumonia COPD Acute on chronic respiratory failure with hypoxia Continue Rocephin and Azithromycin IV fluids Supplemental oxygen as needed, slighly above baseline 2.5-3 L ADAN Unknown baseline creatinine Improving Continue IV fluids T2DM with hypoglycemia Hold glipizide Sliding scale insulin HTN HLD Continue home meds DVT prophylaxis: Lovenox Diagnosis/Problems Diagnosis/Problems (1) Sepsis due to pneumonia Status: Acute (2) Acute on chronic respiratory failure with hypoxia Status: Acute (3) COPD (chronic obstructive pulmonary disease) Status: Chronic (4) ADAN (acute kidney injury) Status: Acute (5) Elevated procalcitonin Status: Acute (6) T2DM (type 2 diabetes mellitus) Status: Acute Qualifiers: Diabetes mellitus roasterman insulin use: without roasterman use Diabetes mellitus complication status: with hypoglycemia Diabetes mellitus complication detail: without coma Qualified Codes: E11.649 - Type 2 diabetes mellitus with hypoglycemia without coma (7) HTN (hypertension) Status: Chronic (8) HLD (hyperlipidemia) Status: Chronic (9) Hypothyroidism Status: Chronic (10) Former smoker Status: Chronic TRICE SYED MD Dec 26, 2021 18:12
[2021-12-26] MEDS: AtorvaSTATin TABLET 10 MG TABLET PO SCH (21:01)
[2021-12-27] MEDS: RT-ALBUTEROL/IPRATROPIUM 3 ML (DUONEB) VIAL INH SCH ×5 (01:57→19:02)
[2021-12-27 04:10] VITALS: BP 104/63
[2021-12-27] MEDS: D5 LR IV SOLUTION 1,000 ML IV SCH ×2 (04:12→17:27)
[2021-12-27] MEDS: inSUlin ASPART (NovoLOG) 1 UNIT/0.01 ML (CHARGE PER UNIT) SC SCH ×4 (05:32→20:37)
[2021-12-27] MEDS: LEVOTHYROXINE 100 MCG (LEVOTHROID) TAB PO SCH (06:05)
[2021-12-27 06:19] LABS: POTASSIUM 4.7 MMOL/L (3.6-5.0)
[2021-12-27 06:20] LABS: CALCIUM 8.5 MG/DL (8.5-10.1)
[2021-12-27 06:25] LABS: CREATININE SERUM 1.41 MG/DL (0.60-1.30)
[2021-12-27] MEDS: cefTRIAXone 2,000 MG in NS (IVPB) 50 ML IV SCH (08:47)
[2021-12-27] MEDS: TAMSULOSIN 0.4 MG (FLOMAX) CAP PO SCH (08:47)
[2021-12-27] MEDS: ASPIRIN E.C. 81 MG (ECOTRIN) TAB PO SCH (08:47)
[2021-12-27] MEDS: meTOprolol TARTRATE 50 MG (LOPRESSOR) TAB PO SCH ×2 (08:47→20:52)
[2021-12-27 08:50] VITALS: BP 109/62
--- NOTE | 2021-12-27 09:33 | Physical Therapy Evaluation ---
PT Evaluation-General Medical Diagnosis Admission Date Dec 24, 2021 at 23:25 Medical Diagnosis: Sepsis due to Pneumonia Onset Date: Dec 24, 2021 Therapy Diagnosis Therapy Diagnosis: weakness, debility Precautions Precautions/Isolations: Fall Prevention, Standard Precautions Referral Physician: Gasper Reason for Referral: Evaluation/Treatment Medical History Pertinent Medical History: COPD, DM, HTN Current History Patient presented via direct referral due to SOA, and unresponsive from low blood sugar. Social History Home: Single Level Current Living Status: Other Family Entry Into Home: Ramp Prior Prior Level of Function SCALE: Activities may be completed with or without assistive devices. 6-Fbrgfekfmp-esxfxuq completes the activity by him/herself with no assistance from a helper. 5-Set-up or Clean-up Assistance-helper sets up or cleans up; patient completes activity. [place] assists only prior to or following the activity. 4-Supervision or Touching Assistance-helper provides verbal cues and/or miles greg/steadying and/or contact guard assistance as patient completes activity. Assistance may be provided throughout the activity or intermittently. 3-Partial/Moderate Assistance-helper does LESS THAN HALF the effort. [place] lifts, holds or supports trunk or limbs, but provides less than half the effort. 2-Substantial/Maximal Assistance-helper does MORE THAN HALF the effort. [place] lifts or holds trunk or limbs and provides more than half the effort. 9-Wzijolisg-smqzpx does ALL the effort. Patient does none of the effort to complete the activity. Or, the assistance of 2 or more helpers is required for the patient to complete the activity. If activity was not attempted, code reason: 7-Patient Refused. 9-Not Applicable-not attempted and the patient did not perform the activity before the current illness, exacerbation or injury. 10-Not Attempted due to Environmental Limitations-(lack of equipment, weather restraints, etc.). 88-Not Attempted due to Medical Conditions or Safety Concerns. Bed Mobility: 6 Transfers (B,C,W/C): 6 Gait: 6 Indoor Mobility (Ambulation): Independent Prior Devices Use: Walker Walker use PRN PT Evaluation-Current Subjective Patient presents sitting EOB and agrees to participate in physical therapy. Objective Patient Orientation: Person, Place, Situation Attachments: Oxygen (5L NC), IV ROM/Strength ROM Lower Extremities WFL Strength Lower Extremities 4/5 strength bilaterally grossly Integumentary/Posture Bowel Incontinence: No Bladder Incontinence: No Sensory Vision: Functional Hearing: Functional Transfers Sit to Stand (QC): 4 Chair/Cpd-uj-Maxva Xfer(QC): 4 Patient required CGA for sit to stand and transferring to the chair. Gait Does the Patient Walk?: Yes Mode of Locomotion: Walk Anticipated Mode of Locomotion: Walk Walk 10 feet (QC): 4 Walk 50 ft with 2 Turns(QC): 4 Walk 150 ft (QC): 4 Distance: 150' Gait Assistive Device: FWW Comments/Gait Description Patient ambulated 150' with FWW and CGA. Patient had slight unsteadiness at times but was able to recover without assistance. Balance Sitting Static: Normal Sitting Dynamic: Normal Standing Static: Normal Standing Dynamic: Fair Assessment/Needs Patient ambulated for 150' with CGA and FWW. Patient has slight unsteadiness and SOA with ambulation. Patient has productive coughs during therapy session but is unable to get anything to come out. Patient is left post tx in his chair with nurse call and all needs met. Rehab Potential: Fair PT Lead Worker Of Housekeeping And Laundry Goals Alf Goals PT Lead Worker Of Housekeeping And Laundry Goals Time Frame: Jan 05, 2022 Roll Left & Right (QC): 6 Sit to Lying (QC): 6 Lying-Sitting on Side/Bed(QC): 6 Sit to Stand (QC): 6 Chair/Iki-pg-Abuob Xfer(QC): 6 Toilet Transfer (QC): 6 Does the Patient Walk: Yes Walk 10 feet (QC): 6 Walk 50ft with 2 Turns (QC): 6 Walk 150 ft (QC): 6 PT Plan Problem List Problem List: Activity Tolerance, Functional Strength, Safety, Balance, Gait, Transfer, Bed Mobility, ROM Treatment/Plan Treatment Plan: Continue Plan of Care Treatment Plan: Bed Mobility, Education, Functional Activity Toney, Functional Strength, Gait, Safety, Therapeutic Exercise, Transfers Treatment Duration: Jan 05, 2022 Frequency: 6 times per week Estimated Hrs Per Day: .25 hour per day Safety Risks/Education Patient Education: Gait Training, Safety Issues Teaching Recipient: Patient Teaching Methods: Discussion Time/GCodes Time In: 900 Time Out: 915 Total Billed Treatment Time: 15 Total Billed Treatment 1 Visit EVMod 15 min MACHELLE FRANCO PT Dec 27, 2021 09:33
[2021-12-27] MEDS ORDERED: CEFD300C3 PO (10:16)
--- NOTE | 2021-12-27 11:02 | Occupational Therapy Eval ---
OT Evaluation-General/PLF Medical Diagnosis Admission Date Dec 24, 2021 at 23:25 Medical Diagnosis: Sepsis due to Pneumonia Onset Date: Dec 24, 2021 Therapy Diagnosis Therapy Diagnosis: decreased ADL status Precautions Precautions/Isolations: Fall Prevention, Standard Precautions Referral Physician: Gasper Alvarez Reason: Evaluation/Treatment Medical History Pertinent Medical History: COPD, DM, HTN Additional Medical History HTN, DM, HLD, COPD, chronic respiratory failure with hypoxia on 2.5-3L O2 at baseline Current History presents with SOB, more lethargic and unresponsive. found to have low blood sugar Social History Home: Single Level Current Living Status: Other Family Entry Into Home: Ramp ADL-Prior Level of Function SCALE: Activities may be completed with or without assistive devices. 8-Ymhvqrzbiz-caaclpb completes the activity by him/herself with no assistance from a helper. 5-Set-up or Clean-up Assistance-helper sets up or cleans up; patient completes activity. [place] assists only prior to or following the activity. 4-Supervision or Touching Assistance-helper provides verbal cues and/or touching/steadying and/or contact guard assistance as patient completes activity. Assistance may be provided throughout the activity or intermittently. 3-Partial/Moderate Assistance-helper does LESS THAN HALF the effort. [place] lifts, holds or supports trunk or limbs, but provides less than half the effort. 2-Substantial/Maximal Assistance-helper does MORE THAN HALF the effort. [place] lifts or holds trunk or limbs and provides more than half the effort. 5-Qxcxlyaaa-nfobye does ALL the effort. Patient does none of the effort to complete the activity. Or, the assistance of 2 or more helpers is required for the patient to complete the activity. If activity was not attempted, code reason: 7-Patient Refused. 9-Not Applicable-not attempted and the patient did not perform the activity before the current illness, exacerbation or injury. 10-Not Attempted due to Environmental Limitations-(lack of equipment, weather restraints, etc.). 88-Not Attempted due to Medical Conditions or Safety Concerns. ADL PLOF Comments Pt reports IND with ADLs and functional mobility at PLOF, using FWW as needed. Self Care: Independent Functional Cognition: Independent OT Current Status Subjective Pt up in recliner, required moderate encouragement to participate in OT session. Mental Status/Objective Patient Orientation: Person, Place, Situation Attachments: Oxygen Current Upper Extremity ROM WFL, BUE shoulder flexion to approx 150 degrees, WFL at elbows (some deformities noted at elbows, pt indicates he has fractured bilateral elbows 7 times each) Upper Extremity Strength grossly 3+/5 ADL-Treatment Eating (QC): 6 (Per pt and nursing report.) Shower/Bathe Self (QC): 7 Lower Body Dressing (QC): 7 On/Off Footwear (QC): 3 (Pt able to doff bilateral gripper socks, min A to don.) Toileting Hygiene (QC): 7 Other Treatments Pt in recliner, agreeable to OT evaluation. Pt provided information about PLOF and home set up and participated in UE screen with some encouragement. Pt initially declined ADLs, OT informed pt of purpose and benefit of OT, pt then agreed. Pt able to doff gripper socks with SBA. Moderate encouragement required to don gripper socks, pt required min A with donning. Pt refused other ADLs, and refused UE exercises. Pt requests to return to bed, but with some encouragement agreeable to staying up in recliner throughout lunch. OT assisted with positioning pt to comfort. Post tx, pt in bed, call light in reach and all needs met. Education OT Patient Education: Correct positioning, Energy conservation, Exercise program, Modified ADL techniques, Progress toward Goal/Update tx plan, Purpose of tx/functional activities, Rehab process Teaching Recipient: Patient Teaching Methods: Discussion Response to Teaching: Verbalize Understanding OT Jinriksha Driver Goals Group Home Goals Time Frame: Jan 04, 2022 Eating (QC): 6 Oral Hygiene (QC): 6 Toileting Hygiene (QC): 6 Shower/Bathe Self (QC): 4 Upper Body Dressing (QC): 5 Lower Body Dressing (QC): 4 On/Off Footwear (QC): 4 Additional Goals: 1-Demonstrate ADL Tasks, 2-Verbalize Understanding, 3- ImproveStrength/Toney 1=Demonstrate adherence to instructed precautions during ADL tasks. 2=Patient will verbalize/demonstrate understanding of assistive devices/modifications for ADL. 3=Patient will improve strength/tolerance for activity to enable patient to perform ADL's. OT Education/Plan Problem List/Assessment Assessment: Decreased Activ Tolerance, Decreased UE Strength, Impaired Funct Balance, Impaired I ADL's, Impaired Self-Care Skills Discharge Recommendations Plan/Recommendations: Continue POC Treatment Plan/Plan of Care Patient would benefit from OT for education, treatment and training to promote independence in ADL's, mobility, safety and/or upper extremity function for ADL's. Plan of Care: ADL Retraining, Functional Mobility, UE Funct Exercise/Act Treatment Duration: Jan 04, 2022 Frequency: 3 times per week (3-5 times per week) Estimated Hrs Per Day: .25 hour per day Rehab Potential: Fair Time/GCodes Start Time: 10:34 Stop Time: 10:46 Total Time Billed (hr/min): 12 Billed Treatment Time 1, JOSEFINA OJEDA OT Dec 27, 2021 11:02
[2021-12-27 11:53] VITALS: BP 112/76
--- NOTE | 2021-12-27 12:04 | Discharge Summary ---
Discharge Summary Hospital Course Was the Problem List Reviewed?: Yes Problems/Dx: (1) Sepsis due to pneumonia Status: Acute (2) Acute on chronic respiratory failure with hypoxia Status: Acute (3) COPD (chronic obstructive pulmonary disease) Status: Chronic (4) ADAN (acute kidney injury) Status: Acute (5) Elevated procalcitonin Status: Acute (6) T2DM (type 2 diabetes mellitus) Status: Acute Qualifiers: Qualified Codes: E11.649 - Type 2 diabetes mellitus with hypoglycemia without coma (7) HTN (hypertension) Status: Chronic (8) HLD (hyperlipidemia) Status: Chronic (9) Hypothyroidism Status: Chronic (10) Former smoker Status: Chronic Hospital Course Date of Admission: Dec 24, 2021 at 23:25 Admission Diagnosis : Sepsis due to pneumonia Family Physician/Provider: AnnaLocal Physician Date of Discharge: 12/27/21 Discharge Diagnosis: Sepsis due to pneumonia Hospital Course: Rene Alfaro is an 81 year old male who was admitted with sepsis due to pneumonia. He was started on IV antibiotics and improved. His oxygen requirement remained at his baseline. His course was complicated by ADAN on CKD which improved with fluids. He was a bit debilitated and was offered home health but he refused. He also had issues with hypoglycemia. His glipizide was discontinued. He was discharged home in stable condition. He should follow up with his PCP. Labs and Pending Lab Test: Laboratory Tests 12/26/21 16:08: Glucometer 94 12/26/21 20:02: Glucometer 126H 12/27/21 05:10: Glucometer 134H 12/27/21 05:42: Sodium Level 135, Potassium Level 4.7, Chloride Level 105, Carbon Dioxide Level 22, Anion Gap 8, Blood Urea Nitrogen 55H, Creatinine 1.41H, Estimat Glomerular Filtration Rate 50, BUN/Creatinine Ratio 39, Glucose Level 115H, Calcium Level 8.5, Procalcitonin 12.61H 12/27/21 10:28: Glucometer 102 Microbiology 12/25/21 Gram Stain - Final, Resulted 12/25/21 Sputum Culture - Preliminary, Resulted Usual upper respiratory vince Home Meds Active Cefdinir 300 Mg Capsule 300 Mg PO BID 7 Days Reported Glipizide 5 Mg Tablet 2.5 Mg PO BIDAC TAKES OF A 5MG Magnesium (Magnesium Oxide) 400 Mg Tablet 400 Mg PO DAILY Vitamin D3 (Cholecalciferol (Vitamin D3)) 25 Mcg Capsule 25 Mcg PO DAILY Proair Hfa (Albuterol Sulfate) 1 Puff Puff 2 Puff IH QID PRN Flomax (Tamsulosin HCl) 0.4 Mg Cap 0.4 Mg PO DAILY Albuterol Sulfate 2.5 Mg/0.5 Ml Vial.neb 2.5 Mg INH TID PRN Aspirin EC (Aspirin) 81 Mg Tablet.dr 81 Mg PO DAILY Stiolto Respimat Inhal [place] (Tiotropium Br/Olodaterol HCl) 4 Gm Mist.inhal 2 Puff IH DAILY Metoprolol Tartrate 50 Mg Tablet 25 Mg PO BID TAKES OF A 50MG Atorvastatin Calcium 20 Mg Tablet 10 Mg PO HS TAKES OF A 20MG Levothyroxine Sodium 100 Mcg Tablet 100 Mcg PO DAILY Assessment/Pt Instructions See instructions Discharge Planning: <30 minutes discharge planning Discharge Instructions Discharge Diet: Low Sodium Diet Activity as Tolerated: Yes Discharge Physical Examination Vital Signs Vital Signs Date Time Temp Pulse Resp B/P (MAP) Pulse Ox O2 Delivery O2 Flow Rate FiO2 12/27/21 11:53 36.2 70 18 112/76 (88) 96 Nasal Cannula 4.00 12/25/21 01:03 36 General Appearance: No Apparent Distress, Chronically ill Respiratory: No Respiratory Distress, Wheezing Cardiovascular: Regular Rate, Rhythm, No Edema, No Murmur Gastrointestinal: Normal Bowel Sounds, Non Tender, Soft Extremity: Normal Inspection, No Pedal Edema Skin: Normal Color, Warm/Dry Neurologic/Psychiatric: Alert, No Motor/Sensory Deficits Allergies: Coded Allergies: sulfamethoxazole (Verified Allergy, Unknown, 12/24/21) trazodone (Verified Allergy, Unknown, 12/24/21) trimethoprim (Verified Allergy, Unknown, 12/24/21) Discharge Summary Date of Admission Dec 24, 2021 at 23:25 Date of Discharge Discharge Date: Dec 27, 2021 Discharge Time: 12:01 Admission Diagnosis Sepsis due to pneumonia Discharge Diagnosis Sepsis due to pneumonia COPD Acute on chronic respiratory failure with hypoxia ADAN T2DM with hypoglycemia (1) Sepsis due to pneumonia Status: Acute (2) Acute on chronic respiratory failure with hypoxia Status: Acute (3) COPD (chronic obstructive pulmonary disease) Status: Chronic (4) ADAN (acute kidney injury) Status: Acute (5) Elevated procalcitonin Status: Acute (6) T2DM (type 2 diabetes mellitus) Status: Acute Qualifiers: Qualified Codes: E11.649 - Type 2 diabetes mellitus with hypoglycemia without coma (7) HTN (hypertension) Status: Chronic (8) HLD (hyperlipidemia) Status: Chronic (9) Hypothyroidism Status: Chronic (10) Former smoker Status: Chronic TRICE SYED MD Dec 27, 2021 12:04
[2021-12-27] MEDS ORDERED: GLIP5TAB13 PO (12:05)
[2021-12-27 16:10] VITALS: BP 112/71
[2021-12-27] MEDS: ENOXAPARIN 40 MG/0.4 ML (LOVENOX) SYR SC SCH (17:27)
[2021-12-27 19:20] VITALS: BP 113/68
[2021-12-27] MEDS: AtorvaSTATin TABLET 10 MG TABLET PO SCH (20:52)
[2021-12-27] MEDS ORDERED: AZITHROMYCIN 250 MG TAB (ZITHROMAX) PO SCH (21:00)
[2021-12-28] VITALS: BP 90/56
[2021-12-28] MEDS: RT-ALBUTEROL/IPRATROPIUM 3 ML (DUONEB) VIAL INH SCH ×4 (00:27→10:54)
[2021-12-28 03:55] VITALS: BP 98/58
[2021-12-28] MEDS: inSUlin ASPART (NovoLOG) 1 UNIT/0.01 ML (CHARGE PER UNIT) SC SCH (06:00)
[2021-12-28] MEDS: LEVOTHYROXINE 100 MCG (LEVOTHROID) TAB PO SCH (07:32)
[2021-12-28 08:00] VITALS: BP 108/67
[2021-12-28] MEDS: ASPIRIN E.C. 81 MG (ECOTRIN) TAB PO SCH (09:01)
[2021-12-28] MEDS: cefTRIAXone 2,000 MG in NS (IVPB) 50 ML IV SCH (09:01)
[2021-12-28] MEDS: meTOprolol TARTRATE 50 MG (LOPRESSOR) TAB PO SCH (09:01)
[2021-12-28] MEDS: TAMSULOSIN 0.4 MG (FLOMAX) CAP PO SCH (09:01)
--- NOTE | 2021-12-28 10:49 | Physical Therapy Daily Note ---
PT Daily Note-Current Subjective Patient presents laying in bed and agrees to walk around his room with therapy. Mental Status Patient Orientation: Person, Situation Attachments: Oxygen (5L NC) Transfers SCALE: Activities may be completed with or without assistive devices. 3-Svkqxxdawu-kvjwbto completes the activity by him/herself with no assistance from a helper. 5-Set-up or Clean-up Assistance-helper sets up or cleans up; patient completes activity. [place] assists only prior to or following the activity. 4-Supervision or Touching Assistance-helper provides verbal cues and/or touching/steadying and/or contact guard assistance as patient completes activity. Assistance may be provided throughout the activity or intermittently. 3-Partial/Moderate Assistance-helper does LESS THAN HALF the effort. [place] lifts, holds or supports trunk or limbs, but provides less than half the effort. 2-Substantial/Maximal Assistance-helper does MORE THAN HALF the effort. [place] lifts or holds trunk or limbs and provides more than half the effort. 0-Mpxldaobe-wqaoea does ALL the effort. Patient does none of the effort to complete the activity. Or, the assistance of 2 or more helpers is required for the patient to complete the activity. If activity was not attempted, code reason: 7-Patient Refused. 9-Not Applicable-not attempted and the patient did not perform the activity before the current illness, exacerbation or injury. 10-Not Attempted due to Environmental Limitations-(lack of equipment, weather restraints, etc.). 88-Not Attempted due to Medical Conditions or Safety Concerns. Lying to Sitting/Side of Bed(Q: 4 Sit to Stand (QC): 4 Chair/Dds-qb-Pokly Xfer(QC): 4 Patient required SBA for all transfers. Gait Training Does the Patient Walk?: Yes Distance: 50' Walk 10 feet (QC): 4 Gait Assistive Device: FWW Patient required SBA for ambulation within his room. Assessment Patient performed bed mobility and ambulation during therapy. Patient reported SOA after 50' of walking and reported he did not want to walk any longer. Patient left post tx sitting in his chair with phone, nurse call, and all needs met. PT Naval Inspector Goals Naval Inspector Goals PT Prison Goals Time Frame: Jan 05, 2022 Roll Left & Right (QC): 6 Sit to Lying (QC): 6 Lying-Sitting on Side/Bed(QC): 6 Sit to Stand (QC): 6 Chair/Noc-uz-Rdcol Xfer(QC): 6 Toilet Transfer (QC): 6 Does the Patient Walk: Yes Walk 10 feet (QC): 6 Walk 50ft with 2 Turns (QC): 6 Walk 150 ft (QC): 6 PT Plan Problem List Problem List: Activity Tolerance, Functional Strength, Safety, Balance, Gait, Transfer, Bed Mobility, ROM Treatment/Plan Treatment Plan: Continue Plan of Care Treatment Plan: Bed Mobility, Education, Functional Activity Toney, Functional Strength, Gait, Safety, Therapeutic Exercise, Transfers Treatment Duration: Jan 05, 2022 Frequency: 6 times per week Estimated Hrs Per Day: .25 hour per day Time/GCodes Time In: 956 Time Out: 1004 Total Billed Treatment Time: 8 Total Billed Treatment 1 Visit FA 8 min MACHELLE FRANCO PT Dec 28, 2021 10:49
[2021-12-28 12:00] VITALS: BP 101/60
[2021-12-28 13:30] VITALS: BP 101/60
== END 2021-12-28 13:30 | disposition home or self-care (01) | DRG 871 ==
LOC: 4TH 23:25
PROVIDERS: ADMIT Internal Medicine; ATTEND Internal Medicine
DX: A41.9 Sepsis, unspecified organism (principal); J18.9 Pneumonia, unspecified organism; J96.21 Acute and chronic respiratory failure with hypoxia; J44.0 Chronic obstructive pulmonary disease with (acute) lower respiratory infection; N17.9 Acute kidney failure, unspecified; E78.5 Hyperlipidemia, unspecified; E03.9 Hypothyroidism, unspecified; Z87.891 Personal history of nicotine dependence; E11.649 Type 2 diabetes mellitus with hypoglycemia without coma; I10 Essential (primary) hypertension
CPT/HCPCS: 36415; 71045; 80048; 82947; 83036; 84145; 85007; 85025; 85027; 87070; 87077; 87184; 87205; 94640; 94760